=== PATIENT | female | born 1940 | race African-American/Black ===

== ENCOUNTER 2017-10-31 10:50 | Inpatient (IN) | payer MEDICAID ==
[~2017-10-31] VITALS: Ht 162.6 cm; Wt 99.8 kg
[~2017-10-31 10:50] MED LIST: CARVEDILOL25 MG ORAL; COUMADIN6 MG ORAL; DIOVAN HCT 3201 EAC1 ORAL; FUROSEMIDE20 M1 ORAL; LATANOPROST2.5 ML BOTH EYES; METFORMIN HCL1000 M1 ORAL; PROAIR HFA8.5 GM INH; SIMVASTATIN40 MG ORAL
[2017-10-31] MEDS ORDERED: SIMVASTATIN40 MG ORAL (11:02)
[2017-10-31] MEDS ORDERED: LOSARTAN POTASS50 MG ORAL (11:02)
[2017-10-31] MEDS ORDERED: SPIRONOLACTONE1 EACH ORAL (11:03)
--- NOTE | 2017-10-31 11:37 | Emergency Room Report ---
History of Present Illness General Chief Complaint: Upper Respiratory Illness Source: Patient, Family Member Present Illness HPI 76-year-old female with history of asthma, CHF, and known atrial fib presents with one month of intermittent shortness of breath. Went to PMD earlier in the month, was given an albuterol inhaler nebulizer machine for home. She endorses progressive shortness of breath especially when ambulating. Denies cough, fever chills or chest pain. Patient on anticoagulation and carbetalol for rate control Allergies: Coded Allergies: No Known Allergies (Unverified , 05/24/12) Patient History Past Medical History: other - see HPI Past Surgical History: none Pertinent Family History: none Social History: Denies: smoking, alcohol use, drug use Now: No Immunizations: UTD Reviewed Nursing Documentation: PMH: Agreed, PSxH: Agreed Nursing Documentation-PMH Hx Cardiac Problems: Yes - CHF Hx Hypertension: Yes Hx Asthma: Yes Hx Diabetes: Yes Hx Cancer: No Hx Gastrointestinal Problems: No Hx Neurological Problems: No Review of Systems All Other Systems: negative except mentioned in HPI Physical Exam Vital Signs Date Time Temp Pulse Resp B/P (MAP) Pulse Ox O2 Delivery O2 Flow Rate FiO2 10/31/17 10:58 97.7 126 20 93/58 100 Room Air Sp02 EP Interpretation: reviewed, normal General Appearance: normal inspection, well appearing, no apparent distress, alert, GCS 15, non-toxic, obese Head: normocephalic, atraumatic Eyes: bilateral eye PERRL, bilateral eye EOMI ENT: normal ENT inspection, hearing grossly normal, normal pharynx, no angioedema, normal voice, TMs + canals normal, uvula midline, moist mucus membranes Neck: normal inspection, full range of motion, supple, thyroid normal, no meningismus, no bony tend Respiratory: normal inspection, lungs clear, normal breath sounds, no rhonchi, no respiratory distress, no retraction, no accessory muscle use, speaking full sentences, wheezing Cardiovascular #1: regular rate, rhythm, no edema, no JVD, normal capillary refill Gastrointestinal: normal inspection, normal bowel sounds, non tender, soft, no mass, no peritonitis, non-distended, no guarding, no hernia, no pulsatile mass Genitourinary: no CVA tenderness Musculoskeletal: normal inspection, back normal, normal range of motion, no calf tenderness, pelvis stable, Iram's Sign negative Neurologic: normal inspection, alert, oriented x3, responsive, job developer for deaf adults III-XII nml as tested, motor strength/tone normal, cerebellar normal, normal gait, speech normal Psychiatric: normal inspection, judgement/insight normal, mood/affect normal, no suicidal/homicidal ideation, no delusions Skin: normal inspection, normal color, no rash Lymphatic: normal inspection, no adenopathy Medical Decision Making Diagnostic Impression: Primary Impression: Dyspnea Qualified Codes: R06.00 - Dyspnea, unspecified Additional Impressions: Asthma exacerbation Qualified Codes: J45.21 - Mild intermittent asthma with (acute) exacerbation Atrial fibrillation with controlled ventricular rate Hyperkalemia TIFFANIE (acute kidney injury) CKD (chronic kidney disease) Qualified Codes: N18.9 - Chronic kidney disease, unspecified ER Course 68-year-old female with multiple comorbidities presents with one month of shortness of breath. Found to be in acute asthma exacerbation. Was treated with levalbuterol as HR already elevated d/t poorly controlled atrial fib Patient borderline hypotensive, cannot be given her dose of carvedilol Chest x-ray does not show pneumonia or other acute pathology. Patient was treated also with mag and steroids Labs significant for hyperkalemia 5.5, however she also has elevated creatinine , TIFFANIE, on CKD Hyperkalemia was treated with let albuterol, and IV fluid, and Kayexalate She was not given insulin and glucose d/t low glucose level Endorse to Dr. Stewart as unassigned patient/panel admit Tele bed 1230pm EKG Diagnostic Results Rate: tachycardiac Rhythm: other - Atrial fib ST Segments: no acute changes ASA given to the pt in ED: No Rhythm Strip Diag. Results EP Interpretation: yes Rate: 110 Rhythm: no PVC's, no ectopy Chest X-Ray Diagnostic Results Chest X-Ray Diagnostic Results : Chest X-Ray Ordered: Yes # of Views/Limited/Complete: 1 View Indication: Shortness of Breath EP Interpretation: Yes PA Xray: Interpretation reviewed Interpretation: no consolidation, no effusion, no pneumothorax, no acute cardiopulmonary disease Impression: No acute disease Electronically Signed by: Dr Stephy Carlos MD Last Vital Signs Date Time Temp Pulse Resp B/P (MAP) Pulse Ox O2 Delivery O2 Flow Rate FiO2 10/31/17 11:20 22 10/31/17 10:58 97.7 126 93/58 100 Room Air Status: improved Disposition: ADMITTED INPATIENT Condition: Serious Referrals: NON PHYSICIAN (PCP) STEPHY CARLOS M.D. Oct 31, 2017 11:37
[2017-10-31] MEDS ORDERED: Levalbuterol Inh UD 1.25mg/0.5ml HHN ONE ×2 (11:45→15:30)
--- NOTE | 2017-10-31 12:12 | Diagnostic Imaging Report ---
Indication: Reason For Exam: SOB Technique: One view of the chest Comparison: 02/16/2014 Findings: On the lateral spaces are clear. The heart is enlarged. No significant change Impression: No acute process
[2017-10-31 12:13] LABS: BASOPHILS % (AUTO) 0.6 % (0.0-2.0); EOSINOPHILS % (AUTO) 2.1 % (0.0-3.0); HEMATOCRIT 33.9 % (37.0-47.0); HEMOGLOBIN 10.9 G/DL (12.0-16.0); LYMPHOCYTES % (AUTO) 17.3 % (20.0-45.0); MEAN CORPUSCULAR VOLUME 90 FL (80-99); MONOCYTES % (AUTO) 9.5 % (1.0-10.0); NEUTROPHILS % (AUTO) 70.6 % (45.0-75.0); PLATELET COUNT 108 K/UL (150-450); RED BLOOD COUNT 3.75 M/UL (4.20-5.40); WHITE BLOOD COUNT 6.1 K/UL (4.8-10.8)
[2017-10-31 12:30] VITALS: BP 104/74
[2017-10-31 12:30] LABS: ANION GAP 11 mmol/L (5-15); BLOOD UREA NITROGEN 53 mg/dL (7-18); CALCIUM 8.1 MG/DL (8.5-10.1); CARBON DIOXIDE 20 MMOL/L (21-32); CHLORIDE 112 MMOL/L (98-107); CREATININE 2.5 MG/DL (0.55-1.30); POTASSIUM 5.5 MMOL/L (3.5-5.1); SODIUM 143 MMOL/L (136-145)
[2017-10-31] MEDS ORDERED: Sodium Polystyrene Sulfonate 15gm Powder ORAL ONE (12:45)
[2017-10-31] MEDS ORDERED: Calcium Gluconate 1gm/10ml vial IVP ONE (12:45)
[2017-10-31 12:58] LABS: ALANINE AMINOTRANSFERASE 17 U/L (12-78); ALBUMIN 3.5 G/DL (3.4-5.0); ALKALINE PHOSPHATASE 73 U/L (46-116); ASPARTATE AMINO TRANSFERASE 18 U/L (15-37); BILIRUBIN,TOTAL 1.1 MG/DL (0.2-1.0); CKMB 1.1 NG/ML (0.0-3.6); CREATINE KINASE 64 U/L (26-308)
[2017-10-31 13:52] LABS: BILIRUBIN,DIRECT 0.4 MG/DL (0.0-0.3)
[2017-10-31 14:46] VITALS: BP 107/77
[2017-10-31] MEDS ORDERED: Nitroglycerin Subl 0.4mg tab SL PRN (16:30)
[2017-10-31] MEDS ORDERED: Warfarin Sodium 3mg ORAL SCH (17:00)
[2017-10-31] MEDS ORDERED: Albuterol/Ipratropium 3ml neb HHN PRN (17:00)
[2017-10-31] MEDS: NovoLOG Insulin Flexpen SUBQ SCH ×2 (17:00→21:00)
--- NOTE | 2017-10-31 17:03 | Nephrology Progress Note ---
Assessment/Plan Problem List: (1) Diabetes (2) HLD (hyperlipidemia) (3) Atrial fibrillation with RVR (4) CHF exacerbation (5) Hyperkalemia (6) CKD (chronic kidney disease) (7) Dyspnea (8) Asthma exacerbation Plan H&P dictated # [id number] Subjective Constitutional: Denies: no symptoms, chills, diaphoresis, fever, malaise, weakness, other HEENT: Denies: no symptoms, eye pain, blurred vision, tearing, double vision, ear pain, ear discharge, nose pain, nose congestion, throat pain, throat swelling, mouth pain, mouth swelling, other Genitourinary: Denies: no symptoms, burning, discharge, frequency, flank pain, hematuria, incontinence, pain, urgency, other Neurologic/Psychiatric: Denies: no symptoms, anxiety, depressed, emotional problems, headache, numbness, paresthesia, pre-existing deficit, seizure, tingling, tremors, weakness, other Subjective In bed, in no distress Objective Objective Last 24 Hour Vital Signs Date Time Temp Pulse Resp B/P (MAP) Pulse Ox O2 Delivery O2 Flow Rate FiO2 10/31/17 16:09 139 22 98 Room Air 10/31/17 15:46 130 21 119/103 100 Room Air 10/31/17 14:46 97.7 117 20 107/77 99 Room Air 10/31/17 13:09 131 15 100 Room Air 10/31/17 13:06 130 16 96 Room Air 10/31/17 13:05 127 14 Room Air 10/31/17 12:30 97.6 110 16 104/74 99 Room Air 10/31/17 11:45 133 105/74 10/31/17 11:20 22 10/31/17 10:58 97.7 126 20 93/58 100 Room Air Laboratory Tests 10/31/17 12:00: White Blood Count 6.1, Red Blood Count 3.75L, Hemoglobin 10.9L, Hematocrit 33.9L , Mean Corpuscular Volume 90, Mean Corpuscular Hemoglobin 29.1, Mean Corpuscular Hemoglobin Concent 32.3, Red Cell Distribution Width 15.0H, Platelet Count 108L, Mean Platelet Volume 10.3H, Neutrophils (%) (Auto) 70.6, Lymphocytes (%) (Auto) 17.3L, Monocytes (%) (Auto) 9.5, Eosinophils (%) (Auto) 2.1, Basophils (%) (Auto) 0.6, Sodium Level 143, Potassium Level 5.5H, Chloride Level 112H, Carbon Dioxide Level 20L, Anion Gap 11, Blood Urea Nitrogen 53H, Creatinine 2.5H, Estimat Glomerular Filtration Rate , Glucose Level 106, Calcium Level 8.1L, Total Bilirubin 1.1H, Direct Bilirubin 0.4H, Aspartate Amino Transf (AST/SGOT) 18, Alanine Aminotransferase (ALT/SGPT) 17, Alkaline Phosphatase 73, Total Creatine Kinase 64, Creatine Kinase MB 1.1, Creatine Kinase MB Relative Index 1.7, Troponin I 0.097H, Pro-B-Type Natriuretic Peptide 7126H, Total Protein 7.0, Albumin 3.5, Globulin 3.5, Albumin/Globulin Ratio 1.0 Height (Feet): 5 Height (Inches): 4.00 Weight (Pounds): 240 General Appearance: no apparent distress, alert EENT: normal ENT inspection Neck: normal alignment, supple Cardiovascular: other - AFIB Respiratory/Chest: decreased breath sounds Abdomen: non tender, soft Extremities: non-tender, moderate edema Neurologic: alert, oriented x 3, responsive, normal mood/affect Merline Thornton N.P. Oct 31, 2017 17:03
[2017-10-31] MEDS ORDERED: Enoxaparin 40mg Inj SUBQ SCH (17:30)
[2017-10-31] MEDS ORDERED: Furosemide 40mg tab ORAL ONE (18:00)
--- NOTE | 2017-10-31 18:15 | HX and Phyl Repo 2 Sig ---
DATE OF ADMISSION: 10/31/2017 INTERNAL MEDICINE HISTORY AND PHYSICAL HISTORY OF PRESENT ILLNESS: The patient is a 76-year-old female with a past medical history significant for asthma, hypertension, chronic atrial fibrillation, chronic kidney disease, congestive heart failure, diabetes, hyperlipidemia, and anemia, who presented to the emergency room with worsening shortness of breath. According to the patient, she has been getting short of breath for a while now about three months and recently it has worsened, which prompted her visit to the emergency room. She says that she gets really short of breath when she tries to climb the stairs to her bedroom and also sleeps with about four pillows. She denies chest pain. No nausea. No vomiting. No abdominal pain. Denies any headache or lightheadedness. She has been on the bed at this time in no apparent distress. She stated that she was wheezing earlier, but that she feels better at this time. Denies fever or chills. Also in the ED, the patient was noted to have elevated troponin, hyperkalemia, as well as elevated BUN and creatinine. PAST MEDICAL HISTORY: Significant for congestive heart failure, asthma, atrial fibrillation, chronic kidney disease, diabetes, hyperlipidemia, and anemia. MEDICATIONS: Home medications include albuterol inhaler 2 puffs q.6 hours p.r.n., carvedilol 25 mg p.o. b.i.d., furosemide 80 mg p.o. daily, Xalatan eyedrops nightly, losartan 100 mg p.o. daily, metformin 1000 mg p.o. daily, simvastatin 40 mg p.o. nightly, Diovan 320/25 mg daily, spironolactone 25 mg p.o. daily, and Coumadin 4 mg p.o. daily. ALLERGIES: She has no known allergies. SOCIAL HISTORY: She lives at home with her daughter. Denies any alcohol use. No smoking and no use of illicit drugs. FAMILY HISTORY: Noncontributory. REVIEW OF SYSTEMS: A full 12-point review of system was reviewed with the patient and positives as mentioned in the history of present illness. PHYSICAL EXAMINATION: GENERAL: This is a 76-year-old female, lying in bed, in no apparent distress. VITAL SIGNS: Blood pressure 119/103, heart rate is 130, respiratory rate is 21, temperature is 97.7, and O2 saturation is 98% on room air. HEENT: Head is normocephalic and atraumatic. Pupils are equal, round, and reactive to light and accommodation. NECK: Supple. No JVD noted. LUNGS: Diminished bilaterally. CARDIOVASCULAR: Irregular. The patient is in atrial fibrillation. ABDOMEN: Soft. Mildly distended. Nontender. Positive bowel sounds in all four quadrants. EXTREMITIES: Bilateral lower extremity edema, 1+ noted. Also some discoloration noted on bilateral lower feet. NEUROLOGIC: The patient is awake, alert, and oriented x3 with no focal deficits. LABORATORY DATA: CBC, white count is 6.1, hemoglobin 10.9, hematocrit 33.9, and a platelet count of 108,000. BMP, sodium is 143, potassium 5.5, chloride 112, bicarb 20, BUN 53, creatinine 2.5, and blood glucose 106. Calcium is 8.1. Total bilirubin 1.1 and direct bilirubin 0.4. Troponin 0.097. ProBNP 7126. RADIOLOGIC FINDINGS: Chest x-ray findings, the lateral are clear. The heart size is enlarged. No significant change. Impression, no acute process. ASSESSMENT: 1. Asthma exacerbation. 2. Congestive heart failure. 3. Atrial fibrillation. 4. Hyperkalemia. 5. Acute renal failure on chronic kidney disease. 6. Elevated troponin. 7. Diabetes. 8. Hyperlipidemia. PLAN: Cardiology and Pulmonology consults have been requested. We will obtain a renal ultrasound. We will monitor electrolytes and correct as needed. We will continue home medications except metformin. We will monitor renal functions. We will continue warfarin as well. We will continue DuoNeb q.4 hours scheduled and q.2 hours p.r.n. shortness of breath. Renally dose medications and avoid nephrotoxins. We will monitor vitals. Strict intake and output. Pain management as needed. We will monitor the patient's overall response to treatment. Juan Donohue M.D. Merline Egwu DR: DAGMAR JOB#: [id number] CC: DARIUS
[2017-10-31] MEDS: Albuterol/Ipratropium 3ml neb HHN SCH ×2 (19:00→23:00)
[2017-10-31 19:07] LABS: INR 5.2 (0.9-1.1)
--- NOTE | 2017-10-31 19:12 | Cardiac Electrophysiology PN ---
Subjective Subjective [id number]. Fib rate 130s Objective Last 24 Hour Vital Signs Date Time Temp Pulse Resp B/P (MAP) Pulse Ox O2 Delivery O2 Flow Rate FiO2 10/31/17 16:09 139 22 98 Room Air 10/31/17 16:00 108 10/31/17 15:46 130 21 119/103 100 Room Air 10/31/17 14:46 97.7 117 20 107/77 99 Room Air 10/31/17 13:09 131 15 100 Room Air 10/31/17 13:06 130 16 96 Room Air 10/31/17 13:05 127 14 Room Air 10/31/17 12:30 97.6 110 16 104/74 99 Room Air 10/31/17 11:45 133 105/74 10/31/17 11:20 22 10/31/17 10:58 97.7 126 20 93/58 100 Room Air Laboratory Tests Test 10/31/17 12:00 10/31/17 18:05 White Blood Count 6.1 K/UL (4.8-10.8) Red Blood Count 3.75 M/UL (4.20-5.40) L Hemoglobin 10.9 G/DL (12.0-16.0) L Hematocrit 33.9 % (37.0-47.0) L Mean Corpuscular Volume 90 FL (80-99) Mean Corpuscular Hemoglobin 29.1 PG (27.0-31.0) Mean Corpuscular Hemoglobin Concent 32.3 G/DL (32.0-36.0) Red Cell Distribution Width 15.0 % (11.6-14.8) H Platelet Count 108 K/UL (150-450) L Mean Platelet Volume 10.3 FL (6.5-10.1) H Neutrophils (%) (Auto) 70.6 % (45.0-75.0) Lymphocytes (%) (Auto) 17.3 % (20.0-45.0) L Monocytes (%) (Auto) 9.5 % (1.0-10.0) Eosinophils (%) (Auto) 2.1 % (0.0-3.0) Basophils (%) (Auto) 0.6 % (0.0-2.0) Sodium Level 143 MMOL/L (136-145) Potassium Level 5.5 MMOL/L (3.5-5.1) H Chloride Level 112 MMOL/L (98-107) H Carbon Dioxide Level 20 MMOL/L (21-32) L Anion Gap 11 mmol/L (5-15) Blood Urea Nitrogen 53 mg/dL (7-18) H Creatinine 2.5 MG/DL (0.55-1.30) H Estimat Glomerular Filtration Rate mL/min (>60) Glucose Level 106 MG/DL (74-106) Calcium Level 8.1 MG/DL (8.5-10.1) L Total Bilirubin 1.1 MG/DL (0.2-1.0) H Direct Bilirubin 0.4 MG/DL (0.0-0.3) H Aspartate Amino Transf (AST/SGOT) 18 U/L (15-37) Alanine Aminotransferase (ALT/SGPT) 17 U/L (12-78) Alkaline Phosphatase 73 U/L (46-116) Total Creatine Kinase 64 U/L (26-308) Creatine Kinase MB 1.1 NG/ML (0.0-3.6) Creatine Kinase MB Relative Index 1.7 Troponin I 0.097 ng/mL (0.000-0.056) Pro-B-Type Natriuretic Peptide 7126 pg/mL (0-125) H Total Protein 7.0 G/DL (6.4-8.2) Albumin 3.5 G/DL (3.4-5.0) Globulin 3.5 g/dL Albumin/Globulin Ratio 1.0 (1.0-2.7) Prothrombin Time 55.8 SEC (9.30-11.50) H Prothromb Time International Ratio 5.2 (0.9-1.1) *ASH KRAUSE Oct 31, 2017 19:12
[2017-10-31] MEDS ORDERED: Digoxin 0.5mg/2ml Inj IVP ONE ×2 (19:35→20:00)
[2017-10-31 20:00] VITALS: BP 120/90
[2017-10-31] MEDS: Latanoprost 0.005% Opth 2.5ml Soln BOTH EYES SCH (20:52)
[2017-10-31] MEDS: Atorvastatin 20mg tab ORAL SCH (20:54)
[2017-10-31] MEDS: Carvedilol 25mg Tab ORAL SCH (20:54)
--- NOTE | 2017-10-31 23:45 | Consultation ---
DATE OF CONSULTATION: 10/31/2017 CARDIAC ELECTROPHYSIOLOGY CONSULTATION CONSULTING PHYSICIAN: Biju Rhoades M.D. REFERRING PHYSICIAN: Juan Donohue M.D. REASON FOR CONSULTATION: Hypertension and atrial fibrillation. HISTORY OF PRESENT ILLNESS: The patient is a 76-year-old lady with a history of hypertension, chronic atrial fibrillation, asthma, chronic kidney disease, congestive heart failure, hyperlipidemia, and anemia, presented to the emergency room complaining of increasing shortness of breath that has been going on for last three months. The patient came to the emergency room, was admitted, and a Cardiology consultation was obtained for further evaluation. The patient was also noted to have elevated troponin as well as BUN and creatinine. PAST MEDICAL HISTORY: As mentioned above. MEDICATIONS: Per reconciliation including Coreg 25 mg b.i.d., Lasix, losartan, metformin, Zocor, Diovan, Aldactone, and Coumadin. ALLERGIES: The patient has no known drug allergies. SOCIAL HISTORY: Lives with her daughter at home. Does not smoke or drink alcohol. FAMILY HISTORY: Noncontributory. REVIEW OF SYSTEMS: Review of systems was negative other than what was mentioned in the history of present illness. PHYSICAL EXAMINATION: VITAL SIGNS: Blood pressure is 119/103, pulse is 139, respirations 18, and she is afebrile. HEAD AND NECK: No JVD. LUNGS: Decreased breath sounds. CARDIOVASCULAR: Irregularly irregular, tachycardic, S1 and S2 with no gallop or murmur. ABDOMEN: Soft and nontender. EXTREMITIES: A 1+ pitting edema. LABORATORY AND DIAGNOSTIC DATA: Her labs show white count of 6.1, hemoglobin of 10.9, hematocrit of 34, and platelet count of 108. Sodium 142, potassium 5.5, BUN of 53, creatinine 2.5, and glucose of 106. Troponin is 0.97. BNP is 7126. ASSESSMENT AND PLAN: 1. Troponin leak, likely due to the patient's renal failure. The creatinine is 2.5. The patient does not have any chest pain, however, has clinical congestive heart failure. We will get an echocardiogram for further evaluation. In the meantime, continue the patient on Coreg and Lipitor and aspirin. 2. Atrial fibrillation with rapid ventricular response. The patient will be on Coreg 25 mg b.i.d. and may need additional dose of digoxin. The patient is also on Coumadin per pharmacy. Her INR is pending. 3. Congestive heart failure with elevated BNP. A 2D echocardiogram is pending. volume overload. 4. Asthma exacerbation. 5. Acute on chronic renal failure. 6. Diabetes. 7. Hyperlipidemia. Thank you very much, Dr. Donohue, for allowing me to participate in the care of this patient. Please do not hesitate to contact me for any questions regarding my evaluation. Biju Rhoades M.D. DR: TIERNEY JOB#: [id number] CC:
[2017-11-01] MEDS: Albuterol/Ipratropium 3ml neb HHN SCH ×5 (03:00→19:25)
[2017-11-01 04:00] VITALS: BP 109/59
[2017-11-01] MEDS: NovoLOG Insulin Flexpen SUBQ SCH ×4 (06:30→21:00)
[2017-11-01 08:07] LABS: ANION GAP 11 mmol/L (5-15); BLOOD UREA NITROGEN 50 mg/dL (7-18); CALCIUM 8.4 MG/DL (8.5-10.1); CARBON DIOXIDE 21 MMOL/L (21-32); CHLORIDE 111 MMOL/L (98-107); CHOLESTEROL 81 MG/DL (< 200); CREATININE 2.1 MG/DL (0.55-1.30); HDL CHOLESTEROL 39 MG/DL (40-60); POTASSIUM 5.2 MMOL/L (3.5-5.1); SODIUM 142 MMOL/L (136-145); TRIGLYCERIDES 38 MG/DL (30-150)
[2017-11-01] MEDS: Carvedilol 25mg Tab ORAL SCH ×2 (08:43→21:15)
[2017-11-01 08:44] LABS: INR 5.1 (0.9-1.1)
[2017-11-01 08:45] VITALS: BP 114/50
--- NOTE | 2017-11-01 11:04 | Infectious Diseases Prog Note ---
Assessment/Plan Problems: (1) Asthma exacerbation Assessment & Plan: will start ceftriaxon and screen for influenza , continue inhalers (2) Acute bronchitis Assessment & Plan: will send sputum culture and screen for influenza (3) Dyspnea Assessment & Plan: due to the above , continue nebulizers and oxygen, repeat CXR to rule out new infiltrates (4) Atrial fibrillation with controlled ventricular rate Assessment & Plan: continue cardiac meds , consult cardiology Subjective Allergies: Coded Allergies: No Known Allergies (Unverified , 05/24/12) Objective Vital Signs Last 24 Hour Vital Signs Date Time Temp Pulse Resp B/P (MAP) Pulse Ox O2 Delivery O2 Flow Rate FiO2 11/01/17 08:45 97.2 115 20 114/50 98 Room Air 11/01/17 08:43 115 114/50 11/01/17 07:34 Nasal Cannula 2.0 28 11/01/17 07:34 Nasal Cannula 2.0 11/01/17 04:00 121 11/01/17 04:00 97.0 60 18 109/59 100 11/01/17 03:47 Room Air 11/01/17 03:47 Room Air 11/01/17 00:00 130 10/31/17 23:37 Room Air 10/31/17 23:37 Room Air 10/31/17 20:54 113 120/90 10/31/17 20:33 Room Air 10/31/17 20:31 Room Air 10/31/17 20:03 147 10/31/17 20:00 97.0 113 20 120/90 99 10/31/17 16:09 139 22 98 Room Air 10/31/17 16:00 108 10/31/17 15:46 130 21 119/103 100 Room Air 10/31/17 14:46 97.7 117 20 107/77 99 Room Air 10/31/17 13:09 131 15 100 Room Air 10/31/17 13:06 130 16 96 Room Air 10/31/17 13:05 127 14 Room Air 10/31/17 12:30 97.6 110 16 104/74 99 Room Air 10/31/17 11:45 133 105/74 10/31/17 11:20 22 Height (Feet): 5 Height (Inches): 4.00 Weight (Pounds): 245 Laboratory Tests Test 10/31/17 12:00 10/31/17 18:05 11/01/17 06:10 White Blood Count 6.1 K/UL (4.8-10.8) Red Blood Count 3.75 M/UL (4.20-5.40) L Hemoglobin 10.9 G/DL (12.0-16.0) L Hematocrit 33.9 % (37.0-47.0) L Mean Corpuscular Volume 90 FL (80-99) Mean Corpuscular Hemoglobin 29.1 PG (27.0-31.0) Mean Corpuscular Hemoglobin Concent 32.3 G/DL (32.0-36.0) Red Cell Distribution Width 15.0 % (11.6-14.8) H Platelet Count 108 K/UL (150-450) L Mean Platelet Volume 10.3 FL (6.5-10.1) H Neutrophils (%) (Auto) 70.6 % (45.0-75.0) Lymphocytes (%) (Auto) 17.3 % (20.0-45.0) L Monocytes (%) (Auto) 9.5 % (1.0-10.0) Eosinophils (%) (Auto) 2.1 % (0.0-3.0) Basophils (%) (Auto) 0.6 % (0.0-2.0) Sodium Level 143 MMOL/L (136-145) 142 MMOL/L (136-145) Potassium Level 5.5 MMOL/L (3.5-5.1) H 5.2 MMOL/L (3.5-5.1) H Chloride Level 112 MMOL/L (98-107) H 111 MMOL/L (98-107) H Carbon Dioxide Level 20 MMOL/L (21-32) L 21 MMOL/L (21-32) Anion Gap 11 mmol/L (5-15) 11 mmol/L (5-15) Blood Urea Nitrogen 53 mg/dL (7-18) H 50 mg/dL (7-18) H Creatinine 2.5 MG/DL (0.55-1.30) H 2.1 MG/DL (0.55-1.30) H Estimat Glomerular Filtration Rate mL/min (>60) mL/min (>60) Glucose Level 106 MG/DL (74-106) 139 MG/DL (74-106) H Calcium Level 8.1 MG/DL (8.5-10.1) L 8.4 MG/DL (8.5-10.1) L Total Bilirubin 1.1 MG/DL (0.2-1.0) H Direct Bilirubin 0.4 MG/DL (0.0-0.3) H Aspartate Amino Transf (AST/SGOT) 18 U/L (15-37) Alanine Aminotransferase (ALT/SGPT) 17 U/L (12-78) Alkaline Phosphatase 73 U/L (46-116) Total Creatine Kinase 64 U/L (26-308) Creatine Kinase MB 1.1 NG/ML (0.0-3.6) Creatine Kinase MB Relative Index 1.7 Troponin I 0.097 ng/mL (0.000-0.056) 0.101 ng/mL (0.000-0.056) Pro-B-Type Natriuretic Peptide 7126 pg/mL (0-125) H 50183 pg/mL (0-125) H Total Protein 7.0 G/DL (6.4-8.2) Albumin 3.5 G/DL (3.4-5.0) Globulin 3.5 g/dL Albumin/Globulin Ratio 1.0 (1.0-2.7) Prothrombin Time 55.8 SEC (9.30-11.50) H 54.9 SEC (9.30-11.50) H Prothromb Time International Ratio 5.2 (0.9-1.1) *H 5.1 (0.9-1.1) *H Hemoglobin A1c 6.4 % (4.3-6.0) H Triglycerides Level 38 MG/DL (30-150) Cholesterol Level 81 MG/DL (< 200) LDL Cholesterol 41 mg/dL (<100) HDL Cholesterol 39 MG/DL (40-60) L Cholesterol/HDL Ratio 2.1 (3.3-4.4) L Thyroid Stimulating Hormone (TSH) 0.753 uiU/mL (0.358-3.740) Free Thyroxine 1.33 NG/DL (0.76-1.46) Digoxin Level 0.5 NG/ML (0.9-2.0) L Current Medications Medications (Trade) Dose Ordered Sig/Ernesto Route PRN Reason Start Time Stop Time Status Last Admin Dose Admin Acetaminophen (Tylenol) 650 mg Q4H PRN ORAL Mild Pain (Pain Scale 1-3) 10/31/17 16:30 11/30/17 16:29 Albuterol/ Ipratropium (Albuterol/ Ipratropium) 3 ml Q2H PRN HHN Shortness of Breath 10/31/17 17:00 11/05/17 16:59 Albuterol/ Ipratropium (Albuterol/ Ipratropium) 3 ml Q4HRT HHN 10/31/17 19:00 11/05/17 18:59 Atorvastatin Calcium (Lipitor) 40 mg BEDTIME ORAL 10/31/17 21:00 11/30/17 20:59 10/31/17 20:54 Carvedilol (Coreg) 25 mg EVERY 12 HOURS ORAL 10/31/17 21:00 11/30/17 20:59 11/01/17 08:43 Ceftriaxone Sodium 2 gm/ Dextrose 55 ml @ 110 mls/hr Q24H IVPB 11/01/17 11:15 11/08/17 11:14 UNV Dextrose (Dextrose 50%) STAT PRN IV Hypoglycemia 10/31/17 16:30 11/30/17 16:29 Insulin Aspart (NovoLOG) BEFORE MEALS AND HS SUBQ 10/31/17 17:00 11/30/17 16:59 Latanoprost (Xalatan) 1 drop BEDTIME BOTH EYES 10/31/17 21:00 11/30/17 20:59 10/31/17 20:52 Nitroglycerin (Ntg) 0.4 mg Q5MIN X 3 DOSES PRN SL Prn Chest Pain 10/31/17 16:30 11/30/17 16:29 Ondansetron HCl (Zofran) 4 mg Q6H PRN IVP Nausea & Vomiting 10/31/17 16:30 11/30/17 16:29 Pantoprazole (Protonix) 40 mg DAILY ORAL 11/01/17 09:00 12/01/17 08:59 11/01/17 08:43 Warfarin Sodium (Coumadin per pharmacy) 1 ea DAILYPRN PRN MISC RX TO DOSE WARFARIN PER PROTOC 10/31/17 18:00 11/30/17 17:59 Erika Huang M.D. Nov 01, 2017 11:04
--- NOTE | 2017-11-01 11:04 | Nephrology Progress Note ---
Assessment/Plan Problem List: (1) Asthma exacerbation (2) Diabetes (3) HLD (hyperlipidemia) (4) Dyspnea (5) Hyperkalemia (6) CKD (chronic kidney disease) (7) TIFFANIE (acute kidney injury) (8) CHF exacerbation (9) Atrial fibrillation with RVR Plan Cardio following. ID consulted. Repeat CXR. NEB breathing tx. Subjective Subjective has productive cough with clear sputum. Objective Objective Last 24 Hour Vital Signs Date Time Temp Pulse Resp B/P (MAP) Pulse Ox O2 Delivery O2 Flow Rate FiO2 11/01/17 08:45 97.2 115 20 114/50 98 Room Air 11/01/17 08:43 115 114/50 11/01/17 07:34 Nasal Cannula 2.0 28 11/01/17 07:34 Nasal Cannula 2.0 11/01/17 04:00 121 11/01/17 04:00 97.0 60 18 109/59 100 11/01/17 03:47 Room Air 11/01/17 03:47 Room Air 11/01/17 00:00 130 10/31/17 23:37 Room Air 10/31/17 23:37 Room Air 10/31/17 20:54 113 120/90 10/31/17 20:33 Room Air 10/31/17 20:31 Room Air 10/31/17 20:03 147 10/31/17 20:00 97.0 113 20 120/90 99 10/31/17 16:09 139 22 98 Room Air 10/31/17 16:00 108 10/31/17 15:46 130 21 119/103 100 Room Air 10/31/17 14:46 97.7 117 20 107/77 99 Room Air 10/31/17 13:09 131 15 100 Room Air 10/31/17 13:06 130 16 96 Room Air 10/31/17 13:05 127 14 Room Air 10/31/17 12:30 97.6 110 16 104/74 99 Room Air 10/31/17 11:45 133 105/74 10/31/17 11:20 22 Intake and Output 10/31/17 11/01/17 19:00 07:00 Intake Total 1350 ml Balance 1350 ml Intake Oral 250 ml IV Total 1100 ml # Bowel Movements 2 1 Laboratory Tests 10/31/17 12:00: White Blood Count 6.1, Red Blood Count 3.75L, Hemoglobin 10.9L, Hematocrit 33.9L , Mean Corpuscular Volume 90, Mean Corpuscular Hemoglobin 29.1, Mean Corpuscular Hemoglobin Concent 32.3, Red Cell Distribution Width 15.0H, Platelet Count 108L, Mean Platelet Volume 10.3H, Neutrophils (%) (Auto) 70.6, Lymphocytes (%) (Auto) 17.3L, Monocytes (%) (Auto) 9.5, Eosinophils (%) (Auto) 2.1, Basophils (%) (Auto) 0.6, Sodium Level 143, Potassium Level 5.5H, Chloride Level 112H, Carbon Dioxide Level 20L, Anion Gap 11, Blood Urea Nitrogen 53H, Creatinine 2.5H, Estimat Glomerular Filtration Rate , Glucose Level 106, Calcium Level 8.1L, Total Bilirubin 1.1H, Direct Bilirubin 0.4H, Aspartate Amino Transf (AST/SGOT) 18, Alanine Aminotransferase (ALT/SGPT) 17, Alkaline Phosphatase 73, Total Creatine Kinase 64, Creatine Kinase MB 1.1, Creatine Kinase MB Relative Index 1.7, Troponin I 0.097H, Pro-B-Type Natriuretic Peptide 7126H, Total Protein 7.0, Albumin 3.5, Globulin 3.5, Albumin/Globulin Ratio 1.0 10/31/17 18:05: Prothrombin Time 55.8H, Prothromb Time International Ratio 5.2*H 11/01/17 06:10: Sodium Level 142, Potassium Level 5.2H, Chloride Level 111H, Carbon Dioxide Level 21, Anion Gap 11, Blood Urea Nitrogen 50H, Creatinine 2.1H, Estimat Glomerular Filtration Rate , Glucose Level 139H, Calcium Level 8.4L, Troponin I 0.101H, Pro-B-Type Natriuretic Peptide 32253D, Prothrombin Time 54.9H, Prothromb Time International Ratio 5.1*H, Hemoglobin A1c 6.4H, Triglycerides Level 38, Cholesterol Level 81, LDL Cholesterol 41, HDL Cholesterol 39L, Cholesterol/HDL Ratio 2.1L, Thyroid Stimulating Hormone (TSH) 0.753, Free Thyroxine 1.33, Digoxin Level 0.5L Height (Feet): 5 Height (Inches): 4.00 Weight (Pounds): 245 General Appearance: no apparent distress Cardiovascular: normal rate, regular rhythm Respiratory/Chest: rhonchi - bilaterally, expiratory wheezing Abdomen: non tender, soft Extremities: trace edema Neurologic: alert, oriented x 3 RANDY VILLARREAL Nov 01, 2017 11:04
--- NOTE | 2017-11-01 11:07 | Consultation ---
Consult Note Consult Note PULMONARY CONSULTATION HISTORY OF PRESENT ILLNESS: The patient is a 76-year-old female with a past medical history significant for asthma, hypertension, chronic atrial fibrillation, chronic kidney disease, congestive heart failure, diabetes, hyperlipidemia, and anemia, who presented to the emergency room with worsening shortness of breath. According to the patient, she has been getting short of breath for a while now about three months and recently it has worsened, which prompted her visit to the emergency room. She says that she gets really short of breath when she tries to climb the stairs to her bedroom and also sleeps with about four pillows. She denies chest pain. No nausea. No vomiting. No abdominal pain. Denies any headache or lightheadedness. She has been on the bed at this time in no apparent distress. She stated that she was wheezing earlier, but that she feels better at this time. Denies fever or chills. Also in the ED, the patient was noted to have elevated troponin, hyperkalemia, as well as elevated BUN and creatinine. PAST MEDICAL HISTORY: Significant for congestive heart failure, asthma, atrial fibrillation, chronic kidney disease, diabetes, hyperlipidemia, and anemia. MEDICATIONS: Home medications include albuterol inhaler 2 puffs q.6 hours p.r.n., carvedilol 25 mg p.o. b.i.d., furosemide 80 mg p.o. daily, Xalatan eyedrops nightly, losartan 100 mg p.o. daily, metformin 1000 mg p.o. daily, simvastatin 40 mg p.o. nightly, Diovan 320/25 mg daily, spironolactone 25 mg p.o. daily, and Coumadin 4 mg p.o. daily. ALLERGIES: She has no known allergies. SOCIAL HISTORY: She lives at home with her daughter. Denies any alcohol use. No smoking and no use of illicit drugs. FAMILY HISTORY: Noncontributory. REVIEW OF SYSTEMS: A full 12-point review of system was reviewed with the patient and positives as mentioned in the history of present illness. PHYSICAL EXAMINATION: GENERAL: This is a 76-year-old female, lying in bed, in no apparent distress. VITAL SIGNS: Blood pressure 119/103, heart rate is 130, respiratory rate is 21, temperature is 97.7, and O2 saturation is 98% on room air. HEENT: Head is normocephalic and atraumatic. Pupils are equal, round, and reactive to light and accommodation. NECK: Supple. No JVD noted. LUNGS: Diminished bilaterally. CARDIOVASCULAR: Irregular. The patient is in atrial fibrillation. ABDOMEN: Soft. Mildly distended. Nontender. Positive bowel sounds in all four quadrants. EXTREMITIES: Bilateral lower extremity edema, 1+ noted. Also some discoloration noted on bilateral lower feet. NEUROLOGIC: The patient is awake, alert, and oriented x3 with no focal deficits. LABORATORY DATA: CBC, white count is 6.1, hemoglobin 10.9, hematocrit 33.9, and a platelet count of 108,000. BMP, sodium is 143, potassium 5.5, chloride 112, bicarb 20, BUN 53, creatinine 2.5, and blood glucose 106. Calcium is 8.1. Total bilirubin 1.1 and direct bilirubin 0.4. Troponin 0.097. ProBNP 7126. RADIOLOGIC FINDINGS: Chest x-ray findings, the lateral margins are clear. The heart size is enlarged. No significant change. Impression, no acute process. ASSESSMENT: 1. Asthma exacerbation. 2. Congestive heart failure. Chronic 3. Atrial fibrillation. 4. Hyperkalemia. 5. Acute renal failure on chronic kidney disease. 6. Elevated troponin. 7. Diabetes. 8. Hyperlipidemia. 9. Coagulopathy. PLAN: Continue home medications except metformin and coumadin. Continue DuoNeb q.4 hours scheduled and q.2 hours p.r.n. shortness of breath. Renally dose medications and avoid nephrotoxins. MD Meghan Almagure Omar Syed MD Nov 01, 2017 11:07
[2017-11-01 12:00] VITALS: BP 107/63
[2017-11-01] MEDS: cefTRIAXone 2 GM in D5W 55 ML IVPB SCH (12:47)
--- NOTE | 2017-11-01 15:03 | Cardiac Electrophysiology PN ---
Assessment/Plan Assessment/Plan 1. Troponin leak, likely due to renal failure. The creatinine is 2.5. The patient does not have any chest pain, however, has clinical congestive heart failure. Echo EF 55%. Continue Coreg and Lipitor and aspirin. 2. Atrial fibrillation with rapid ventricular response. The patient will be on Coreg 25 mg b.i.d. Add digoxin 0.125 mg po daily The patient is also on Coumadin per pharmacy. Her INR is pending. 3. Congestive heart failure with elevated BNP. A 2D echocardiogram EF 55% 4. Asthma exacerbation. 5. Acute on chronic renal failure. 6. Diabetes. 7. Hyperlipidemia. Subjective Subjective Comfortable in fib in 110. No chest pain or SOB. Objective Last 24 Hour Vital Signs Date Time Temp Pulse Resp B/P (MAP) Pulse Ox O2 Delivery O2 Flow Rate FiO2 11/01/17 12:00 97.5 90 20 107/63 100 Nasal Cannula 11/01/17 11:33 Nasal Cannula 2.0 11/01/17 11:33 Nasal Cannula 2.0 28 11/01/17 08:45 97.2 115 20 114/50 98 Room Air 11/01/17 08:43 115 114/50 11/01/17 07:34 Nasal Cannula 2.0 28 11/01/17 07:34 Nasal Cannula 2.0 11/01/17 04:00 121 11/01/17 04:00 97.0 60 18 109/59 100 11/01/17 03:47 Room Air 11/01/17 03:47 Room Air 11/01/17 00:00 130 10/31/17 23:37 Room Air 10/31/17 23:37 Room Air 10/31/17 20:54 113 120/90 10/31/17 20:33 Room Air 10/31/17 20:31 Room Air 10/31/17 20:03 147 10/31/17 20:00 97.0 113 20 120/90 99 10/31/17 16:09 139 22 98 Room Air 10/31/17 16:00 108 10/31/17 15:46 130 21 119/103 100 Room Air Intake and Output 10/31/17 11/01/17 19:00 07:00 Intake Total 1350 ml Balance 1350 ml Intake Oral 250 ml IV Total 1100 ml # Bowel Movements 2 1 Laboratory Tests Test 1/5/18 18:05 11/01/17 06:10 Prothrombin Time 55.8 SEC (9.30-11.50) H 54.9 SEC (9.30-11.50) H Prothromb Time International Ratio 5.2 (0.9-1.1) *H 5.1 (0.9-1.1) *H Sodium Level 142 MMOL/L (136-145) Potassium Level 5.2 MMOL/L (3.5-5.1) H Chloride Level 111 MMOL/L (98-107) H Carbon Dioxide Level 21 MMOL/L (21-32) Anion Gap 11 mmol/L (5-15) Blood Urea Nitrogen 50 mg/dL (7-18) H Creatinine 2.1 MG/DL (0.55-1.30) H Estimat Glomerular Filtration Rate mL/min (>60) Glucose Level 139 MG/DL (74-106) H Hemoglobin A1c 6.4 % (4.3-6.0) H Calcium Level 8.4 MG/DL (8.5-10.1) L Troponin I 0.101 ng/mL (0.000-0.056) Pro-B-Type Natriuretic Peptide 50034 pg/mL (0-125) H Triglycerides Level 38 MG/DL (30-150) Cholesterol Level 81 MG/DL (< 200) LDL Cholesterol 41 mg/dL (<100) HDL Cholesterol 39 MG/DL (40-60) L Cholesterol/HDL Ratio 2.1 (3.3-4.4) L Thyroid Stimulating Hormone (TSH) 0.753 uiU/mL (0.358-3.740) Free Thyroxine 1.33 NG/DL (0.76-1.46) Digoxin Level 0.5 NG/ML (0.9-2.0) L Microbiology Date/Time Source Procedure Growth Status 11/01/17 11:20 Nasopharynx Influenza Types A,B Antigen (ADARSH) - Final Complete Objective HEAD AND NECK: No JVD. LUNGS: Decreased breath sounds. CARDIOVASCULAR: Irregularly irregular, tachycardic, S1 and S2 with no gallop or murmur. ABDOMEN: Soft and nontender. EXTREMITIES: A 1+ pitting edema. ASH WILLIAM Nov 01, 2017 15:03
[2017-11-01 16:50] VITALS: BP 106/66
[2017-11-01 20:09] VITALS: BP 103/64
--- NOTE | 2017-11-01 20:30 | Consultation ---
DATE OF CONSULTATION: 11/01/2016 INFECTIOUS DISEASE CONSULTATION CONSULTING PHYSICIAN: Erika Huang M.D. REQUESTING PHYSICIAN: Juan Donohue M.D. REASON FOR CONSULTATION: Acute bronchitis, possible influenza infection, recommendation for antibiotics treatment. HISTORY OF PRESENT ILLNESS: The patient is a 76-year-old female with past medical history of asthma, CHF, and atrial fibrillation, presented to the emergency room at [facility] for intermittent shortness of breath. The patient's symptom has been there for four weeks. She was seen by her primary care physician and she was given albuterol inhaler with nebulizer machine at home, which helped a little, but not much. The patient had her son-in-law sick recently with flu-like symptoms, unclear if she developed symptoms similar to his. So, she decided to come into the emergency room for further evaluation and management. The patient was found to have significant wheezing. She was hypotensive in the emergency room. Chest x-ray did not show any acute infiltration or consolidation. The patient was admitted to the hospital and I was consulted by the primary provider team for antibiotics treatment and further management. PAST MEDICAL HISTORY: Significant for CHF, hypertension, asthma, diabetes, and atrial fibrillation. PAST SURGICAL HISTORY: Negative not on record. MEDICATIONS: The patient received prednisone and nebulizer treatment in the emergency room. For the rest of her medications, please refer to MAR. ALLERGIES: She has no known drug allergy. SOCIAL HISTORY: The patient lives at home with family. Denies using any drugs, tobacco, or alcohol. FAMILY HISTORY: Not contributory. REVIEW OF SYSTEMS: A 14-point of system reviewed were all negative apart from the one I mentioned above in my History and Physical. PHYSICAL EXAMINATION: GENERAL: An elderly female, obese, up in bed, awake, alert, coughing. VITAL SIGNS: Temperature 97.2, pulse 115, respiratory rate 20, blood pressure 114/50, saturation 98% on room air. HEENT: Normocephalic and atraumatic. Pupils reactive to light. Moist oral mucosa. No exudate or thrush. NECK: Supple. No lymphadenopathy. CARDIOVASCULAR: Regular rate and rhythm. No murmur, rub or gallop. LUNGS: She had diffuse wheezing, expiratory in nature with diminished breathing sounds at the bases. Normal breathing effort. ABDOMEN: Soft, nontender, nondistended. Positive bowel sounds. No hepatosplenomegaly. EXTREMITIES: No edema or cyanosis. LABORATORY AND DIAGNOSTIC DATA: Labs showed white count of 6.1, hemoglobin of 10.9, platelet count of 108. BUN of 50, creatinine of 2.1. Troponin 0.101. Imaging, chest x-ray showed no acute process. ASSESSMENT AND RECOMMENDATION: 1. Asthma exacerbation. The patient will be started on ceftriaxone. We will screen her for influenza. Continue inhalers. May need steroid for symptom control. Pulmonary is following. 2. Acute bronchitis. We will send sputum culture and screen for influenza. The patient will be already on IV ceftriaxone coverage. 3. Dyspnea, suspect due to the above. May need steroid continue nebulizer and oxygen. We will repeat chest x-ray to rule out any new infiltration. 4. Atrial fibrillation with controlled ventricular rate. Continue cardiac medications. Cardiology team is consulted. Thank you for the consult. ID will continue to follow. Erika Huang M.D. DR: Trisha JOB#: [id number] CC:
[2017-11-01] MEDS: Latanoprost 0.005% Opth 2.5ml Soln BOTH EYES SCH (21:13)
[2017-11-01] MEDS: Atorvastatin 20mg tab ORAL SCH (21:13)
[2017-11-01] MEDS: Levalbuterol Inh UD 1.25mg/0.5ml HHN SCH (23:11)
[2017-11-02] VITALS (14 sets, daily range): BP systolic 112–151; BP diastolic 65–90
[2017-11-02] MEDS: Levalbuterol Inh UD 1.25mg/0.5ml HHN SCH ×6 (02:40→23:23)
[2017-11-02] MEDS ORDERED: dilTIAZem HCl 25mg/5ml Inj IVP ONE (05:30)
[2017-11-02] MEDS: NovoLOG Insulin Flexpen SUBQ SCH ×4 (06:30→21:19)
[2017-11-02] MEDS: Carvedilol 25mg Tab ORAL SCH ×2 (08:03→21:26)
--- NOTE | 2017-11-02 08:58 | Nephrology Progress Note ---
Assessment/Plan Problem List: (1) Asthma exacerbation (2) Diabetes (3) HLD (hyperlipidemia) (4) Dyspnea (5) Hyperkalemia (6) CKD (chronic kidney disease) (7) TIFFANIE (acute kidney injury) (8) CHF exacerbation (9) Atrial fibrillation with RVR Plan Cardio following. BiPAP prn. FOllow up ABG. Abx per ID. Follow up CXR. D/w Dr. Christian. Subjective Subjective transferred to ICU for afib with rvr. also SOB and now on BiPAP. Objective Objective Last 24 Hour Vital Signs Date Time Temp Pulse Resp B/P (MAP) Pulse Ox O2 Delivery O2 Flow Rate FiO2 11/02/17 08:03 137 121/90 11/02/17 08:02 137 11/02/17 08:00 151 11/02/17 08:00 99.0 137 30 121/90 100 Nasal Cannula 2.0 11/02/17 07:45 116 24 99 Nasal Cannula 2.0 28 11/02/17 07:37 153 28 99 Nasal Cannula 2.0 28 11/02/17 05:38 140 130/85 11/02/17 03:44 155 11/02/17 03:34 98.0 140 18 124/74 100 Nasal Cannula 2.0 11/02/17 02:44 129 21 100 Nasal Cannula 2.0 28 11/02/17 02:40 28 11/02/17 02:38 129 18 100 Nasal Cannula 2.0 28 11/02/17 00:29 97.9 94 18 115/87 100 Nasal Cannula 2.0 11/02/17 00:29 97.9 94 18 115/87 100 Nasal Cannula 11/01/17 23:50 116 11/01/17 23:21 110 18 99 Nasal Cannula 2.0 28 11/01/17 23:10 110 18 99 Nasal Cannula 2.0 28 11/01/17 23:10 28 11/01/17 21:15 110 103/64 11/01/17 20:09 97.9 101 18 103/64 99 Nasal Cannula 11/01/17 20:00 95 Nasal Cannula 2.0 11/01/17 19:45 114 11/01/17 19:41 100 20 100 Room Air 2.0 28 11/01/17 19:25 28 11/01/17 19:24 78 20 99 Room Air 2.0 28 11/01/17 16:50 97.9 116 20 106/66 94 Room Air 11/01/17 16:20 Nasal Cannula 2.0 28 11/01/17 16:20 Nasal Cannula 2.0 11/01/17 16:00 121 11/01/17 12:00 92 11/01/17 12:00 97.5 90 20 107/63 100 Nasal Cannula 11/01/17 11:33 Nasal Cannula 2.0 11/01/17 11:33 Nasal Cannula 2.0 28 Intake and Output 11/01/17 11/02/17 19:00 07:00 Intake Total 950 ml Balance 950 ml Intake Oral 840 ml IV Total 110 ml # Voids 4 # Bowel Movements 2 1 Laboratory Tests 11/02/17 07:59: Arterial Blood pH 7.230*L, Arterial Blood Partial Pressure CO2 48.1H, Arterial Blood Partial Pressure O2 114.2H, Arterial Blood HCO3 19.9L, Arterial Blood Oxygen Saturation 97.0, Arterial Blood Base Excess -7.4, Siva Test Positive Height (Feet): 5 Height (Inches): 4.00 Weight (Pounds): 246 General Appearance: moderate distress Cardiovascular: regularly irregular, tachycardia Respiratory/Chest: expiratory wheezing Abdomen: non tender, soft Extremities: trace edema Neurologic: alert RANDY VILLARREAL Nov 02, 2017 08:58
[2017-11-02] MEDS ORDERED: Digoxin 0.125mg tab ORAL SCH (09:00)
--- NOTE | 2017-11-02 09:32 | Pulmonology Progress Note ---
Assessment/Plan Assessment/Plan 1. Asthma exacerbation. 2. Congestive heart failure. Chronic 3. Atrial fibrillation. 4. Hyperkalemia. 5. Acute renal failure on chronic kidney disease. 6. Elevated troponin. 7. Diabetes. 8. Hyperlipidemia. 9. Coagulopathy. PLAN: Change to IV steroids. Start BiPAP. Continue DuoNeb q.4 hours scheduled and q.2 hours p.r.n. shortness of breath. Renally dose medications and avoid nephrotoxins. Subjective Interval Events: Transferred to ICU for respiratory distress; ABG shows resp acidosis Constitutional: Reports: no symptoms HEENT: Repors: no symptoms Respiratory: Reports: shortness of breath Cardiovascular: Reports: no symptoms Gastrointestinal/Abdominal: Reports: no symptoms Genitourinary: Reports: no symptoms Allergies: Coded Allergies: No Known Allergies (Unverified , 05/24/12) Objective Last 24 Hour Vital Signs Date Time Temp Pulse Resp B/P (MAP) Pulse Ox O2 Delivery O2 Flow Rate FiO2 11/02/17 09:04 130 23 99 Facial 40 11/02/17 08:03 137 121/90 11/02/17 08:02 137 11/02/17 08:00 151 11/02/17 08:00 99.0 137 30 121/90 100 Nasal Cannula 2.0 11/02/17 07:45 116 24 99 Nasal Cannula 2.0 28 11/02/17 07:37 153 28 99 Nasal Cannula 2.0 28 11/02/17 05:38 140 130/85 11/02/17 03:44 155 11/02/17 03:34 98.0 140 18 124/74 100 Nasal Cannula 2.0 11/02/17 02:44 129 21 100 Nasal Cannula 2.0 28 11/02/17 02:40 28 11/02/17 02:38 129 18 100 Nasal Cannula 2.0 28 11/02/17 00:29 97.9 94 18 115/87 100 Nasal Cannula 2.0 11/02/17 00:29 97.9 94 18 115/87 100 Nasal Cannula 11/01/17 23:50 116 11/01/17 23:21 110 18 99 Nasal Cannula 2.0 28 11/01/17 23:10 110 18 99 Nasal Cannula 2.0 28 11/01/17 23:10 28 11/01/17 21:15 110 103/64 11/01/17 20:09 97.9 101 18 103/64 99 Nasal Cannula 11/01/17 20:00 95 Nasal Cannula 2.0 11/01/17 19:45 114 11/01/17 19:41 100 20 100 Room Air 2.0 28 11/01/17 19:25 28 11/01/17 19:24 78 20 99 Room Air 2.0 28 11/01/17 16:50 97.9 116 20 106/66 94 Room Air 11/01/17 16:20 Nasal Cannula 2.0 28 11/01/17 16:20 Nasal Cannula 2.0 11/01/17 16:00 121 11/01/17 12:00 92 11/01/17 12:00 97.5 90 20 107/63 100 Nasal Cannula 11/01/17 11:33 Nasal Cannula 2.0 11/01/17 11:33 Nasal Cannula 2.0 28 Intake and Output 11/01/17 11/02/17 19:00 07:00 Intake Total 950 ml Balance 950 ml Intake Oral 840 ml IV Total 110 ml # Voids 4 # Bowel Movements 2 1 General Appearance: WD/WN HEENT: normocephalic Respiratory/Chest: accessory muscle use, expiratory wheezing Cardiovascular: normal peripheral pulses, tachycardia Abdomen: normal bowel sounds Microbiology Date/Time Source Procedure Growth Status 11/01/17 11:20 Nasopharynx Influenza Types A,B Antigen (ADARSH) - Final Complete Laboratory Tests 11/02/17 07:59: Arterial Blood pH 7.230*L, Arterial Blood Partial Pressure CO2 48.1H, Arterial Blood Partial Pressure O2 114.2H, Arterial Blood HCO3 19.9L, Arterial Blood Oxygen Saturation 97.0, Arterial Blood Base Excess -7.4, Siva Test Positive Current Medications Medications (Trade) Dose Ordered Sig/Ernesto Route PRN Reason Start Time Stop Time Status Last Admin Dose Admin Acetaminophen (Tylenol) 650 mg Q4H PRN ORAL Mild Pain (Pain Scale 1-3) 10/31/17 16:30 11/30/17 16:29 11/01/17 16:46 Albuterol/ Ipratropium (Albuterol/ Ipratropium) 3 ml Q2H PRN HHN Shortness of Breath 10/31/17 17:00 11/05/17 16:59 Atorvastatin Calcium (Lipitor) 40 mg BEDTIME ORAL 10/31/17 21:00 11/30/17 20:59 11/01/17 21:13 Carvedilol (Coreg) 25 mg EVERY 12 HOURS ORAL 10/31/17 21:00 11/30/17 20:59 11/02/17 08:03 Ceftriaxone Sodium 2 gm/ Dextrose 55 ml @ 110 mls/hr Q24H IVPB 11/01/17 12:00 11/08/17 11:59 11/01/17 12:47 Dextrose (Dextrose 50%) STAT PRN IV Hypoglycemia 10/31/17 16:30 11/30/17 16:29 Digoxin (Lanoxin) 0.125 mg DAILY ORAL 11/02/17 09:00 12/02/17 08:59 11/02/17 08:02 Insulin Aspart (NovoLOG) BEFORE MEALS AND HS SUBQ 10/31/17 17:00 11/30/17 16:59 Latanoprost (Xalatan) 1 drop BEDTIME BOTH EYES 10/31/17 21:00 11/30/17 20:59 11/01/17 21:13 Levalbuterol HCl (Xopenex) 0.63 mg Q4HRT HHN 11/01/17 23:00 11/06/17 22:59 11/02/17 07:37 Methylprednisolone Sodium Succinate (Solu-MEDROL) 40 mg EVERY 8 HOURS IVP 11/02/17 09:15 12/02/17 09:14 Nitroglycerin (Ntg) 0.4 mg Q5MIN X 3 DOSES PRN SL Prn Chest Pain 10/31/17 16:30 11/30/17 16:29 Ondansetron HCl (Zofran) 4 mg Q6H PRN IVP Nausea & Vomiting 10/31/17 16:30 11/30/17 16:29 Pantoprazole (Protonix) 40 mg DAILY ORAL 11/01/17 09:00 12/01/17 08:59 11/01/17 08:43 Warfarin Sodium (Coumadin per pharmacy) 1 ea DAILYPRN PRN MISC RX TO DOSE WARFARIN PER PROTOC 10/31/17 18:00 11/30/17 17:59 Deni Christianson MD Nov 02, 2017 09:32
[2017-11-02 09:59] LABS: EOSINOPHILS % (AUTO) 0.5 % (0.0-3.0); HEMOGLOBIN 10.5 G/DL (12.0-16.0); LYMPHOCYTES % (AUTO) 8.7 % (20.0-45.0); MEAN CORPUSCULAR VOLUME 91 FL (80-99); MONOCYTES % (AUTO) 16.3 % (1.0-10.0); NEUTROPHILS % (AUTO) 73.6 % (45.0-75.0); PLATELET COUNT 106 K/UL (150-450); RED BLOOD COUNT 3.64 M/UL (4.20-5.40); RED CELL DISTRIBUTION WIDTH 14.6 % (11.6-14.8); WHITE BLOOD COUNT 7.9 K/UL (4.8-10.8)
[2017-11-02] MEDS: Solu-MEDROL 40mg Inj IVP SCH ×3 (10:01→21:15)
[2017-11-02 10:08] LABS: INR 4.3 (0.9-1.1)
[2017-11-02 10:17] LABS: ANION GAP 11 mmol/L (5-15); BLOOD UREA NITROGEN 48 mg/dL (7-18); CALCIUM 8.2 MG/DL (8.5-10.1); CARBON DIOXIDE 20 MMOL/L (21-32); CHLORIDE 110 MMOL/L (98-107); SODIUM 141 MMOL/L (136-145)
[2017-11-02 10:23] LABS: ALANINE AMINOTRANSFERASE 13 U/L (12-78); ALBUMIN 3.4 G/DL (3.4-5.0); ALKALINE PHOSPHATASE 69 U/L (46-116); ASPARTATE AMINO TRANSFERASE 23 U/L (15-37); BILIRUBIN,TOTAL 1.3 MG/DL (0.2-1.0); PHOSPHORUS 4.1 MG/DL (2.5-4.9)
[2017-11-02 10:34] LABS: BILIRUBIN,DIRECT 0.5 MG/DL (0.0-0.3)
--- NOTE | 2017-11-02 12:10 | Cardiac Electrophysiology PN ---
Assessment/Plan Assessment/Plan 1. Troponin leak, likely due to renal failure and creatinine is 2.5. The patient does not have any chest pain, however, has clinical congestive heart failure. Echo EF 55%. Continue Coreg and Lipitor and aspirin. 2. Atrial fibrillation with rapid ventricular response. Despite Coreg 25 mg b.i.d. and digoxin 0.125 mg po daily. Give 0.25 iv digoxin and start Cardizem 30 tid po. Dig Level in am. The patient is also on Coumadin per pharmacy. 3. Congestive heart failure with elevated BNP. A 2D echocardiogram EF 55% 4. Asthma exacerbation and severe pulmonary HTN 5. Acute on chronic renal failure. 6. Diabetes. 7. Hyperlipidemia. SAL RN Subjective Subjective Transferred to ICU for fib in 170s in respiratory distress. On BIPAP. ECG at 4.20 am fib 160. TTE EF 55% and severe Pulmonary HTN. Got 10 mg iv Cardizem. Objective Last 24 Hour Vital Signs Date Time Temp Pulse Resp B/P (MAP) Pulse Ox O2 Delivery O2 Flow Rate FiO2 11/02/17 11:33 119 16 99 Bi-pap 40 11/02/17 11:13 105 20 99 Bi-pap 40 11/02/17 11:00 131 24 113/71 100 Nasal Cannula 2.0 11/02/17 10:36 130 19 99 Facial 40 11/02/17 10:00 98.9 145 30 128/66 100 Bi-pap 40 11/02/17 09:30 40 11/02/17 09:04 130 23 99 Facial 40 11/02/17 09:00 109 30 121/90 100 Nasal Cannula 2.0 11/02/17 08:03 137 121/90 11/02/17 08:02 137 11/02/17 08:00 151 11/02/17 08:00 99.0 137 30 121/90 100 Nasal Cannula 2.0 11/02/17 07:45 116 24 99 Nasal Cannula 2.0 28 11/02/17 07:37 153 28 99 Nasal Cannula 2.0 28 11/02/17 05:38 140 130/85 11/02/17 03:44 155 11/02/17 03:34 98.0 140 18 124/74 100 Nasal Cannula 2.0 11/02/17 02:44 129 21 100 Nasal Cannula 2.0 28 11/02/17 02:40 28 11/02/17 02:38 129 18 100 Nasal Cannula 2.0 28 11/02/17 00:29 97.9 94 18 115/87 100 Nasal Cannula 2.0 11/02/17 00:29 97.9 94 18 115/87 100 Nasal Cannula 11/01/17 23:50 116 11/01/17 23:21 110 18 99 Nasal Cannula 2.0 28 11/01/17 23:10 110 18 99 Nasal Cannula 2.0 28 11/01/17 23:10 28 11/01/17 21:15 110 103/64 11/01/17 20:09 97.9 101 18 103/64 99 Nasal Cannula 11/01/17 20:00 95 Nasal Cannula 2.0 11/01/17 19:45 114 11/01/17 19:41 100 20 100 Room Air 2.0 28 11/01/17 19:25 28 11/01/17 19:24 78 20 99 Room Air 2.0 28 11/01/17 16:50 97.9 116 20 106/66 94 Room Air 11/01/17 16:20 Nasal Cannula 2.0 28 11/01/17 16:20 Nasal Cannula 2.0 11/01/17 16:00 121 Intake and Output 11/01/17 11/02/17 19:00 07:00 Intake Total 950 ml Balance 950 ml Intake Oral 840 ml IV Total 110 ml # Voids 4 # Bowel Movements 2 1 Laboratory Tests Test 11/02/17 07:59 11/02/17 08:45 11/02/17 09:00 Arterial Blood pH 7.230 (7.350-7.450) 7.256 (7.350-7.450) Arterial Blood Partial Pressure CO2 48.1 mmHg (35.0-45.0) H 50.1 mmHg (35.0-45.0) H Arterial Blood Partial Pressure O2 114.2 mmHg (75.0-100.0) H 172.2 mmHg (75.0-100.0) H Arterial Blood HCO3 19.9 mmol/L (22.0-26.0) L 21.8 mmol/L (22.0-26.0) L Arterial Blood Oxygen Saturation 97.0 % (92.0-98.0) 98.4 % (92.0-98.0) H Arterial Blood Base Excess -7.4 -5.4 Siva Test Positive Positive White Blood Count 7.9 K/UL (4.8-10.8) Red Blood Count 3.64 M/UL (4.20-5.40) L Hemoglobin 10.5 G/DL (12.0-16.0) L Hematocrit 33.0 % (37.0-47.0) L Mean Corpuscular Volume 91 FL (80-99) Mean Corpuscular Hemoglobin 28.8 PG (27.0-31.0) Mean Corpuscular Hemoglobin Concent 31.8 G/DL (32.0-36.0) L Red Cell Distribution Width 14.6 % (11.6-14.8) Platelet Count 106 K/UL (150-450) L Mean Platelet Volume 10.8 FL (6.5-10.1) H Neutrophils (%) (Auto) 73.6 % (45.0-75.0) Lymphocytes (%) (Auto) 8.7 % (20.0-45.0) L Monocytes (%) (Auto) 16.3 % (1.0-10.0) H Eosinophils (%) (Auto) 0.5 % (0.0-3.0) Basophils (%) (Auto) 1.0 % (0.0-2.0) Prothrombin Time 46.2 SEC (9.30-11.50) H Prothromb Time International Ratio 4.3 (0.9-1.1) H Sodium Level 141 MMOL/L (136-145) Potassium Level 5.0 MMOL/L (3.5-5.1) Chloride Level 110 MMOL/L (98-107) H Carbon Dioxide Level 20 MMOL/L (21-32) L Anion Gap 11 mmol/L (5-15) Blood Urea Nitrogen 48 mg/dL (7-18) H Creatinine 2.0 MG/DL (0.55-1.30) H Estimat Glomerular Filtration Rate mL/min (>60) Glucose Level 113 MG/DL (74-106) H Calcium Level 8.2 MG/DL (8.5-10.1) L Phosphorus Level 4.1 MG/DL (2.5-4.9) Magnesium Level 1.3 MG/DL (1.8-2.4) L Total Bilirubin 1.3 MG/DL (0.2-1.0) H Direct Bilirubin 0.5 MG/DL (0.0-0.3) H Aspartate Amino Transf (AST/SGOT) 23 U/L (15-37) Alanine Aminotransferase (ALT/SGPT) 13 U/L (12-78) Alkaline Phosphatase 69 U/L (46-116) Troponin I 0.105 ng/mL (0.000-0.056) Total Protein 6.8 G/DL (6.4-8.2) Albumin 3.4 G/DL (3.4-5.0) Globulin 3.4 g/dL Albumin/Globulin Ratio 1.0 (1.0-2.7) Microbiology Date/Time Source Procedure Growth Status 11/01/17 11:20 Nasopharynx Influenza Types A,B Antigen (ADARSH) - Final Complete Objective HEAD AND NECK: No JVD. LUNGS: Decreased breath sounds. CARDIOVASCULAR: Irregularly irregular tachycardic, S1 and S2 with no gallop or murmur. ABDOMEN: Soft and nontender. EXTREMITIES: A 1+ pitting edema. ASH WILLIAM Nov 02, 2017 12:10
[2017-11-02] MEDS ORDERED: Digoxin 0.5mg/2ml Inj IVP ONE (12:15)
[2017-11-02] MEDS: cefTRIAXone 2 GM in D5W 55 ML IVPB SCH (12:33)
--- NOTE | 2017-11-02 13:47 | Infectious Diseases Prog Note ---
Assessment/Plan Problems: (1) Asthma exacerbation Assessment & Plan: continue ceftriaxon , empirically , screening for influenza , continue inhalers (2) Acute bronchitis Assessment & Plan: will send sputum culture and screen for influenza (3) Dyspnea Assessment & Plan: due to the above , continue nebulizers and oxygen, repeat CXR to rule out new infiltrates (4) Atrial fibrillation with controlled ventricular rate Assessment & Plan: continue cardiac meds , consult cardiology Subjective ROS Limited/Unobtainable: Yes Allergies: Coded Allergies: No Known Allergies (Unverified , 05/24/12) Subjective she was on BIPAP in ICU, unresponsive, wheezing, afebrile, not in distress Objective Vital Signs Last 24 Hour Vital Signs Date Time Temp Pulse Resp B/P (MAP) Pulse Ox O2 Delivery O2 Flow Rate FiO2 11/02/17 13:00 131 24 112/68 100 Bi-pap 40 11/02/17 12:54 125 17 99 Facial 40 11/02/17 12:15 132 11/02/17 12:00 121 11/02/17 12:00 98.3 124 22 126/89 100 Bi-pap 40 11/02/17 11:33 119 16 99 Bi-pap 40 11/02/17 11:13 105 20 99 Bi-pap 40 11/02/17 11:00 131 24 113/71 100 Bi-pap 40 11/02/17 10:36 130 19 99 Facial 40 11/02/17 10:00 98.9 145 30 128/66 100 Bi-pap 40 11/02/17 09:30 40 11/02/17 09:04 130 23 99 Facial 40 11/02/17 09:00 109 30 121/90 100 Nasal Cannula 2.0 11/02/17 08:03 137 121/90 11/02/17 08:02 137 11/02/17 08:00 151 11/02/17 08:00 99.0 137 30 121/90 100 Nasal Cannula 2.0 11/02/17 07:45 116 24 99 Nasal Cannula 2.0 28 11/02/17 07:37 153 28 99 Nasal Cannula 2.0 28 11/02/17 05:38 140 130/85 11/02/17 03:44 155 11/02/17 03:34 98.0 140 18 124/74 100 Nasal Cannula 2.0 11/02/17 02:44 129 21 100 Nasal Cannula 2.0 28 11/02/17 02:40 28 11/02/17 02:38 129 18 100 Nasal Cannula 2.0 28 11/02/17 00:29 97.9 94 18 115/87 100 Nasal Cannula 2.0 11/02/17 00:29 97.9 94 18 115/87 100 Nasal Cannula 11/01/17 23:50 116 11/01/17 23:21 110 18 99 Nasal Cannula 2.0 28 11/01/17 23:10 110 18 99 Nasal Cannula 2.0 28 11/01/17 23:10 28 11/01/17 21:15 110 103/64 11/01/17 20:09 97.9 101 18 103/64 99 Nasal Cannula 11/01/17 20:00 95 Nasal Cannula 2.0 11/01/17 19:45 114 11/01/17 19:41 100 20 100 Room Air 2.0 28 11/01/17 19:25 28 11/01/17 19:24 78 20 99 Room Air 2.0 28 11/01/17 16:50 97.9 116 20 106/66 94 Room Air 11/01/17 16:20 Nasal Cannula 2.0 28 11/01/17 16:20 Nasal Cannula 2.0 11/01/17 16:00 121 Height (Feet): 5 Height (Inches): 4.00 Weight (Pounds): 246 General Appearance: WD/WN, no acute distress HEENT: normocephalic, atraumatic, anicteric, mucous membranes moist, PERRL Respiratory/Chest: chest wall non-tender, lungs clear, normal breath sounds, no respiratory distress, no accessory muscle use Cardiovascular: normal peripheral pulses, normal rate, regular rhythm, no gallop/murmur, no JVD Abdomen: normal bowel sounds, soft, non tender, no organomegaly, non distended , no mass, no scars Extremities: no cyanosis, no clubbing Skin: no rash, no lesions, no ulcers Neurologic/Psychiatric: alert, oriented x 3, responsive Lymphatic: no neck adenopathy, no groin adenopathy Musculoskeletal: normal muscle bulk, no effusion Microbiology Date/Time Source Procedure Growth Status 11/01/17 11:20 Nasopharynx Influenza Types A,B Antigen (ADARSH) - Final Complete Laboratory Tests Test 11/02/17 07:59 11/02/17 08:45 11/02/17 09:00 Arterial Blood pH 7.230 (7.350-7.450) 7.256 (7.350-7.450) Arterial Blood Partial Pressure CO2 48.1 mmHg (35.0-45.0) H 50.1 mmHg (35.0-45.0) H Arterial Blood Partial Pressure O2 114.2 mmHg (75.0-100.0) H 172.2 mmHg (75.0-100.0) H Arterial Blood HCO3 19.9 mmol/L (22.0-26.0) L 21.8 mmol/L (22.0-26.0) L Arterial Blood Oxygen Saturation 97.0 % (92.0-98.0) 98.4 % (92.0-98.0) H Arterial Blood Base Excess -7.4 -5.4 Siva Test Positive Positive White Blood Count 7.9 K/UL (4.8-10.8) Red Blood Count 3.64 M/UL (4.20-5.40) L Hemoglobin 10.5 G/DL (12.0-16.0) L Hematocrit 33.0 % (37.0-47.0) L Mean Corpuscular Volume 91 FL (80-99) Mean Corpuscular Hemoglobin 28.8 PG (27.0-31.0) Mean Corpuscular Hemoglobin Concent 31.8 G/DL (32.0-36.0) L Red Cell Distribution Width 14.6 % (11.6-14.8) Platelet Count 106 K/UL (150-450) L Mean Platelet Volume 10.8 FL (6.5-10.1) H Neutrophils (%) (Auto) 73.6 % (45.0-75.0) Lymphocytes (%) (Auto) 8.7 % (20.0-45.0) L Monocytes (%) (Auto) 16.3 % (1.0-10.0) H Eosinophils (%) (Auto) 0.5 % (0.0-3.0) Basophils (%) (Auto) 1.0 % (0.0-2.0) Prothrombin Time 46.2 SEC (9.30-11.50) H Prothromb Time International Ratio 4.3 (0.9-1.1) H Sodium Level 141 MMOL/L (136-145) Potassium Level 5.0 MMOL/L (3.5-5.1) Chloride Level 110 MMOL/L (98-107) H Carbon Dioxide Level 20 MMOL/L (21-32) L Anion Gap 11 mmol/L (5-15) Blood Urea Nitrogen 48 mg/dL (7-18) H Creatinine 2.0 MG/DL (0.55-1.30) H Estimat Glomerular Filtration Rate mL/min (>60) Glucose Level 113 MG/DL (74-106) H Calcium Level 8.2 MG/DL (8.5-10.1) L Phosphorus Level 4.1 MG/DL (2.5-4.9) Magnesium Level 1.3 MG/DL (1.8-2.4) L Total Bilirubin 1.3 MG/DL (0.2-1.0) H Direct Bilirubin 0.5 MG/DL (0.0-0.3) H Aspartate Amino Transf (AST/SGOT) 23 U/L (15-37) Alanine Aminotransferase (ALT/SGPT) 13 U/L (12-78) Alkaline Phosphatase 69 U/L (46-116) Troponin I 0.105 ng/mL (0.000-0.056) Total Protein 6.8 G/DL (6.4-8.2) Albumin 3.4 G/DL (3.4-5.0) Globulin 3.4 g/dL Albumin/Globulin Ratio 1.0 (1.0-2.7) Current Medications Medications (Trade) Dose Ordered Sig/Ernesto Route PRN Reason Start Time Stop Time Status Last Admin Dose Admin Acetaminophen (Tylenol) 650 mg Q4H PRN ORAL Mild Pain (Pain Scale 1-3) 10/31/17 16:30 11/30/17 16:29 11/01/17 16:46 Albuterol/ Ipratropium (Albuterol/ Ipratropium) 3 ml Q2H PRN HHN Shortness of Breath 10/31/17 17:00 11/05/17 16:59 Atorvastatin Calcium (Lipitor) 40 mg BEDTIME ORAL 10/31/17 21:00 11/30/17 20:59 11/01/17 21:13 Carvedilol (Coreg) 25 mg EVERY 12 HOURS ORAL 10/31/17 21:00 11/30/17 20:59 11/02/17 08:03 Ceftriaxone Sodium 2 gm/ Dextrose 55 ml @ 110 mls/hr Q24H IVPB 11/01/17 12:00 11/08/17 11:59 11/02/17 12:33 Dextrose (Dextrose 50%) STAT PRN IV Hypoglycemia 10/31/17 16:30 11/30/17 16:29 Digoxin (Lanoxin) 0.125 mg DAILY ORAL 11/02/17 09:00 12/02/17 08:59 11/02/17 08:02 Diltiazem HCl (Cardizem) 30 mg EVERY 8 HOURS ORAL 11/02/17 14:00 12/02/17 13:59 Insulin Aspart (NovoLOG) BEFORE MEALS AND HS SUBQ 10/31/17 17:00 11/30/17 16:59 11/02/17 11:54 Latanoprost (Xalatan) 1 drop BEDTIME BOTH EYES 10/31/17 21:00 11/30/17 20:59 11/01/17 21:13 Levalbuterol HCl (Xopenex) 0.63 mg Q4HRT HHN 11/01/17 23:00 11/06/17 22:59 11/02/17 11:13 Methylprednisolone Sodium Succinate (Solu-MEDROL) 40 mg EVERY 8 HOURS IVP 11/02/17 09:15 12/02/17 09:14 11/02/17 10:01 Nitroglycerin (Ntg) 0.4 mg Q5MIN X 3 DOSES PRN SL Prn Chest Pain 10/31/17 16:30 11/30/17 16:29 Ondansetron HCl (Zofran) 4 mg Q6H PRN IVP Nausea & Vomiting 10/31/17 16:30 11/30/17 16:29 Pantoprazole (Protonix) 40 mg DAILY ORAL 11/01/17 09:00 12/01/17 08:59 11/02/17 10:01 Warfarin Sodium (Coumadin per pharmacy) 1 ea DAILYPRN PRN MISC RX TO DOSE WARFARIN PER PROTOC 10/31/17 18:00 11/30/17 17:59 Erika Huang M.D. Nov 02, 2017 13:47
[2017-11-02] MEDS: dilTIAZem HCl 30mg tab ORAL SCH ×2 (14:47→21:19)
[2017-11-02] MEDS: Latanoprost 0.005% Opth 2.5ml Soln BOTH EYES SCH (21:15)
[2017-11-02] MEDS: Atorvastatin 20mg tab ORAL SCH (21:16)
[2017-11-03] VITALS: BP 134/71
[2017-11-03] MEDS: Levalbuterol Inh UD 1.25mg/0.5ml HHN SCH ×5 (03:47→19:00)
[2017-11-03 04:00] VITALS: BP 113/66
[2017-11-03] MEDS: dilTIAZem HCl 30mg tab ORAL SCH ×3 (05:18→20:37)
[2017-11-03] MEDS: Solu-MEDROL 40mg Inj IVP SCH ×3 (05:18→20:38)
[2017-11-03] MEDS: NovoLOG Insulin Flexpen SUBQ SCH ×4 (05:21→20:39)
[2017-11-03 06:47] LABS: INR 3.8 (0.9-1.1)
[2017-11-03 08:00] VITALS: BP 117/70
[2017-11-03] MEDS ORDERED: Nitroglycerin Subl 0.4mg tab SL PRN (08:15)
[2017-11-03] MEDS: Carvedilol 25mg Tab ORAL SCH ×2 (08:55→20:37)
[2017-11-03] MEDS: Digoxin 0.125mg tab ORAL SCH (08:55)
[2017-11-03] MEDS ORDERED: Albuterol/Ipratropium 3ml neb HHN PRN (09:00)
--- NOTE | 2017-11-03 09:53 | Pulmonology Progress Note ---
Assessment/Plan Assessment/Plan 1. Asthma exacerbation. 2. Congestive heart failure. Chronic 3. Atrial fibrillation. 4. Hyperkalemia. 5. Acute renal failure on chronic kidney disease. 6. Elevated troponin. 7. Diabetes. 8. Hyperlipidemia. 9. Coagulopathy. PLAN: Changed to IV steroids. Continue BiPAP. Continue DuoNeb q.4 hours scheduled and q.2 hours p.r.n. shortness of breath. Renally dose medications and avoid nephrotoxins. Subjective Interval Events: Off BiPAP this AM Constitutional: Reports: no symptoms HEENT: Repors: no symptoms Respiratory: Reports: shortness of breath Cardiovascular: Reports: no symptoms Gastrointestinal/Abdominal: Reports: no symptoms Allergies: Coded Allergies: No Known Allergies (Unverified , 05/24/12) Objective Last 24 Hour Vital Signs Date Time Temp Pulse Resp B/P (MAP) Pulse Ox O2 Delivery O2 Flow Rate FiO2 11/03/17 09:30 72 19 99 Facial 40 11/03/17 08:55 111 11/03/17 08:55 111 117/70 11/03/17 08:40 88 20 99 11/03/17 08:00 86 11/03/17 08:00 40 11/03/17 08:00 98.1 62 19 117/70 100 Bi-pap 40 11/03/17 07:45 72 20 99 Bi-pap 40 11/03/17 07:45 71 20 98 Bi-pap 40 11/03/17 07:45 68 20 99 Facial 40 11/03/17 05:18 67 134/71 11/03/17 05:12 67 20 98 Facial 40 11/03/17 04:00 97.5 88 22 113/66 100 Bi-pap 40 11/03/17 04:00 40 11/03/17 04:00 97 11/03/17 03:21 87 16 99 Facial 40 11/03/17 03:10 83 20 99 Bi-pap 40 11/03/17 03:00 81 18 98 Bi-pap 40 11/03/17 01:05 76 15 98 Facial 40 11/03/17 00:00 94 11/03/17 00:00 40 11/03/17 00:00 97.3 119 22 134/71 100 Bi-pap 40 11/02/17 23:08 74 20 99 Bi-pap 40 11/02/17 23:01 87 24 99 Bi-pap 40 11/02/17 23:00 87 24 99 Facial 40 11/02/17 22:10 95 11/02/17 21:26 83 114/65 11/02/17 21:21 83 22 99 Facial 40 11/02/17 21:19 95 114/65 11/02/17 20:00 97.3 95 22 114/65 100 Bi-pap 40 11/02/17 20:00 40 11/02/17 19:28 83 20 99 Bi-pap 40 11/02/17 19:20 62 22 99 Bi-pap 40 11/02/17 19:00 65 20 98 Facial 40 11/02/17 18:00 110 20 124/74 100 Bi-pap 40 11/02/17 17:03 92 22 99 Facial 40 11/02/17 17:00 105 20 118/73 100 Bi-pap 40 11/02/17 16:00 98.3 103 22 123/65 100 Bi-pap 40 11/02/17 16:00 118 11/02/17 15:03 106 21 99 Bi-pap 40 11/02/17 15:00 109 20 131/71 100 Bi-pap 40 11/02/17 14:53 117 20 99 Bi-pap 40 11/02/17 14:52 101 25 99 Facial 40 11/02/17 14:47 118 118/84 11/02/17 14:00 111 20 118/84 100 Bi-pap 40 11/02/17 13:00 131 24 112/68 100 Bi-pap 40 11/02/17 12:54 125 17 99 Facial 40 11/02/17 12:15 132 11/02/17 12:00 121 11/02/17 12:00 98.3 124 22 126/89 100 Bi-pap 40 11/02/17 11:33 119 16 99 Bi-pap 40 11/02/17 11:13 105 20 99 Bi-pap 40 11/02/17 11:00 131 24 113/71 100 Bi-pap 40 11/02/17 10:36 130 19 99 Facial 40 11/02/17 10:00 98.9 145 30 128/66 100 Bi-pap 40 Intake and Output 11/02/17 11/03/17 19:00 07:00 Intake Total 460 ml 100 ml Output Total 700 ml Balance 460 ml -600 ml Intake Oral 350 ml 100 ml IV Total 110 ml Output Urine Total 700 ml # Voids 950 General Appearance: no acute distress HEENT: normocephalic Respiratory/Chest: chest wall non-tender, decreased breath sounds, accessory muscle use, crackles/rales Cardiovascular: normal peripheral pulses, normal rate Microbiology Date/Time Source Procedure Growth Status 11/01/17 11:20 Nasopharynx Influenza Types A,B Antigen (ADARSH) - Final Complete Laboratory Tests 11/03/17 04:40: Prothrombin Time 40.4H, Prothromb Time International Ratio 3.8H, Digoxin Level 0.9 Current Medications Medications (Trade) Dose Ordered Sig/Ernesto Route PRN Reason Start Time Stop Time Status Last Admin Dose Admin Acetaminophen (Tylenol) 650 mg Q4H PRN ORAL Mild Pain (Pain Scale 1-3) 11/03/17 08:30 11/30/17 16:29 Albuterol/ Ipratropium (Albuterol/ Ipratropium) 3 ml Q2H PRN HHN Shortness of Breath 11/03/17 09:00 11/05/17 16:59 Atorvastatin Calcium (Lipitor) 40 mg BEDTIME ORAL 11/03/17 21:00 11/30/17 20:59 Carvedilol (Coreg) 25 mg EVERY 12 HOURS ORAL 11/03/17 09:00 11/30/17 20:59 11/03/17 08:55 Ceftriaxone Sodium 2 gm/ Dextrose 55 ml @ 110 mls/hr Q24H IVPB 11/03/17 12:00 11/08/17 11:59 Dextrose (Dextrose 50%) STAT PRN IV Hypoglycemia 11/03/17 08:30 11/30/17 08:29 Digoxin (Lanoxin) 0.125 mg DAILY ORAL 11/03/17 09:00 12/02/17 08:59 11/03/17 08:55 Diltiazem HCl (Cardizem) 30 mg EVERY 8 HOURS ORAL 11/03/17 14:00 12/02/17 13:59 Insulin Aspart (NovoLOG) BEFORE MEALS AND HS SUBQ 11/03/17 11:30 11/30/17 16:59 Latanoprost (Xalatan) 1 drop BEDTIME BOTH EYES 11/03/17 21:00 11/30/17 20:59 Levalbuterol HCl (Xopenex) 0.63 mg Q4HRT HHN 11/03/17 11:00 11/06/17 22:59 Methylprednisolone Sodium Succinate (Solu-MEDROL) 40 mg EVERY 8 HOURS IVP 11/03/17 14:00 12/02/17 09:14 Nitroglycerin (Ntg) 0.4 mg Q5MIN X 3 DOSES PRN SL Prn Chest Pain 11/03/17 08:15 11/30/17 16:29 Ondansetron HCl (Zofran) 4 mg Q6H PRN IVP Nausea & Vomiting 11/03/17 08:30 11/30/17 08:29 Pantoprazole (Protonix) 40 mg ACBREAKFAST ORAL 11/03/17 09:00 12/03/17 08:59 11/03/17 08:56 Warfarin Sodium (Coumadin per pharmacy) 1 ea DAILYPRN PRN MISC RX TO DOSE WARFARIN PER PROTOC 11/03/17 09:00 11/30/17 08:59 Deni Christianson MD Nov 03, 2017 09:53
[2017-11-03 12:00] VITALS: BP 112/60
[2017-11-03] MEDS: cefTRIAXone 2 GM in D5W 55 ML IVPB SCH (12:03)
--- NOTE | 2017-11-03 12:45 | Cardiac Electrophysiology PN ---
Assessment/Plan Assessment/Plan 1. Troponin leak, likely due to renal failure and creatinine is 2.5. The patient does not have any chest pain, however, has clinical congestive heart failure. Echo EF 55%. Continue Coreg and Lipitor and aspirin. 2. Atrial fibrillation with rapid ventricular response. Better on Coreg 25 mg b.i.d., digoxin 0.125 mg po daily and Cardizem 30 tid po. Dig Level 0.9. On Coumadin per pharmacy. 3. Congestive heart failure with elevated BNP. A 2D echocardiogram EF 55% 4. Asthma exacerbation and severe pulmonary HTN 5. Acute on chronic renal failure. 6. Diabetes. 7. Hyperlipidemia. SAL RN Subjective Subjective In ALFONSO in fib in 70s in respiratory distress on BIPAP. TTE EF 55% and severe Pulmonary HTN. Objective Last 24 Hour Vital Signs Date Time Temp Pulse Resp B/P (MAP) Pulse Ox O2 Delivery O2 Flow Rate FiO2 11/03/17 12:00 40 11/03/17 12:00 96.9 82 19 112/60 100 Bi-pap 40 11/03/17 10:46 65 20 99 Bi-pap 40 11/03/17 10:40 58 20 99 Bi-pap 40 11/03/17 10:40 58 20 99 Facial 40 11/03/17 09:30 72 19 99 Facial 40 11/03/17 08:55 111 11/03/17 08:55 111 117/70 11/03/17 08:40 88 20 99 11/03/17 08:00 86 11/03/17 08:00 40 11/03/17 08:00 98.1 62 19 117/70 100 Bi-pap 40 11/03/17 07:45 72 20 99 Bi-pap 40 11/03/17 07:45 71 20 98 Bi-pap 40 11/03/17 07:45 68 20 99 Facial 40 11/03/17 05:18 67 134/71 11/03/17 05:12 67 20 98 Facial 40 11/03/17 04:00 97.5 88 22 113/66 100 Bi-pap 40 11/03/17 04:00 40 11/03/17 04:00 97 11/03/17 03:21 87 16 99 Facial 40 11/03/17 03:10 83 20 99 Bi-pap 40 11/03/17 03:00 81 18 98 Bi-pap 40 11/03/17 01:05 76 15 98 Facial 40 11/03/17 00:00 94 11/03/17 00:00 40 11/03/17 00:00 97.3 119 22 134/71 100 Bi-pap 40 11/02/17 23:08 74 20 99 Bi-pap 40 11/02/17 23:01 87 24 99 Bi-pap 40 11/02/17 23:00 87 24 99 Facial 40 11/02/17 22:10 95 11/02/17 21:26 83 114/65 11/02/17 21:21 83 22 99 Facial 40 11/02/17 21:19 95 114/65 11/02/17 20:00 97.3 95 22 114/65 100 Bi-pap 40 11/02/17 20:00 40 11/02/17 19:28 83 20 99 Bi-pap 40 11/02/17 19:20 62 22 99 Bi-pap 40 11/02/17 19:00 65 20 98 Facial 40 11/02/17 18:00 110 20 124/74 100 Bi-pap 40 11/02/17 17:03 92 22 99 Facial 40 11/02/17 17:00 105 20 118/73 100 Bi-pap 40 11/02/17 16:00 98.3 103 22 123/65 100 Bi-pap 40 11/02/17 16:00 118 11/02/17 15:03 106 21 99 Bi-pap 40 11/02/17 15:00 109 20 131/71 100 Bi-pap 40 11/02/17 14:53 117 20 99 Bi-pap 40 11/02/17 14:52 101 25 99 Facial 40 11/02/17 14:47 118 118/84 11/02/17 14:00 111 20 118/84 100 Bi-pap 40 11/02/17 13:00 131 24 112/68 100 Bi-pap 40 11/02/17 12:54 125 17 99 Facial 40 Intake and Output 11/02/17 11/03/17 19:00 07:00 Intake Total 460 ml 100 ml Output Total 700 ml Balance 460 ml -600 ml Intake Oral 350 ml 100 ml IV Total 110 ml Output Urine Total 700 ml # Voids 950 Laboratory Tests Test 11/03/17 04:40 Prothrombin Time 40.4 SEC (9.30-11.50) H Prothromb Time International Ratio 3.8 (0.9-1.1) H Digoxin Level 0.9 NG/ML (0.9-2.0) Microbiology Date/Time Source Procedure Growth Status 11/01/17 11:20 Nasopharynx Influenza Types A,B Antigen (ADARSH) - Final Complete Objective HEAD AND NECK: No JVD. LUNGS: Decreased breath sounds. CARDIOVASCULAR: Irregularly irregular tachycardic, S1 and S2 with no gallop or murmur. ABDOMEN: Soft and nontender. EXTREMITIES: A 1+ pitting edema. ASH WILLIAM Nov 03, 2017 12:45
--- NOTE | 2017-11-03 14:09 | Infectious Diseases Prog Note ---
Assessment/Plan Problems: (1) Asthma exacerbation Assessment & Plan: continue ceftriaxon , empirically , screening for influenza is negative , continue inhalers (2) Acute bronchitis Assessment & Plan: await sputum culture , screening for influenza is negative (3) Dyspnea Assessment & Plan: due to the above , continue nebulizers and oxygen, repeat CXR to rule out new infiltrates (4) Atrial fibrillation with controlled ventricular rate Assessment & Plan: continue cardiac meds , cardiology is following Subjective Constitutional: Reports: fatigue HEENT: Reports: congestion Respiratory: Reports: shortness of breath, productive cough Breasts: Reports: no symptoms Cardiovascular: Reports: no symptoms Gastrointestinal/Abdominal: Reports: no symptoms Genitourinary: Reports: no symptoms Neurologic: Reports: no symptoms Psychiatric: Reports: no symptoms Skin: Reports: no symptoms Endocrine: Reports: no symptoms Hematologic: Reports: no symptoms Allergies: Coded Allergies: No Known Allergies (Unverified , 05/24/12) Subjective she was on BIPAP in ICU, unresponsive, wheezing, afebrile, not in distress Objective Vital Signs Last 24 Hour Vital Signs Date Time Temp Pulse Resp B/P (MAP) Pulse Ox O2 Delivery O2 Flow Rate FiO2 11/03/17 13:25 56 20 98 Facial 40 11/03/17 12:00 40 11/03/17 12:00 95 11/03/17 12:00 96.9 82 19 112/60 100 Bi-pap 40 11/03/17 10:46 65 20 99 Bi-pap 40 11/03/17 10:40 58 20 99 Bi-pap 40 11/03/17 10:40 58 20 99 Facial 40 11/03/17 09:30 72 19 99 Facial 40 11/03/17 08:55 111 11/03/17 08:55 111 117/70 11/03/17 08:40 88 20 99 11/03/17 08:00 86 11/03/17 08:00 40 11/03/17 08:00 98.1 62 19 117/70 100 Bi-pap 40 11/03/17 07:45 72 20 99 Bi-pap 40 11/03/17 07:45 71 20 98 Bi-pap 40 11/03/17 07:45 68 20 99 Facial 40 11/03/17 05:18 67 134/71 11/03/17 05:12 67 20 98 Facial 40 11/03/17 04:00 97.5 88 22 113/66 100 Bi-pap 40 11/03/17 04:00 40 11/03/17 04:00 97 11/03/17 03:21 87 16 99 Facial 40 11/03/17 03:10 83 20 99 Bi-pap 40 11/03/17 03:00 81 18 98 Bi-pap 40 11/03/17 01:05 76 15 98 Facial 40 11/03/17 00:00 94 11/03/17 00:00 40 11/03/17 00:00 97.3 119 22 134/71 100 Bi-pap 40 11/02/17 23:08 74 20 99 Bi-pap 40 11/02/17 23:01 87 24 99 Bi-pap 40 11/02/17 23:00 87 24 99 Facial 40 11/02/17 22:10 95 11/02/17 21:26 83 114/65 11/02/17 21:21 83 22 99 Facial 40 11/02/17 21:19 95 114/65 11/02/17 20:00 97.3 95 22 114/65 100 Bi-pap 40 11/02/17 20:00 40 11/02/17 19:28 83 20 99 Bi-pap 40 11/02/17 19:20 62 22 99 Bi-pap 40 11/02/17 19:00 65 20 98 Facial 40 11/02/17 18:00 110 20 124/74 100 Bi-pap 40 11/02/17 17:03 92 22 99 Facial 40 11/02/17 17:00 105 20 118/73 100 Bi-pap 40 11/02/17 16:00 98.3 103 22 123/65 100 Bi-pap 40 11/02/17 16:00 118 11/02/17 15:03 106 21 99 Bi-pap 40 11/02/17 15:00 109 20 131/71 100 Bi-pap 40 11/02/17 14:53 117 20 99 Bi-pap 40 11/02/17 14:52 101 25 99 Facial 40 11/02/17 14:47 118 118/84 Height (Feet): 5 Height (Inches): 4.00 Weight (Pounds): 243 General Appearance: WD/WN, no acute distress HEENT: normocephalic, atraumatic, anicteric, mucous membranes moist, PERRL Respiratory/Chest: chest wall non-tender, no respiratory distress, no accessory muscle use, decreased breath sounds, crackles/rales, expiratory wheezing Cardiovascular: normal peripheral pulses, normal rate, regular rhythm, no gallop/murmur, no JVD Abdomen: normal bowel sounds, soft, non tender, no organomegaly, non distended , no mass, no scars Extremities: no cyanosis, no clubbing Skin: no rash, no lesions, no ulcers Neurologic/Psychiatric: alert, oriented x 3, responsive Microbiology Date/Time Source Procedure Growth Status 11/01/17 11:20 Nasopharynx Influenza Types A,B Antigen (ADARSH) - Final Complete Laboratory Tests Test 11/03/17 04:40 Prothrombin Time 40.4 SEC (9.30-11.50) H Prothromb Time International Ratio 3.8 (0.9-1.1) H Digoxin Level 0.9 NG/ML (0.9-2.0) Current Medications Medications (Trade) Dose Ordered Sig/Ernesto Route PRN Reason Start Time Stop Time Status Last Admin Dose Admin Acetaminophen (Tylenol) 650 mg Q4H PRN ORAL Mild Pain (Pain Scale 1-3) 11/03/17 08:30 11/30/17 16:29 Albuterol/ Ipratropium (Albuterol/ Ipratropium) 3 ml Q2H PRN HHN Shortness of Breath 11/03/17 09:00 11/05/17 16:59 Atorvastatin Calcium (Lipitor) 40 mg BEDTIME ORAL 11/03/17 21:00 11/30/17 20:59 Carvedilol (Coreg) 25 mg EVERY 12 HOURS ORAL 11/03/17 09:00 11/30/17 20:59 11/03/17 08:55 Ceftriaxone Sodium 2 gm/ Dextrose 55 ml @ 110 mls/hr Q24H IVPB 11/03/17 12:00 11/08/17 11:59 11/03/17 12:03 Dextrose (Dextrose 50%) STAT PRN IV Hypoglycemia 11/03/17 08:30 11/30/17 08:29 Digoxin (Lanoxin) 0.125 mg DAILY ORAL 11/03/17 09:00 12/02/17 08:59 11/03/17 08:55 Diltiazem HCl (Cardizem) 30 mg EVERY 8 HOURS ORAL 11/03/17 14:00 12/02/17 13:59 Insulin Aspart (NovoLOG) BEFORE MEALS AND HS SUBQ 11/03/17 11:30 11/30/17 16:59 11/03/17 12:01 Latanoprost (Xalatan) 1 drop BEDTIME BOTH EYES 11/03/17 21:00 11/30/17 20:59 Levalbuterol HCl (Xopenex) 0.63 mg Q4HRT HHN 11/03/17 11:00 11/06/17 22:59 11/03/17 10:44 Methylprednisolone Sodium Succinate (Solu-MEDROL) 40 mg EVERY 8 HOURS IVP 11/03/17 14:00 12/02/17 09:14 Nitroglycerin (Ntg) 0.4 mg Q5MIN X 3 DOSES PRN SL Prn Chest Pain 11/03/17 08:15 11/30/17 16:29 Ondansetron HCl (Zofran) 4 mg Q6H PRN IVP Nausea & Vomiting 11/03/17 08:30 11/30/17 08:29 Pantoprazole (Protonix) 40 mg ACBREAKFAST ORAL 11/03/17 09:00 12/03/17 08:59 11/03/17 08:56 Warfarin Sodium (Coumadin per pharmacy) 1 ea DAILYPRN PRN MISC RX TO DOSE WARFARIN PER PROTOC 11/03/17 09:00 11/30/17 08:59 Erika Huang M.D. Nov 03, 2017 14:09
[2017-11-03 16:00] VITALS: BP 119/66
--- NOTE | 2017-11-03 18:02 | Nephrology Progress Note ---
Assessment/Plan Problem List: (1) Diabetes (2) HLD (hyperlipidemia) (3) Atrial fibrillation with RVR (4) CHF exacerbation (5) Hyperkalemia (6) CKD (chronic kidney disease) (7) Dyspnea (8) Asthma exacerbation Plan Continue current treatment plan Continue BIPAP Monitor lytes, correct prn F/U with cardio and pulmo recs Renally dose meds, avoid nephrotoxins Glycemic control Subjective Constitutional: Denies: no symptoms, chills, diaphoresis, fever, malaise, weakness, other HEENT: Denies: no symptoms, eye pain, blurred vision, tearing, double vision, ear pain, ear discharge, nose pain, nose congestion, throat pain, throat swelling, mouth pain, mouth swelling, other Genitourinary: Denies: no symptoms, burning, discharge, frequency, flank pain, hematuria, incontinence, pain, urgency, other Neurologic/Psychiatric: Denies: no symptoms, anxiety, depressed, emotional problems, headache, numbness, paresthesia, pre-existing deficit, seizure, tingling, tremors, weakness, other Subjective In bed, on BIPAP, in no distress Objective Objective Last 24 Hour Vital Signs Date Time Temp Pulse Resp B/P (MAP) Pulse Ox O2 Delivery O2 Flow Rate FiO2 11/03/17 17:28 89 20 99 Facial 40 11/03/17 16:00 112 11/03/17 16:00 40 11/03/17 16:00 97.5 80 19 119/66 100 Bi-pap 40 11/03/17 14:45 59 20 99 Bi-pap 40 11/03/17 14:40 57 20 99 Facial 40 11/03/17 14:40 57 20 99 Bi-pap 40 11/03/17 14:00 112 100/61 11/03/17 13:25 56 20 98 Facial 40 11/03/17 12:00 40 11/03/17 12:00 95 11/03/17 12:00 96.9 82 19 112/60 100 Bi-pap 40 11/03/17 10:46 65 20 99 Bi-pap 40 11/03/17 10:40 58 20 99 Bi-pap 40 11/03/17 10:40 58 20 99 Facial 40 11/03/17 09:30 72 19 99 Facial 40 11/03/17 08:55 111 11/03/17 08:55 111 117/70 11/03/17 08:40 88 20 99 11/03/17 08:00 86 11/03/17 08:00 40 11/03/17 08:00 98.1 62 19 117/70 100 Bi-pap 40 11/03/17 07:45 72 20 99 Bi-pap 40 11/03/17 07:45 71 20 98 Bi-pap 40 11/03/17 07:45 68 20 99 Facial 40 11/03/17 05:18 67 134/71 11/03/17 05:12 67 20 98 Facial 40 11/03/17 04:00 97.5 88 22 113/66 100 Bi-pap 40 11/03/17 04:00 40 11/03/17 04:00 97 11/03/17 03:21 87 16 99 Facial 40 11/03/17 03:10 83 20 99 Bi-pap 40 11/03/17 03:00 81 18 98 Bi-pap 40 11/03/17 01:05 76 15 98 Facial 40 11/03/17 00:00 94 11/03/17 00:00 40 11/03/17 00:00 97.3 119 22 134/71 100 Bi-pap 40 11/02/17 23:08 74 20 99 Bi-pap 40 11/02/17 23:01 87 24 99 Bi-pap 40 11/02/17 23:00 87 24 99 Facial 40 11/02/17 22:10 95 11/02/17 21:26 83 114/65 11/02/17 21:21 83 22 99 Facial 40 11/02/17 21:19 95 114/65 11/02/17 20:00 97.3 95 22 114/65 100 Bi-pap 40 11/02/17 20:00 40 11/02/17 19:28 83 20 99 Bi-pap 40 11/02/17 19:20 62 22 99 Bi-pap 40 11/02/17 19:00 65 20 98 Facial 40 11/02/17 18:00 110 20 124/74 100 Bi-pap 40 Intake and Output 11/02/17 11/03/17 19:00 07:00 Intake Total 460 ml 100 ml Output Total 700 ml Balance 460 ml -600 ml Intake Oral 350 ml 100 ml IV Total 110 ml Output Urine Total 700 ml # Voids 950 Laboratory Tests 11/03/17 04:40: Prothrombin Time 40.4H, Prothromb Time International Ratio 3.8H, Digoxin Level 0.9 Height (Feet): 5 Height (Inches): 4.00 Weight (Pounds): 243 General Appearance: no apparent distress, alert EENT: normal ENT inspection Neck: non-tender, normal alignment Cardiovascular: normal rate, regularly irregular, no JVD, other - AFIB Respiratory/Chest: decreased breath sounds Abdomen: normal bowel sounds, soft Extremities: non-tender Neurologic: alert, oriented x 3, responsive, normal mood/affect Merline Thornton N.P. Nov 03, 2017 18:02
[2017-11-03 20:00] VITALS: BP 109/67
[2017-11-03] MEDS: Atorvastatin 20mg tab ORAL SCH (20:37)
[2017-11-03] MEDS: Latanoprost 0.005% Opth 2.5ml Soln BOTH EYES SCH (20:40)
[2017-11-04] VITALS: BP 114/70
[2017-11-04] MEDS: Levalbuterol Inh UD 1.25mg/0.5ml HHN SCH ×7 (00:01→22:42)
[2017-11-04 04:00] VITALS: BP 127/77
[2017-11-04] MEDS: dilTIAZem HCl 30mg tab ORAL SCH ×3 (05:19→21:06)
[2017-11-04] MEDS: Solu-MEDROL 40mg Inj IVP SCH ×3 (05:20→21:06)
[2017-11-04] MEDS: NovoLOG Insulin Flexpen SUBQ SCH ×4 (05:22→20:46)
[2017-11-04 06:32] LABS: INR 3.4 (0.9-1.1)
[2017-11-04 08:00] VITALS: BP 126/72
[2017-11-04] MEDS: Digoxin 0.125mg tab ORAL SCH (08:51)
[2017-11-04] MEDS: Carvedilol 25mg Tab ORAL SCH ×2 (08:52→20:44)
--- NOTE | 2017-11-04 09:49 | Pulmonology Progress Note ---
Assessment/Plan Assessment/Plan 1. Asthma exacerbation. 2. Congestive heart failure. Chronic 3. Atrial fibrillation. 4. Hyperkalemia. 5. Acute renal failure on chronic kidney disease. 6. Elevated troponin. 7. Diabetes. 8. Hyperlipidemia. 9. Coagulopathy. PLAN: Continue to IV steroids. Continue BiPAP. Continue DuoNeb q.4 hours scheduled and q.2 hours p.r.n. shortness of breath. Renally dose medications and avoid nephrotoxins. Will add Lasix Check ECHO Subjective Interval Events: Off BiPAP again this AM but on it most of the day and night Constitutional: Reports: no symptoms HEENT: Repors: no symptoms Respiratory: Reports: shortness of breath Cardiovascular: Reports: no symptoms Gastrointestinal/Abdominal: Reports: no symptoms Allergies: Coded Allergies: No Known Allergies (Unverified , 05/24/12) Objective Last 24 Hour Vital Signs Date Time Temp Pulse Resp B/P (MAP) Pulse Ox O2 Delivery O2 Flow Rate FiO2 11/04/17 08:52 85 126/72 11/04/17 08:51 85 11/04/17 08:00 112 11/04/17 08:00 97.9 85 27 126/72 100 Bi-pap 40 11/04/17 07:52 67 20 100 Nasal Cannula 3.0 32 11/04/17 07:42 65 20 100 Nasal Cannula 5.0 11/04/17 05:31 71 20 100 Facial 40 11/04/17 05:19 103 114/70 11/04/17 04:00 97.5 74 27 127/77 100 Bi-pap 40 11/04/17 04:00 40 11/04/17 04:00 103 11/04/17 03:55 75 19 99 Bi-pap 40 11/04/17 03:45 101 19 100 Bi-pap 40 11/04/17 03:45 101 17 100 Facial 40 11/04/17 02:06 74 18 100 Facial 40 11/04/17 00:12 70 21 99 Bi-pap 40 11/04/17 00:03 69 20 99 Bi-pap 40 11/04/17 00:00 98.7 89 19 114/70 100 Bi-pap 40 11/04/17 00:00 96 11/03/17 22:35 75 26 100 Facial 40 11/03/17 21:41 71 19 100 Facial 40 11/03/17 20:37 64 119/66 11/03/17 20:37 64 119/66 11/03/17 20:23 Bi-pap 11/03/17 20:23 Bi-pap 11/03/17 20:22 64 20 100 Facial 40 11/03/17 20:00 40 11/03/17 20:00 98.7 95 24 109/67 100 Bi-pap 40 11/03/17 20:00 111 11/03/17 17:28 89 20 99 Facial 40 11/03/17 16:00 112 11/03/17 16:00 40 11/03/17 16:00 97.5 80 19 119/66 100 Bi-pap 40 11/03/17 14:45 59 20 99 Bi-pap 40 11/03/17 14:40 57 20 99 Facial 40 11/03/17 14:40 57 20 99 Bi-pap 40 11/03/17 14:00 112 100/61 11/03/17 13:25 56 20 98 Facial 40 11/03/17 12:00 40 11/03/17 12:00 95 11/03/17 12:00 96.9 82 19 112/60 100 Bi-pap 40 11/03/17 10:46 65 20 99 Bi-pap 40 11/03/17 10:40 58 20 99 Bi-pap 40 11/03/17 10:40 58 20 99 Facial 40 Intake and Output 11/03/17 11/04/17 19:00 07:00 Intake Total 775 ml Output Total 300 ml 400 ml Balance 475 ml -400 ml Intake Oral 720 ml IV Total 55 ml Output Urine Total 300 ml 400 ml # Voids 1 # Bowel Movements 2 1 General Appearance: no acute distress HEENT: normocephalic Respiratory/Chest: chest wall non-tender, decreased breath sounds Cardiovascular: normal peripheral pulses, normal rate Microbiology Date/Time Source Procedure Growth Status 11/01/17 11:20 Nasopharynx Influenza Types A,B Antigen (ADARSH) - Final Complete Laboratory Tests 11/04/17 04:00: Prothrombin Time 36.5H, Prothromb Time International Ratio 3.4H Current Medications Medications (Trade) Dose Ordered Sig/Ernesto Route PRN Reason Start Time Stop Time Status Last Admin Dose Admin Acetaminophen (Tylenol) 650 mg Q4H PRN ORAL Mild Pain (Pain Scale 1-3) 11/03/17 08:30 11/30/17 16:29 Albuterol/ Ipratropium (Albuterol/ Ipratropium) 3 ml Q2H PRN HHN Shortness of Breath 11/03/17 09:00 11/05/17 16:59 Atorvastatin Calcium (Lipitor) 40 mg BEDTIME ORAL 11/03/17 21:00 11/30/17 20:59 11/03/17 20:37 Carvedilol (Coreg) 25 mg EVERY 12 HOURS ORAL 11/03/17 09:00 11/30/17 20:59 11/04/17 08:52 Ceftriaxone Sodium 2 gm/ Dextrose 55 ml @ 110 mls/hr Q24H IVPB 11/03/17 12:00 11/08/17 11:59 11/03/17 12:03 Dextrose (Dextrose 50%) STAT PRN IV Hypoglycemia 11/03/17 08:30 11/30/17 08:29 Digoxin (Lanoxin) 0.125 mg DAILY ORAL 11/03/17 09:00 12/02/17 08:59 11/04/17 08:51 Diltiazem HCl (Cardizem) 30 mg EVERY 8 HOURS ORAL 11/03/17 14:00 12/02/17 13:59 11/04/17 05:19 Insulin Aspart (NovoLOG) BEFORE MEALS AND HS SUBQ 11/03/17 11:30 11/30/17 16:59 11/04/17 05:22 Latanoprost (Xalatan) 1 drop BEDTIME BOTH EYES 11/03/17 21:00 11/30/17 20:59 11/03/17 20:40 Levalbuterol HCl (Xopenex) 0.63 mg Q4HRT HHN 11/03/17 11:00 11/06/17 22:59 11/04/17 07:30 Methylprednisolone Sodium Succinate (Solu-MEDROL) 40 mg EVERY 8 HOURS IVP 11/03/17 14:00 12/02/17 09:14 11/04/17 05:20 Nitroglycerin (Ntg) 0.4 mg Q5MIN X 3 DOSES PRN SL Prn Chest Pain 11/03/17 08:15 11/30/17 16:29 Ondansetron HCl (Zofran) 4 mg Q6H PRN IVP Nausea & Vomiting 11/03/17 08:30 11/30/17 08:29 Pantoprazole (Protonix) 40 mg ACBREAKFAST ORAL 11/03/17 09:00 12/03/17 08:59 11/04/17 05:19 Warfarin Sodium (Coumadin per pharmacy) 1 ea DAILYPRN PRN MISC RX TO DOSE WARFARIN PER PROTOC 11/03/17 09:00 11/30/17 08:59 Deni Christianson MD Nov 04, 2017 09:49
[2017-11-04 12:00] VITALS: BP 124/76
--- NOTE | 2017-11-04 12:34 | Nephrology Progress Note ---
Assessment/Plan Problem List: (1) Asthma exacerbation (2) Diabetes (3) HLD (hyperlipidemia) (4) Dyspnea (5) Hyperkalemia (6) CKD (chronic kidney disease) (7) TIFFANIE (acute kidney injury) (8) CHF exacerbation (9) Atrial fibrillation with RVR Plan Cardio following. BiPAP prn. FOllow up ABG. Abx per ID. cont iv steroids. taper soon. pulm following. Follow up CXR. D/w Dr. Christian. Subjective Subjective off bipap. still wheezing but SOB better. Objective Objective Last 24 Hour Vital Signs Date Time Temp Pulse Resp B/P (MAP) Pulse Ox O2 Delivery O2 Flow Rate FiO2 11/04/17 11:04 82 20 98 Nasal Cannula 3.0 32 11/04/17 10:50 79 20 98 Nasal Cannula 3.0 32 11/04/17 08:52 85 126/72 11/04/17 08:51 85 11/04/17 08:00 112 11/04/17 08:00 97.9 85 27 126/72 100 Bi-pap 40 11/04/17 07:52 67 20 100 Nasal Cannula 3.0 32 11/04/17 07:42 65 20 100 Nasal Cannula 5.0 11/04/17 05:31 71 20 100 Facial 40 11/04/17 05:19 103 114/70 11/04/17 04:00 97.5 74 27 127/77 100 Bi-pap 40 11/04/17 04:00 40 11/04/17 04:00 103 11/04/17 03:55 75 19 99 Bi-pap 40 11/04/17 03:45 101 19 100 Bi-pap 40 11/04/17 03:45 101 17 100 Facial 40 11/04/17 02:06 74 18 100 Facial 40 11/04/17 00:12 70 21 99 Bi-pap 40 11/04/17 00:03 69 20 99 Bi-pap 40 11/04/17 00:00 98.7 89 19 114/70 100 Bi-pap 40 11/04/17 00:00 96 11/03/17 22:35 75 26 100 Facial 40 11/03/17 21:41 71 19 100 Facial 40 11/03/17 20:37 64 119/66 11/03/17 20:37 64 119/66 11/03/17 20:23 Bi-pap 11/03/17 20:23 Bi-pap 11/03/17 20:22 64 20 100 Facial 40 11/03/17 20:00 40 11/03/17 20:00 98.7 95 24 109/67 100 Bi-pap 40 11/03/17 20:00 111 11/03/17 17:28 89 20 99 Facial 40 11/03/17 16:00 112 11/03/17 16:00 40 11/03/17 16:00 97.5 80 19 119/66 100 Bi-pap 40 11/03/17 14:45 59 20 99 Bi-pap 40 11/03/17 14:40 57 20 99 Facial 40 11/03/17 14:40 57 20 99 Bi-pap 40 11/03/17 14:00 112 100/61 11/03/17 13:25 56 20 98 Facial 40 Intake and Output 11/03/17 11/04/17 19:00 07:00 Intake Total 775 ml Output Total 300 ml 400 ml Balance 475 ml -400 ml Intake Oral 720 ml IV Total 55 ml Output Urine Total 300 ml 400 ml # Voids 1 # Bowel Movements 2 1 Laboratory Tests 11/04/17 04:00: Prothrombin Time 36.5H, Prothromb Time International Ratio 3.4H Height (Feet): 5 Height (Inches): 4.00 Weight (Pounds): 244 General Appearance: no apparent distress Cardiovascular: normal rate, regular rhythm Respiratory/Chest: expiratory wheezing, inspiratory wheezing Abdomen: non tender, soft Extremities: trace edema Neurologic: alert, oriented x 3 RANDY VILLARREAL Nov 04, 2017 12:34
[2017-11-04] MEDS: cefTRIAXone 2 GM in D5W 55 ML IVPB SCH (13:14)
--- NOTE | 2017-11-04 14:55 | Infectious Diseases Prog Note ---
Assessment/Plan Problems: (1) Asthma exacerbation Assessment & Plan: continue ceftriaxon empirically , may switch to oral once ready to be discharged . screening for influenza is negative , continue inhalers (2) Acute bronchitis Assessment & Plan: await sputum culture , screening for influenza is negative (3) Dyspnea Assessment & Plan: due to the above , continue nebulizers and oxygen, repeat CXR to rule out new infiltrates (4) Atrial fibrillation with controlled ventricular rate Assessment & Plan: continue cardiac meds , cardiology is following Subjective Constitutional: Reports: no symptoms HEENT: Reports: no symptoms Respiratory: Reports: dry cough, other - wheezing Breasts: Reports: no symptoms Cardiovascular: Reports: no symptoms Gastrointestinal/Abdominal: Reports: no symptoms Genitourinary: Reports: no symptoms Neurologic: Reports: no symptoms Psychiatric: Reports: no symptoms Skin: Reports: no symptoms Endocrine: Reports: no symptoms Hematologic: Reports: no symptoms Musculoskeletal: Reports: no symptoms Allergies: Coded Allergies: No Known Allergies (Unverified , 05/24/12) Subjective she was on BIPAP in ICU, unresponsive, wheezing, afebrile, not in distress Objective Vital Signs Last 24 Hour Vital Signs Date Time Temp Pulse Resp B/P (MAP) Pulse Ox O2 Delivery O2 Flow Rate FiO2 11/04/17 12:00 97.7 100 21 124/76 99 Nasal Cannula 3.0 11/04/17 11:42 101 11/04/17 11:04 82 20 98 Nasal Cannula 3.0 32 11/04/17 10:50 79 20 98 Nasal Cannula 3.0 32 11/04/17 08:52 85 126/72 11/04/17 08:51 85 11/04/17 08:00 112 11/04/17 08:00 97.9 85 27 126/72 100 Bi-pap 40 11/04/17 07:52 67 20 100 Nasal Cannula 3.0 32 11/04/17 07:42 65 20 100 Nasal Cannula 5.0 11/04/17 05:31 71 20 100 Facial 40 11/04/17 05:19 103 114/70 11/04/17 04:00 97.5 74 27 127/77 100 Bi-pap 40 11/04/17 04:00 40 11/04/17 04:00 103 11/04/17 03:55 75 19 99 Bi-pap 40 11/04/17 03:45 101 19 100 Bi-pap 40 11/04/17 03:45 101 17 100 Facial 40 11/04/17 02:06 74 18 100 Facial 40 11/04/17 00:12 70 21 99 Bi-pap 40 11/04/17 00:03 69 20 99 Bi-pap 40 11/04/17 00:00 98.7 89 19 114/70 100 Bi-pap 40 11/04/17 00:00 96 11/03/17 22:35 75 26 100 Facial 40 11/03/17 21:41 71 19 100 Facial 40 11/03/17 20:37 64 119/66 11/03/17 20:37 64 119/66 11/03/17 20:23 Bi-pap 11/03/17 20:23 Bi-pap 11/03/17 20:22 64 20 100 Facial 40 11/03/17 20:00 40 11/03/17 20:00 98.7 95 24 109/67 100 Bi-pap 40 11/03/17 20:00 111 11/03/17 17:28 89 20 99 Facial 40 11/03/17 16:00 112 11/03/17 16:00 40 11/03/17 16:00 97.5 80 19 119/66 100 Bi-pap 40 Height (Feet): 5 Height (Inches): 4.00 Weight (Pounds): 244 General Appearance: WD/WN, no acute distress HEENT: normocephalic, atraumatic, anicteric, mucous membranes moist, PERRL Respiratory/Chest: chest wall non-tender, no respiratory distress, no accessory muscle use, decreased breath sounds, expiratory wheezing Cardiovascular: normal peripheral pulses, normal rate, regular rhythm, no gallop/murmur, no JVD Abdomen: normal bowel sounds, soft, non tender, no organomegaly, non distended , no mass, no scars Extremities: no cyanosis, no clubbing Skin: no rash, no lesions, no ulcers Neurologic/Psychiatric: alert, oriented x 3, responsive Laboratory Tests Test 11/04/17 04:00 Prothrombin Time 36.5 SEC (9.30-11.50) H Prothromb Time International Ratio 3.4 (0.9-1.1) H Current Medications Medications (Trade) Dose Ordered Sig/Ernesto Route PRN Reason Start Time Stop Time Status Last Admin Dose Admin Acetaminophen (Tylenol) 650 mg Q4H PRN ORAL Mild Pain (Pain Scale 1-3) 11/03/17 08:30 11/30/17 16:29 Albuterol/ Ipratropium (Albuterol/ Ipratropium) 3 ml Q2H PRN HHN Shortness of Breath 11/03/17 09:00 11/05/17 16:59 Atorvastatin Calcium (Lipitor) 40 mg BEDTIME ORAL 11/03/17 21:00 11/30/17 20:59 11/03/17 20:37 Carvedilol (Coreg) 25 mg EVERY 12 HOURS ORAL 11/03/17 09:00 11/30/17 20:59 11/04/17 08:52 Ceftriaxone Sodium 2 gm/ Dextrose 55 ml @ 110 mls/hr Q24H IVPB 11/03/17 12:00 11/08/17 11:59 11/04/17 13:14 Dextrose (Dextrose 50%) STAT PRN IV Hypoglycemia 11/03/17 08:30 11/30/17 08:29 Digoxin (Lanoxin) 0.125 mg DAILY ORAL 11/03/17 09:00 12/02/17 08:59 11/04/17 08:51 Diltiazem HCl (Cardizem) 30 mg EVERY 8 HOURS ORAL 11/03/17 14:00 12/02/17 13:59 11/04/17 05:19 Furosemide (Lasix) 40 mg DAILY IV 11/04/17 10:00 12/04/17 09:59 11/04/17 12:10 Insulin Aspart (NovoLOG) BEFORE MEALS AND HS SUBQ 11/03/17 11:30 11/30/17 16:59 11/04/17 12:09 Latanoprost (Xalatan) 1 drop BEDTIME BOTH EYES 11/03/17 21:00 11/30/17 20:59 11/03/17 20:40 Levalbuterol HCl (Xopenex) 0.63 mg Q4HRT HHN 11/03/17 11:00 11/06/17 22:59 11/04/17 10:50 Methylprednisolone Sodium Succinate (Solu-MEDROL) 40 mg EVERY 8 HOURS IVP 11/03/17 14:00 12/02/17 09:14 11/04/17 05:20 Nitroglycerin (Ntg) 0.4 mg Q5MIN X 3 DOSES PRN SL Prn Chest Pain 11/03/17 08:15 11/30/17 16:29 Ondansetron HCl (Zofran) 4 mg Q6H PRN IVP Nausea & Vomiting 11/03/17 08:30 11/30/17 08:29 Pantoprazole (Protonix) 40 mg ACBREAKFAST ORAL 11/03/17 09:00 12/03/17 08:59 11/04/17 05:19 Warfarin Sodium (Coumadin per pharmacy) 1 ea DAILYPRN PRN MISC RX TO DOSE WARFARIN PER PROTOC 11/03/17 09:00 11/30/17 08:59 Erika Huang M.D. Nov 04, 2017 14:55
[2017-11-04 16:00] VITALS: BP 130/63
--- NOTE | 2017-11-04 16:32 | Cardiac Electrophysiology PN ---
Assessment/Plan Assessment/Plan 1. Troponin leak, likely due to renal failure and creatinine is 2.5. The patient does not have any chest pain, however, has clinical congestive heart failure. Echo EF 55%. Continue Coreg and Lipitor and aspirin. 2. Atrial fibrillation with rapid ventricular response. Continue Coreg 25 mg b.i.d., digoxin 0.125 mg po daily and Cardizem 30 tid po. Dig Level 0.9. On Coumadin per pharmacy.INR 3.4 3. Congestive heart failure with elevated BNP. A 2D echocardiogram EF 55% 4. Asthma exacerbation and severe pulmonary HTN 5. Acute on chronic renal failure. 6. Diabetes. 7. Hyperlipidemia. SAL RN Subjective Subjective In ALFONSO in fib in 70s-80s on O2. TTE EF 55% and severe Pulmonary HTN. Objective Last 24 Hour Vital Signs Date Time Temp Pulse Resp B/P (MAP) Pulse Ox O2 Delivery O2 Flow Rate FiO2 11/04/17 15:28 99 20 100 Nasal Cannula 3.0 32 11/04/17 15:19 98 20 100 Nasal Cannula 3.0 32 11/04/17 15:11 96 121/74 11/04/17 12:00 97.7 100 21 124/76 99 Nasal Cannula 3.0 11/04/17 11:42 101 11/04/17 11:04 82 20 98 Nasal Cannula 3.0 32 11/04/17 10:50 79 20 98 Nasal Cannula 3.0 32 11/04/17 08:52 85 126/72 11/04/17 08:51 85 11/04/17 08:00 112 11/04/17 08:00 97.9 85 27 126/72 100 Bi-pap 40 11/04/17 07:52 67 20 100 Nasal Cannula 3.0 32 11/04/17 07:42 65 20 100 Nasal Cannula 5.0 11/04/17 05:31 71 20 100 Facial 40 11/04/17 05:19 103 114/70 11/04/17 04:00 97.5 74 27 127/77 100 Bi-pap 40 11/04/17 04:00 40 11/04/17 04:00 103 11/04/17 03:55 75 19 99 Bi-pap 40 11/04/17 03:45 101 19 100 Bi-pap 40 11/04/17 03:45 101 17 100 Facial 40 11/04/17 02:06 74 18 100 Facial 40 11/04/17 00:12 70 21 99 Bi-pap 40 11/04/17 00:03 69 20 99 Bi-pap 40 11/04/17 00:00 98.7 89 19 114/70 100 Bi-pap 40 11/04/17 00:00 96 11/03/17 22:35 75 26 100 Facial 40 11/03/17 21:41 71 19 100 Facial 40 11/03/17 20:37 64 119/66 11/03/17 20:37 64 119/66 11/03/17 20:23 Bi-pap 11/03/17 20:23 Bi-pap 11/03/17 20:22 64 20 100 Facial 40 11/03/17 20:00 40 11/03/17 20:00 98.7 95 24 109/67 100 Bi-pap 40 11/03/17 20:00 111 11/03/17 17:28 89 20 99 Facial 40 Intake and Output 11/03/17 11/04/17 19:00 07:00 Intake Total 775 ml Output Total 300 ml 400 ml Balance 475 ml -400 ml Intake Oral 720 ml IV Total 55 ml Output Urine Total 300 ml 400 ml # Voids 1 # Bowel Movements 2 1 Laboratory Tests Test 11/04/17 04:00 Prothrombin Time 36.5 SEC (9.30-11.50) H Prothromb Time International Ratio 3.4 (0.9-1.1) H Objective HEAD AND NECK: No JVD. LUNGS: Coarse rhonchi CARDIOVASCULAR: Irregularly irregular tachycardic, S1 and S2 with no gallop or murmur. ABDOMEN: Soft and nontender. EXTREMITIES: A 1+ pitting edema. ASH WILLIAM Nov 04, 2017 16:32
[2017-11-04 20:00] VITALS: BP 135/77
[2017-11-04] MEDS: Atorvastatin 20mg tab ORAL SCH (20:44)
[2017-11-04] MEDS: Latanoprost 0.005% Opth 2.5ml Soln BOTH EYES SCH (20:56)
[2017-11-05] VITALS: BP 130/82
[2017-11-05] MEDS: Levalbuterol Inh UD 1.25mg/0.5ml HHN SCH ×6 (03:01→22:58)
[2017-11-05 04:00] VITALS: BP 139/80
[2017-11-05] MEDS: dilTIAZem HCl 30mg tab ORAL SCH ×3 (05:13→21:59)
[2017-11-05] MEDS: Solu-MEDROL 40mg Inj IVP SCH ×3 (05:14→21:59)
[2017-11-05] MEDS: NovoLOG Insulin Flexpen SUBQ SCH ×3 (05:32→22:01)
[2017-11-05 06:25] LABS: HEMATOCRIT 33.3 % (37.0-47.0); HEMOGLOBIN 10.9 G/DL (12.0-16.0); MEAN CORPUSCULAR VOLUME 91 FL (80-99); PLATELET COUNT 95 K/UL (150-450); RED BLOOD COUNT 3.67 M/UL (4.20-5.40); RED CELL DISTRIBUTION WIDTH 15.1 % (11.6-14.8); WHITE BLOOD COUNT 10.8 K/UL (4.8-10.8)
[2017-11-05 06:36] LABS: INR 2.4 (0.9-1.1)
[2017-11-05 06:49] LABS: ANION GAP 10 mmol/L (5-15); CARBON DIOXIDE 24 MMOL/L (21-32); CHLORIDE 111 MMOL/L (98-107); CREATININE 2.1 MG/DL (0.55-1.30); POTASSIUM 4.8 MMOL/L (3.5-5.1); SODIUM 145 MMOL/L (136-145)
[2017-11-05 07:29] LABS: BLOOD UREA NITROGEN 50 mg/dL (7-18)
[2017-11-05 08:00] VITALS: BP 121/73
--- NOTE | 2017-11-05 08:24 | Pulmonology Progress Note ---
Assessment/Plan Assessment/Plan 1. Asthma exacerbation. 2. Congestive heart failure. Chronic 3. Atrial fibrillation. 4. Hyperkalemia. 5. Acute renal failure on chronic kidney disease. 6. Elevated troponin. 7. Diabetes. 8. Hyperlipidemia. 9. Coagulopathy. PLAN: Continue IV steroids. Continue BiPAP. Continue DuoNeb q.4 hours scheduled and q.2 hours p.r.n. shortness of breath. Renally dose medications and avoid nephrotoxins. Continue Lasix 40 mg IV daily; has diuresed; is net -1500 ml yesterday Check ECHO Subjective Interval Events: On BiPAP; feeling better Constitutional: Reports: no symptoms HEENT: Repors: no symptoms Respiratory: Reports: shortness of breath Cardiovascular: Reports: no symptoms Gastrointestinal/Abdominal: Reports: no symptoms Allergies: Coded Allergies: No Known Allergies (Unverified , 05/24/12) Objective Last 24 Hour Vital Signs Date Time Temp Pulse Resp B/P (MAP) Pulse Ox O2 Delivery O2 Flow Rate FiO2 11/05/17 07:57 80 13 100 Bi-pap 40 11/05/17 07:46 81 13 100 Bi-pap 40 11/05/17 07:46 40 11/05/17 07:45 81 13 100 Facial 40 11/05/17 05:37 81 22 100 Facial 40 11/05/17 05:13 81 130/82 11/05/17 04:00 105 11/05/17 04:00 97.6 70 20 139/80 100 Nasal Cannula 2.0 11/05/17 03:17 81 22 100 Nasal Cannula 3.0 32 11/05/17 03:00 32 11/05/17 02:59 74 22 100 Nasal Cannula 3.0 32 11/05/17 00:00 98.4 78 22 130/82 100 Nasal Cannula 2.0 11/05/17 00:00 99 11/04/17 22:45 93 22 100 Nasal Cannula 3.0 32 11/04/17 22:44 32 11/04/17 22:39 93 22 100 Nasal Cannula 3.0 32 11/04/17 21:06 81 130/63 11/04/17 20:44 81 130/63 11/04/17 20:00 96.3 78 22 135/77 100 Nasal Cannula 2.0 11/04/17 20:00 101 11/04/17 19:05 81 20 99 Nasal Cannula 3.0 32 11/04/17 18:53 32 11/04/17 18:49 81 20 99 Nasal Cannula 3.0 32 11/04/17 16:00 96 11/04/17 16:00 97.7 95 20 130/63 100 Nasal Cannula 2.0 11/04/17 15:28 99 20 100 Nasal Cannula 3.0 32 11/04/17 15:19 98 20 100 Nasal Cannula 3.0 32 11/04/17 15:11 96 121/74 11/04/17 12:00 97.7 100 21 124/76 99 Nasal Cannula 3.0 11/04/17 11:42 101 11/04/17 11:04 82 20 98 Nasal Cannula 3.0 32 11/04/17 10:50 79 20 98 Nasal Cannula 3.0 32 11/04/17 08:52 85 126/72 11/04/17 08:51 85 Intake and Output 11/04/17 11/05/17 19:00 07:00 Intake Total 110 ml 300 ml Output Total 1600 ml 400 ml Balance -1490 ml -100 ml IV Total 110 ml Other 300 ml Output Urine Total 1600 ml 400 ml # Bowel Movements 2 1 General Appearance: no acute distress HEENT: normocephalic Respiratory/Chest: chest wall non-tender, decreased breath sounds Cardiovascular: normal peripheral pulses, normal rate Abdomen: normal bowel sounds Laboratory Tests 11/05/17 04:50: White Blood Count 10.8, Red Blood Count 3.67L, Hemoglobin 10.9L, Hematocrit 33.3L, Mean Corpuscular Volume 91, Mean Corpuscular Hemoglobin 29.5, Mean Corpuscular Hemoglobin Concent 32.6, Red Cell Distribution Width 15.1H, Platelet Count 95L, Mean Platelet Volume 9.3, Neutrophils (%) (Auto) , Lymphocytes (%) (Auto) , Monocytes (%) (Auto) , Eosinophils (%) (Auto) , Basophils (%) (Auto) , Neutrophils % (Manual) [Pending], Lymphocytes % (Manual) [Pending], Platelet Estimate [Pending], Platelet Morphology [Pending], Prothrombin Time 25.0H, Prothromb Time International Ratio 2.4H, Sodium Level 145, Potassium Level 4.8, Chloride Level 111H, Carbon Dioxide Level 24, Anion Gap 10, Blood Urea Nitrogen 50H, Creatinine 2.1H, Estimat Glomerular Filtration Rate , Glucose Level 251H, Calcium Level 9.0 Current Medications Medications (Trade) Dose Ordered Sig/Ernesto Route PRN Reason Start Time Stop Time Status Last Admin Dose Admin Acetaminophen (Tylenol) 650 mg Q4H PRN ORAL Mild Pain (Pain Scale 1-3) 11/03/17 08:30 11/30/17 16:29 Albuterol/ Ipratropium (Albuterol/ Ipratropium) 3 ml Q2H PRN HHN Shortness of Breath 11/03/17 09:00 11/05/17 16:59 Atorvastatin Calcium (Lipitor) 40 mg BEDTIME ORAL 11/03/17 21:00 11/30/17 20:59 11/04/17 20:44 Carvedilol (Coreg) 25 mg EVERY 12 HOURS ORAL 11/03/17 09:00 11/30/17 20:59 11/04/17 20:44 Ceftriaxone Sodium 2 gm/ Dextrose 55 ml @ 110 mls/hr Q24H IVPB 11/03/17 12:00 11/08/17 11:59 11/04/17 13:14 Dextrose (Dextrose 50%) STAT PRN IV Hypoglycemia 11/03/17 08:30 11/30/17 08:29 Digoxin (Lanoxin) 0.125 mg DAILY ORAL 11/03/17 09:00 12/02/17 08:59 11/04/17 08:51 Diltiazem HCl (Cardizem) 30 mg EVERY 8 HOURS ORAL 11/03/17 14:00 12/02/17 13:59 11/05/17 05:13 Furosemide (Lasix) 40 mg DAILY IV 11/04/17 10:00 12/04/17 09:59 11/04/17 12:10 Insulin Aspart (NovoLOG) BEFORE MEALS AND HS SUBQ 11/03/17 11:30 11/30/17 16:59 11/05/17 05:32 Latanoprost (Xalatan) 1 drop BEDTIME BOTH EYES 11/03/17 21:00 11/30/17 20:59 11/04/17 20:56 Levalbuterol HCl (Xopenex) 0.63 mg Q4HRT HHN 11/03/17 11:00 11/06/17 22:59 11/05/17 07:46 Methylprednisolone Sodium Succinate (Solu-MEDROL) 40 mg EVERY 8 HOURS IVP 11/03/17 14:00 12/02/17 09:14 11/05/17 05:14 Nitroglycerin (Ntg) 0.4 mg Q5MIN X 3 DOSES PRN SL Prn Chest Pain 11/03/17 08:15 11/30/17 16:29 Ondansetron HCl (Zofran) 4 mg Q6H PRN IVP Nausea & Vomiting 11/03/17 08:30 11/30/17 08:29 Pantoprazole (Protonix) 40 mg ACBREAKFAST ORAL 11/03/17 09:00 12/03/17 08:59 11/05/17 05:15 Warfarin Sodium (Coumadin per pharmacy) 1 ea DAILYPRN PRN MISC RX TO DOSE WARFARIN PER PROTOC 11/03/17 09:00 11/30/17 08:59 Deni Christianson MD Nov 05, 2017 08:23
[2017-11-05] MEDS: Digoxin 0.125mg tab ORAL SCH (10:10)
[2017-11-05] MEDS: Carvedilol 25mg Tab ORAL SCH ×2 (10:11→20:57)
--- NOTE | 2017-11-05 10:23 | Diagnostic Imaging Report ---
Indication: Elevated renal function tests Technique: Renal ultrasound Findings: The right kidney measures 9.9 cm in length. The left kidney measures 9.7 cm in length. There is no obvious hydronephrosis. Bilateral renal cysts are seen measuring up to 1.9 cm and the left kidney and 1.6 cm and the right kidney. The visualized portions of the inferior vena cava are unremarkable. The bladder is partially distended and grossly unremarkable. Impression: Technically limited examination. No obvious hydronephrosis. Bilateral renal cysts.
--- NOTE | 2017-11-05 10:23 | Diagnostic Imaging Report ---
Indication: Cough Technique: XRAY Chest 1v Comparison: 10/31/2017 Findings: Cardiac silhouette is prominent. There is pulmonary vascular congestion. There is no consolidation or pleural effusion. Degenerative changes of the spine are noted. Impression: Cardiomegaly with pulmonary vascular congestion.
[2017-11-05 12:00] VITALS: BP 138/73
[2017-11-05] MEDS: cefTRIAXone 2 GM in D5W 55 ML IVPB SCH (13:04)
--- NOTE | 2017-11-05 13:48 | Infectious Diseases Prog Note ---
Assessment/Plan Problems: (1) Asthma exacerbation Assessment & Plan: continue ceftriaxon empirically , may switch to oral once ready to be discharged . screening for influenza is negative , continue inhalers (2) Acute bronchitis Assessment & Plan: await sputum culture , screening for influenza is negative (3) Dyspnea Assessment & Plan: due to the above , continue nebulizers and oxygen, repeat CXR to rule out new infiltrates (4) Atrial fibrillation with controlled ventricular rate Assessment & Plan: continue cardiac meds , cardiology is following Subjective Constitutional: Reports: fatigue HEENT: Reports: no symptoms Respiratory: Reports: dry cough, other - wheezing Breasts: Reports: no symptoms Cardiovascular: Reports: no symptoms Gastrointestinal/Abdominal: Reports: no symptoms Genitourinary: Reports: no symptoms Neurologic: Reports: no symptoms Psychiatric: Reports: no symptoms Skin: Reports: no symptoms Endocrine: Reports: no symptoms Hematologic: Reports: no symptoms Musculoskeletal: Reports: no symptoms Allergies: Coded Allergies: No Known Allergies (Unverified , 05/24/12) Subjective she was on BIPAP in ICU, unresponsive, wheezing, afebrile, not in distress Objective Vital Signs Last 24 Hour Vital Signs Date Time Temp Pulse Resp B/P (MAP) Pulse Ox O2 Delivery O2 Flow Rate FiO2 11/05/17 11:55 75 13 100 Nasal Cannula 4.0 36 11/05/17 11:43 36 11/05/17 11:43 81 13 100 Nasal Cannula 4.0 36 11/05/17 10:11 79 121/73 11/05/17 10:10 79 11/05/17 09:05 79 15 100 Facial 40 11/05/17 08:32 97 11/05/17 08:00 96.9 62 20 121/73 100 Bi-pap 40 11/05/17 07:57 80 13 100 Bi-pap 40 11/05/17 07:46 81 13 100 Bi-pap 40 11/05/17 07:46 40 11/05/17 07:45 81 13 100 Facial 40 11/05/17 05:37 81 22 100 Facial 40 11/05/17 05:13 81 130/82 11/05/17 04:00 105 11/05/17 04:00 97.6 70 20 139/80 100 Nasal Cannula 2.0 11/05/17 03:17 81 22 100 Nasal Cannula 3.0 32 11/05/17 03:00 32 11/05/17 02:59 74 22 100 Nasal Cannula 3.0 32 11/05/17 00:00 98.4 78 22 130/82 100 Nasal Cannula 2.0 11/05/17 00:00 99 11/04/17 22:45 93 22 100 Nasal Cannula 3.0 32 11/04/17 22:44 32 11/04/17 22:39 93 22 100 Nasal Cannula 3.0 32 11/04/17 21:06 81 130/63 11/04/17 20:44 81 130/63 11/04/17 20:00 96.3 78 22 135/77 100 Nasal Cannula 2.0 11/04/17 20:00 101 11/04/17 19:05 81 20 99 Nasal Cannula 3.0 32 11/04/17 18:53 32 11/04/17 18:49 81 20 99 Nasal Cannula 3.0 32 11/04/17 16:00 96 11/04/17 16:00 97.7 95 20 130/63 100 Nasal Cannula 2.0 11/04/17 15:28 99 20 100 Nasal Cannula 3.0 32 11/04/17 15:19 98 20 100 Nasal Cannula 3.0 32 11/04/17 15:11 96 121/74 Height (Feet): 5 Height (Inches): 4.00 Weight (Pounds): 240 General Appearance: WD/WN, no acute distress HEENT: normocephalic, atraumatic, anicteric, mucous membranes moist, PERRL Respiratory/Chest: chest wall non-tender, no respiratory distress, no accessory muscle use, decreased breath sounds, expiratory wheezing Cardiovascular: normal peripheral pulses, normal rate, regular rhythm, no gallop/murmur, no JVD Abdomen: normal bowel sounds, soft, non tender, no organomegaly, non distended , no mass, no scars Extremities: no cyanosis, no clubbing Skin: no rash, no lesions, no ulcers Neurologic/Psychiatric: alert, oriented x 3, responsive Laboratory Tests Test 11/05/17 04:50 White Blood Count 10.8 K/UL (4.8-10.8) Red Blood Count 3.67 M/UL (4.20-5.40) L Hemoglobin 10.9 G/DL (12.0-16.0) L Hematocrit 33.3 % (37.0-47.0) L Mean Corpuscular Volume 91 FL (80-99) Mean Corpuscular Hemoglobin 29.5 PG (27.0-31.0) Mean Corpuscular Hemoglobin Concent 32.6 G/DL (32.0-36.0) Red Cell Distribution Width 15.1 % (11.6-14.8) H Platelet Count 95 K/UL (150-450) L Mean Platelet Volume 9.3 FL (6.5-10.1) Neutrophils (%) (Auto) % (45.0-75.0) Lymphocytes (%) (Auto) % (20.0-45.0) Monocytes (%) (Auto) % (1.0-10.0) Eosinophils (%) (Auto) % (0.0-3.0) Basophils (%) (Auto) % (0.0-2.0) Differential Total Cells Counted 100 Neutrophils % (Manual) 92 % (45-75) H Lymphocytes % (Manual) 4 % (20-45) L Monocytes % (Manual) 2 % (1-10) Eosinophils % (Manual) 0 % (0-3) Basophils % (Manual) 0 % (0-2) Band Neutrophils 2 % (0-8) Platelet Estimate Decreased L Platelet Morphology Normal Prothrombin Time 25.0 SEC (9.30-11.50) H Prothromb Time International Ratio 2.4 (0.9-1.1) H Sodium Level 145 MMOL/L (136-145) Potassium Level 4.8 MMOL/L (3.5-5.1) Chloride Level 111 MMOL/L (98-107) H Carbon Dioxide Level 24 MMOL/L (21-32) Anion Gap 10 mmol/L (5-15) Blood Urea Nitrogen 50 mg/dL (7-18) H Creatinine 2.1 MG/DL (0.55-1.30) H Estimat Glomerular Filtration Rate mL/min (>60) Glucose Level 251 MG/DL (74-106) H Calcium Level 9.0 MG/DL (8.5-10.1) Current Medications Medications (Trade) Dose Ordered Sig/Ernesto Route PRN Reason Start Time Stop Time Status Last Admin Dose Admin Acetaminophen (Tylenol) 650 mg Q4H PRN ORAL Mild Pain (Pain Scale 1-3) 11/03/17 08:30 11/30/17 16:29 Albuterol/ Ipratropium (Albuterol/ Ipratropium) 3 ml Q2H PRN HHN Shortness of Breath 11/03/17 09:00 11/05/17 16:59 Atorvastatin Calcium (Lipitor) 40 mg BEDTIME ORAL 11/03/17 21:00 11/30/17 20:59 11/04/17 20:44 Carvedilol (Coreg) 25 mg EVERY 12 HOURS ORAL 11/03/17 09:00 11/30/17 20:59 11/05/17 10:11 Ceftriaxone Sodium 2 gm/ Dextrose 55 ml @ 110 mls/hr Q24H IVPB 11/03/17 12:00 11/08/17 11:59 11/05/17 13:04 Dextrose (Dextrose 50%) STAT PRN IV Hypoglycemia 11/03/17 08:30 11/30/17 08:29 Digoxin (Lanoxin) 0.125 mg DAILY ORAL 11/03/17 09:00 12/02/17 08:59 11/05/17 10:10 Diltiazem HCl (Cardizem) 30 mg EVERY 8 HOURS ORAL 11/03/17 14:00 12/02/17 13:59 11/05/17 05:13 Furosemide (Lasix) 40 mg DAILY IV 11/04/17 10:00 12/04/17 09:59 11/05/17 10:10 Insulin Aspart (NovoLOG) BEFORE MEALS AND HS SUBQ 11/03/17 11:30 11/30/17 16:59 11/05/17 12:52 Latanoprost (Xalatan) 1 drop BEDTIME BOTH EYES 11/03/17 21:00 11/30/17 20:59 11/04/17 20:56 Levalbuterol HCl (Xopenex) 0.63 mg Q4HRT HHN 11/03/17 11:00 11/06/17 22:59 11/05/17 11:43 Methylprednisolone Sodium Succinate (Solu-MEDROL) 40 mg EVERY 8 HOURS IVP 11/03/17 14:00 12/02/17 09:14 11/05/17 13:09 Nitroglycerin (Ntg) 0.4 mg Q5MIN X 3 DOSES PRN SL Prn Chest Pain 11/03/17 08:15 11/30/17 16:29 Ondansetron HCl (Zofran) 4 mg Q6H PRN IVP Nausea & Vomiting 11/03/17 08:30 11/30/17 08:29 Pantoprazole (Protonix) 40 mg ACBREAKFAST ORAL 11/03/17 09:00 12/03/17 08:59 11/05/17 05:15 Warfarin Sodium (Coumadin per pharmacy) 1 ea DAILYPRN PRN MISC RX TO DOSE WARFARIN PER PROTOC 11/03/17 09:00 11/30/17 08:59 Warfarin Sodium (Coumadin) 2.5 mg COUMADIN ONCE ORAL 11/05/17 17:00 11/05/17 17:01 Erika Huang M.D. Nov 05, 2017 13:48
--- NOTE | 2017-11-05 15:58 | Cardiac Electrophysiology PN ---
Assessment/Plan Assessment/Plan 1. Troponin leak, due to renal failure and creatinine is 2.5. The patient does not have any chest pain, however, has clinical congestive heart failure. Echo EF 55%. Continue Coreg and Lipitor and aspirin. 2. Atrial fibrillation with rapid ventricular response. Continue Coreg 25 mg b.i.d., digoxin 0.125 mg po daily and Cardizem 30 tid po. Dig Level 0.9. On Coumadin per pharmacy. INR 2.4 3. Congestive heart failure with elevated BNP. 2D echocardiogram EF 55% 4. Asthma exacerbation and severe pulmonary HTN. On BIPAP 5. Acute on chronic renal failure. 6. Diabetes. 7. Hyperlipidemia. SAL RN Subjective Subjective In ALFONSO in fib with rate controlled. On BIPAP now. Objective Last 24 Hour Vital Signs Date Time Temp Pulse Resp B/P (MAP) Pulse Ox O2 Delivery O2 Flow Rate FiO2 11/05/17 15:16 71 19 100 Nasal Cannula 4.0 11/05/17 15:03 82 126/76 11/05/17 12:00 97.5 89 17 138/73 100 Bi-pap 40 11/05/17 11:56 106 11/05/17 11:55 75 13 100 Nasal Cannula 4.0 36 11/05/17 11:43 36 11/05/17 11:43 81 13 100 Nasal Cannula 4.0 36 11/05/17 10:11 79 121/73 11/05/17 10:10 79 11/05/17 09:05 79 15 100 Facial 40 11/05/17 08:32 97 11/05/17 08:00 96.9 62 20 121/73 100 Bi-pap 40 11/05/17 07:57 80 13 100 Bi-pap 40 11/05/17 07:46 81 13 100 Bi-pap 40 11/05/17 07:46 40 11/05/17 07:45 81 13 100 Facial 40 11/05/17 05:37 81 22 100 Facial 40 11/05/17 05:13 81 130/82 11/05/17 04:00 105 11/05/17 04:00 97.6 70 20 139/80 100 Nasal Cannula 2.0 11/05/17 03:17 81 22 100 Nasal Cannula 3.0 32 11/05/17 03:00 32 11/05/17 02:59 74 22 100 Nasal Cannula 3.0 32 11/05/17 00:00 98.4 78 22 130/82 100 Nasal Cannula 2.0 11/05/17 00:00 99 11/04/17 22:45 93 22 100 Nasal Cannula 3.0 32 11/04/17 22:44 32 11/04/17 22:39 93 22 100 Nasal Cannula 3.0 32 11/04/17 21:06 81 130/63 11/04/17 20:44 81 130/63 11/04/17 20:00 96.3 78 22 135/77 100 Nasal Cannula 2.0 11/04/17 20:00 101 11/04/17 19:05 81 20 99 Nasal Cannula 3.0 32 11/04/17 18:53 32 11/04/17 18:49 81 20 99 Nasal Cannula 3.0 32 11/04/17 16:00 96 11/04/17 16:00 97.7 95 20 130/63 100 Nasal Cannula 2.0 Intake and Output 11/04/17 11/05/17 19:00 07:00 Intake Total 110 ml 300 ml Output Total 1600 ml 400 ml Balance -1490 ml -100 ml IV Total 110 ml Other 300 ml Output Urine Total 1600 ml 400 ml # Bowel Movements 2 1 Laboratory Tests Test 11/05/17 04:50 White Blood Count 10.8 K/UL (4.8-10.8) Red Blood Count 3.67 M/UL (4.20-5.40) L Hemoglobin 10.9 G/DL (12.0-16.0) L Hematocrit 33.3 % (37.0-47.0) L Mean Corpuscular Volume 91 FL (80-99) Mean Corpuscular Hemoglobin 29.5 PG (27.0-31.0) Mean Corpuscular Hemoglobin Concent 32.6 G/DL (32.0-36.0) Red Cell Distribution Width 15.1 % (11.6-14.8) H Platelet Count 95 K/UL (150-450) L Mean Platelet Volume 9.3 FL (6.5-10.1) Neutrophils (%) (Auto) % (45.0-75.0) Lymphocytes (%) (Auto) % (20.0-45.0) Monocytes (%) (Auto) % (1.0-10.0) Eosinophils (%) (Auto) % (0.0-3.0) Basophils (%) (Auto) % (0.0-2.0) Differential Total Cells Counted 100 Neutrophils % (Manual) 92 % (45-75) H Lymphocytes % (Manual) 4 % (20-45) L Monocytes % (Manual) 2 % (1-10) Eosinophils % (Manual) 0 % (0-3) Basophils % (Manual) 0 % (0-2) Band Neutrophils 2 % (0-8) Platelet Estimate Decreased L Platelet Morphology Normal Prothrombin Time 25.0 SEC (9.30-11.50) H Prothromb Time International Ratio 2.4 (0.9-1.1) H Sodium Level 145 MMOL/L (136-145) Potassium Level 4.8 MMOL/L (3.5-5.1) Chloride Level 111 MMOL/L (98-107) H Carbon Dioxide Level 24 MMOL/L (21-32) Anion Gap 10 mmol/L (5-15) Blood Urea Nitrogen 50 mg/dL (7-18) H Creatinine 2.1 MG/DL (0.55-1.30) H Estimat Glomerular Filtration Rate mL/min (>60) Glucose Level 251 MG/DL (74-106) H Calcium Level 9.0 MG/DL (8.5-10.1) Objective HEAD AND NECK: No JVD.On BIPAP LUNGS: Coarse rhonchi CARDIOVASCULAR: Irregularly irregular tachycardic, S1 and S2 with no gallop or murmur. ABDOMEN: Soft and nontender. EXTREMITIES: 1+ pitting edema. ASH WILLIAM Nov 05, 2017 15:58
[2017-11-05 16:00] VITALS: BP 135/80
--- NOTE | 2017-11-05 16:10 | Nephrology Progress Note ---
Assessment/Plan Problem List: (1) Diabetes (2) HLD (hyperlipidemia) (3) Atrial fibrillation with RVR (4) CHF exacerbation (5) Hyperkalemia (6) CKD (chronic kidney disease) (7) Dyspnea (8) Asthma exacerbation Plan Continue current treatment plan Continue BIPAP Monitor lytes, correct prn Continue steroids F/U with cardio and pulmo recs Renally dose meds, avoid nephrotoxins Glycemic control AM labs Subjective Constitutional: Denies: no symptoms, chills, diaphoresis, fever, malaise, weakness, other HEENT: Denies: no symptoms, eye pain, blurred vision, tearing, double vision, ear pain, ear discharge, nose pain, nose congestion, throat pain, throat swelling, mouth pain, mouth swelling, other Genitourinary: Denies: no symptoms, burning, discharge, frequency, flank pain, hematuria, incontinence, pain, urgency, other Neurologic/Psychiatric: Denies: no symptoms, anxiety, depressed, emotional problems, headache, numbness, paresthesia, pre-existing deficit, seizure, tingling, tremors, weakness, other Subjective In bed, on BIPAP, states that she gets SOB when she takes off the BIPAP to eat. Objective Objective Last 24 Hour Vital Signs Date Time Temp Pulse Resp B/P (MAP) Pulse Ox O2 Delivery O2 Flow Rate FiO2 11/05/17 15:16 71 19 100 Nasal Cannula 4.0 11/05/17 15:03 82 126/76 11/05/17 12:00 97.5 89 17 138/73 100 Bi-pap 40 11/05/17 11:56 106 11/05/17 11:55 75 13 100 Nasal Cannula 4.0 36 11/05/17 11:43 36 11/05/17 11:43 81 13 100 Nasal Cannula 4.0 36 11/05/17 10:11 79 121/73 11/05/17 10:10 79 11/05/17 09:05 79 15 100 Facial 40 11/05/17 08:32 97 11/05/17 08:00 96.9 62 20 121/73 100 Bi-pap 40 11/05/17 07:57 80 13 100 Bi-pap 40 11/05/17 07:46 81 13 100 Bi-pap 40 11/05/17 07:46 40 11/05/17 07:45 81 13 100 Facial 40 11/05/17 05:37 81 22 100 Facial 40 11/05/17 05:13 81 130/82 11/05/17 04:00 105 11/05/17 04:00 97.6 70 20 139/80 100 Nasal Cannula 2.0 11/05/17 03:17 81 22 100 Nasal Cannula 3.0 32 11/05/17 03:00 32 11/05/17 02:59 74 22 100 Nasal Cannula 3.0 32 11/05/17 00:00 98.4 78 22 130/82 100 Nasal Cannula 2.0 11/05/17 00:00 99 11/04/17 22:45 93 22 100 Nasal Cannula 3.0 32 11/04/17 22:44 32 11/04/17 22:39 93 22 100 Nasal Cannula 3.0 32 11/04/17 21:06 81 130/63 11/04/17 20:44 81 130/63 11/04/17 20:00 96.3 78 22 135/77 100 Nasal Cannula 2.0 11/04/17 20:00 101 11/04/17 19:05 81 20 99 Nasal Cannula 3.0 32 11/04/17 18:53 32 11/04/17 18:49 81 20 99 Nasal Cannula 3.0 32 Intake and Output 11/04/17 11/05/17 19:00 07:00 Intake Total 110 ml 300 ml Output Total 1600 ml 400 ml Balance -1490 ml -100 ml IV Total 110 ml Other 300 ml Output Urine Total 1600 ml 400 ml # Bowel Movements 2 1 Laboratory Tests 11/05/17 04:50: White Blood Count 10.8, Red Blood Count 3.67L, Hemoglobin 10.9L, Hematocrit 33.3L, Mean Corpuscular Volume 91, Mean Corpuscular Hemoglobin 29.5, Mean Corpuscular Hemoglobin Concent 32.6, Red Cell Distribution Width 15.1H, Platelet Count 95L, Mean Platelet Volume 9.3, Neutrophils (%) (Auto) , Lymphocytes (%) (Auto) , Monocytes (%) (Auto) , Eosinophils (%) (Auto) , Basophils (%) (Auto) , Differential Total Cells Counted 100, Neutrophils % ( Manual) 92H, Lymphocytes % (Manual) 4L, Monocytes % (Manual) 2, Eosinophils % ( Manual) 0, Basophils % (Manual) 0, Band Neutrophils 2, Platelet Estimate DecreasedL, Platelet Morphology Normal, Prothrombin Time 25.0H, Prothromb Time International Ratio 2.4H, Sodium Level 145, Potassium Level 4.8, Chloride Level 111H, Carbon Dioxide Level 24, Anion Gap 10, Blood Urea Nitrogen 50H, Creatinine 2.1H, Estimat Glomerular Filtration Rate , Glucose Level 251H, Calcium Level 9.0 Height (Feet): 5 Height (Inches): 4.00 Weight (Pounds): 240 General Appearance: no apparent distress, alert EENT: normal ENT inspection Neck: normal alignment Cardiovascular: normal rate Respiratory/Chest: decreased breath sounds, other - on BIPAP Abdomen: soft, no organomegaly Extremities: non-tender, normal inspection Neurologic: alert, oriented x 3, responsive, normal mood/affect Merline Thornton N.P. Nov 05, 2017 16:10
[2017-11-05] MEDS ORDERED: Albuterol/Ipratropium 3ml neb HHN PRN (17:00)
[2017-11-05] MEDS ORDERED: Nitroglycerin Subl 0.4mg tab SL PRN (17:00)
[2017-11-05] MEDS ORDERED: Warfarin Sodium 2.5mg ORAL ONE ×2 (17:00)
[2017-11-05] MEDS ORDERED: Tubing IV Secondary IV ONE (17:09)
[2017-11-05 20:00] VITALS: BP 148/81
[2017-11-05] MEDS: Atorvastatin 20mg tab ORAL SCH (20:56)
[2017-11-05] MEDS: Latanoprost 0.005% Opth 2.5ml Soln BOTH EYES SCH (20:58)
[2017-11-06] VITALS: BP 137/77
[2017-11-06] MEDS: Levalbuterol Inh UD 1.25mg/0.5ml HHN SCH ×6 (02:05→23:41)
[2017-11-06 04:00] VITALS: BP 129/74
[2017-11-06] MEDS: dilTIAZem HCl 30mg tab ORAL SCH ×3 (05:59→22:25)
[2017-11-06] MEDS: Solu-MEDROL 40mg Inj IVP SCH ×3 (06:00→22:25)
[2017-11-06] MEDS: NovoLOG Insulin Flexpen SUBQ SCH ×4 (06:01→21:17)
[2017-11-06 08:00] VITALS: BP 133/89
[2017-11-06] MEDS: Carvedilol 25mg Tab ORAL SCH ×2 (08:39→21:16)
[2017-11-06] MEDS: Digoxin 0.125mg tab ORAL SCH (08:39)
[2017-11-06 10:24] LABS: INR 1.9 (0.9-1.1)
[2017-11-06] MEDS: cefTRIAXone 2 GM in D5W 55 ML IVPB SCH (11:59)
[2017-11-06 12:00] VITALS: BP 131/91
--- NOTE | 2017-11-06 13:55 | Pulmonology Progress Note ---
Assessment/Plan Assessment/Plan 1. Asthma exacerbation. 2. Congestive heart failure. Chronic 3. Atrial fibrillation. 4. Hyperkalemia. 5. Acute renal failure on chronic kidney disease. 6. Elevated troponin. 7. Diabetes. 8. Hyperlipidemia. 9. Coagulopathy. PLAN: Continue IV steroids. Continue BiPAP. Continue DuoNeb q.4 hours scheduled and q.2 hours p.r.n. shortness of breath. Renally dose medications and avoid nephrotoxins. Continue Lasix 40 mg IV daily; has diuresed; is net -850 ml yesterday Check ECHO Subjective Interval Events: diuresing well. She is 800 ML negative last 24 hours Constitutional: Reports: no symptoms HEENT: Repors: no symptoms Respiratory: Reports: no symptoms Cardiovascular: Reports: no symptoms Gastrointestinal/Abdominal: Reports: no symptoms Allergies: Coded Allergies: No Known Allergies (Unverified , 05/24/12) Objective Last 24 Hour Vital Signs Date Time Temp Pulse Resp B/P (MAP) Pulse Ox O2 Delivery O2 Flow Rate FiO2 11/06/17 12:21 70 18 100 Nasal Cannula 2.0 28 11/06/17 12:19 70 22 100 Nasal Cannula 2.0 28 11/06/17 12:08 65 22 100 Nasal Cannula 3.0 32 11/06/17 12:00 96.7 71 18 131/91 100 11/06/17 08:39 70 11/06/17 08:39 70 133/89 11/06/17 08:02 61 20 100 Nasal Cannula 3.0 11/06/17 08:00 78 11/06/17 08:00 97.7 70 18 133/89 100 11/06/17 07:52 69 18 100 Nasal Cannula 3.0 32 11/06/17 05:59 86 140/86 11/06/17 04:00 97.0 90 20 129/74 100 11/06/17 04:00 101 11/06/17 02:20 70 18 99 Nasal Cannula 3.0 32 11/06/17 02:03 32 11/06/17 02:02 68 18 98 Nasal Cannula 3.0 32 11/06/17 01:53 72 18 99 Facial 40 11/06/17 00:13 79 11/06/17 00:00 97.0 63 20 137/77 100 11/05/17 23:10 73 16 100 Bi-pap 40 11/05/17 22:58 40 11/05/17 22:57 74 15 100 Facial 40 11/05/17 22:57 75 15 100 Bi-pap 40 11/05/17 21:59 85 148/81 11/05/17 21:29 78 25 100 Facial 40 11/05/17 20:57 87 148/81 11/05/17 20:00 97.0 85 20 148/81 100 11/05/17 19:14 71 11/05/17 19:10 76 18 100 Bi-pap 40 11/05/17 19:00 74 18 100 Bi-pap 40 11/05/17 19:00 40 11/05/17 18:59 74 18 100 Facial 40 11/05/17 16:41 80 20 100 Facial 40 11/05/17 16:00 96.4 90 17 135/80 100 Bi-pap 40 11/05/17 15:26 40 11/05/17 15:26 89 11/05/17 15:26 81 22 100 Bi-pap 15.0 40 11/05/17 15:18 75 18 100 Facial 40 11/05/17 15:16 71 19 100 Nasal Cannula 4.0 11/05/17 15:03 82 126/76 Intake and Output 11/05/17 11/06/17 19:00 07:00 Intake Total 965 ml Output Total 1800 ml Balance -835 ml Intake Oral 910 ml IV Total 55 ml Output Urine Total 1800 ml # Voids 2 # Bowel Movements 2 General Appearance: no acute distress HEENT: normocephalic Respiratory/Chest: chest wall non-tender, lungs clear Cardiovascular: normal peripheral pulses, normal rate Abdomen: normal bowel sounds Laboratory Tests 11/06/17 08:35: Prothrombin Time 20.5H, Prothromb Time International Ratio 1.9H Current Medications Medications (Trade) Dose Ordered Sig/Ernesto Route PRN Reason Start Time Stop Time Status Last Admin Dose Admin Acetaminophen (Tylenol) 650 mg Q4H PRN ORAL Mild Pain (Pain Scale 1-3) 11/05/17 17:00 11/30/17 16:59 Albuterol/ Ipratropium (Albuterol/ Ipratropium) 3 ml Q2H PRN HHN Shortness of Breath 11/05/17 17:00 11/08/17 16:59 Atorvastatin Calcium (Lipitor) 40 mg BEDTIME ORAL 11/05/17 21:00 11/30/17 20:59 11/05/17 20:56 Carvedilol (Coreg) 25 mg EVERY 12 HOURS ORAL 11/05/17 21:00 11/30/17 20:59 11/06/17 08:39 Ceftriaxone Sodium 2 gm/ Dextrose 55 ml @ 110 mls/hr Q24H IVPB 11/06/17 12:00 11/08/17 11:59 11/06/17 11:59 Dextrose (Dextrose 50%) STAT PRN IV Hypoglycemia 11/05/17 17:00 12/05/17 16:59 Digoxin (Lanoxin) 0.125 mg DAILY ORAL 11/06/17 09:00 12/02/17 08:59 11/06/17 08:39 Diltiazem HCl (Cardizem) 30 mg EVERY 8 HOURS ORAL 11/05/17 22:00 12/02/17 13:59 11/06/17 05:59 Furosemide (Lasix) 40 mg DAILY IV 11/06/17 09:00 12/04/17 09:59 11/06/17 08:46 Insulin Aspart (NovoLOG) BEFORE MEALS AND HS SUBQ 11/05/17 21:00 11/30/17 16:59 11/06/17 11:51 Latanoprost (Xalatan) 1 drop BEDTIME BOTH EYES 11/05/17 21:00 11/30/17 20:59 11/05/17 20:58 Levalbuterol HCl (Xopenex) 0.625 mg Q4HRT HHN 11/05/17 19:00 11/06/17 22:59 11/06/17 12:08 Methylprednisolone Sodium Succinate (Solu-MEDROL) 40 mg EVERY 8 HOURS IVP 11/05/17 22:00 12/02/17 09:14 11/06/17 06:00 Nitroglycerin (Ntg) 0.4 mg Q5MIN X 3 DOSES PRN SL Prn Chest Pain 11/05/17 17:00 11/30/17 16:29 Ondansetron HCl (Zofran) 4 mg Q6H PRN IVP Nausea & Vomiting 11/05/17 17:00 11/30/17 16:59 Pantoprazole (Protonix) 40 mg ACBREAKFAST ORAL 11/06/17 06:30 12/03/17 08:59 11/06/17 05:59 Warfarin Sodium (Coumadin per pharmacy) 1 ea DAILYPRN PRN MISC RX TO DOSE WARFARIN PER PROTOC 11/05/17 17:00 12/05/17 16:59 Warfarin Sodium (Coumadin) 4 mg COUMADIN ONCE PO 11/06/17 17:00 11/06/17 17:01 Deni Christianson MD Nov 06, 2017 13:55
--- NOTE | 2017-11-06 15:18 | Infectious Diseases Prog Note ---
Assessment/Plan Problems: (1) Asthma exacerbation Assessment & Plan: on ceftriaxon empirically , may switch to oral cefdinir once ready to be discharged . screening for influenza is negative , continue inhalers (2) Acute bronchitis Assessment & Plan: await sputum culture , screening for influenza is negative (3) Dyspnea Assessment & Plan: due to the above , continue nebulizers and oxygen, repeat CXR to rule out new infiltrates (4) Atrial fibrillation with controlled ventricular rate Assessment & Plan: continue cardiac meds , cardiology is following Subjective Constitutional: Reports: no symptoms HEENT: Reports: no symptoms Respiratory: Reports: dry cough Breasts: Reports: no symptoms Cardiovascular: Reports: no symptoms Gastrointestinal/Abdominal: Reports: no symptoms Genitourinary: Reports: no symptoms Neurologic: Reports: no symptoms Psychiatric: Reports: no symptoms Skin: Reports: no symptoms Endocrine: Reports: no symptoms Allergies: Coded Allergies: No Known Allergies (Unverified , 05/24/12) Subjective she was on BIPAP in ICU, unresponsive, wheezing, afebrile, not in distress Objective Vital Signs Last 24 Hour Vital Signs Date Time Temp Pulse Resp B/P (MAP) Pulse Ox O2 Delivery O2 Flow Rate FiO2 11/06/17 14:34 70 131/91 11/06/17 12:21 70 18 100 Nasal Cannula 2.0 28 11/06/17 12:19 70 22 100 Nasal Cannula 2.0 28 11/06/17 12:08 65 22 100 Nasal Cannula 3.0 32 11/06/17 12:00 96.7 71 18 131/91 100 11/06/17 12:00 94 11/06/17 08:39 70 11/06/17 08:39 70 133/89 11/06/17 08:02 61 20 100 Nasal Cannula 3.0 11/06/17 08:00 78 11/06/17 08:00 97.7 70 18 133/89 100 11/06/17 07:52 69 18 100 Nasal Cannula 3.0 32 11/06/17 05:59 86 140/86 11/06/17 04:00 97.0 90 20 129/74 100 11/06/17 04:00 101 11/06/17 02:20 70 18 99 Nasal Cannula 3.0 32 11/06/17 02:03 32 11/06/17 02:02 68 18 98 Nasal Cannula 3.0 32 11/06/17 01:53 72 18 99 Facial 40 11/06/17 00:13 79 11/06/17 00:00 97.0 63 20 137/77 100 11/05/17 23:10 73 16 100 Bi-pap 40 11/05/17 22:58 40 11/05/17 22:57 74 15 100 Facial 40 11/05/17 22:57 75 15 100 Bi-pap 40 11/05/17 21:59 85 148/81 11/05/17 21:29 78 25 100 Facial 40 11/05/17 20:57 87 148/81 11/05/17 20:00 97.0 85 20 148/81 100 11/05/17 19:14 71 11/05/17 19:10 76 18 100 Bi-pap 40 11/05/17 19:00 74 18 100 Bi-pap 40 11/05/17 19:00 40 11/05/17 18:59 74 18 100 Facial 40 11/05/17 16:41 80 20 100 Facial 40 11/05/17 16:00 96.4 90 17 135/80 100 Bi-pap 40 11/05/17 15:26 40 11/05/17 15:26 89 11/05/17 15:26 81 22 100 Bi-pap 15.0 40 11/05/17 15:18 75 18 100 Facial 40 Height (Feet): 5 Height (Inches): 4.00 Weight (Pounds): 241 General Appearance: WD/WN, no acute distress HEENT: normocephalic, atraumatic, anicteric, mucous membranes moist, PERRL Respiratory/Chest: chest wall non-tender, no respiratory distress, no accessory muscle use, decreased breath sounds, expiratory wheezing Cardiovascular: normal peripheral pulses, normal rate, regular rhythm, no gallop/murmur, no JVD Abdomen: normal bowel sounds, soft, non tender, no organomegaly, non distended , no mass, no scars Extremities: no cyanosis, no clubbing Skin: no rash, no lesions, no ulcers Neurologic/Psychiatric: alert, oriented x 3 Laboratory Tests Test 11/06/17 08:35 Prothrombin Time 20.5 SEC (9.30-11.50) H Prothromb Time International Ratio 1.9 (0.9-1.1) H Current Medications Medications (Trade) Dose Ordered Sig/Ernesto Route PRN Reason Start Time Stop Time Status Last Admin Dose Admin Acetaminophen (Tylenol) 650 mg Q4H PRN ORAL Mild Pain (Pain Scale 1-3) 11/05/17 17:00 11/30/17 16:59 Albuterol/ Ipratropium (Albuterol/ Ipratropium) 3 ml Q2H PRN HHN Shortness of Breath 11/05/17 17:00 11/08/17 16:59 Atorvastatin Calcium (Lipitor) 40 mg BEDTIME ORAL 11/05/17 21:00 11/30/17 20:59 11/05/17 20:56 Carvedilol (Coreg) 25 mg EVERY 12 HOURS ORAL 11/05/17 21:00 11/30/17 20:59 11/06/17 08:39 Ceftriaxone Sodium 2 gm/ Dextrose 55 ml @ 110 mls/hr Q24H IVPB 11/06/17 12:00 11/08/17 11:59 11/06/17 11:59 Dextrose (Dextrose 50%) STAT PRN IV Hypoglycemia 11/05/17 17:00 12/05/17 16:59 Digoxin (Lanoxin) 0.125 mg DAILY ORAL 11/06/17 09:00 12/02/17 08:59 11/06/17 08:39 Diltiazem HCl (Cardizem) 30 mg EVERY 8 HOURS ORAL 11/05/17 22:00 12/02/17 13:59 11/06/17 14:34 Furosemide (Lasix) 40 mg DAILY IV 11/06/17 09:00 12/04/17 09:59 11/06/17 08:46 Insulin Aspart (NovoLOG) BEFORE MEALS AND HS SUBQ 11/05/17 21:00 11/30/17 16:59 11/06/17 11:51 Latanoprost (Xalatan) 1 drop BEDTIME BOTH EYES 11/05/17 21:00 11/30/17 20:59 11/05/17 20:58 Levalbuterol HCl (Xopenex) 0.625 mg Q4HRT HHN 11/05/17 19:00 11/06/17 22:59 11/06/17 12:08 Methylprednisolone Sodium Succinate (Solu-MEDROL) 40 mg EVERY 8 HOURS IVP 11/05/17 22:00 2/6/18 09:14 11/06/17 14:35 Nitroglycerin (Ntg) 0.4 mg Q5MIN X 3 DOSES PRN SL Prn Chest Pain 11/05/17 17:00 11/30/17 16:29 Ondansetron HCl (Zofran) 4 mg Q6H PRN IVP Nausea & Vomiting 11/05/17 17:00 11/30/17 16:59 Pantoprazole (Protonix) 40 mg ACBREAKFAST ORAL 11/06/17 06:30 12/03/17 08:59 11/06/17 05:59 Warfarin Sodium (Coumadin per pharmacy) 1 ea DAILYPRN PRN MISC RX TO DOSE WARFARIN PER PROTOC 11/05/17 17:00 12/05/17 16:59 Warfarin Sodium (Coumadin) 4 mg COUMADIN ONCE PO 11/06/17 17:00 11/06/17 17:01 Erika Huang M.D. Nov 06, 2017 15:18
--- NOTE | 2017-11-06 15:54 | Cardiac Electrophysiology PN ---
Assessment/Plan Assessment/Plan 1. Troponin leak, due to renal failure and creatinine is 2.5. No chest pain, Echo EF 55%. Continue Coreg and Lipitor and aspirin. 2. Atrial fibrillation with rapid ventricular response. Continue Coreg 25 mg b.i.d., digoxin 0.125 mg po daily and Cardizem 30 tid po. Dig Level 0.9. On Coumadin 4 mg daily. INR 1.9 3. Congestive heart failure with elevated BNP. 2D echocardiogram EF 55% 4. Asthma exacerbation and severe pulmonary HTN. On BIPAP 5. Acute on chronic renal failure. 6. Diabetes. 7. Hyperlipidemia. 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 Off BIPAP now. Had BIPAP at night Objective Last 24 Hour Vital Signs Date Time Temp Pulse Resp B/P (MAP) Pulse Ox O2 Delivery O2 Flow Rate FiO2 11/06/17 14:34 70 131/91 11/06/17 12:21 70 18 100 Nasal Cannula 2.0 28 11/06/17 12:19 70 22 100 Nasal Cannula 2.0 28 11/06/17 12:08 65 22 100 Nasal Cannula 3.0 32 11/06/17 12:00 96.7 71 18 131/91 100 11/06/17 12:00 94 11/06/17 08:39 70 11/06/17 08:39 70 133/89 11/06/17 08:02 61 20 100 Nasal Cannula 3.0 11/06/17 08:00 78 11/06/17 08:00 97.7 70 18 133/89 100 11/06/17 07:52 69 18 100 Nasal Cannula 3.0 32 11/06/17 05:59 86 140/86 11/06/17 04:00 97.0 90 20 129/74 100 11/06/17 04:00 101 11/06/17 02:20 70 18 99 Nasal Cannula 3.0 32 11/06/17 02:03 32 11/06/17 02:02 68 18 98 Nasal Cannula 3.0 32 11/06/17 01:53 72 18 99 Facial 40 11/06/17 00:13 79 11/06/17 00:00 97.0 63 20 137/77 100 11/05/17 23:10 73 16 100 Bi-pap 40 11/05/17 22:58 40 11/05/17 22:57 74 15 100 Facial 40 11/05/17 22:57 75 15 100 Bi-pap 40 11/05/17 21:59 85 148/81 11/05/17 21:29 78 25 100 Facial 40 11/05/17 20:57 87 148/81 11/05/17 20:00 97.0 85 20 148/81 100 11/05/17 19:14 71 11/05/17 19:10 76 18 100 Bi-pap 40 11/05/17 19:00 74 18 100 Bi-pap 40 11/05/17 19:00 40 11/05/17 18:59 74 18 100 Facial 40 11/05/17 16:41 80 20 100 Facial 40 11/05/17 16:00 96.4 90 17 135/80 100 Bi-pap 40 Intake and Output 11/05/17 11/06/17 19:00 07:00 Intake Total 965 ml Output Total 1800 ml Balance -835 ml Intake Oral 910 ml IV Total 55 ml Output Urine Total 1800 ml # Voids 2 # Bowel Movements 2 Laboratory Tests Test 11/06/17 08:35 Prothrombin Time 20.5 SEC (9.30-11.50) H Prothromb Time International Ratio 1.9 (0.9-1.1) H Objective HEAD AND NECK: No JVD.On BIPAP LUNGS: Coarse rhonchi CARDIOVASCULAR: Irregularly irregular tachycardic, S1 and S2 with no gallop or murmur. ABDOMEN: Soft and nontender. EXTREMITIES: 1+ pitting edema. ASH WILLIAM Nov 06, 2017 15:54
[2017-11-06 16:00] VITALS: BP 121/66
[2017-11-06] MEDS ORDERED: Warfarin Sodium 4mg PO ONE (17:00)
[2017-11-06 20:58] VITALS: BP 129/50
[2017-11-06] MEDS: Atorvastatin 20mg tab ORAL SCH (21:16)
[2017-11-06] MEDS: Latanoprost 0.005% Opth 2.5ml Soln BOTH EYES SCH (21:16)
--- NOTE | 2017-11-06 22:06 | Nephrology Progress Note ---
Assessment/Plan Problem List: (1) SOB (shortness of breath) (2) Asthma exacerbation (3) Diabetes (4) HLD (hyperlipidemia) (5) CHF exacerbation (6) Atrial fibrillation with RVR (7) Acute bronchitis (8) TIFFANIE (acute kidney injury) (9) Dyspnea (10) CKD (chronic kidney disease) Plan taper steroids. cont neb tx prn. monitor labs. cardio and pulm following. empiric abx per ID. Subjective Subjective off bipap. Objective Objective Last 24 Hour Vital Signs Date Time Temp Pulse Resp B/P (MAP) Pulse Ox O2 Delivery O2 Flow Rate FiO2 11/06/17 21:16 70 134/73 11/06/17 20:58 96.4 61 18 129/50 97 Nasal Cannula 11/06/17 20:23 78 22 100 Facial 40 11/06/17 20:22 78 22 100 Bi-pap 40 11/06/17 20:09 66 22 99 Nasal Cannula 2.0 28 11/06/17 16:27 105 22 100 Nasal Cannula 2.0 28 11/06/17 16:17 99 22 100 Nasal Cannula 2.0 28 11/06/17 16:00 107 11/06/17 16:00 96.7 89 19 121/66 100 11/06/17 14:34 70 131/91 11/06/17 12:21 70 18 100 Nasal Cannula 2.0 28 11/06/17 12:19 70 22 100 Nasal Cannula 2.0 28 11/06/17 12:08 65 22 100 Nasal Cannula 3.0 32 11/06/17 12:00 96.7 71 18 131/91 100 11/06/17 12:00 94 11/06/17 08:39 70 11/06/17 08:39 70 133/89 11/06/17 08:02 61 20 100 Nasal Cannula 3.0 11/06/17 08:00 78 11/06/17 08:00 97.7 70 18 133/89 100 11/06/17 07:52 69 18 100 Nasal Cannula 3.0 32 11/06/17 05:59 86 140/86 11/06/17 04:00 97.0 90 20 129/74 100 11/06/17 04:00 101 11/06/17 02:20 70 18 99 Nasal Cannula 3.0 32 11/06/17 02:03 32 11/06/17 02:02 68 18 98 Nasal Cannula 3.0 32 11/06/17 01:53 72 18 99 Facial 40 11/06/17 00:13 79 11/06/17 00:00 97.0 63 20 137/77 100 11/05/17 23:10 73 16 100 Bi-pap 40 11/05/17 22:58 40 11/05/17 22:57 74 15 100 Facial 40 11/05/17 22:57 75 15 100 Bi-pap 40 Intake and Output 11/05/17 11/06/17 19:00 07:00 Intake Total 965 ml Output Total 1800 ml Balance -835 ml Intake Oral 910 ml IV Total 55 ml Output Urine Total 1800 ml # Voids 2 # Bowel Movements 2 Laboratory Tests 11/06/17 08:35: Prothrombin Time 20.5H, Prothromb Time International Ratio 1.9H Height (Feet): 5 Height (Inches): 4.00 Weight (Pounds): 241 General Appearance: no apparent distress Cardiovascular: normal rate, regular rhythm Respiratory/Chest: decreased breath sounds, expiratory wheezing Abdomen: non tender, soft Extremities: trace edema Neurologic: alert CARMEN ESPINOZA Nov 06, 2017 22:06
[2017-11-06] MEDS ORDERED: Levalbuterol Inh UD 1.25mg/0.5ml HHN ONE (23:30)
[2017-11-07 00:40] VITALS: BP 136/59
[2017-11-07] MEDS: Levalbuterol Inh UD 1.25mg/0.5ml HHN SCH ×6 (03:21→23:05)
[2017-11-07 04:26] VITALS: BP 131/60
[2017-11-07] MEDS: dilTIAZem HCl 30mg tab ORAL SCH ×3 (06:02→21:40)
[2017-11-07] MEDS: NovoLOG Insulin Flexpen SUBQ SCH ×4 (06:03→21:46)
[2017-11-07 08:00] VITALS: BP 127/75
[2017-11-07] MEDS ORDERED: Solu-MEDROL 40mg Inj IVP SCH (09:00)
[2017-11-07] MEDS: Digoxin 0.125mg tab ORAL SCH (09:03)
[2017-11-07] MEDS: Carvedilol 25mg Tab ORAL SCH ×2 (09:08→21:36)
[2017-11-07] MEDS: cefTRIAXone 2 GM in D5W 55 ML IVPB SCH (11:33)
--- NOTE | 2017-11-07 11:51 | Pulmonology Progress Note ---
Assessment/Plan Assessment/Plan 1. Asthma exacerbation. 2. Congestive heart failure. Chronic 3. Atrial fibrillation. 4. Hyperkalemia. 5. Acute renal failure on chronic kidney disease. 6. Elevated troponin. 7. Diabetes. 8. Hyperlipidemia. 9. Coagulopathy. PLAN: Continue steroids. I will switch them to PO> Continue BiPAP. Continue DuoNeb q.4 hours scheduled and q.2 hours p.r.n. shortness of breath. Renally dose medications and avoid nephrotoxins. Continue Lasix 40 mg; Will change to by mouth ?? ECHO Subjective Interval Events: states she is feeling better.On BiPAP Constitutional: Reports: no symptoms HEENT: Repors: no symptoms Respiratory: Reports: shortness of breath Cardiovascular: Reports: no symptoms Gastrointestinal/Abdominal: Reports: no symptoms Allergies: Coded Allergies: No Known Allergies (Unverified , 05/24/12) Objective Last 24 Hour Vital Signs Date Time Temp Pulse Resp B/P (MAP) Pulse Ox O2 Delivery O2 Flow Rate FiO2 11/07/17 11:18 83 18 98 Nasal Cannula 2.0 28 11/07/17 11:09 88 18 97 Nasal Cannula 28 11/07/17 09:08 89 127/75 11/07/17 09:03 89 11/07/17 08:10 75 15 98 Nasal Cannula 2.0 28 11/07/17 08:04 62 18 97 Nasal Cannula 28 11/07/17 08:00 92 11/07/17 08:00 97.9 89 20 127/75 96 Nasal Cannula 3.0 11/07/17 06:02 79 131/60 11/07/17 05:30 63 16 98 Facial 40 11/07/17 04:26 96.9 59 19 131/60 95 Bi-pap 11/07/17 03:44 66 11/07/17 03:30 65 15 98 Bi-pap 40 11/07/17 03:21 60 15 97 Facial 40 11/07/17 03:21 60 15 97 Bi-pap 40 11/07/17 00:40 96.8 64 19 136/59 96 Bi-pap 11/07/17 00:00 98 Bi-pap 40 11/06/17 23:50 106 16 99 Bi-pap 40 11/06/17 23:41 104 15 99 Bi-pap 40 11/06/17 23:29 68 11/06/17 23:22 Bi-pap 40 11/06/17 23:22 Bi-pap 40 11/06/17 23:21 102 16 99 Facial 40 11/06/17 22:25 84 137/84 11/06/17 21:16 70 134/73 11/06/17 20:58 96.4 61 18 129/50 97 Nasal Cannula 11/06/17 20:23 78 22 100 Facial 40 11/06/17 20:22 78 22 100 Bi-pap 40 11/06/17 20:09 66 22 99 Nasal Cannula 2.0 28 11/06/17 20:00 98 Nasal Cannula 11/06/17 19:04 105 11/06/17 16:27 105 22 100 Nasal Cannula 2.0 28 11/06/17 16:17 99 22 100 Nasal Cannula 2.0 28 11/06/17 16:00 107 11/06/17 16:00 96.7 89 19 121/66 100 11/06/17 14:34 70 131/91 11/06/17 12:21 70 18 100 Nasal Cannula 2.0 28 11/06/17 12:19 70 22 100 Nasal Cannula 2.0 28 11/06/17 12:08 65 22 100 Nasal Cannula 3.0 32 11/06/17 12:00 96.7 71 18 131/91 100 11/06/17 12:00 94 Intake and Output 11/06/17 11/07/17 19:00 07:00 Intake Total 818 ml Output Total 400 ml Balance 818 ml -400 ml Intake Oral 708 ml IV Total 110 ml Output Urine Total 400 ml # Voids 4 # Bowel Movements 1 General Appearance: no acute distress HEENT: normocephalic Respiratory/Chest: chest wall non-tender, decreased breath sounds Cardiovascular: normal peripheral pulses, normal rate Abdomen: normal bowel sounds Laboratory Tests 11/07/17 04:30: Prothrombin Time 20.6H, Prothromb Time International Ratio 2.0H Current Medications Medications (Trade) Dose Ordered Sig/Ernesto Route PRN Reason Start Time Stop Time Status Last Admin Dose Admin Acetaminophen (Tylenol) 650 mg Q4H PRN ORAL Mild Pain (Pain Scale 1-3) 11/05/17 17:00 11/30/17 16:59 Albuterol/ Ipratropium (Albuterol/ Ipratropium) 3 ml Q2H PRN HHN Shortness of Breath 11/05/17 17:00 11/08/17 16:59 Atorvastatin Calcium (Lipitor) 40 mg BEDTIME ORAL 11/05/17 21:00 11/30/17 20:59 11/06/17 21:16 Carvedilol (Coreg) 25 mg EVERY 12 HOURS ORAL 11/05/17 21:00 11/30/17 20:59 11/07/17 09:08 Ceftriaxone Sodium 2 gm/ Dextrose 55 ml @ 110 mls/hr Q24H IVPB 11/06/17 12:00 11/08/17 11:59 11/07/17 11:33 Dextrose (Dextrose 50%) STAT PRN IV Hypoglycemia 11/05/17 17:00 12/05/17 16:59 Digoxin (Lanoxin) 0.125 mg DAILY ORAL 11/06/17 09:00 12/02/17 08:59 11/07/17 09:03 Diltiazem HCl (Cardizem) 30 mg EVERY 8 HOURS ORAL 11/05/17 22:00 12/02/17 13:59 11/07/17 06:02 Furosemide (Lasix) 40 mg DAILY IV 11/06/17 09:00 12/04/17 09:59 11/07/17 09:09 Insulin Aspart (NovoLOG) BEFORE MEALS AND HS SUBQ 11/05/17 21:00 11/30/17 16:59 11/07/17 11:32 Latanoprost (Xalatan) 1 drop BEDTIME BOTH EYES 11/05/17 21:00 11/30/17 20:59 11/06/17 21:16 Levalbuterol HCl (Xopenex) 0.625 mg Q4HRT HHN 11/06/17 23:45 11/11/17 23:44 11/07/17 11:08 Methylprednisolone Sodium Succinate (Solu-MEDROL) 40 mg Q12HR IVP 11/07/17 09:00 12/02/17 09:14 11/07/17 09:08 Nitroglycerin (Ntg) 0.4 mg Q5MIN X 3 DOSES PRN SL Prn Chest Pain 11/05/17 17:00 11/30/17 16:29 Ondansetron HCl (Zofran) 4 mg Q6H PRN IVP Nausea & Vomiting 11/05/17 17:00 11/30/17 16:59 Pantoprazole (Protonix) 40 mg ACBREAKFAST ORAL 11/06/17 06:30 12/03/17 08:59 11/07/17 06:00 Warfarin Sodium (Coumadin per pharmacy) 1 ea DAILYPRN PRN MISC RX TO DOSE WARFARIN PER PROTOC 11/05/17 17:00 12/05/17 16:59 Warfarin Sodium (Coumadin) 4 mg COUMADIN ONCE PO 11/07/17 17:00 11/07/17 17:01 Deni Christianson MD Nov 07, 2017 11:51
[2017-11-07 12:00] VITALS: BP 140/93
[2017-11-07] MEDS: Furosemide 40mg tab ORAL SCH (12:41)
--- NOTE | 2017-11-07 13:25 | Cardiac Electrophysiology PN ---
Assessment/Plan Assessment/Plan 1. Troponin leak, Levels flat, due to renal failure and creatinine is 2.5. No chest pain, Echo EF 55%. Continue Coreg and Lipitor and aspirin. 2. Atrial fibrillation with rapid ventricular response. Continue Coreg 25 mg b.i.d., digoxin 0.125 mg po daily and Cardizem 30 tid po. Dig Level 0.9. On Coumadin 4 mg daily. INR 1.9 3. Congestive heart failure with elevated BNP due to diastolic dysfunction. 2D echocardiogram EF 55% 4. Asthma exacerbation and severe pulmonary HTN. On BIPAP. Being tapered off Steroid. 5. Acute on chronic renal failure. 6. Diabetes. 7. Hyperlipidemia. 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 Being tapered off steroids. Objective Last 24 Hour Vital Signs Date Time Temp Pulse Resp B/P (MAP) Pulse Ox O2 Delivery O2 Flow Rate FiO2 11/07/17 12:00 97.0 82 22 140/93 100 Nasal Cannula 3.0 11/07/17 11:18 83 18 98 Nasal Cannula 2.0 28 11/07/17 11:09 88 18 97 Nasal Cannula 28 11/07/17 09:08 89 127/75 11/07/17 09:03 89 11/07/17 08:10 75 15 98 Nasal Cannula 2.0 28 11/07/17 08:04 62 18 97 Nasal Cannula 28 11/07/17 08:00 92 11/07/17 08:00 97.9 89 20 127/75 96 Nasal Cannula 3.0 11/07/17 06:02 79 131/60 11/07/17 05:30 63 16 98 Facial 40 11/07/17 04:26 96.9 59 19 131/60 95 Bi-pap 11/07/17 03:44 66 11/07/17 03:30 65 15 98 Bi-pap 40 11/07/17 03:21 60 15 97 Facial 40 11/07/17 03:21 60 15 97 Bi-pap 40 11/07/17 00:40 96.8 64 19 136/59 96 Bi-pap 11/07/17 00:00 98 Bi-pap 40 11/06/17 23:50 106 16 99 Bi-pap 40 11/06/17 23:41 104 15 99 Bi-pap 40 1/11/18 23:29 68 11/06/17 23:22 Bi-pap 40 11/06/17 23:22 Bi-pap 40 11/06/17 23:21 102 16 99 Facial 40 11/06/17 22:25 84 137/84 11/06/17 21:16 70 134/73 11/06/17 20:58 96.4 61 18 129/50 97 Nasal Cannula 11/06/17 20:23 78 22 100 Facial 40 11/06/17 20:22 78 22 100 Bi-pap 40 11/06/17 20:09 66 22 99 Nasal Cannula 2.0 28 11/06/17 20:00 98 Nasal Cannula 11/06/17 19:04 105 11/06/17 16:27 105 22 100 Nasal Cannula 2.0 28 11/06/17 16:17 99 22 100 Nasal Cannula 2.0 28 11/06/17 16:00 107 11/06/17 16:00 96.7 89 19 121/66 100 11/06/17 14:34 70 131/91 Intake and Output 11/06/17 11/07/17 19:00 07:00 Intake Total 818 ml Output Total 400 ml Balance 818 ml -400 ml Intake Oral 708 ml IV Total 110 ml Output Urine Total 400 ml # Voids 4 # Bowel Movements 1 Laboratory Tests Test 11/07/17 04:30 Prothrombin Time 20.6 SEC (9.30-11.50) H Prothromb Time International Ratio 2.0 (0.9-1.1) H Objective HEAD AND NECK: No JVD. LUNGS: Coarse rhonchi CARDIOVASCULAR: Irregularly irregular tachycardic, S1 and S2 with no gallop or murmur. ABDOMEN: Soft and nontender. EXTREMITIES: 1+ pitting edema. SAH WILLIAM Nov 07, 2017 13:25
--- NOTE | 2017-11-07 15:41 | Infectious Diseases Prog Note ---
Assessment/Plan Problems: (1) Asthma exacerbation Assessment & Plan: improved on ceftriaxon empirically , screening for influenza is negative , continue inhalers , stop antibiotics (2) Acute bronchitis Assessment & Plan: await sputum culture , screening for influenza is negative (3) Dyspnea Assessment & Plan: due to the above , continue nebulizers and oxygen, repeat CXR to rule out new infiltrates (4) Atrial fibrillation with controlled ventricular rate Assessment & Plan: continue cardiac meds , cardiology is following Subjective Constitutional: Reports: no symptoms HEENT: Reports: no symptoms Respiratory: Reports: no symptoms Breasts: Reports: no symptoms Cardiovascular: Reports: no symptoms Gastrointestinal/Abdominal: Reports: no symptoms Genitourinary: Reports: no symptoms Neurologic: Reports: no symptoms Psychiatric: Reports: no symptoms Skin: Reports: no symptoms Endocrine: Reports: no symptoms Hematologic: Reports: no symptoms Allergies: Coded Allergies: No Known Allergies (Unverified , 05/24/12) Subjective she was on BIPAP in ICU, unresponsive, wheezing, afebrile, not in distress Objective Vital Signs Last 24 Hour Vital Signs Date Time Temp Pulse Resp B/P (MAP) Pulse Ox O2 Delivery O2 Flow Rate FiO2 11/07/17 13:40 82 140/93 11/07/17 12:00 112 11/07/17 12:00 97.0 82 22 140/93 100 Nasal Cannula 3.0 11/07/17 11:18 83 18 98 Nasal Cannula 2.0 28 11/07/17 11:09 88 18 97 Nasal Cannula 28 11/07/17 09:08 89 127/75 11/07/17 09:03 89 11/07/17 08:10 75 15 98 Nasal Cannula 2.0 28 11/07/17 08:04 62 18 97 Nasal Cannula 28 11/07/17 08:00 92 11/07/17 08:00 97.9 89 20 127/75 96 Nasal Cannula 3.0 11/07/17 06:02 79 131/60 11/07/17 05:30 63 16 98 Facial 40 11/07/17 04:26 96.9 59 19 131/60 95 Bi-pap 11/07/17 03:44 66 11/07/17 03:30 65 15 98 Bi-pap 40 11/07/17 03:21 60 15 97 Facial 40 11/07/17 03:21 60 15 97 Bi-pap 40 11/07/17 00:40 96.8 64 19 136/59 96 Bi-pap 11/07/17 00:00 98 Bi-pap 40 11/06/17 23:50 106 16 99 Bi-pap 40 11/06/17 23:41 104 15 99 Bi-pap 40 11/06/17 23:29 68 11/06/17 23:22 Bi-pap 40 11/06/17 23:22 Bi-pap 40 11/06/17 23:21 102 16 99 Facial 40 11/06/17 22:25 84 137/84 11/06/17 21:16 70 134/73 11/06/17 20:58 96.4 61 18 129/50 97 Nasal Cannula 11/06/17 20:23 78 22 100 Facial 40 11/06/17 20:22 78 22 100 Bi-pap 40 11/06/17 20:09 66 22 99 Nasal Cannula 2.0 28 11/06/17 20:00 98 Nasal Cannula 11/06/17 19:04 105 11/06/17 16:27 105 22 100 Nasal Cannula 2.0 28 11/06/17 16:17 99 22 100 Nasal Cannula 2.0 28 11/06/17 16:00 107 11/06/17 16:00 96.7 89 19 121/66 100 Height (Feet): 5 Height (Inches): 4.00 Weight (Pounds): 241 General Appearance: WD/WN, no acute distress HEENT: normocephalic, atraumatic, anicteric, mucous membranes moist, PERRL Respiratory/Chest: chest wall non-tender, lungs clear, normal breath sounds, no respiratory distress, no accessory muscle use, decreased breath sounds, crackles/rales Cardiovascular: normal peripheral pulses, normal rate, regular rhythm, no gallop/murmur, no JVD Abdomen: normal bowel sounds, soft, non tender, no organomegaly, non distended , no mass, no scars Extremities: no cyanosis, no clubbing Skin: no rash, no lesions, no ulcers Neurologic/Psychiatric: alert, oriented x 3 Laboratory Tests Test 11/07/17 04:30 Prothrombin Time 20.6 SEC (9.30-11.50) H Prothromb Time International Ratio 2.0 (0.9-1.1) H Current Medications Medications (Trade) Dose Ordered Sig/Ernesto Route PRN Reason Start Time Stop Time Status Last Admin Dose Admin Acetaminophen (Tylenol) 650 mg Q4H PRN ORAL Mild Pain (Pain Scale 1-3) 11/05/17 17:00 11/30/17 16:59 Albuterol/ Ipratropium (Albuterol/ Ipratropium) 3 ml Q2H PRN HHN Shortness of Breath 11/05/17 17:00 11/08/17 16:59 Atorvastatin Calcium (Lipitor) 40 mg BEDTIME ORAL 11/05/17 21:00 11/30/17 20:59 11/06/17 21:16 Carvedilol (Coreg) 25 mg EVERY 12 HOURS ORAL 11/05/17 21:00 11/30/17 20:59 11/07/17 09:08 Ceftriaxone Sodium 2 gm/ Dextrose 55 ml @ 110 mls/hr Q24H IVPB 11/06/17 12:00 11/08/17 11:59 11/07/17 11:33 Dextrose (Dextrose 50%) STAT PRN IV Hypoglycemia 11/05/17 17:00 12/05/17 16:59 Digoxin (Lanoxin) 0.125 mg DAILY ORAL 11/06/17 09:00 12/02/17 08:59 11/07/17 09:03 Diltiazem HCl (Cardizem) 30 mg EVERY 8 HOURS ORAL 11/05/17 22:00 12/02/17 13:59 11/07/17 13:40 Furosemide (Lasix) 40 mg DAILY ORAL 11/07/17 13:00 12/07/17 12:59 11/07/17 12:41 Insulin Aspart (NovoLOG) BEFORE MEALS AND HS SUBQ 11/05/17 21:00 11/30/17 16:59 11/07/17 11:32 Latanoprost (Xalatan) 1 drop BEDTIME BOTH EYES 11/05/17 21:00 11/30/17 20:59 11/06/17 21:16 Levalbuterol HCl (Xopenex) 0.625 mg Q4HRT HHN 11/06/17 23:45 11/11/17 23:44 11/07/17 11:08 Nitroglycerin (Ntg) 0.4 mg Q5MIN X 3 DOSES PRN SL Prn Chest Pain 11/05/17 17:00 11/30/17 16:29 Ondansetron HCl (Zofran) 4 mg Q6H PRN IVP Nausea & Vomiting 11/05/17 17:00 11/30/17 16:59 Pantoprazole (Protonix) 40 mg ACBREAKFAST ORAL 11/06/17 06:30 12/03/17 08:59 11/07/17 06:00 Prednisone (predniSONE) 20 mg DAILY ORAL 11/07/17 13:00 12/07/17 12:59 11/07/17 12:43 Warfarin Sodium (Coumadin per pharmacy) 1 ea DAILYPRN PRN MISC RX TO DOSE WARFARIN PER PROTOC 11/05/17 17:00 12/05/17 16:59 Warfarin Sodium (Coumadin) 4 mg COUMADIN ONCE PO 11/07/17 17:00 11/07/17 17:01 Erika Huang M.D. Nov 07, 2017 15:41
[2017-11-07 16:00] VITALS: BP 137/77
--- NOTE | 2017-11-07 16:10 | Nephrology Progress Note ---
Assessment/Plan Problem List: (1) Diabetes (2) HLD (hyperlipidemia) (3) Atrial fibrillation with RVR (4) CHF exacerbation (5) Hyperkalemia (6) CKD (chronic kidney disease) (7) Dyspnea (8) Asthma exacerbation Plan Continue current treatment plan Continue 02 therapy, BIPAP prn Taper off steroid Monitor lytes, correct prn Continue neb treatment F/U with cardio and pulmo recs Renally dose meds, avoid nephrotoxins Glycemic control AM labs Subjective Constitutional: Denies: no symptoms, chills, diaphoresis, fever, malaise, weakness, other HEENT: Denies: no symptoms, eye pain, blurred vision, tearing, double vision, ear pain, ear discharge, nose pain, nose congestion, throat pain, throat swelling, mouth pain, mouth swelling, other Genitourinary: Denies: no symptoms, burning, discharge, frequency, flank pain, hematuria, incontinence, pain, urgency, other Neurologic/Psychiatric: Denies: no symptoms, anxiety, depressed, emotional problems, headache, numbness, paresthesia, pre-existing deficit, seizure, tingling, tremors, weakness, other Subjective Seen in telemetry unit, off BIPAP, SOB noted on exertion, pt denies discomfort at this time Objective Objective Last 24 Hour Vital Signs Date Time Temp Pulse Resp B/P (MAP) Pulse Ox O2 Delivery O2 Flow Rate FiO2 11/07/17 15:49 78 18 100 Nasal Cannula 2.0 28 11/07/17 15:42 68 18 97 Nasal Cannula 28 11/07/17 13:40 82 140/93 11/07/17 12:00 112 11/07/17 12:00 97.0 82 22 140/93 100 Nasal Cannula 3.0 11/07/17 11:18 83 18 98 Nasal Cannula 2.0 28 11/07/17 11:09 88 18 97 Nasal Cannula 28 11/07/17 09:08 89 127/75 11/07/17 09:03 89 11/07/17 08:10 75 15 98 Nasal Cannula 2.0 28 11/07/17 08:04 62 18 97 Nasal Cannula 28 11/07/17 08:00 92 11/07/17 08:00 97.9 89 20 127/75 96 Nasal Cannula 3.0 11/07/17 06:02 79 131/60 11/07/17 05:30 63 16 98 Facial 40 11/07/17 04:26 96.9 59 19 131/60 95 Bi-pap 11/07/17 03:44 66 11/07/17 03:30 65 15 98 Bi-pap 40 11/07/17 03:21 60 15 97 Facial 40 11/07/17 03:21 60 15 97 Bi-pap 40 11/07/17 00:40 96.8 64 19 136/59 96 Bi-pap 11/07/17 00:00 98 Bi-pap 40 11/06/17 23:50 106 16 99 Bi-pap 40 11/06/17 23:41 104 15 99 Bi-pap 40 11/06/17 23:29 68 11/06/17 23:22 Bi-pap 40 11/06/17 23:22 Bi-pap 40 11/06/17 23:21 102 16 99 Facial 40 11/06/17 22:25 84 137/84 11/06/17 21:16 70 134/73 11/06/17 20:58 96.4 61 18 129/50 97 Nasal Cannula 11/06/17 20:23 78 22 100 Facial 40 11/06/17 20:22 78 22 100 Bi-pap 40 11/06/17 20:09 66 22 99 Nasal Cannula 2.0 28 11/06/17 20:00 98 Nasal Cannula 11/06/17 19:04 105 11/06/17 16:27 105 22 100 Nasal Cannula 2.0 28 11/06/17 16:17 99 22 100 Nasal Cannula 2.0 28 Intake and Output 11/06/17 11/07/17 19:00 07:00 Intake Total 818 ml Output Total 400 ml Balance 818 ml -400 ml Intake Oral 708 ml IV Total 110 ml Output Urine Total 400 ml # Voids 4 # Bowel Movements 1 Laboratory Tests 11/07/17 04:30: Prothrombin Time 20.6H, Prothromb Time International Ratio 2.0H Height (Feet): 5 Height (Inches): 4.00 Weight (Pounds): 241 General Appearance: no apparent distress, alert EENT: normal ENT inspection Neck: normal alignment Cardiovascular: regular rhythm Respiratory/Chest: decreased breath sounds Extremities: non-tender, normal inspection Neurologic: alert, oriented x 3, responsive, normal mood/affect Merline Thornton N.P. Nov 07, 2017 16:10
[2017-11-07] MEDS ORDERED: Warfarin Sodium 4mg PO ONE (17:00)
[2017-11-07 20:00] VITALS: BP 165/75
[2017-11-07] MEDS: Latanoprost 0.005% Opth 2.5ml Soln BOTH EYES SCH (21:00)
[2017-11-07] MEDS: Atorvastatin 20mg tab ORAL SCH (21:37)
[2017-11-08] VITALS: BP 165/75
[2017-11-08] MEDS: Levalbuterol Inh UD 1.25mg/0.5ml HHN SCH ×6 (03:20→23:01)
[2017-11-08 04:00] VITALS: BP 144/71
[2017-11-08] MEDS: dilTIAZem HCl 30mg tab ORAL SCH ×3 (06:05→22:27)
[2017-11-08] MEDS: NovoLOG Insulin Flexpen SUBQ SCH ×4 (06:09→21:19)
[2017-11-08 08:00] VITALS: BP 144/93
[2017-11-08 08:03] LABS: HEMATOCRIT 34.6 % (37.0-47.0); HEMOGLOBIN 11.4 G/DL (12.0-16.0); MEAN CORPUSCULAR VOLUME 89 FL (80-99); PLATELET COUNT 106 K/UL (150-450); RED BLOOD COUNT 3.89 M/UL (4.20-5.40); RED CELL DISTRIBUTION WIDTH 14.8 % (11.6-14.8); WHITE BLOOD COUNT 8.6 K/UL (4.8-10.8)
[2017-11-08 08:12] LABS: INR 2.2 (0.9-1.1)
[2017-11-08 08:14] LABS: ANION GAP 5 mmol/L (5-15); BLOOD UREA NITROGEN 49 mg/dL (7-18); CARBON DIOXIDE 35 MMOL/L (21-32); CHLORIDE 107 MMOL/L (98-107); CREATININE 1.6 MG/DL (0.55-1.30); POTASSIUM 3.6 MMOL/L (3.5-5.1); SODIUM 147 MMOL/L (136-145)
[2017-11-08] MEDS: Carvedilol 25mg Tab ORAL SCH ×2 (09:21→21:17)
[2017-11-08] MEDS: Digoxin 0.125mg tab ORAL SCH (09:21)
[2017-11-08] MEDS: Furosemide 40mg tab ORAL SCH (09:21)
[2017-11-08 12:00] VITALS: BP 132/89
--- NOTE | 2017-11-08 14:41 | Infectious Diseases Prog Note ---
Assessment/Plan Problems: (1) Asthma exacerbation Assessment & Plan: improved on ceftriaxon empirically , screening for influenza is negative , continue inhalers , monitor off antibiotics (2) Acute bronchitis Assessment & Plan: improved with ceftriaxon . screening for influenza is negative (3) Dyspnea Assessment & Plan: due to the above , continue nebulizers and oxygen, repeat CXR to rule out new infiltrates (4) Atrial fibrillation with controlled ventricular rate Assessment & Plan: continue cardiac meds , cardiology is following Subjective Constitutional: Reports: no symptoms HEENT: Reports: no symptoms Respiratory: Reports: no symptoms Breasts: Reports: no symptoms Cardiovascular: Reports: no symptoms Gastrointestinal/Abdominal: Reports: no symptoms Genitourinary: Reports: no symptoms Neurologic: Reports: no symptoms Psychiatric: Reports: no symptoms Skin: Reports: no symptoms Endocrine: Reports: no symptoms Hematologic: Reports: no symptoms Allergies: Coded Allergies: No Known Allergies (Unverified , 05/24/12) Subjective she was on BIPAP in ICU, unresponsive, wheezing, afebrile, not in distress Objective Vital Signs Last 24 Hour Vital Signs Date Time Temp Pulse Resp B/P (MAP) Pulse Ox O2 Delivery O2 Flow Rate FiO2 11/08/17 12:41 74 16 99 Facial 40 11/08/17 12:00 97.5 81 20 132/89 99 Nasal Cannula 3.0 11/08/17 11:54 78 16 99 Facial 40 11/08/17 11:27 80 18 99 Nasal Cannula 3.0 32 11/08/17 11:18 99 11/08/17 11:17 76 20 99 Nasal Cannula 3.0 32 11/08/17 09:21 83 11/08/17 09:21 83 144/93 11/08/17 08:00 91 11/08/17 08:00 97.7 83 20 144/93 99 Nasal Cannula 3.0 11/08/17 07:03 82 20 99 Nasal Cannula 3.0 32 11/08/17 06:55 79 20 99 11/08/17 06:53 79 20 99 Nasal Cannula 3.0 32 11/08/17 06:05 68 144/71 11/08/17 04:00 90 11/08/17 04:00 97.7 68 20 144/71 99 Room Air 11/08/17 03:33 84 21 97 Nasal Cannula 3.0 32 11/08/17 03:19 32 11/08/17 03:18 84 21 97 Nasal Cannula 3.0 32 11/08/17 00:00 98.1 84 21 165/75 100 Nasal Cannula 11/08/17 00:00 72 11/07/17 23:10 73 21 99 Nasal Cannula 3.0 32 11/07/17 23:02 32 11/07/17 23:01 73 21 99 Nasal Cannula 3.0 32 11/07/17 21:40 84 165/75 11/07/17 21:36 84 165/75 11/07/17 20:00 98.1 84 21 165/75 100 Nasal Cannula 11/07/17 20:00 98 11/07/17 19:40 71 21 100 Nasal Cannula 3.0 32 11/07/17 19:26 32 11/07/17 19:25 67 21 100 Nasal Cannula 3.0 32 11/07/17 16:00 97.3 87 21 137/77 100 Nasal Cannula 3.0 11/07/17 16:00 73 11/07/17 15:49 78 18 100 Nasal Cannula 2.0 28 11/07/17 15:42 68 18 97 Nasal Cannula 28 Height (Feet): 5 Height (Inches): 4.00 Weight (Pounds): 233 General Appearance: WD/WN, no acute distress HEENT: normocephalic, atraumatic, anicteric, mucous membranes moist Respiratory/Chest: chest wall non-tender, no respiratory distress, no accessory muscle use, decreased breath sounds, expiratory wheezing Cardiovascular: normal peripheral pulses, normal rate, regular rhythm, no gallop/murmur, no JVD Abdomen: normal bowel sounds, soft, non tender, no organomegaly, non distended , no mass Extremities: no cyanosis, no clubbing Skin: no rash, no lesions, no ulcers Laboratory Tests Test 11/08/17 07:20 White Blood Count 8.6 K/UL (4.8-10.8) Red Blood Count 3.89 M/UL (4.20-5.40) L Hemoglobin 11.4 G/DL (12.0-16.0) L Hematocrit 34.6 % (37.0-47.0) L Mean Corpuscular Volume 89 FL (80-99) Mean Corpuscular Hemoglobin 29.2 PG (27.0-31.0) Mean Corpuscular Hemoglobin Concent 32.9 G/DL (32.0-36.0) Red Cell Distribution Width 14.8 % (11.6-14.8) Platelet Count 106 K/UL (150-450) L Mean Platelet Volume 8.6 FL (6.5-10.1) Neutrophils (%) (Auto) % (45.0-75.0) Lymphocytes (%) (Auto) % (20.0-45.0) Monocytes (%) (Auto) % (1.0-10.0) Eosinophils (%) (Auto) % (0.0-3.0) Basophils (%) (Auto) % (0.0-2.0) Differential Total Cells Counted 100 Neutrophils % (Manual) 81 % (45-75) H Lymphocytes % (Manual) 12 % (20-45) L Monocytes % (Manual) 7 % (1-10) Eosinophils % (Manual) 0 % (0-3) Basophils % (Manual) 0 % (0-2) Band Neutrophils 0 % (0-8) Platelet Estimate Decreased L Platelet Morphology Normal Hypochromasia 1+ Anisocytosis 1+ Prothrombin Time 23.1 SEC (9.30-11.50) H Prothromb Time International Ratio 2.2 (0.9-1.1) H Sodium Level 147 MMOL/L (136-145) H Potassium Level 3.6 MMOL/L (3.5-5.1) Chloride Level 107 MMOL/L (98-107) Carbon Dioxide Level 35 MMOL/L (21-32) H Anion Gap 5 mmol/L (5-15) Blood Urea Nitrogen 49 mg/dL (7-18) H Creatinine 1.6 MG/DL (0.55-1.30) H Estimat Glomerular Filtration Rate mL/min (>60) Glucose Level 151 MG/DL (74-106) H Calcium Level 9.0 MG/DL (8.5-10.1) Current Medications Medications (Trade) Dose Ordered Sig/Ernesto Route PRN Reason Start Time Stop Time Status Last Admin Dose Admin Acetaminophen (Tylenol) 650 mg Q4H PRN ORAL Mild Pain (Pain Scale 1-3) 11/05/17 17:00 11/30/17 16:59 Albuterol/ Ipratropium (Albuterol/ Ipratropium) 3 ml Q2H PRN HHN Shortness of Breath 1/10/18 17:00 11/08/17 16:59 11/07/17 23:04 Atorvastatin Calcium (Lipitor) 40 mg BEDTIME ORAL 11/05/17 21:00 11/30/17 20:59 11/07/17 21:37 Carvedilol (Coreg) 25 mg EVERY 12 HOURS ORAL 11/05/17 21:00 11/30/17 20:59 11/08/17 09:21 Dextrose (Dextrose 50%) STAT PRN IV Hypoglycemia 11/05/17 17:00 12/05/17 16:59 Digoxin (Lanoxin) 0.125 mg DAILY ORAL 11/06/17 09:00 12/02/17 08:59 11/08/17 09:21 Diltiazem HCl (Cardizem) 30 mg EVERY 8 HOURS ORAL 11/05/17 22:00 12/02/17 13:59 11/08/17 06:05 Furosemide (Lasix) 40 mg DAILY ORAL 11/07/17 13:00 12/07/17 12:59 11/08/17 09:21 Insulin Aspart (NovoLOG) BEFORE MEALS AND HS SUBQ 11/05/17 21:00 11/30/17 16:59 11/08/17 12:55 Latanoprost (Xalatan) 1 drop BEDTIME BOTH EYES 11/05/17 21:00 11/30/17 20:59 11/07/17 21:00 Levalbuterol HCl (Xopenex) 0.625 mg Q4HRT HHN 11/06/17 23:45 11/11/17 23:44 11/08/17 14:38 Nitroglycerin (Ntg) 0.4 mg Q5MIN X 3 DOSES PRN SL Prn Chest Pain 11/05/17 17:00 11/30/17 16:29 Ondansetron HCl (Zofran) 4 mg Q6H PRN IVP Nausea & Vomiting 11/05/17 17:00 11/30/17 16:59 Pantoprazole (Protonix) 40 mg ACBREAKFAST ORAL 11/06/17 06:30 12/03/17 08:59 11/08/17 06:05 Prednisone (predniSONE) 20 mg DAILY ORAL 11/07/17 13:00 12/07/17 12:59 11/08/17 09:21 Warfarin Sodium (Coumadin per pharmacy) 1 ea DAILYPRN PRN MISC RX TO DOSE WARFARIN PER PROTOC 11/05/17 17:00 12/05/17 16:59 Warfarin Sodium (Coumadin) 4 mg COUMADIN PO 11/08/17 17:00 11/08/17 17:01 Erika Huang M.D. Nov 08, 2017 14:41
[2017-11-08] MEDS ORDERED: Tubing IV Secondary IV ONE (15:21)
[2017-11-08] MEDS ORDERED: NS 275ml ONE (15:21)
[2017-11-08] MEDS ORDERED: NS 500ML ONE ×2 (15:21→16:44)
[2017-11-08 16:00] VITALS: BP 144/93
--- NOTE | 2017-11-08 16:30 | Cardiac Electrophysiology PN ---
Assessment/Plan Assessment/Plan 1. Troponin leak, Levels flat, due to renal failure and creatinine is 2.5. No chest pain, Echo EF 55%. Continue Coreg and Lipitor and aspirin. 2. Atrial fibrillation with rapid ventricular response . Now having pauses. Continue Coreg 25 mg b.i.d. and Cardizem 30 tid po. DC digoxin On Coumadin 4 mg daily. 3. Congestive heart failure with elevated BNP due to diastolic dysfunction. 2D echocardiogram EF 55% 4. Asthma exacerbation and severe pulmonary HTN. On BIPAP. Being tapered off Steroid. 5. Acute on chronic renal failure. 6. Diabetes. 7. Hyperlipidemia. 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 On N/C 3 liters. Being tapered off steroids. HR went as low as 36 at noon today with 2.6 second pause Objective Last 24 Hour Vital Signs Date Time Temp Pulse Resp B/P (MAP) Pulse Ox O2 Delivery O2 Flow Rate FiO2 11/08/17 16:00 97.2 83 20 144/93 99 Nasal Cannula 3.0 11/08/17 15:06 90 132/89 11/08/17 14:48 90 18 99 Nasal Cannula 3.0 32 11/08/17 14:39 89 16 99 Nasal Cannula 3.0 32 11/08/17 12:41 74 16 99 Facial 40 11/08/17 12:00 97.5 81 20 132/89 99 Nasal Cannula 3.0 11/08/17 12:00 97 11/08/17 11:54 78 16 99 Facial 40 11/08/17 11:27 80 18 99 Nasal Cannula 3.0 32 11/08/17 11:18 99 11/08/17 11:17 76 20 99 Nasal Cannula 3.0 32 11/08/17 09:21 83 11/08/17 09:21 83 144/93 11/08/17 08:00 91 11/08/17 08:00 97.7 83 20 144/93 99 Nasal Cannula 3.0 11/08/17 07:03 82 20 99 Nasal Cannula 3.0 32 11/08/17 06:55 79 20 99 11/08/17 06:53 79 20 99 Nasal Cannula 3.0 32 11/08/17 06:05 68 144/71 11/08/17 04:00 90 11/08/17 04:00 97.7 68 20 144/71 99 Room Air 11/08/17 03:33 84 21 97 Nasal Cannula 3.0 32 11/08/17 03:19 32 11/08/17 03:18 84 21 97 Nasal Cannula 3.0 32 11/08/17 00:00 98.1 84 21 165/75 100 Nasal Cannula 11/08/17 00:00 72 11/07/17 23:10 73 21 99 Nasal Cannula 3.0 32 11/07/17 23:02 32 11/07/17 23:01 73 21 99 Nasal Cannula 3.0 32 11/07/17 21:40 84 165/75 11/07/17 21:36 84 165/75 11/07/17 20:00 98.1 84 21 165/75 100 Nasal Cannula 11/07/17 20:00 98 11/07/17 19:40 71 21 100 Nasal Cannula 3.0 32 11/07/17 19:26 32 11/07/17 19:25 67 21 100 Nasal Cannula 3.0 32 Intake and Output 11/07/17 11/08/17 19:00 07:00 Intake Total 800 ml Balance 800 ml Intake Oral 800 ml # Voids 5 # Bowel Movements 2 Laboratory Tests Test 11/08/17 07:20 White Blood Count 8.6 K/UL (4.8-10.8) Red Blood Count 3.89 M/UL (4.20-5.40) L Hemoglobin 11.4 G/DL (12.0-16.0) L Hematocrit 34.6 % (37.0-47.0) L Mean Corpuscular Volume 89 FL (80-99) Mean Corpuscular Hemoglobin 29.2 PG (27.0-31.0) Mean Corpuscular Hemoglobin Concent 32.9 G/DL (32.0-36.0) Red Cell Distribution Width 14.8 % (11.6-14.8) Platelet Count 106 K/UL (150-450) L Mean Platelet Volume 8.6 FL (6.5-10.1) Neutrophils (%) (Auto) % (45.0-75.0) Lymphocytes (%) (Auto) % (20.0-45.0) Monocytes (%) (Auto) % (1.0-10.0) Eosinophils (%) (Auto) % (0.0-3.0) Basophils (%) (Auto) % (0.0-2.0) Differential Total Cells Counted 100 Neutrophils % (Manual) 81 % (45-75) H Lymphocytes % (Manual) 12 % (20-45) L Monocytes % (Manual) 7 % (1-10) Eosinophils % (Manual) 0 % (0-3) Basophils % (Manual) 0 % (0-2) Band Neutrophils 0 % (0-8) Platelet Estimate Decreased L Platelet Morphology Normal Hypochromasia 1+ Anisocytosis 1+ Prothrombin Time 23.1 SEC (9.30-11.50) H Prothromb Time International Ratio 2.2 (0.9-1.1) H Sodium Level 147 MMOL/L (136-145) H Potassium Level 3.6 MMOL/L (3.5-5.1) Chloride Level 107 MMOL/L (98-107) Carbon Dioxide Level 35 MMOL/L (21-32) H Anion Gap 5 mmol/L (5-15) Blood Urea Nitrogen 49 mg/dL (7-18) H Creatinine 1.6 MG/DL (0.55-1.30) H Estimat Glomerular Filtration Rate mL/min (>60) Glucose Level 151 MG/DL (74-106) H Calcium Level 9.0 MG/DL (8.5-10.1) Objective HEAD AND NECK: No JVD. LUNGS: Coarse rhonchi CARDIOVASCULAR: Irregularly irregular S1 and S2 with no gallop or murmur. ABDOMEN: Soft and nontender. EXTREMITIES: 1+ pitting edema. ASH WILLIAM Nov 08, 2017 16:30
[2017-11-08] MEDS ORDERED: Warfarin Sodium 4mg PO SCH (17:00)
--- NOTE | 2017-11-08 17:27 | Pulmonology Progress Note ---
Assessment/Plan Assessment/Plan 1. Asthma exacerbation. 2. Congestive heart failure. Chronic 3. Atrial fibrillation. 4. Hyperkalemia. 5. Acute renal failure on chronic kidney disease. 6. Elevated troponin. 7. Diabetes. 8. Hyperlipidemia. 9. Coagulopathy. PLAN: Continue steroids. Continue BiPAP. Continue DuoNeb q.4 hours scheduled and q.2 hours p.r.n. shortness of breath. Renally dose medications and avoid nephrotoxins. Continue Lasix 40 mg; now PO ?? ECHO Subjective Interval Events: Improving slowly Constitutional: Reports: no symptoms HEENT: Repors: no symptoms Respiratory: Reports: no symptoms Cardiovascular: Reports: no symptoms Gastrointestinal/Abdominal: Reports: no symptoms Genitourinary: Reports: no symptoms Allergies: Coded Allergies: No Known Allergies (Unverified , 05/24/12) Objective Last 24 Hour Vital Signs Date Time Temp Pulse Resp B/P (MAP) Pulse Ox O2 Delivery O2 Flow Rate FiO2 11/08/17 16:00 97.2 83 20 144/93 99 Nasal Cannula 3.0 11/08/17 15:06 90 132/89 11/08/17 14:48 90 18 99 Nasal Cannula 3.0 32 11/08/17 14:39 89 16 99 Nasal Cannula 3.0 32 11/08/17 12:41 74 16 99 Facial 40 11/08/17 12:00 97.5 81 20 132/89 99 Nasal Cannula 3.0 11/08/17 12:00 97 11/08/17 11:54 78 16 99 Facial 40 11/08/17 11:27 80 18 99 Nasal Cannula 3.0 32 11/08/17 11:18 99 11/08/17 11:17 76 20 99 Nasal Cannula 3.0 32 11/08/17 09:21 83 11/08/17 09:21 83 144/93 11/08/17 08:00 91 11/08/17 08:00 97.7 83 20 144/93 99 Nasal Cannula 3.0 11/08/17 07:03 82 20 99 Nasal Cannula 3.0 32 11/08/17 06:55 79 20 99 11/08/17 06:53 79 20 99 Nasal Cannula 3.0 32 11/08/17 06:05 68 144/71 11/08/17 04:00 90 11/08/17 04:00 97.7 68 20 144/71 99 Room Air 11/08/17 03:33 84 21 97 Nasal Cannula 3.0 32 11/08/17 03:19 32 11/08/17 03:18 84 21 97 Nasal Cannula 3.0 32 11/08/17 00:00 98.1 84 21 165/75 100 Nasal Cannula 11/08/17 00:00 72 11/07/17 23:10 73 21 99 Nasal Cannula 3.0 32 11/07/17 23:02 32 11/07/17 23:01 73 21 99 Nasal Cannula 3.0 32 11/07/17 21:40 84 165/75 11/07/17 21:36 84 165/75 11/07/17 20:00 98.1 84 21 165/75 100 Nasal Cannula 11/07/17 20:00 98 11/07/17 19:40 71 21 100 Nasal Cannula 3.0 32 11/07/17 19:26 32 11/07/17 19:25 67 21 100 Nasal Cannula 3.0 32 Intake and Output 11/07/17 11/08/17 19:00 07:00 Intake Total 800 ml Balance 800 ml Intake Oral 800 ml # Voids 5 # Bowel Movements 2 General Appearance: no acute distress HEENT: normocephalic Respiratory/Chest: chest wall non-tender, lungs clear Cardiovascular: normal peripheral pulses, normal rate Abdomen: normal bowel sounds, soft, non tender Laboratory Tests 11/08/17 07:20: White Blood Count 8.6, Red Blood Count 3.89L, Hemoglobin 11.4L, Hematocrit 34.6L , Mean Corpuscular Volume 89, Mean Corpuscular Hemoglobin 29.2, Mean Corpuscular Hemoglobin Concent 32.9, Red Cell Distribution Width 14.8, Platelet Count 106L, Mean Platelet Volume 8.6, Neutrophils (%) (Auto) , Lymphocytes (%) ( Auto) , Monocytes (%) (Auto) , Eosinophils (%) (Auto) , Basophils (%) (Auto) , Differential Total Cells Counted 100, Neutrophils % (Manual) 81H, Lymphocytes % (Manual) 12L, Monocytes % (Manual) 7, Eosinophils % (Manual) 0, Basophils % ( Manual) 0, Band Neutrophils 0, Platelet Estimate DecreasedL, Platelet Morphology Normal, Hypochromasia 1+, Anisocytosis 1+, Prothrombin Time 23.1H, Prothromb Time International Ratio 2.2H, Sodium Level 147H, Potassium Level 3.6 , Chloride Level 107, Carbon Dioxide Level 35H, Anion Gap 5, Blood Urea Nitrogen 49H, Creatinine 1.6H, Estimat Glomerular Filtration Rate , Glucose Level 151H, Calcium Level 9.0 Current Medications Medications (Trade) Dose Ordered Sig/Ernesto Route PRN Reason Start Time Stop Time Status Last Admin Dose Admin Acetaminophen (Tylenol) 650 mg Q4H PRN ORAL Mild Pain (Pain Scale 1-3) 11/05/17 17:00 11/30/17 16:59 Atorvastatin Calcium (Lipitor) 40 mg BEDTIME ORAL 11/05/17 21:00 11/30/17 20:59 11/07/17 21:37 Carvedilol (Coreg) 25 mg EVERY 12 HOURS ORAL 11/05/17 21:00 11/30/17 20:59 11/08/17 09:21 Dextrose (Dextrose 50%) STAT PRN IV Hypoglycemia 11/05/17 17:00 12/05/17 16:59 Diltiazem HCl (Cardizem) 30 mg EVERY 8 HOURS ORAL 11/05/17 22:00 12/02/17 13:59 11/08/17 15:06 Furosemide (Lasix) 40 mg DAILY ORAL 11/07/17 13:00 12/07/17 12:59 11/08/17 09:21 Insulin Aspart (NovoLOG) BEFORE MEALS AND HS SUBQ 11/05/17 21:00 11/30/17 16:59 11/08/17 17:08 Latanoprost (Xalatan) 1 drop BEDTIME BOTH EYES 11/05/17 21:00 11/30/17 20:59 11/07/17 21:00 Levalbuterol HCl (Xopenex) 0.625 mg Q4HRT HHN 11/06/17 23:45 11/11/17 23:44 11/08/17 14:38 Nitroglycerin (Ntg) 0.4 mg Q5MIN X 3 DOSES PRN SL Prn Chest Pain 11/05/17 17:00 11/30/17 16:29 Ondansetron HCl (Zofran) 4 mg Q6H PRN IVP Nausea & Vomiting 11/05/17 17:00 11/30/17 16:59 Pantoprazole (Protonix) 40 mg ACBREAKFAST ORAL 11/06/17 06:30 12/03/17 08:59 11/08/17 06:05 Prednisone (predniSONE) 20 mg DAILY ORAL 11/07/17 13:00 12/07/17 12:59 11/08/17 09:21 Warfarin Sodium (Coumadin per pharmacy) 1 ea DAILYPRN PRN MISC RX TO DOSE WARFARIN PER PROTOC 11/05/17 17:00 12/05/17 16:59 Deni Christianson MD Nov 08, 2017 17:26
--- NOTE | 2017-11-08 18:56 | Nephrology Progress Note ---
Assessment/Plan Problem List: (1) Diabetes (2) HLD (hyperlipidemia) (3) Atrial fibrillation with RVR (4) CHF exacerbation (5) Hyperkalemia (6) CKD (chronic kidney disease) (7) Dyspnea (8) Asthma exacerbation Plan Continue current treatment plan Continue 02 therapy, BIPAP prn Monitor lytes, correct prn Continue neb treatment F/U with cardio and pulmo recs Renally dose meds, avoid nephrotoxins Glycemic control AM labs Subjective Constitutional: Denies: no symptoms, chills, diaphoresis, fever, malaise, weakness, other HEENT: Denies: no symptoms, eye pain, blurred vision, tearing, double vision, ear pain, ear discharge, nose pain, nose congestion, throat pain, throat swelling, mouth pain, mouth swelling, other Genitourinary: Denies: no symptoms, burning, discharge, frequency, flank pain, hematuria, incontinence, pain, urgency, other Neurologic/Psychiatric: Denies: no symptoms, anxiety, depressed, emotional problems, headache, numbness, paresthesia, pre-existing deficit, seizure, tingling, tremors, weakness, other Subjective Seen in telemetry unit, in no apparent distress, pt denies discomfort at this time Objective Objective Last 24 Hour Vital Signs Date Time Temp Pulse Resp B/P (MAP) Pulse Ox O2 Delivery O2 Flow Rate FiO2 11/08/17 16:00 97.2 83 20 144/93 99 Nasal Cannula 3.0 11/08/17 15:06 90 132/89 11/08/17 14:48 90 18 99 Nasal Cannula 3.0 32 11/08/17 14:39 89 16 99 Nasal Cannula 3.0 32 11/08/17 12:41 74 16 99 Facial 40 11/08/17 12:00 97.5 81 20 132/89 99 Nasal Cannula 3.0 11/08/17 12:00 97 11/08/17 11:54 78 16 99 Facial 40 11/08/17 11:27 80 18 99 Nasal Cannula 3.0 32 11/08/17 11:18 99 11/08/17 11:17 76 20 99 Nasal Cannula 3.0 32 11/08/17 09:21 83 11/08/17 09:21 83 144/93 11/08/17 08:00 91 11/08/17 08:00 97.7 83 20 144/93 99 Nasal Cannula 3.0 11/08/17 07:03 82 20 99 Nasal Cannula 3.0 32 11/08/17 06:55 79 20 99 11/08/17 06:53 79 20 99 Nasal Cannula 3.0 32 11/08/17 06:05 68 144/71 11/08/17 04:00 90 11/08/17 04:00 97.7 68 20 144/71 99 Room Air 11/08/17 03:33 84 21 97 Nasal Cannula 3.0 32 11/08/17 03:19 32 11/08/17 03:18 84 21 97 Nasal Cannula 3.0 32 11/08/17 00:00 98.1 84 21 165/75 100 Nasal Cannula 11/08/17 00:00 72 11/07/17 23:10 73 21 99 Nasal Cannula 3.0 32 11/07/17 23:02 32 11/07/17 23:01 73 21 99 Nasal Cannula 3.0 32 11/07/17 21:40 84 165/75 11/07/17 21:36 84 165/75 11/07/17 20:00 98.1 84 21 165/75 100 Nasal Cannula 11/07/17 20:00 98 11/07/17 19:40 71 21 100 Nasal Cannula 3.0 32 11/07/17 19:26 32 11/07/17 19:25 67 21 100 Nasal Cannula 3.0 32 Intake and Output 11/07/17 11/08/17 19:00 07:00 Intake Total 800 ml Balance 800 ml Intake Oral 800 ml # Voids 5 # Bowel Movements 2 Laboratory Tests 11/08/17 07:20: White Blood Count 8.6, Red Blood Count 3.89L, Hemoglobin 11.4L, Hematocrit 34.6L , Mean Corpuscular Volume 89, Mean Corpuscular Hemoglobin 29.2, Mean Corpuscular Hemoglobin Concent 32.9, Red Cell Distribution Width 14.8, Platelet Count 106L, Mean Platelet Volume 8.6, Neutrophils (%) (Auto) , Lymphocytes (%) ( Auto) , Monocytes (%) (Auto) , Eosinophils (%) (Auto) , Basophils (%) (Auto) , Differential Total Cells Counted 100, Neutrophils % (Manual) 81H, Lymphocytes % (Manual) 12L, Monocytes % (Manual) 7, Eosinophils % (Manual) 0, Basophils % ( Manual) 0, Band Neutrophils 0, Platelet Estimate DecreasedL, Platelet Morphology Normal, Hypochromasia 1+, Anisocytosis 1+, Prothrombin Time 23.1H, Prothromb Time International Ratio 2.2H, Sodium Level 147H, Potassium Level 3.6 , Chloride Level 107, Carbon Dioxide Level 35H, Anion Gap 5, Blood Urea Nitrogen 49H, Creatinine 1.6H, Estimat Glomerular Filtration Rate , Glucose Level 151H, Calcium Level 9.0 Height (Feet): 5 Height (Inches): 4.00 Weight (Pounds): 233 General Appearance: no apparent distress, alert EENT: normal ENT inspection Neck: normal alignment, normal inspection Cardiovascular: regular rhythm Respiratory/Chest: no respiratory distress, decreased breath sounds Abdomen: non tender, soft Extremities: non-tender, normal inspection Neurologic: alert, oriented x 3, responsive, normal mood/affect Merline Thornton N.P. Nov 08, 2017 18:56
[2017-11-08 20:00] VITALS: BP 147/99
[2017-11-08] MEDS: Atorvastatin 20mg tab ORAL SCH (21:17)
[2017-11-08] MEDS: Latanoprost 0.005% Opth 2.5ml Soln BOTH EYES SCH (21:18)
[2017-11-09] VITALS (9 sets, daily range): BP systolic 101–139; BP diastolic 48–87
[2017-11-09] MEDS: Levalbuterol Inh UD 1.25mg/0.5ml HHN SCH ×6 (03:06→23:40)
[2017-11-09] MEDS: dilTIAZem HCl 30mg tab ORAL SCH ×3 (06:04→22:01)
[2017-11-09] MEDS: NovoLOG Insulin Flexpen SUBQ SCH ×4 (06:05→21:13)
[2017-11-09 07:33] LABS: EOSINOPHILS % (AUTO) 0.3 % (0.0-3.0); HEMATOCRIT 34.8 % (37.0-47.0); HEMOGLOBIN 11.6 G/DL (12.0-16.0); LYMPHOCYTES % (AUTO) 11.1 % (20.0-45.0); MEAN CORPUSCULAR VOLUME 88 FL (80-99); MONOCYTES % (AUTO) 10.7 % (1.0-10.0); NEUTROPHILS % (AUTO) 76.9 % (45.0-75.0); PLATELET COUNT 106 K/UL (150-450); RED BLOOD COUNT 3.93 M/UL (4.20-5.40); RED CELL DISTRIBUTION WIDTH 14.8 % (11.6-14.8); WHITE BLOOD COUNT 8.1 K/UL (4.8-10.8)
[2017-11-09 07:38] LABS: INR 2.3 (0.9-1.1)
[2017-11-09 07:48] LABS: ANION GAP 1 mmol/L (5-15); BLOOD UREA NITROGEN 41 mg/dL (7-18); CALCIUM 8.9 MG/DL (8.5-10.1); CARBON DIOXIDE 39 MMOL/L (21-32); CHLORIDE 107 MMOL/L (98-107); CREATININE 1.4 MG/DL (0.55-1.30); POTASSIUM 3.5 MMOL/L (3.5-5.1); SODIUM 147 MMOL/L (136-145)
--- NOTE | 2017-11-09 10:04 | Pulmonology Progress Note ---
Assessment/Plan Assessment/Plan 1. Asthma exacerbation. 2. Congestive heart failure. Chronic 3. Atrial fibrillation. 4. Hyperkalemia. Corrected 5. Acute renal failure on chronic kidney disease. 6. Elevated troponin. 7. Diabetes. 8. Hyperlipidemia. 9. Coagulopathy. PLAN: Continue steroids. Now on PO's Continue BiPAP q pm only while in hospital Continue DuoNeb q.4 hours scheduled and q.2 hours p.r.n. shortness of breath. Renally dose medications and avoid nephrotoxins. Continue Lasix 40 mg; now PO ECHO results noted OK to dc home Subjective Interval Events: Much better Constitutional: Reports: no symptoms HEENT: Repors: no symptoms Respiratory: Reports: no symptoms Cardiovascular: Reports: no symptoms Gastrointestinal/Abdominal: Reports: no symptoms Genitourinary: Reports: no symptoms Allergies: Coded Allergies: No Known Allergies (Unverified , 05/24/12) Objective Last 24 Hour Vital Signs Date Time Temp Pulse Resp B/P (MAP) Pulse Ox O2 Delivery O2 Flow Rate FiO2 11/09/17 06:04 80 130/74 11/09/17 04:00 97.7 63 16 117/53 95 11/09/17 04:00 100 Bi-pap 40 11/09/17 03:21 90 11/09/17 03:21 77 20 100 Bi-pap 40 11/09/17 03:05 40 11/09/17 03:04 77 20 100 Bi-pap 40 11/09/17 03:03 77 20 100 Facial 40 11/09/17 01:03 74 20 100 Facial 40 11/09/17 00:00 100 Bi-pap 40 11/09/17 00:00 97.2 74 20 139/69 100 11/08/17 23:53 60 11/08/17 23:10 81 20 100 40 11/08/17 23:00 40 11/08/17 22:59 81 20 100 40 11/08/17 22:27 90 143/82 11/08/17 22:18 73 20 100 Facial 32 11/08/17 21:17 73 147/99 11/08/17 20:40 87 11/08/17 20:00 98.1 73 20 147/99 100 11/08/17 20:00 100 Nasal Cannula 2.0 11/08/17 19:26 74 20 99 Nasal Cannula 3.0 32 11/08/17 19:12 32 11/08/17 19:11 74 20 99 Nasal Cannula 3.0 32 11/08/17 16:00 82 11/08/17 16:00 97.2 83 20 144/93 99 Nasal Cannula 3.0 11/08/17 15:06 90 132/89 11/08/17 14:48 90 18 99 Nasal Cannula 3.0 32 11/08/17 14:39 89 16 99 Nasal Cannula 3.0 32 11/08/17 12:41 74 16 99 Facial 40 11/08/17 12:00 97.5 81 20 132/89 99 Nasal Cannula 3.0 11/08/17 12:00 97 11/08/17 11:54 78 16 99 Facial 40 11/08/17 11:27 80 18 99 Nasal Cannula 3.0 32 11/08/17 11:18 99 11/08/17 11:17 76 20 99 Nasal Cannula 3.0 32 Intake and Output 11/08/17 11/09/17 19:00 07:00 Intake Total 360 ml Output Total 450 ml 600 ml Balance -90 ml -600 ml Intake Oral 360 ml Output Urine Total 450 ml 600 ml # Bowel Movements 1 General Appearance: no acute distress HEENT: normocephalic Respiratory/Chest: chest wall non-tender, lungs clear Cardiovascular: normal peripheral pulses, normal rate Abdomen: normal bowel sounds, soft, non tender Laboratory Tests 11/09/17 06:35: White Blood Count 8.1, Red Blood Count 3.93L, Hemoglobin 11.6L, Hematocrit 34.8L , Mean Corpuscular Volume 88, Mean Corpuscular Hemoglobin 29.5, Mean Corpuscular Hemoglobin Concent 33.3, Red Cell Distribution Width 14.8, Platelet Count 106L, Mean Platelet Volume 9.6, Neutrophils (%) (Auto) 76.9H, Lymphocytes (%) (Auto) 11.1L, Monocytes (%) (Auto) 10.7H, Eosinophils (%) (Auto) 0.3, Basophils (%) (Auto) 1.0, Prothrombin Time 24.5H, Prothromb Time International Ratio 2.3H, Sodium Level 147H, Potassium Level 3.5, Chloride Level 107, Carbon Dioxide Level 39H, Anion Gap 1L, Blood Urea Nitrogen 41H, Creatinine 1.4H, Estimat Glomerular Filtration Rate , Glucose Level 110H, Calcium Level 8.9 Current Medications Medications (Trade) Dose Ordered Sig/Ernesto Route PRN Reason Start Time Stop Time Status Last Admin Dose Admin Acetaminophen (Tylenol) 650 mg Q4H PRN ORAL Mild Pain (Pain Scale 1-3) 11/05/17 17:00 11/30/17 16:59 Atorvastatin Calcium (Lipitor) 40 mg BEDTIME ORAL 11/05/17 21:00 11/30/17 20:59 11/08/17 21:17 Carvedilol (Coreg) 25 mg EVERY 12 HOURS ORAL 11/05/17 21:00 11/30/17 20:59 11/08/17 21:17 Dextrose (Dextrose 50%) STAT PRN IV Hypoglycemia 11/05/17 17:00 12/05/17 16:59 Diltiazem HCl (Cardizem) 30 mg EVERY 8 HOURS ORAL 11/05/17 22:00 12/02/17 13:59 11/09/17 06:04 Furosemide (Lasix) 40 mg DAILY ORAL 11/07/17 13:00 12/07/17 12:59 11/08/17 09:21 Insulin Aspart (NovoLOG) BEFORE MEALS AND HS SUBQ 11/05/17 21:00 11/30/17 16:59 11/08/17 21:19 Latanoprost (Xalatan) 1 drop BEDTIME BOTH EYES 11/05/17 21:00 11/30/17 20:59 11/08/17 21:18 Levalbuterol HCl (Xopenex) 0.625 mg Q4HRT HHN 11/06/17 23:45 11/11/17 23:44 11/09/17 08:06 Nitroglycerin (Ntg) 0.4 mg Q5MIN X 3 DOSES PRN SL Prn Chest Pain 11/05/17 17:00 11/30/17 16:29 Ondansetron HCl (Zofran) 4 mg Q6H PRN IVP Nausea & Vomiting 11/05/17 17:00 11/30/17 16:59 Pantoprazole (Protonix) 40 mg ACBREAKFAST ORAL 11/06/17 06:30 12/03/17 08:59 11/09/17 06:10 Prednisone (predniSONE) 20 mg DAILY ORAL 11/07/17 13:00 12/07/17 12:59 11/08/17 09:21 Warfarin Sodium (Coumadin per pharmacy) 1 ea DAILYPRN PRN MISC RX TO DOSE WARFARIN PER PROTOC 11/05/17 17:00 12/05/17 16:59 Warfarin Sodium (Coumadin) 4 mg COUMADIN PO 11/09/17 17:00 11/14/17 16:59 Deni Christianson MD Nov 09, 2017 10:04
[2017-11-09] MEDS: Furosemide 40mg tab ORAL SCH (10:37)
[2017-11-09] MEDS: Carvedilol 25mg Tab ORAL SCH ×2 (10:37→21:08)
[2017-11-09] MEDS ORDERED: NS 500ML ONE (14:48)
[2017-11-09] MEDS ORDERED: NS 275ml ONE (14:48)
[2017-11-09] MEDS ORDERED: Tubing Blood Filter IV ONE (14:48)
[2017-11-09] MEDS ORDERED: Tubing IV Secondary IV ONE (14:48)
[2017-11-09] MEDS: Azithromycin 250mg tab ORAL SCH (15:11)
--- NOTE | 2017-11-09 17:26 | Nephrology Progress Note ---
Assessment/Plan Problem List: (1) Diabetes (2) HLD (hyperlipidemia) (3) Atrial fibrillation with RVR (4) CHF exacerbation (5) Hyperkalemia (6) CKD (chronic kidney disease) (7) Dyspnea (8) Asthma exacerbation Plan Continue current treatment plan Continue 02 therapy BIPAP at night On po steroids Monitor lytes, correct prn Continue neb treatment F/U with cardio and pulmo recs Renally dose meds, avoid nephrotoxins Glycemic control AM labs DC plan - home with HH Subjective Constitutional: Denies: no symptoms, chills, diaphoresis, fever, malaise, weakness, other HEENT: Denies: no symptoms, eye pain, blurred vision, tearing, double vision, ear pain, ear discharge, nose pain, nose congestion, throat pain, throat swelling, mouth pain, mouth swelling, other Genitourinary: Denies: no symptoms, burning, discharge, frequency, flank pain, hematuria, incontinence, pain, urgency, other Neurologic/Psychiatric: Denies: no symptoms, anxiety, depressed, emotional problems, headache, numbness, paresthesia, pre-existing deficit, seizure, tingling, tremors, weakness, other Subjective Seen in telemetry unit, in no apparent distress, pt denies discomfort at this time Objective Objective Last 24 Hour Vital Signs Date Time Temp Pulse Resp B/P (MAP) Pulse Ox O2 Delivery O2 Flow Rate FiO2 11/09/17 14:55 78 20 119/57 99 Nasal Cannula 2.0 11/09/17 14:41 76 20 100 Nasal Cannula 1.0 11/09/17 14:31 63 20 99 Nasal Cannula 2.0 11/09/17 13:43 98 101/48 11/09/17 13:30 97.2 98 20 101/48 99 Nasal Cannula 2.0 11/09/17 12:00 117 11/09/17 12:00 97.3 92 20 123/62 95 Nasal Cannula 2.0 11/09/17 11:10 89 20 100 Nasal Cannula 2.0 11/09/17 11:00 64 22 100 Nasal Cannula 2.0 11/09/17 10:37 100 126/55 11/09/17 10:30 100 20 126/55 98 Nasal Cannula 2.0 11/09/17 08:16 101 22 100 Nasal Cannula 3.0 11/09/17 08:06 94 20 100 Nasal Cannula 2.0 11/09/17 08:00 90 11/09/17 08:00 97.3 91 20 111/57 98 Nasal Cannula 2.0 11/09/17 07:07 Nasal Cannula 2.0 11/09/17 07:06 99 Nasal Cannula 2.0 11/09/17 06:04 80 130/74 11/09/17 04:00 97.7 63 16 117/53 95 11/09/17 04:00 100 Bi-pap 40 11/09/17 03:21 90 11/09/17 03:21 77 20 100 Bi-pap 40 11/09/17 03:05 40 11/09/17 03:04 77 20 100 Bi-pap 40 11/09/17 03:03 77 20 100 Facial 40 11/09/17 01:03 74 20 100 Facial 40 11/09/17 00:00 100 Bi-pap 40 11/09/17 00:00 97.2 74 20 139/69 100 11/08/17 23:53 60 11/08/17 23:10 81 20 100 40 11/08/17 23:00 40 11/08/17 22:59 81 20 100 40 11/08/17 22:27 90 143/82 11/08/17 22:18 73 20 100 Facial 32 11/08/17 21:17 73 147/99 11/08/17 20:40 87 11/08/17 20:00 98.1 73 20 147/99 100 11/08/17 20:00 100 Nasal Cannula 2.0 11/08/17 19:26 74 20 99 Nasal Cannula 3.0 32 11/08/17 19:12 32 11/08/17 19:11 74 20 99 Nasal Cannula 3.0 32 Intake and Output 11/08/17 11/09/17 19:00 07:00 Intake Total 360 ml Output Total 450 ml 600 ml Balance -90 ml -600 ml Intake Oral 360 ml Output Urine Total 450 ml 600 ml # Bowel Movements 1 Laboratory Tests 11/09/17 06:35: White Blood Count 8.1, Red Blood Count 3.93L, Hemoglobin 11.6L, Hematocrit 34.8L , Mean Corpuscular Volume 88, Mean Corpuscular Hemoglobin 29.5, Mean Corpuscular Hemoglobin Concent 33.3, Red Cell Distribution Width 14.8, Platelet Count 106L, Mean Platelet Volume 9.6, Neutrophils (%) (Auto) 76.9H, Lymphocytes (%) (Auto) 11.1L, Monocytes (%) (Auto) 10.7H, Eosinophils (%) (Auto) 0.3, Basophils (%) (Auto) 1.0, Prothrombin Time 24.5H, Prothromb Time International Ratio 2.3H, Sodium Level 147H, Potassium Level 3.5, Chloride Level 107, Carbon Dioxide Level 39H, Anion Gap 1L, Blood Urea Nitrogen 41H, Creatinine 1.4H, Estimat Glomerular Filtration Rate , Glucose Level 110H, Calcium Level 8.9 Height (Feet): 5 Height (Inches): 4.00 Weight (Pounds): 233 General Appearance: no apparent distress, alert EENT: normal ENT inspection Neck: normal alignment, supple Cardiovascular: normal rate, regular rhythm Respiratory/Chest: decreased breath sounds Abdomen: soft, no organomegaly Extremities: non-tender, normal inspection, no calf tenderness, normal capillary refill Neurologic: alert, oriented x 3, responsive, normal mood/affect Merline Thornton N.P. Nov 09, 2017 17:26
[2017-11-09] MEDS: Warfarin Sodium 4mg PO SCH (18:07)
[2017-11-09] MEDS: guaiFENesin DM 100mg/5ml ORAL SCH ×2 (18:07→21:08)
[2017-11-09] MEDS: Atorvastatin 20mg tab ORAL SCH (21:08)
[2017-11-09] MEDS: Latanoprost 0.005% Opth 2.5ml Soln BOTH EYES SCH (22:01)
[2017-11-10] VITALS: BP 127/68
[2017-11-10 04:00] VITALS: BP 133/72
[2017-11-10] MEDS: Levalbuterol Inh UD 1.25mg/0.5ml HHN SCH ×4 (05:44→15:04)
[2017-11-10] MEDS: dilTIAZem HCl 30mg tab ORAL SCH ×2 (06:20→14:00)
[2017-11-10] MEDS: NovoLOG Insulin Flexpen SUBQ SCH ×3 (06:23→17:19)
[2017-11-10 08:00] VITALS: BP 113/60
[2017-11-10] MEDS: guaiFENesin DM 100mg/5ml ORAL SCH ×3 (08:58→17:19)
[2017-11-10] MEDS: Carvedilol 25mg Tab ORAL SCH ×2 (08:58→09:00)
[2017-11-10] MEDS: Furosemide 40mg tab ORAL SCH (08:58)
[2017-11-10] MEDS: Azithromycin 250mg tab ORAL SCH (08:59)
[2017-11-10 09:05] VITALS: BP 103/56
--- NOTE | 2017-11-10 10:14 | Cardiac Electrophysiology PN ---
Assessment/Plan Assessment/Plan 1. Troponin leak, Levels flat, due to renal failure and creatinine is 2.5. No chest pain, Echo EF 55%. Continue Coreg and Lipitor and aspirin. 2. Atrial fibrillation with rapid ventricular response .No further pauses off Digoxin. Continue Coreg 25 mg b.i.d. and Cardizem 30 tid po. On Coumadin 4 mg daily. 3. Congestive heart failure with elevated BNP due to diastolic dysfunction. 2D echocardiogram EF 55%. Now off oxygen 4. Asthma exacerbation and severe pulmonary HTN. Being tapered off Steroid. 5. Acute on chronic renal failure. 6. Diabetes. 7. Hyperlipidemia. 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 Off oxygen. Being tapered off steroids.No further pauses. Objective Last 24 Hour Vital Signs Date Time Temp Pulse Resp B/P (MAP) Pulse Ox O2 Delivery O2 Flow Rate FiO2 11/10/17 09:05 67 103/56 11/10/17 07:23 65 18 96 Room Air 21 11/10/17 07:11 Room Air 21 11/10/17 07:11 63 20 93 Room Air 21 11/10/17 07:11 93 Room Air 21 11/10/17 06:20 88 133/72 11/10/17 05:48 88 16 98 Facial 40 11/10/17 04:00 97.3 85 16 133/72 Room Air 11/10/17 04:00 93 11/10/17 03:33 78 22 98 Bi-pap 40 11/10/17 03:25 40 11/10/17 03:24 78 22 98 Bi-pap 40 11/10/17 03:23 78 22 98 Facial 2.0 40 11/10/17 01:50 89 15 100 Facial 40 11/10/17 00:00 96.1 76 15 127/68 100 Bi-pap 11/10/17 00:00 89 11/09/17 23:43 78 20 97 Nasal Cannula 2.0 28 11/09/17 23:39 28 11/09/17 23:39 78 20 97 Nasal Cannula 2.0 28 11/09/17 22:01 78 125/87 11/09/17 21:08 78 125/87 11/09/17 20:00 100 11/09/17 20:00 98.1 68 20 125/74 100 Nasal Cannula 11/09/17 19:35 78 20 99 Nasal Cannula 2.0 28 11/09/17 19:24 28 11/09/17 19:24 78 20 99 Nasal Cannula 2.0 28 11/09/17 19:23 Nasal Cannula 2.0 28 11/09/17 19:21 99 Nasal Cannula 2.0 28 11/09/17 16:00 98.2 103 20 125/87 97 Nasal Cannula 1.0 11/09/17 16:00 98 11/09/17 14:55 78 20 119/57 99 Nasal Cannula 2.0 11/09/17 14:41 76 20 100 Nasal Cannula 1.0 11/09/17 14:31 63 20 99 Nasal Cannula 2.0 11/09/17 13:43 98 101/48 11/09/17 13:30 97.2 98 20 101/48 99 Nasal Cannula 2.0 11/09/17 12:00 117 11/09/17 12:00 97.3 92 20 123/62 95 Nasal Cannula 2.0 11/09/17 11:10 89 20 100 Nasal Cannula 2.0 11/09/17 11:00 64 22 100 Nasal Cannula 2.0 11/09/17 10:37 100 126/55 11/09/17 10:30 100 20 126/55 98 Nasal Cannula 2.0 Intake and Output 11/09/17 11/10/17 19:00 07:00 Intake Total 360 ml 240 ml Output Total 500 ml Balance -140 ml 240 ml Intake Oral 360 ml 240 ml Output Urine Total 500 ml # Bowel Movements 1 1 Laboratory Tests Test 11/10/17 09:55 Prothrombin Time Pending Prothromb Time International Ratio Pending Objective HEAD AND NECK: No JVD. LUNGS: Coarse rhonchi CARDIOVASCULAR: Irregularly irregular S1 and S2 with no gallop or murmur. ABDOMEN: Soft and nontender. EXTREMITIES: 1+ pitting edema. ASH WILLIAM Nov 10, 2017 10:14
[2017-11-10 10:19] LABS: INR 2.2 (0.9-1.1)
--- NOTE | 2017-11-10 11:10 | Cardiology Report ---
APPROVED REPORT EXAM: Two-dimensional and M-mode echocardiogram with Doppler and color Doppler. INDICATION Congestive Heart Failure M-Mode DIMENSIONS IVSd1.1 (0.7-1.1cm)Left Atrium (MM)4.3 (1.6-4.0cm) LVDd4.7 (3.5-5.6cm)Aortic Root3.2 (2.0-3.7cm) PWd1.1 (0.7-1.1cm)Aortic Cusp Exc.1.9 (1.5-2.0cm) LVDs3.5 (2.5-4.0cm) PWs1.4 cm Normal left ventricular chamber size, systolic function and wall motion. Left ventricular ejection fraction estimated to be 55 %. Borderline left ventricular hypertrophy. Anterior Echo-free space, may be due to pericardial fat or effusion. Mild bi-atrial enlargement. Right ventricular chamber sizes is within normal limits. Focal aortic valve sclerosis with adequate cusp excursion. Thickened mitral valve leaflets with normal excursion. Mild mitral annulus and aortic root calcification. Pulmonic valve not well visualized. Normal tricuspid valve structure. IVC dilated at 2.9 cm and non-collapsible with respiration, estimated RAP is 15 mmHg. A color flow and spectral Doppler study was performed and revealed: Mild aortic regurgitation. Mild mitral regurgitation. Left ventricular diastolic function could not be determined due to A-Fib. Moderate tricuspid regurgitation. Tricuspid systolic velocities suggests peak right ventricular systolic pressure of 60 mmHg, consistent with severe pulmonary hypertension. Moderate pulmonic regurgitation present.
[2017-11-10 12:00] VITALS: BP 117/74
--- NOTE | 2017-11-10 12:20 | Pulmonology Progress Note ---
Assessment/Plan Assessment/Plan 1. Asthma exacerbation. 2. Congestive heart failure. Chronic 3. Atrial fibrillation. 4. Hyperkalemia. Corrected 5. Acute renal failure on chronic kidney disease. 6. Elevated troponin. 7. Diabetes. 8. Hyperlipidemia. 9. Coagulopathy. PLAN: Continue steroids. Now on PO's Continue BiPAP q pm only while in hospital Continue DuoNeb q.4 hours scheduled and q.2 hours p.r.n. shortness of breath. Renally dose medications and avoid nephrotoxins. Continue Lasix 40 mg; now PO ECHO results noted OK to dc home Subjective Interval Events: doing much better. Constitutional: Reports: no symptoms HEENT: Repors: no symptoms Respiratory: Reports: no symptoms Cardiovascular: Reports: no symptoms Gastrointestinal/Abdominal: Reports: no symptoms Allergies: Coded Allergies: No Known Allergies (Unverified , 05/24/12) Objective Last 24 Hour Vital Signs Date Time Temp Pulse Resp B/P (MAP) Pulse Ox O2 Delivery O2 Flow Rate FiO2 11/10/17 11:06 84 20 98 Room Air 21 11/10/17 10:57 89 22 95 Room Air 21 11/10/17 09:05 67 103/56 11/10/17 09:00 67 101/56 11/10/17 08:00 98.2 95 18 113/60 96 Room Air 11/10/17 07:23 65 18 96 Room Air 21 11/10/17 07:11 Room Air 21 11/10/17 07:11 63 20 93 Room Air 21 11/10/17 07:11 93 Room Air 21 11/10/17 06:20 88 133/72 11/10/17 05:48 88 16 98 Facial 40 11/10/17 04:00 97.3 85 16 133/72 Room Air 11/10/17 04:00 93 11/10/17 03:33 78 22 98 Bi-pap 40 11/10/17 03:25 40 11/10/17 03:24 78 22 98 Bi-pap 40 11/10/17 03:23 78 22 98 Facial 2.0 40 11/10/17 01:50 89 15 100 Facial 40 11/10/17 00:00 96.1 76 15 127/68 100 Bi-pap 11/10/17 00:00 89 11/09/17 23:43 78 20 97 Nasal Cannula 2.0 28 11/09/17 23:39 28 11/09/17 23:39 78 20 97 Nasal Cannula 2.0 28 11/09/17 22:01 78 125/87 11/09/17 21:08 78 125/87 11/09/17 20:00 100 11/09/17 20:00 98.1 68 20 125/74 100 Nasal Cannula 11/09/17 19:35 78 20 99 Nasal Cannula 2.0 28 11/09/17 19:24 28 11/09/17 19:24 78 20 99 Nasal Cannula 2.0 28 11/09/17 19:23 Nasal Cannula 2.0 28 11/09/17 19:21 99 Nasal Cannula 2.0 28 11/09/17 16:00 98.2 103 20 125/87 97 Nasal Cannula 1.0 11/09/17 16:00 98 11/09/17 14:55 78 20 119/57 99 Nasal Cannula 2.0 11/09/17 14:41 76 20 100 Nasal Cannula 1.0 11/09/17 14:31 63 20 99 Nasal Cannula 2.0 11/09/17 13:43 98 101/48 11/09/17 13:30 97.2 98 20 101/48 99 Nasal Cannula 2.0 Intake and Output 11/09/17 11/10/17 19:00 07:00 Intake Total 360 ml 240 ml Output Total 500 ml Balance -140 ml 240 ml Intake Oral 360 ml 240 ml Output Urine Total 500 ml # Bowel Movements 1 1 General Appearance: no acute distress HEENT: normocephalic Respiratory/Chest: chest wall non-tender, lungs clear Cardiovascular: normal peripheral pulses, normal rate Abdomen: normal bowel sounds Laboratory Tests 11/10/17 09:55: Prothrombin Time 23.1H, Prothromb Time International Ratio 2.2H Current Medications Medications (Trade) Dose Ordered Sig/Ernesto Route PRN Reason Start Time Stop Time Status Last Admin Dose Admin Acetaminophen (Tylenol) 650 mg Q4H PRN ORAL Mild Pain (Pain Scale 1-3) 11/05/17 17:00 11/30/17 16:59 Atorvastatin Calcium (Lipitor) 40 mg BEDTIME ORAL 11/05/17 21:00 11/30/17 20:59 11/09/17 21:08 Azithromycin (Zithromax) 250 mg DAILY ORAL 11/09/17 15:00 11/14/17 09:01 1/15/18 08:59 Carvedilol (Coreg) 25 mg EVERY 12 HOURS ORAL 11/05/17 21:00 11/30/17 20:59 11/09/17 21:08 Dextrose (Dextrose 50%) STAT PRN IV Hypoglycemia 11/05/17 17:00 12/05/17 16:59 Diltiazem HCl (Cardizem) 30 mg EVERY 8 HOURS ORAL 11/05/17 22:00 12/02/17 13:59 11/10/17 06:20 Furosemide (Lasix) 40 mg DAILY ORAL 11/07/17 13:00 12/07/17 12:59 11/10/17 08:58 Guaifenesin/ Dextromethorphan (Robitussin DM) 10 ml QID ORAL 11/09/17 18:00 12/09/17 17:59 11/10/17 08:58 Insulin Aspart (NovoLOG) BEFORE MEALS AND HS SUBQ 11/05/17 21:00 11/30/17 16:59 11/10/17 12:03 Latanoprost (Xalatan) 1 drop BEDTIME BOTH EYES 11/05/17 21:00 11/30/17 20:59 11/09/17 22:01 Levalbuterol HCl (Xopenex) 0.625 mg Q4HRT HHN 11/06/17 23:45 11/11/17 23:44 11/10/17 10:57 Nitroglycerin (Ntg) 0.4 mg Q5MIN X 3 DOSES PRN SL Prn Chest Pain 11/05/17 17:00 11/30/17 16:29 Ondansetron HCl (Zofran) 4 mg Q6H PRN IVP Nausea & Vomiting 11/05/17 17:00 11/30/17 16:59 Pantoprazole (Protonix) 40 mg ACBREAKFAST ORAL 11/06/17 06:30 12/03/17 08:59 11/10/17 06:20 Prednisone (predniSONE) 20 mg DAILY ORAL 11/07/17 13:00 12/07/17 12:59 11/10/17 08:59 Warfarin Sodium (Coumadin per pharmacy) 1 ea DAILYPRN PRN MISC RX TO DOSE WARFARIN PER PROTOC 11/05/17 17:00 2/9/18 16:59 Warfarin Sodium (Coumadin) 4 mg COUMADIN PO 11/09/17 17:00 11/14/17 16:59 11/09/17 18:07 Deni Christianson MD Nov 10, 2017 12:20
--- NOTE | 2017-11-10 15:02 | Infectious Diseases Prog Note ---
Assessment/Plan Problems: (1) Asthma exacerbation Assessment & Plan: improved on ceftriaxon empirically , screening for influenza is negative , continue inhalers , monitor off antibiotics (2) Acute bronchitis Assessment & Plan: improved with ceftriaxon . screening for influenza is negative (3) Dyspnea Assessment & Plan: due to the above , continue nebulizers and oxygen, repeat CXR to rule out new infiltrates (4) Atrial fibrillation with controlled ventricular rate Assessment & Plan: continue cardiac meds , cardiology is following Subjective Constitutional: Reports: no symptoms HEENT: Reports: no symptoms Respiratory: Reports: no symptoms Breasts: Reports: no symptoms Cardiovascular: Reports: no symptoms Gastrointestinal/Abdominal: Reports: no symptoms Genitourinary: Reports: no symptoms Neurologic: Reports: no symptoms Psychiatric: Reports: no symptoms Skin: Reports: no symptoms Endocrine: Reports: no symptoms Hematologic: Reports: no symptoms Musculoskeletal: Reports: no symptoms Allergies: Coded Allergies: No Known Allergies (Unverified , 05/24/12) Subjective she was on BIPAP in ICU, unresponsive, wheezing, afebrile, not in distress Objective Vital Signs Last 24 Hour Vital Signs Date Time Temp Pulse Resp B/P (MAP) Pulse Ox O2 Delivery O2 Flow Rate FiO2 11/10/17 14:00 69 117/74 11/10/17 11:06 84 20 98 Room Air 21 11/10/17 10:57 89 22 95 Room Air 21 11/10/17 09:05 67 103/56 11/10/17 09:00 67 101/56 11/10/17 08:00 98.2 95 18 113/60 96 Room Air 11/10/17 07:23 65 18 96 Room Air 21 11/10/17 07:11 Room Air 21 11/10/17 07:11 63 20 93 Room Air 21 11/10/17 07:11 93 Room Air 21 11/10/17 06:20 88 133/72 11/10/17 05:48 88 16 98 Facial 40 11/10/17 04:00 97.3 85 16 133/72 Room Air 11/10/17 04:00 93 11/10/17 03:33 78 22 98 Bi-pap 40 11/10/17 03:25 40 11/10/17 03:24 78 22 98 Bi-pap 40 11/10/17 03:23 78 22 98 Facial 2.0 40 11/10/17 01:50 89 15 100 Facial 40 1/15/18 00:00 96.1 76 15 127/68 100 Bi-pap 11/10/17 00:00 89 11/09/17 23:43 78 20 97 Nasal Cannula 2.0 28 11/09/17 23:39 28 11/09/17 23:39 78 20 97 Nasal Cannula 2.0 28 11/09/17 22:01 78 125/87 11/09/17 21:08 78 125/87 11/09/17 20:00 100 11/09/17 20:00 98.1 68 20 125/74 100 Nasal Cannula 11/09/17 19:35 78 20 99 Nasal Cannula 2.0 28 11/09/17 19:24 28 11/09/17 19:24 78 20 99 Nasal Cannula 2.0 28 11/09/17 19:23 Nasal Cannula 2.0 28 11/09/17 19:21 99 Nasal Cannula 2.0 28 11/09/17 16:00 98.2 103 20 125/87 97 Nasal Cannula 1.0 11/09/17 16:00 98 Height (Feet): 5 Height (Inches): 4.00 Weight (Pounds): 220 General Appearance: WD/WN, no acute distress HEENT: normocephalic, atraumatic, anicteric, mucous membranes moist, PERRL Respiratory/Chest: chest wall non-tender, lungs clear, normal breath sounds, no respiratory distress, no accessory muscle use Cardiovascular: normal peripheral pulses, normal rate, regular rhythm, no gallop/murmur, no JVD Abdomen: normal bowel sounds, soft, non tender, no organomegaly, non distended , no mass, no scars Extremities: no cyanosis, no clubbing Skin: no rash, no lesions, no ulcers Neurologic/Psychiatric: alert, oriented x 3, responsive Laboratory Tests Test 11/10/17 09:55 Prothrombin Time 23.1 SEC (9.30-11.50) H Prothromb Time International Ratio 2.2 (0.9-1.1) H Current Medications Medications (Trade) Dose Ordered Sig/Ernesto Route PRN Reason Start Time Stop Time Status Last Admin Dose Admin Acetaminophen (Tylenol) 650 mg Q4H PRN ORAL Mild Pain (Pain Scale 1-3) 11/05/17 17:00 11/30/17 16:59 Atorvastatin Calcium (Lipitor) 40 mg BEDTIME ORAL 11/05/17 21:00 11/30/17 20:59 11/09/17 21:08 Azithromycin (Zithromax) 250 mg DAILY ORAL 11/09/17 15:00 11/14/17 09:01 11/10/17 08:59 Carvedilol (Coreg) 25 mg EVERY 12 HOURS ORAL 11/05/17 21:00 11/30/17 20:59 11/09/17 21:08 Dextrose (Dextrose 50%) STAT PRN IV Hypoglycemia 11/05/17 17:00 12/05/17 16:59 Diltiazem HCl (Cardizem) 30 mg EVERY 8 HOURS ORAL 11/05/17 22:00 12/02/17 13:59 11/10/17 06:20 Furosemide (Lasix) 40 mg DAILY ORAL 11/07/17 13:00 12/07/17 12:59 11/10/17 08:58 Guaifenesin/ Dextromethorphan (Robitussin DM) 10 ml QID ORAL 11/09/17 18:00 12/09/17 17:59 11/10/17 14:14 Insulin Aspart (NovoLOG) BEFORE MEALS AND HS SUBQ 11/05/17 21:00 11/30/17 16:59 11/10/17 12:03 Latanoprost (Xalatan) 1 drop BEDTIME BOTH EYES 11/05/17 21:00 11/30/17 20:59 11/09/17 22:01 Levalbuterol HCl (Xopenex) 0.625 mg Q4HRT HHN 11/06/17 23:45 11/11/17 23:44 11/10/17 10:57 Nitroglycerin (Ntg) 0.4 mg Q5MIN X 3 DOSES PRN SL Prn Chest Pain 11/05/17 17:00 11/30/17 16:29 Ondansetron HCl (Zofran) 4 mg Q6H PRN IVP Nausea & Vomiting 11/05/17 17:00 11/30/17 16:59 Pantoprazole (Protonix) 40 mg ACBREAKFAST ORAL 11/06/17 06:30 12/03/17 08:59 11/10/17 06:20 Prednisone (predniSONE) 20 mg DAILY ORAL 11/07/17 13:00 12/07/17 12:59 11/10/17 08:59 Warfarin Sodium (Coumadin per pharmacy) 1 ea DAILYPRN PRN MISC RX TO DOSE WARFARIN PER PROTOC 11/05/17 17:00 12/05/17 16:59 Warfarin Sodium (Coumadin) 4 mg COUMADIN PO 11/09/17 17:00 11/14/17 16:59 11/09/17 18:07 Erika Huang M.D. Nov 10, 2017 15:02
[2017-11-10 16:00] VITALS: BP 122/70
[2017-11-10] MEDS: Warfarin Sodium 4mg PO SCH (17:17)
--- NOTE | 2017-11-10 17:45 | Nephrology Progress Note ---
Assessment/Plan Problem List: (1) Diabetes (2) HLD (hyperlipidemia) (3) Atrial fibrillation with RVR (4) CHF exacerbation (5) Hyperkalemia (6) CKD (chronic kidney disease) (7) Dyspnea (8) Asthma exacerbation Plan Continue current treatment plan Continue 02 therapy BIPAP at night On po steroids Monitor lytes, correct prn Continue neb treatment F/U with cardio and pulmo recs Renally dose meds, avoid nephrotoxins Glycemic control AM labs DC plan - home with HH Subjective Constitutional: Denies: no symptoms, chills, diaphoresis, fever, malaise, weakness, other HEENT: Denies: no symptoms, eye pain, blurred vision, tearing, double vision, ear pain, ear discharge, nose pain, nose congestion, throat pain, throat swelling, mouth pain, mouth swelling, other Neurologic/Psychiatric: Denies: no symptoms, anxiety, depressed, emotional problems, headache, numbness, paresthesia, pre-existing deficit, seizure, tingling, tremors, weakness, other Subjective Seen in telemetry unit, in no apparent distress, pt denies discomfort at this time Objective Objective Last 24 Hour Vital Signs Date Time Temp Pulse Resp B/P (MAP) Pulse Ox O2 Delivery O2 Flow Rate FiO2 11/10/17 15:16 74 18 98 Room Air 21 11/10/17 15:04 72 20 94 Room Air 21 11/10/17 14:00 69 117/74 11/10/17 12:00 98.3 69 20 117/74 96 Room Air 11/10/17 11:06 84 20 98 Room Air 21 11/10/17 10:57 89 22 95 Room Air 21 11/10/17 09:05 67 103/56 11/10/17 09:00 67 101/56 11/10/17 08:00 98.2 95 18 113/60 96 Room Air 11/10/17 07:23 65 18 96 Room Air 21 11/10/17 07:11 Room Air 21 11/10/17 07:11 63 20 93 Room Air 21 11/10/17 07:11 93 Room Air 21 11/10/17 06:20 88 133/72 11/10/17 05:48 88 16 98 Facial 40 11/10/17 04:00 97.3 85 16 133/72 Room Air 11/10/17 04:00 93 11/10/17 03:33 78 22 98 Bi-pap 40 11/10/17 03:25 40 11/10/17 03:24 78 22 98 Bi-pap 40 11/10/17 03:23 78 22 98 Facial 2.0 40 11/10/17 01:50 89 15 100 Facial 40 11/10/17 00:00 96.1 76 15 127/68 100 Bi-pap 11/10/17 00:00 89 11/09/17 23:43 78 20 97 Nasal Cannula 2.0 28 11/09/17 23:39 28 11/09/17 23:39 78 20 97 Nasal Cannula 2.0 28 11/09/17 22:01 78 125/87 11/09/17 21:08 78 125/87 11/09/17 20:00 100 11/09/17 20:00 98.1 68 20 125/74 100 Nasal Cannula 11/09/17 19:35 78 20 99 Nasal Cannula 2.0 28 11/09/17 19:24 28 11/09/17 19:24 78 20 99 Nasal Cannula 2.0 28 11/09/17 19:23 Nasal Cannula 2.0 28 11/09/17 19:21 99 Nasal Cannula 2.0 28 Intake and Output 11/09/17 11/10/17 19:00 07:00 Intake Total 360 ml 240 ml Output Total 500 ml Balance -140 ml 240 ml Intake Oral 360 ml 240 ml Output Urine Total 500 ml # Bowel Movements 1 1 Laboratory Tests 11/10/17 09:55: Prothrombin Time 23.1H, Prothromb Time International Ratio 2.2H Height (Feet): 5 Height (Inches): 4.00 Weight (Pounds): 220 General Appearance: no apparent distress, alert Neck: non-tender, normal alignment Cardiovascular: normal rate, regular rhythm Respiratory/Chest: decreased breath sounds Abdomen: soft, no organomegaly Extremities: normal range of motion, non-tender Neurologic: alert, oriented x 3, responsive, normal mood/affect Merline Thornton N.P. Nov 10, 2017 17:45
--- NOTE | 2017-11-12 12:10 | Discharge Summary ---
Discharge Summary Hospital Course Date of Admission Oct 31, 2017 at 11:43 Date of Discharge Nov 10, 2017 at 18:11 Admitting Diagnosis SOB/ASMTHA HPI Jasmin Kilgore is a 76 year old female who was admitted on Oct 31, 2017 at 11:43 for Shortness Of Breath Asthma Hospital Course dc summary #[id number] Discharge Medications Continued Medications: Albuterol Sulfate* (Proair Hfa*) 8.5 Gm Hfa.aer.ad 2 PUFFS INH Q6H, #8.5 GM 0 Refills Carvedilol* (Carvedilol*) 25 Mg Tablet 25 MG ORAL EVERY 12 HOURS, TAB Carvedilol* (Carvedilol*) 25 Mg Tablet 25 MG ORAL EVERY 12 HOURS, TAB Furosemide* (Lasix*) 20 Mg Tablet 80 MG ORAL DAILY, TAB Latanoprost* (Xalatan*) 2.5 Ml Drops 1 DROP BOTH EYES BEDTIME, ML 0 Refills Losartan Potassium* (Losartan Potassium*) 50 Mg Tablet 100 MG ORAL DAILY, TAB Metformin Hcl* (Metformin Hcl*) 1,000 Mg Tablet 1000 MG ORAL DAILY, #30 TAB 0 Refills Simvastatin (Zocor) 40 Mg Tablet 40 MG ORAL BEDTIME, TAB Simvastatin (Zocor) 40 Mg Tablet 40 MG ORAL BEDTIME, TAB Spironolact/Hydrochlorothiazid (Spironolactone-Hctz 25-25 Tab) 1 Each Tablet Unknown Dose ORAL DAILY, TAB Valsartan/Hydrochlorothiazide 320-25MG (Diovan Hct 320-25 Mg Tablet) 1 Each Tablet 1 TAB ORAL DAILY, TAB Warfarin Sod* (Coumadin*) 6 Mg Tablet 4 MG ORAL DAILY, TAB Discharge Condition Upon Discharge: stable Discharge Disposition Patient was discharged to Home () Discharge Diagnoses: Discharge Instructions Discharge Instructions Special Instructions I have been assigned to complete a D/C Summary on this account. I was not involved in the patient management Leslee Miller NP (Vanchtein) Nov 12, 2017 12:10
--- NOTE | 2017-11-13 00:32 | Discharge Summary 2 SIG ---
DATE OF ADMISSION: 10/31/2017 DATE OF DISCHARGE: 11/10/2017 REASON FOR ADMISSION: 76-year-old female with past medical history significant for CHF, hypertension, hypercholesterolemia, asthma, atrial fibrillation, cardioversion in 2009, diabetes mellitus, presented to emergency department with one month of intermittent shortness of breath. She went to primary medical doctor earlier that month, was given albuterol and nebulizing machine for home use. However, the patient endorsed progressive shortness of breath, especially with ambulation. She denied cough, fever, chills, or chest pain. The patient with history of atrial fibrillation and was on anticoagulation with Coumadin. Workup in the emergency room revealed tachycardia - 126, borderline blood pressure- 93/58, pulse oximetry initially was stable on room air. EKG revealed atrial fibrillation with rapid ventricular response. Laboratory workup revealed potassium -5.5, BUN- 53, creatinine -2.5. Troponin-0.097. Pro BNP -7126. No leukocytosis. Hemoglobin -10.9, hematocrit- 33.9, platelets -108,000. The patient with multiple comorbidities, found to be in acute asthma exacerbation. In the emergency department, she was treated with levalbuterol since heart rate was already elevated. Chest x-ray did not reveal any evidence of pneumonia or other acute cardiopulmonary pathology. The patient was treated for hyperkalemia and was started on the steroids. The patient was admitted for further management with diagnoses of asthma exacerbation, dyspnea, atrial fibrillation with rapid ventricular response, hyperkalemia, acute kidney injury on chronic kidney disease, and elevated troponin. HOSPITAL COURSE: The patient was admitted to monitored floor. Pulmonology, cardiology, ID consults were requested. Per java technical manager, the patient started on supplemental oxygen, titrated to keep pulse oximetry above 92%. The patient was started on the pulmonary toilet [id number] and as needed. The patient was started on the IV steroids, which were gradually tapered and changed to oral. Home medications were resumed. The patient was started on empiric antibiotics. Sputum culture was ordered. All medications were renally dosed. ABG done on oxygen via nasal cannula revealed acidosis and hypercapnia. The patient was started on BiPAP. Drywall Hanger closely followed. Echocardiogram revealed preserved ejection fraction of 55% to 60% and evidence of severe pulmonary hypertension, moderate tricuspid regurgitation, moderate pulmonary regurgitation. The patient had evidence of congestive heart failure with elevated pro BNP due to the diastolic dysfunction. The patient was treated with diuretic. Cardiorenal parameters and volumes were closely monitored. Demand Generator Manager closely followed. The patient was started for rate control on beta-seng, Cardizem and digoxin, and Coumadin for anticoagulation was continued. Per weld technician, serial troponin were done. According to weld technician, elevated troponin was likely troponin leak secondary to renal failure. Levels were flat and not indicative for cardiac injury. The patient had no complaints of chest pain. The patient was noted to have pauses on the telemetry. Subsequently, digoxin was stopped and rate was controlled with beta-seng and Cardizem. Coumadin was continued to keep INR in therapeutic range . Lipid panel was within normal limits. Statin was continued. TSH was within normal limits. Followup chest x-ray revealed some vascular congestion with cardiomegaly. Venous duplex of bilateral lower extremities was negative. Influenza screen test was negative. Electrolytes and renal parameters were closely monitored, and nephrotoxics were avoided. IV steroids were changed to oral. Lasix was changed to oral route. Renal parameters trending down prior to discharge. Upon admission, BUN- 53, creatinine -2.5 and prior to discharge, BUN down to 41, creatinine down to 1.4. Renal ultrasound revealed no hydronephrosis. Blood sugar was managed with sliding scale of insulin. Hemoglobin A1c- 6.4, at goal. Hyperkalemia resolved. Pulse oximetry 95% on roon air prior to discharge. The patient was stable to be discharged home on regimen of beta-seng, statin, aspirin. FINAL DIAGNOSIS Asthma exacerbation Atrial fibrillation with rapid ventricular response Hyperkalemia Acute kidney injury on chronic kidney disease Troponin leak due to acute renal failure Dyspnea (due to asthma exacerbation and CHF exacerbation ) CHF exacerbation with elevated pro BNP due to diastolic dysfunction Severe pulmonary HTN Hyperlipidemia HTN DISCHARGE MEDICATIONS: See medication reconciliation list. DISCHARGE INSTRUCTIONS: The patient was discharged home. Follow up with the primary medical doctor next week. Juan Donohue M.D. I have been assigned to dictate discharge summary on this account and I was not involved in the patient's management. Leslee Miller N.P. (Vanchtein) DR: Fabi JOB#: [id number] CC: DARIUS
--- NOTE | 2017-11-21 11:41 | Diagnostic Imaging Report ---
APPROVED REPORT CPT Code: 36475 Present Symptoms Shortness of breath BILATERAL LOWER EXTREMITY VENOUS DUPLEX: Imaging reveals a patent deep venous system bilaterally. There is no evidence of thrombus within the femoral, popliteal or tibial segments. The greater saphenous veins are also within normal limits. Doppler indicates normal spontaneous flow within these segments. The left peroneal veins were not visualized.
== END 2017-11-10 18:11 | disposition home or self-care (01) | DRG 202 ==
LOC: EMR 11:10 → 2E 11:43 → EDBEDREQ 15:11 → 2E 15:55 → ICU 11-02 07:30 → 2W 11-02 18:23 → 2E 11-05 17:28
DX: J45.901 Unspecified asthma with (acute) exacerbation (principal); N17.9 Acute kidney failure, unspecified; D68.9 Coagulation defect, unspecified; I13.0 Hypertensive heart and chronic kidney disease with heart failure and stage 1 through stage 4 chronic kidney disease, or unspecified chronic kidney disease; E11.22 Type 2 diabetes mellitus with diabetic chronic kidney disease; I50.32 Chronic diastolic (congestive) heart failure; I27.20 Pulmonary hypertension, unspecified; J20.9 Acute bronchitis, unspecified; I48.2 Chronic atrial fibrillation; Z79.01 Long term (current) use of anticoagulants; E87.5 Hyperkalemia; N18.9 Chronic kidney disease, unspecified; E78.5 Hyperlipidemia, unspecified; D64.9 Anemia, unspecified
CPT/HCPCS: 36415; 36600; 71045; 76775; 80048; 80053; 80061; 80162; 82248; 82550; 82553; 82803; 82962; 83036; 83735; 83880; 84100; 84439; 84443; 84484; 85007; 85025; 85610; 86710; 93005; 93306; 93970; 94640; 94660; 94664; 94760; 99285; J1815; J7620

== ENCOUNTER 2018-11-01 09:08 | Inpatient (IN) | payer MEDICAID ==
[~2018-11-01] VITALS: Ht 167.6 cm; Wt 95.8 kg
[~2018-11-01 09:08] MED LIST changes: +LOSARTAN POTASS50 MG ORAL; +SPIRONOLACTONE1 EACH ORAL
--- NOTE | 2018-11-01 09:14 | NUR ---
ED Nurse Note: Pt walked in to ED with daughter due to SOB for last 3 days with coughing. pt able walk with walker and maintained >94% sat on RA. Pt has hx of asthma. Aox4, VSS. No complaint of pain chau. Will cont to monitor.
--- NOTE | 2018-11-01 09:22 | NUR ---
ED Nurse Note: Blood drawn and sent to lab.
[2018-11-01] MEDS ORDERED: Albuterol/Ipratropium 3ml neb HHN ONE ×2 (09:30→13:15)
[2018-11-01] MEDS ORDERED: Solu-MEDROL 125mg Inj IVP ONE (09:30)
--- NOTE | 2018-11-01 09:43 | Emergency Room Report ---
History of Present Illness General Chief Complaint: Dyspnea/Respdistress Source: Patient, Medical Record Present Illness HPI Patient is a 77-year-old female who presented after increased difficulty breathing. Patient a prior history of asthma. Patient had prior history of similar type symptoms in the past. She reports having onset of symptoms presently 2 days prior to arrival. Patient normally takes multiple inhalers and has prior history of chronic atrial fibrillation. She denies any increased leg pain or swelling. Patient reports having nonproductive cough. She denies any recent fever Allergies: Coded Allergies: No Known Allergies (Unverified , 05/24/12) Patient History Past Medical History: see triage record Reviewed Nursing Documentation: PMH: Agreed; PSxH: Agreed Nursing Documentation-PMH Past Medical History: No History, Except For Hx Cardiac Problems: Yes - CHF Hx Hypertension: Yes Hx Asthma: Yes Hx Diabetes: Yes Hx Cancer: No Hx Gastrointestinal Problems: No Hx Neurological Problems: No Review of Systems All Other Systems: negative except mentioned in HPI Physical Exam Vital Signs Date Time Temp Pulse Resp B/P (MAP) Pulse Ox O2 Delivery O2 Flow Rate FiO2 11/01/18 09:10 97.5 88 23 119/88 97 Room Air Sp02 EP Interpretation: reviewed, normal General Appearance: normal inspection, alert, GCS 15, mild distress, Chronically Ill Head: atraumatic ENT: normal ENT inspection, hearing grossly normal, normal voice Neck: normal inspection, full range of motion, supple, no bony tend Respiratory: normal inspection, no respiratory distress, no retraction, wheezing Cardiovascular #1: regular rate, rhythm, edema Gastrointestinal: normal inspection, normal bowel sounds, non tender, soft, no guarding, no hernia Genitourinary: no CVA tenderness Musculoskeletal: normal inspection, back normal, normal range of motion Neurologic: normal inspection, alert, oriented x3, responsive, dressage instructor III-XII nml as tested, speech normal Psychiatric: normal inspection, judgement/insight normal, mood/affect normal Skin: normal inspection, normal color, no rash Medical Decision Making Diagnostic Impression: Primary Impression: Asthma exacerbation Additional Impression: Atrial fibrillation ER Course Presented for shortness of breath. Differential diagnosis include was not limited to asthma exacerbation, CHF, pneumonia, influenza among others. Because of complexity of patient's case laboratory testing and imaging studies were ordered.Patient was noted to have prior history of atrial fibrillation. EKG interpreted by me showed atrial fibrillation with a rate of [address] or T wave changes. Patient was given breathing treatment as well as IV steroids. Patient was noted to have some slight elevation of her troponin. EKG did not show any definite ischemia however patient will be admitted for further evaluate treatment and treatment of respiratory difficulty. Labs Test 11/01/18 09:25 White Blood Count 7.2 K/UL (4.8-10.8) Red Blood Count 3.96 M/UL (4.20-5.40) Hemoglobin 11.2 G/DL (12.0-16.0) Hematocrit 33.6 % (37.0-47.0) Mean Corpuscular Volume 85 FL (80-99) Mean Corpuscular Hemoglobin 28.3 PG (27.0-31.0) Mean Corpuscular Hemoglobin Concent 33.4 G/DL (32.0-36.0) Red Cell Distribution Width 16.3 % (11.6-14.8) Platelet Count 130 K/UL (150-450) Mean Platelet Volume 8.3 FL (6.5-10.1) Neutrophils (%) (Auto) 65.0 % (45.0-75.0) Lymphocytes (%) (Auto) 13.8 % (20.0-45.0) Monocytes (%) (Auto) 16.8 % (1.0-10.0) Eosinophils (%) (Auto) 3.7 % (0.0-3.0) Basophils (%) (Auto) 0.7 % (0.0-2.0) Prothrombin Time 20.7 SEC (9.30-11.50) Prothromb Time International Ratio 2.0 (0.9-1.1) Activated Partial Thromboplast Time 31 SEC (23-33) Sodium Level 138 MMOL/L (136-145) Potassium Level 4.8 MMOL/L (3.5-5.1) Chloride Level 102 MMOL/L (98-107) Carbon Dioxide Level 29 MMOL/L (21-32) Anion Gap 8 mmol/L (5-15) Blood Urea Nitrogen 38 mg/dL (7-18) Creatinine 2.0 MG/DL (0.55-1.30) Estimat Glomerular Filtration Rate mL/min (>60) Glucose Level 114 MG/DL (74-106) Calcium Level 9.3 MG/DL (8.5-10.1) Total Bilirubin 1.5 MG/DL (0.2-1.0) Direct Bilirubin 0.5 MG/DL (0.0-0.3) Aspartate Amino Transf (AST/SGOT) 20 U/L (15-37) Alanine Aminotransferase (ALT/SGPT) 15 U/L (12-78) Alkaline Phosphatase 115 U/L (46-116) Troponin I 0.134 ng/mL (0.000-0.056) Total Protein 7.3 G/DL (6.4-8.2) Albumin 3.3 G/DL (3.4-5.0) Globulin 4.0 g/dL Albumin/Globulin Ratio 0.8 (1.0-2.7) Thyroid Stimulating Hormone (TSH) 2.025 uiU/mL (0.358-3.740) Last Vital Signs Date Time Temp Pulse Resp B/P (MAP) Pulse Ox O2 Delivery O2 Flow Rate FiO2 11/01/18 09:10 97.5 88 23 119/88 97 Room Air Status: improved Disposition: ADMITTED INPATIENT Condition: Serious Referrals: NON PHYSICIAN (PCP) Derrell Garcia MD Nov 01, 2018 09:42
[2018-11-01 09:52] VITALS: BP 121/68
[2018-11-01 10:00] LABS: BASOPHILS % (AUTO) 0.7 % (0.0-2.0); EOSINOPHILS % (AUTO) 3.7 % (0.0-3.0); HEMATOCRIT 33.6 % (37.0-47.0); HEMOGLOBIN 11.2 G/DL (12.0-16.0); LYMPHOCYTES % (AUTO) 13.8 % (20.0-45.0); MEAN CORPUSCULAR VOLUME 85 FL (80-99); MONOCYTES % (AUTO) 16.8 % (1.0-10.0); PLATELET COUNT 130 K/UL (150-450); RED BLOOD COUNT 3.96 M/UL (4.20-5.40); RED CELL DISTRIBUTION WIDTH 16.3 % (11.6-14.8); WHITE BLOOD COUNT 7.2 K/UL (4.8-10.8)
[2018-11-01 10:09] LABS: ANION GAP 8 mmol/L (5-15); CALCIUM 9.3 MG/DL (8.5-10.1); CARBON DIOXIDE 29 MMOL/L (21-32); CHLORIDE 102 MMOL/L (98-107); POTASSIUM 4.8 MMOL/L (3.5-5.1); SODIUM 138 MMOL/L (136-145)
[2018-11-01 10:21] LABS: ALANINE AMINOTRANSFERASE 15 U/L (12-78); ALBUMIN 3.3 G/DL (3.4-5.0); ALBUMIN/GLOBULIN RATIO 0.8 (1.0-2.7); ALKALINE PHOSPHATASE 115 U/L (46-116); ASPARTATE AMINO TRANSFERASE 20 U/L (15-37); BILIRUBIN,TOTAL 1.5 MG/DL (0.2-1.0)
[2018-11-01 11:00] VITALS: BP 115/90
[2018-11-01] MEDS ORDERED: Aspirin Baby 81mg ORAL ONE (11:00)
[2018-11-01] MEDS ORDERED: dilTIAZem HCl 25mg/5ml Inj IVP ONE (11:00)
[2018-11-01 11:09] LABS: BLOOD UREA NITROGEN 38 mg/dL (7-18)
[2018-11-01 11:20] LABS: BILIRUBIN,DIRECT 0.5 MG/DL (0.0-0.3)
[2018-11-01] MEDS ORDERED: HYDRALAZINE HCL10 MG ORAL (11:31)
[2018-11-01] MEDS ORDERED: METOPROLOL TAR100 M1 ORAL (11:31)
[2018-11-01] MEDS ORDERED: ATROVENT HFA12.9 GM IH (11:31)
[2018-11-01] MEDS ORDERED: DILTIAZEM 24HR180 M3 ORAL (11:31)
[2018-11-01] MEDS ORDERED: ATORVASTATIN CA40 MG ORAL (11:31)
[2018-11-01] MEDS ORDERED: FLOVENT2 PUFF1 INH (11:31)
[2018-11-01] MEDS ORDERED: BUMETANIDE1 MG ORAL (11:31)
[2018-11-01] MEDS ORDERED: WARFARIN SODIUM4 MG ORAL (11:31)
[2018-11-01] MEDS ORDERED: MAGNESIUM OXID400 M1 ORAL (11:31)
[2018-11-01] MEDS ORDERED: ISOSORBIDE MONO10 MG PO (11:31)
[2018-11-01] MEDS ORDERED: ASPIR 8181 MG ORAL (11:31)
[2018-11-01] MEDS ORDERED: CARDIZEM CD120 MG ORAL (11:31)
[2018-11-01] MEDS ORDERED: Nitroglycerin Subl 0.4mg tab SL PRN (11:45)
[2018-11-01] MEDS ORDERED: LORazepam Inj 2mg/ml 1ml IV PRN (11:45)
[2018-11-01] MEDS ORDERED: Albuterol/Ipratropium 3ml neb HHN PRN (11:45)
[2018-11-01 12:10] VITALS: BP 114/69
--- NOTE | 2018-11-01 12:22 | NUR ---
ED Nurse Note: Zhou Gomez [phone]
--- NOTE | 2018-11-01 12:26 | NUR ---
ED Nurse Note: Report given to Kayode RN at ext [phone].
[2018-11-01] MEDS: Solu-MEDROL 125mg Inj IV SCH ×2 (14:06→18:13)
--- NOTE | 2018-11-01 14:14 | Cardiology Progress Note ---
Assessment/Plan Assessment/Plan The patient is seen and examined, full consult note will be dictated soon. Objective Last 24 Hour Vital Signs Date Time Temp Pulse Resp B/P (MAP) Pulse Ox O2 Delivery O2 Flow Rate FiO2 11/01/18 13:27 98 18 100 Room Air 21 11/01/18 13:25 21 11/01/18 13:17 105 18 95 Room Air 21 11/01/18 12:26 97.5 75 20 114/69 99 Room Air 21 11/01/18 12:10 97.5 75 20 114/69 99 Room Air 21 11/01/18 11:00 97.5 73 20 115/90 98 Room Air 21 11/01/18 10:49 104 115/70 11/01/18 09:52 97.5 96 18 121/68 99 Room Air 21 11/01/18 09:45 89 18 98 Room Air 21 11/01/18 09:32 88 18 Room Air 98 11/01/18 09:32 21 11/01/18 09:32 89 18 98 Room Air 21 11/01/18 09:15 88 23 Room Air 11/01/18 09:10 97.5 88 23 119/88 97 Room Air Laboratory Tests Test 11/01/18 09:25 White Blood Count 7.2 K/UL (4.8-10.8) Red Blood Count 3.96 M/UL (4.20-5.40) L Hemoglobin 11.2 G/DL (12.0-16.0) L Hematocrit 33.6 % (37.0-47.0) L Mean Corpuscular Volume 85 FL (80-99) Mean Corpuscular Hemoglobin 28.3 PG (27.0-31.0) Mean Corpuscular Hemoglobin Concent 33.4 G/DL (32.0-36.0) Red Cell Distribution Width 16.3 % (11.6-14.8) H Platelet Count 130 K/UL (150-450) L Mean Platelet Volume 8.3 FL (6.5-10.1) Neutrophils (%) (Auto) 65.0 % (45.0-75.0) Lymphocytes (%) (Auto) 13.8 % (20.0-45.0) L Monocytes (%) (Auto) 16.8 % (1.0-10.0) H Eosinophils (%) (Auto) 3.7 % (0.0-3.0) H Basophils (%) (Auto) 0.7 % (0.0-2.0) Prothrombin Time 20.7 SEC (9.30-11.50) H Prothromb Time International Ratio 2.0 (0.9-1.1) H Activated Partial Thromboplast Time 31 SEC (23-33) Sodium Level 138 MMOL/L (136-145) Potassium Level 4.8 MMOL/L (3.5-5.1) Chloride Level 102 MMOL/L (98-107) Carbon Dioxide Level 29 MMOL/L (21-32) Anion Gap 8 mmol/L (5-15) Blood Urea Nitrogen 38 mg/dL (7-18) H Creatinine 2.0 MG/DL (0.55-1.30) H Estimat Glomerular Filtration Rate mL/min (>60) Glucose Level 114 MG/DL (74-106) H Calcium Level 9.3 MG/DL (8.5-10.1) Total Bilirubin 1.5 MG/DL (0.2-1.0) H Direct Bilirubin 0.5 MG/DL (0.0-0.3) H Aspartate Amino Transf (AST/SGOT) 20 U/L (15-37) Alanine Aminotransferase (ALT/SGPT) 15 U/L (12-78) Alkaline Phosphatase 115 U/L (46-116) Troponin I 0.134 ng/mL (0.000-0.056) Total Protein 7.3 G/DL (6.4-8.2) Albumin 3.3 G/DL (3.4-5.0) L Globulin 4.0 g/dL Albumin/Globulin Ratio 0.8 (1.0-2.7) L Thyroid Stimulating Hormone (TSH) 2.025 uiU/mL (0.358-3.740) Biju Mercado MD Nov 01, 2018 14:14
--- NOTE | 2018-11-01 15:26 | Consultation ---
History of Present Illness General Date patient seen: Nov 01, 2018 Chief Complaint: Dyspnea/Respdistress Present Illness Allergies: Coded Allergies: No Known Allergies (Unverified , 05/24/12) Medication History Scheduled Albuterol Sulfate* (Proair Hfa*), 2 PUFFS INH Q6H, (Reported) Aspirin* (Aspir 81*), 81 MG ORAL DAILY, (Reported) Atorvastatin Calcium* (Atorvastatin Calcium*), 40 MG ORAL BEDTIME, (Reported) Bumetanide* (Bumetanide*), 1 MG ORAL BID, (Reported) Carvedilol* (Carvedilol*), 25 MG ORAL EVERY 12 HOURS, (Reported) Carvedilol* (Carvedilol*), 25 MG ORAL EVERY 12 HOURS, (Reported) Diltiazem HCl (Diltiazem 24HR Cd), 180 MG ORAL DAILY, (Reported) Diltiazem Hcl* (Cardizem Cd*), 120 MG ORAL DAILY, (Reported) Fluticasone Propionate (Flovent Hfa), 2 PUFFS INH BID, (Reported) Furosemide* (Lasix*), 80 MG ORAL DAILY, (Reported) Hydralazine Hcl* (Hydralazine Hcl*), 10 MG ORAL EVERY 8 HOURS, (Reported) Isosorbide Mononitrate (Isosorbide Mononitrate), 30 MG PO DAILY, (Reported) Latanoprost* (Xalatan*), 1 DROP BOTH EYES BEDTIME, (Reported) Losartan Potassium* (Losartan Potassium*), 100 MG ORAL DAILY, (Reported) Magnesium Oxide (Magnesium Oxide), 400 MG ORAL BID, (Reported) Metformin Hcl* (Metformin Hcl*), 1,000 MG ORAL DAILY, (Reported) Metoprolol Tartrate* (Metoprolol Tartrate*), 100 MG ORAL EVERY 12 HOURS, ( Reported) Simvastatin (Zocor), 40 MG ORAL BEDTIME, (Reported) Simvastatin (Zocor), 40 MG ORAL BEDTIME, (Reported) Spironolact/Hydrochlorothiazid (Spironolactone-Hctz 25-25 Tab), 50 MG ORAL DAILY , (Reported) Valsartan/Hydrochlorothiazide 320-25MG (Diovan Hct 320-25 Mg Tablet), 1 TAB ORAL DAILY, (Reported) Warfarin Sod* (Coumadin*), 4 MG ORAL DAILY, (Reported) Warfarin Sod* (Warfarin Sod*), 4 MG ORAL DAILY, (Reported) Miscellaneous Medications Ipratropium [place] (Atrovent Hfa), 12.9 GM IH, (Reported) Patient History Healthcare decision maker Resuscitation status Full Code Advanced Directive on File Physical Exam Last 24 Hour Vital Signs Date Time Temp Pulse Resp B/P (MAP) Pulse Ox O2 Delivery O2 Flow Rate FiO2 11/01/18 14:56 Room Air 11/01/18 13:27 98 18 100 Room Air 21 11/01/18 13:25 21 11/01/18 13:17 105 18 95 Room Air 21 11/01/18 12:26 97.5 75 20 114/69 99 Room Air 21 11/01/18 12:10 97.5 75 20 114/69 99 Room Air 21 11/01/18 11:00 97.5 73 20 115/90 98 Room Air 21 11/01/18 10:49 104 115/70 11/01/18 09:52 97.5 96 18 121/68 99 Room Air 21 11/01/18 09:45 89 18 98 Room Air 21 11/01/18 09:32 88 18 Room Air 98 11/01/18 09:32 21 11/01/18 09:32 89 18 98 Room Air 21 11/01/18 09:15 88 23 Room Air 11/01/18 09:10 97.5 88 23 119/88 97 Room Air Laboratory Tests Test 11/01/18 09:25 White Blood Count 7.2 K/UL (4.8-10.8) Red Blood Count 3.96 M/UL (4.20-5.40) L Hemoglobin 11.2 G/DL (12.0-16.0) L Hematocrit 33.6 % (37.0-47.0) L Mean Corpuscular Volume 85 FL (80-99) Mean Corpuscular Hemoglobin 28.3 PG (27.0-31.0) Mean Corpuscular Hemoglobin Concent 33.4 G/DL (32.0-36.0) Red Cell Distribution Width 16.3 % (11.6-14.8) H Platelet Count 130 K/UL (150-450) L Mean Platelet Volume 8.3 FL (6.5-10.1) Neutrophils (%) (Auto) 65.0 % (45.0-75.0) Lymphocytes (%) (Auto) 13.8 % (20.0-45.0) L Monocytes (%) (Auto) 16.8 % (1.0-10.0) H Eosinophils (%) (Auto) 3.7 % (0.0-3.0) H Basophils (%) (Auto) 0.7 % (0.0-2.0) Prothrombin Time 20.7 SEC (9.30-11.50) H Prothromb Time International Ratio 2.0 (0.9-1.1) H Activated Partial Thromboplast Time 31 SEC (23-33) Sodium Level 138 MMOL/L (136-145) Potassium Level 4.8 MMOL/L (3.5-5.1) Chloride Level 102 MMOL/L (98-107) Carbon Dioxide Level 29 MMOL/L (21-32) Anion Gap 8 mmol/L (5-15) Blood Urea Nitrogen 38 mg/dL (7-18) H Creatinine 2.0 MG/DL (0.55-1.30) H Estimat Glomerular Filtration Rate mL/min (>60) Glucose Level 114 MG/DL (74-106) H Calcium Level 9.3 MG/DL (8.5-10.1) Total Bilirubin 1.5 MG/DL (0.2-1.0) H Direct Bilirubin 0.5 MG/DL (0.0-0.3) H Aspartate Amino Transf (AST/SGOT) 20 U/L (15-37) Alanine Aminotransferase (ALT/SGPT) 15 U/L (12-78) Alkaline Phosphatase 115 U/L (46-116) Troponin I 0.134 ng/mL (0.000-0.056) Total Protein 7.3 G/DL (6.4-8.2) Albumin 3.3 G/DL (3.4-5.0) L Globulin 4.0 g/dL Albumin/Globulin Ratio 0.8 (1.0-2.7) L Thyroid Stimulating Hormone (TSH) 2.025 uiU/mL (0.358-3.740) Height (Feet): 5 Height (Inches): 6.00 Weight (Pounds): 202 Medications Current Medications Medications (Trade) Dose Ordered Sig/Ernesto Route PRN Reason Start Time Stop Time Status Last Admin Dose Admin Albuterol/ Ipratropium (Albuterol/ Ipratropium) 3 ml Q4H PRN HHN dyspnea 11/01/18 11:45 11/06/18 11:44 Dextrose (Dextrose 50%) 25 ml Q30M PRN IV Hypoglycemia 11/01/18 11:45 12/01/18 11:44 Dextrose (Dextrose 50%) 50 ml Q30M PRN IV Hypoglycemia 11/01/18 11:45 12/01/18 11:44 Heparin Sodium (Porcine) (Heparin 5000 units/ml) 5,000 units EVERY 12 HOURS SUBQ 11/01/18 21:00 12/01/18 20:59 Lorazepam (Ativan 2mg/ml 1ml) 0.5 mg Q4H PRN IV For Anxiety 11/01/18 11:45 11/08/18 11:44 Methylprednisolone Sodium Succinate (Solu-MEDROL) 60 mg Q6H IV 11/01/18 13:00 12/01/18 12:59 11/01/18 14:06 Nitroglycerin (Ntg) 0.4 mg Q5M X 3 DOSES PRN SL Prn Chest Pain 11/01/18 11:45 12/01/18 11:44 Ondansetron HCl (Zofran) 4 mg Q6H PRN IVP Nausea & Vomiting 11/01/18 11:45 12/01/18 11:44 Promethazine HCl/ Codeine (Phenergan with Codeine) 5 ml Q6H PRN ORAL cough 11/01/18 11:45 12/01/18 11:44 Theophylline (Francois-Dur) 100 mg EVERY 12 HOURS ORAL 11/01/18 21:00 12/01/18 20:59 Assessment/Plan Status Narrative Hematology Consultation DOS: 11/01/18 REQ MD: Guanako Nettles [facility]: Anemia and coagulopathy HPI Patient is a 77-year-old female who presented after increased difficulty breathing. Patient a prior history of asthma. Patient had prior history of similar type symptoms in the past. She reports having onset of symptoms presently 2 days prior to arrival. Patient normally takes multiple inhalers and has prior history of chronic atrial fibrillation. She denies any increased leg pain or swelling. Patient reports having nonproductive cough. She denies any recent fever. CXR was reviewed int he er, cardiomegaly and pulm vasc congestion noted. Coded Allergies: No Known Allergies (Unverified , 05/24/12) Past Medical History: see triage record Reviewed Nursing Documentation: PMH: Agreed; PSxH: Agreed Past Medical History: No History, Except For Hx Cardiac Problems: Yes - CHF Hx Hypertension: Yes Hx Asthma: Yes Hx Diabetes: Yes Hx Cancer: No Hx Gastrointestinal Problems: No Hx Neurological Problems: No Review of Systems All Other Systems: negative except mentioned in HPI Physical Exam Vital Signs Date Time Temp Pulse Resp B/P (MAP) Pulse Ox O2 Delivery O2 Flow Rate FiO2 11/01/18 09:10 97.5 88 23 119/88 97 Room Air Sp02 EP Interpretation: reviewed, normal General Appearance: normal inspection, alert, GCS 15, Chronically Ill Head: atraumatic ENT: normal ENT inspection, hearing grossly normal Neck: normal inspection, full range of motion, supple, no bony tend Respiratory: normal inspection, no respiratory distress, no retraction, wheezing Cardiovascular #1: rrr, edema Gastrointestinal: normal inspection, normal bowel sounds, non tender, soft Genitourinary: no CVA tenderness Musculoskeletal: normal inspection, back normal, normal range of motion Neurologic: normal inspection, alert, oriented x3, responsive, quality control coordinator III-XII nml as tested Psychiatric: normal inspection, judgement/insight normal, mood/affect normal Skin: normal inspection, normal color, no rash Labs; reviewed # Anemia of chronic disease -- hgb currently 11, could be due to hemodilution --> anemia panel has been ordered --> no evidence of hemolysis --> trend hgb 11 # Thrombocytopenia currently plt 130k, cause unknown, imaging of the abd has been reviewed --> hepatitis and hiv has been ordered --> consider us of the abdomen --> peripheral smear ordered # Coagulopathy - inr approx 2, could be due to meds --> mixing study has been ordered # Asthma exacerbation --> steriods as per pulm prn # Atrial fibrillation --> cards zain, on hep at this time Evens Ocampo MD Nov 01, 2018 15:26
[2018-11-01 16:00] VITALS: BP 117/67
[2018-11-01 16:20] LABS: % IRON SATURATION 11 % (15-50); IRON 43 ug/dL (50-175); TOTAL IRON BINDING CAPACITY 408 ug/dL (250-450)
[2018-11-01 16:33] LABS: FERRITIN 62 NG/ML (8-388); LACTATE DEHYDROGENASE 260 U/L (81-234)
--- NOTE | 2018-11-01 19:15 | NUR ---
HAND-OFF: Report given to LORI Young.
--- NOTE | 2018-11-01 19:24 | NUR ---
NURSE NOTES: Received report from LORI Almanza. Patient is awake lying semi-goldberg's; resting comfortably. No signs of acute distress noted; denies pain at this time. Family members at bedside. AOx4; able to make needs known. Checked IV site; patent and flushed. No erythema, bleeding, or infiltration noted. Bed at lowest position, brakes on, siderails up x3. Call light within reach. Will continue to monitor.
--- NOTE | 2018-11-01 19:45 | Consultation ---
DATE OF CONSULTATION: 11/01/2018 CARDIOLOGY CONSULTATION REFERRING PHYSICIAN: Guanako Nettles D.O. REASON FOR CONSULTATION: Management of atrial fibrillation. HISTORY OF PRESENT ILLNESS: The patient is a very pleasant 77-year-old female who presents to the hospital after experiencing progressive worsening of shortness of breath. The patient started with cold symptoms about two weeks prior to this admission. She had productive cough with brown sputum and fever and chills according to her. Apparently, her asthma got worsened, not responding to her usual inhaler. The patient also has history of permanent atrial fibrillation, on warfarin therapy. At the time of arrival to the hospital, her INR was 2.0 within the therapeutic level. The patient currently denies any chest pain. PAST MEDICAL HISTORY: Hypertension, asthma, diabetes mellitus, history of congestive heart failure. PAST SURGICAL HISTORY: She claims that she had some heart procedure. She thinks that she had transesophageal echocardiography and cardioversion in the past. MEDICATIONS: List of medications in the outpatient setting including aspirin 81 mg daily, ProAir two puffs inhaler q.6 h. p.r.n. shortness of breath, atorvastatin 40 mg p.o. nightly, bumetanide 1 mg p.o. twice daily, carvedilol 25 mg twice daily, diltiazem 180 mg p.o. daily, Flovent HFA two puffs inhaler twice daily, Lasix 80 mg p.o. daily, hydralazine 10 mg q.8 h., Atrovent HFA 12.9 g inhaler, isosorbide mononitrate 30 mg p.o. daily, Xalatan eye drops nightly, losartan 100 mg p.o. daily, magnesium 400 mg twice daily, metformin 1000 mg twice daily, metoprolol 100 mg p.o. twice daily, Zocor 40 mg nightly, spironolactone and hydrochlorothiazide 25/25 mg one tablet daily, valsartan and hydrochlorothiazide 320/25 mg one tablet daily, warfarin 4 mg p.o. daily. ALLERGIES: No known drug allergies. SOCIAL HISTORY: Denies any tobacco, alcohol, or illicit drug use. REVIEW OF SYSTEMS: A 12-system review done essentially negative except what mentioned in history of present illness. PHYSICAL EXAMINATION: VITAL SIGNS: Blood pressure was 119/88, pulse of 88, respirations 22, O2 saturation 97% on room air, temperature 97.5 degrees Fahrenheit. GENERAL: The patient is a very unfortunate 77-year-old female, in no apparent respiratory distress. Alert and oriented x4. HEENT: Atraumatic and normocephalic. Anicteric. Pupils are equal, round, and reactive to light and accommodation. Extraocular muscles intact. NECK: JVP less than 5 cm. No carotid bruit. Carotid upstroke is 2+ bilaterally. CARDIOVASCULAR: Normal S1, S2. Irregularly irregular rhythm. No murmurs, gallops, or rubs. LUNGS: Diminished breath sounds throughout with expiratory rhonchi. No crackles. ABDOMEN: Soft, nontender, and nondistended. No hepatosplenomegaly. Positive bowel sounds. EXTREMITIES: There is 1+ bilateral lower extremity edema. LABORATORY AND DIAGNOSTIC DATA: Laboratory findings, INR was 2.0. Chemistry showed sodium 138, potassium 4.8, chloride 102, bicarbonate 29, BUN 38, creatinine 2.0, glucose 114, calcium is 9.3. Troponin-I was 0.134. WBC 7.3, hemoglobin 11.2, hematocrit 33.6, and platelet count 130,000. Chest x-ray not available at this time. A 12-lead electrocardiogram shows atrial fibrillation with controlled ventricular response at a rate of [address] and T-wave abnormalities. QT interval of 420. ASSESSMENT AND PLAN: The patient is a very unfortunate 77-year-old female, seen in Cardiology consultation at the request of Dr. Nettles. 1. Shortness of breath, mostly due to acute exacerbation of asthma, positive findings for bilateral rhonchi. This is most likely exacerbated by an acute viral upper respiratory tract infection. I agree with the steroids, inhalers/nebulizer, pulmonary toilet, oxygen, and pulmonary followup. We will obtain 2D echocardiography to reassess left ventricular systolic and diastolic function. Of note, the patient's previous echocardiography has revealed severe pulmonary hypertension, which is unlikely for asthma to get complicated these issues. Further workup of pulmonary hypertension is required. 2. Permanent atrial fibrillation. This may cause heart failure with normal ejection fraction, may explain some extent of pulmonary hypertension. I do not have any chest x-ray results in the system at this point. BNP in phase of atrial fibrillation is not very accurate. 3. Clinically, she does not appear to be very hypervolemic. 4. We will await the patient's 2D echocardiography to make a decision whether the patient will require diuretics or not. 5. The patient is currently anticoagulated with warfarin and the INR level is in the therapeutic level. 6. We will also continue with the patient's calcium-channel seng and put a hold on beta-seng in view of acute bronchoconstriction. I would like to thank Dr. Nettles for the courtesy of this consultation. Biju Mercado M.D. DR: Hilda JOB#: [id number] CC:
[2018-11-01 20:00] VITALS: BP 131/70
[2018-11-01] MEDS: Promethazine/Codeine 5ml UD ORAL PRN (20:34)
[2018-11-01] MEDS: Theophylline ER 100mg ORAL SCH (20:34)
[2018-11-01] MEDS: Heparin 5000 units/ml inj SUBQ SCH (20:35)
[2018-11-02] VITALS (8 sets, daily range): BP systolic 118–157; BP diastolic 72–94
[2018-11-02] MEDS: Solu-MEDROL 125mg Inj IV SCH ×4 (01:21→18:10)
--- NOTE | 2018-11-02 04:13 | NUR ---
NURSE NOTES: Patient is asleep lying semi-goldberg's; resting comfortably. No signs of acute distress or pain noted at this time. On 2L nasal cannula as needed.
--- NOTE | 2018-11-02 06:55 | General Progress Note ---
Assessment/Plan Assessment/Plan # Anemia of iron deficiency, low ferritin, high tibc, low % sat --> anemia panel has been ordered --> no evidence of hemolysis --> trend hgb 11 --> start on ferrous sulfate 325mg po bid # Thrombocytopenia currently plt 130k, cause unknown, imaging of the abd has been reviewed --> hepatitis and hiv has been ordered --> consider us of the abdomen --> peripheral smear ordered # Coagulopathy - inr approx 2,is due to coumadin for afib --> continue anticoagulation as per cards # Asthma exacerbation --> steriods as per pulm prn # Atrial fibrillation --> cards eval, on coumadin Greatly appreciate consultation! Subjective Constitutional: Denies: no symptoms, chills, diaphoresis, fever, malaise, weakness, other HEENT: Denies: no symptoms, eye pain, blurred vision, tearing, double vision, ear pain, ear discharge, nose pain, nose congestion, throat pain, throat swelling, mouth pain, mouth swelling, other Cardiovascular: Denies: no symptoms, chest pain, edema, irregular heart rate, lightheadedness, palpitations, syncope, other Respiratory: Denies: no symptoms, cough, orthopnea, shortness of breath, SOB with excertion, SOB at rest, sputum, stridor, wheezing, other Neurologic/Psychiatric: Denies: no symptoms, anxiety, depressed, emotional problems, headache, numbness, paresthesia, pre-existing deficit, seizure, tingling, tremors, weakness, other Endocrine: Denies: no symptoms, excessive sweating, flushing, intolerance to cold, intolerance to heat, increased hunger, increased thirst, increased urine, unexplained weight gain, unexplained weight loss, other Hematologic/Lymphatic: Denies: no symptoms, anemia, easy bleeding, easy bruising, other Allergies: Coded Allergies: No Known Allergies (Unverified , 05/24/12) Subjective 11/02: sob is better today, 2d echo pending, on anti-htn meds, ferrous sulfate started Objective Last 24 Hour Vital Signs Date Time Temp Pulse Resp B/P (MAP) Pulse Ox O2 Delivery O2 Flow Rate FiO2 11/02/18 04:00 98 11/02/18 04:00 98.0 65 19 157/92 (113) 93 11/02/18 00:00 100 11/02/18 00:00 97.4 79 18 133/82 (99) 99 11/01/18 21:14 95 Room Air 21 11/01/18 21:13 21 11/01/18 21:13 108 18 97 Room Air 21 11/01/18 21:04 76 18 92 Room Air 21 11/01/18 21:00 Nasal Cannula 2.0 11/01/18 20:00 117 11/01/18 20:00 97.9 96 19 131/70 (90) 96 11/01/18 16:00 117 11/01/18 16:00 97.7 87 18 117/67 (84) 95 11/01/18 14:56 Room Air 11/01/18 13:45 88 11/01/18 13:27 98 18 100 Room Air 21 11/01/18 13:25 21 11/01/18 13:17 105 18 95 Room Air 21 11/01/18 12:26 97.5 75 20 114/69 99 Room Air 21 11/01/18 12:10 97.5 75 20 114/69 99 Room Air 21 11/01/18 11:00 97.5 73 20 115/90 98 Room Air 21 11/01/18 10:49 104 115/70 11/01/18 09:52 97.5 96 18 121/68 99 Room Air 21 11/01/18 09:45 89 18 98 Room Air 21 11/01/18 09:32 88 18 Room Air 98 11/01/18 09:32 21 11/01/18 09:32 89 18 98 Room Air 21 11/01/18 09:15 88 23 Room Air 11/01/18 09:10 97.5 88 23 119/88 97 Room Air Intake and Output 11/01/18 11/02/18 18:59 06:59 Intake Total 250 ml 120 ml Balance 250 ml 120 ml Intake Oral 250 ml Other 120 ml # Voids 2 2 # Bowel Movements 2 Laboratory Tests 11/01/18 09:25: White Blood Count 7.2, Red Blood Count 3.96L, Hemoglobin 11.2L, Hematocrit 33.6L , Mean Corpuscular Volume 85, Mean Corpuscular Hemoglobin 28.3, Mean Corpuscular Hemoglobin Concent 33.4, Red Cell Distribution Width 16.3H, Platelet Count 130L, Mean Platelet Volume 8.3, Neutrophils (%) (Auto) 65.0, Lymphocytes (%) (Auto) 13.8L, Monocytes (%) (Auto) 16.8H, Eosinophils (%) (Auto ) 3.7H, Basophils (%) (Auto) 0.7, Prothrombin Time 20.7H, Prothromb Time International Ratio 2.0H, Activated Partial Thromboplast Time 31, Sodium Level 138, Potassium Level 4.8, Chloride Level 102, Carbon Dioxide Level 29, Anion Gap 8, Blood Urea Nitrogen 38H, Creatinine 2.0H, Estimat Glomerular Filtration Rate , Glucose Level 114H, Calcium Level 9.3, Total Bilirubin 1.5H, Direct Bilirubin 0.5H, Aspartate Amino Transf (AST/SGOT) 20, Alanine Aminotransferase ( ALT/SGPT) 15, Alkaline Phosphatase 115, Troponin I 0.134H, Total Protein 7.3, Albumin 3.3L, Globulin 4.0, Albumin/Globulin Ratio 0.8L, Thyroid Stimulating Hormone (TSH) 2.025 11/01/18 09:30: Albumin/Globulin Ratio [Pending], Sickle Cell Screen [Pending], PTT Mixing Study [Pending], APTT Patient/Control Mix [Pending], Mix PTT Incubation Time [ Pending], Mix PTT Normal/Saline 1:1 Immediate [Pending], Thrombin Time Normal Plasma [Pending], Iron Level 43L, Total Iron Binding Capacity 408, Percent Iron Saturation 11L, Unsaturated Iron Binding 365H, Ferritin 62, Lactate Dehydrogenase 260H, Total Protein (PEP) [Pending], Albumin (PEP) [Pending], Globulin (PEP) [Pending], Eigtl-9-[id number] [Pending], [place]-1-Acvljqigt [ Pending], Beta Globulins [Pending], Beta Gamma Globulin [Pending], PEP Abnormal Protein Bands [Pending], Protein Electrophoresis Interpret [Pending], Hepatitis A IgM Antibody [Pending], Hepatitis B Surface Antigen [Pending], Hepatitis B Core IgM Antibody [Pending], Hepatitis C Antibody [Pending], HIV (1&2) Antibody Rapid Negative Height (Feet): 5 Height (Inches): 6.00 Weight (Pounds): 202 Objective GENERAL: The patient is a very unfortunate 77-year-old female, in no apparent respiratory distress. Alert + oriented x4. HEENT: Atraumatic and normocephalic. Anicteric. Pupils are equal, round, and reactive NECK: JVP less than 5 cm. No carotid bruit. Carotid upstroke is 2+ bilaterally. CARDIOVASCULAR: Normal S1, S2. Irregularly irregular rhythm. No murmurs, gallops, or rubs. LUNGS: Diminished breath sounds throughout with expiratory rhonchi. No crackles. ABDOMEN: Soft, nontender, and nondistended. No hepatosplenomegaly. Positive bowel sounds. EXTREMITIES: There is 1+ bilateral lower extremity edema. Evens Ocampo MD Nov 02, 2018 06:55
--- NOTE | 2018-11-02 07:13 | NUR ---
HAND-OFF: Report given to LORI Almanza. Patient is awake lying semi-goldberg's watching TV; resting comfortably. In stable condition.
--- NOTE | 2018-11-02 07:14 | NUR ---
NURSE NOTES: Received report from LORI Young. Patient is sitting in bed, eating breakfast. Patient in stable condition. No signs and symptoms of any distress at this time. IV site intact and patent. Call light and bed side table is within reach. Bed brakes engaged.Will continue to monitor and follow plan of care.
[2018-11-02 08:43] LABS: HEMOGLOBIN 10.6 G/DL (12.0-16.0); MEAN CORPUSCULAR VOLUME 84 FL (80-99); PLATELET COUNT 135 K/UL (150-450); RED BLOOD COUNT 3.81 M/UL (4.20-5.40); RED CELL DISTRIBUTION WIDTH 16.1 % (11.6-14.8); WHITE BLOOD COUNT 9.3 K/UL (4.8-10.8)
[2018-11-02] MEDS: Theophylline ER 100mg ORAL SCH ×2 (09:38→21:05)
[2018-11-02] MEDS: Heparin 5000 units/ml inj SUBQ SCH (09:40)
[2018-11-02] MEDS: Promethazine/Codeine 5ml UD ORAL PRN ×2 (09:42→21:05)
--- NOTE | 2018-11-02 10:15 | NUR ---
CASE MANAGEMENT:REVIEW 77 YR OLD FEMALE FROM HOME CC; SOB X3 DAYS SI:ASTHMA EXACERBATION. AFIB 97.6 88 23 119/88 97% ON RA BUN+38 CR+2.0 TROPONIN(+) 0.134 INR=2.0 IS: IV CARDIZEM ASA PO DUONEB HHN IV SOLUMEDROL : TO TELEMETRY INTERQUAL CRITERIA MET
[2018-11-02] MEDS ORDERED: DiphenhydrAMINE 50mg/ml Inj IVP PRN (11:45)
--- NOTE | 2018-11-02 11:48 | Consultation ---
History of Present Illness General Date patient seen: Nov 02, 2018 Chief Complaint: Dyspnea/Respdistress Present Illness HPI 77-year-old female with hx of COPD, asthma HTN, CAD, chronic afib presented to ER with CC of difficulty breathing for 2 days prior to arrival. She denies any increased leg pain or swelling. Patient reports having nonproductive cough. She was diagnosed to have acute exacerbation of COPD and bronchitis and admitted to telemetry for further work up. Allergies: Coded Allergies: No Known Allergies (Unverified , 05/24/12) Medication History Scheduled Albuterol Sulfate* (Proair Hfa*), 2 PUFFS INH Q6H, (Reported) Aspirin* (Aspir 81*), 81 MG ORAL DAILY, (Reported) Atorvastatin Calcium* (Atorvastatin Calcium*), 40 MG ORAL BEDTIME, (Reported) Bumetanide* (Bumetanide*), 1 MG ORAL BID, (Reported) Carvedilol* (Carvedilol*), 25 MG ORAL EVERY 12 HOURS, (Reported) Carvedilol* (Carvedilol*), 25 MG ORAL EVERY 12 HOURS, (Reported) Diltiazem HCl (Diltiazem 24HR Cd), 180 MG ORAL DAILY, (Reported) Diltiazem Hcl* (Cardizem Cd*), 120 MG ORAL DAILY, (Reported) Fluticasone Propionate (Flovent Hfa), 2 PUFFS INH BID, (Reported) Furosemide* (Lasix*), 80 MG ORAL DAILY, (Reported) Hydralazine Hcl* (Hydralazine Hcl*), 10 MG ORAL EVERY 8 HOURS, (Reported) Isosorbide Mononitrate (Isosorbide Mononitrate), 30 MG PO DAILY, (Reported) Latanoprost* (Xalatan*), 1 DROP BOTH EYES BEDTIME, (Reported) Losartan Potassium* (Losartan Potassium*), 100 MG ORAL DAILY, (Reported) Magnesium Oxide (Magnesium Oxide), 400 MG ORAL BID, (Reported) Metformin Hcl* (Metformin Hcl*), 1,000 MG ORAL DAILY, (Reported) Metoprolol Tartrate* (Metoprolol Tartrate*), 100 MG ORAL EVERY 12 HOURS, ( Reported) Simvastatin (Zocor), 40 MG ORAL BEDTIME, (Reported) Simvastatin (Zocor), 40 MG ORAL BEDTIME, (Reported) Spironolact/Hydrochlorothiazid (Spironolactone-Hctz 25-25 Tab), 50 MG ORAL DAILY , (Reported) Valsartan/Hydrochlorothiazide 320-25MG (Diovan Hct 320-25 Mg Tablet), 1 TAB ORAL DAILY, (Reported) Warfarin Sod* (Coumadin*), 4 MG ORAL DAILY, (Reported) Warfarin Sod* (Warfarin Sod*), 4 MG ORAL DAILY, (Reported) Miscellaneous Medications Ipratropium [place] (Atrovent Hfa), 12.9 GM IH, (Reported) Patient History Healthcare decision maker Resuscitation status Full Code Advanced Directive on File Past Medical/Surgical History Past Medical/Surgical History: (1) Atrial fibrillation (2) Asthma (3) Diabetes (4) Hypothyroid Review of Systems All Other Systems: negative except mentioned in HPI Physical Exam General Appearance: WD/WN, no apparent distress Lines, tubes and drains: peripheral HEENT: normocephalic, atraumatic Neck: non-tender, normal alignment Respiratory/Chest: chest wall non-tender, lungs clear Cardiovascular/Chest: normal peripheral pulses, normal rate Abdomen: normal bowel sounds, non tender Genitourinary/Rectal: normal genital exam Extremities: normal range of motion Skin Exam: normal pigmentation Neurologic: hearing therapy teacher II-XII grossly normal Last 24 Hour Vital Signs Date Time Temp Pulse Resp B/P (MAP) Pulse Ox O2 Delivery O2 Flow Rate FiO2 11/02/18 08:00 98.4 95 16 118/72 (87) 93 11/02/18 04:00 98 11/02/18 04:00 98.0 65 19 157/92 (113) 93 11/02/18 00:00 100 11/02/18 00:00 97.4 79 18 133/82 (99) 99 11/01/18 21:14 95 Room Air 21 11/01/18 21:13 21 11/01/18 21:13 108 18 97 Room Air 21 11/01/18 21:04 76 18 92 Room Air 21 11/01/18 21:00 Nasal Cannula 2.0 11/01/18 20:00 117 11/01/18 20:00 97.9 96 19 131/70 (90) 96 11/01/18 16:00 117 11/01/18 16:00 97.7 87 18 117/67 (84) 95 11/01/18 14:56 Room Air 11/01/18 13:45 88 11/01/18 13:27 98 18 100 Room Air 21 11/01/18 13:25 21 11/01/18 13:17 105 18 95 Room Air 21 11/01/18 12:26 97.5 75 20 114/69 99 Room Air 21 11/01/18 12:10 97.5 75 20 114/69 99 Room Air 21 Intake and Output 11/01/18 11/02/18 19:00 07:00 Intake Total 250 ml 120 ml Balance 250 ml 120 ml Intake Oral 250 ml Other 120 ml # Voids 2 2 # Bowel Movements 2 Laboratory Tests Test 11/02/18 07:55 White Blood Count 9.3 K/UL (4.8-10.8) Red Blood Count 3.81 M/UL (4.20-5.40) L Hemoglobin 10.6 G/DL (12.0-16.0) L Hematocrit 32.0 % (37.0-47.0) L Mean Corpuscular Volume 84 FL (80-99) Mean Corpuscular Hemoglobin 27.9 PG (27.0-31.0) Mean Corpuscular Hemoglobin Concent 33.2 G/DL (32.0-36.0) Red Cell Distribution Width 16.1 % (11.6-14.8) H Platelet Count 135 K/UL (150-450) L Mean Platelet Volume 8.6 FL (6.5-10.1) Neutrophils (%) (Auto) % (45.0-75.0) Lymphocytes (%) (Auto) % (20.0-45.0) Monocytes (%) (Auto) % (1.0-10.0) Eosinophils (%) (Auto) % (0.0-3.0) Basophils (%) (Auto) % (0.0-2.0) Differential Total Cells Counted 100 Neutrophils % (Manual) 85 % (45-75) H Lymphocytes % (Manual) 7 % (20-45) L Monocytes % (Manual) 6 % (1-10) Eosinophils % (Manual) 0 % (0-3) Basophils % (Manual) 0 % (0-2) Band Neutrophils 2 % (0-8) Platelet Estimate Decreased L Platelet Morphology Normal Polychromasia 1+ Hypochromasia 2+ Anisocytosis 1+ Height (Feet): 5 Height (Inches): 6.00 Weight (Pounds): 202 Medications Current Medications Medications (Trade) Dose Ordered Sig/Ernesto Route PRN Reason Start Time Stop Time Status Last Admin Dose Admin Albuterol/ Ipratropium (Albuterol/ Ipratropium) 3 ml Q4H PRN HHN dyspnea 11/01/18 11:45 11/06/18 11:44 11/01/18 21:03 Dextrose (Dextrose 50%) 25 ml Q30M PRN IV Hypoglycemia 11/01/18 11:45 12/01/18 11:44 Dextrose (Dextrose 50%) 50 ml Q30M PRN IV Hypoglycemia 11/01/18 11:45 12/01/18 11:44 Diphenhydramine HCl (Benadryl) 25 mg Q6H PRN IVP Itching 11/02/18 11:45 12/02/18 11:44 UNV Ferrous Sulfate (Feosol) 325 mg BID ORAL 11/02/18 09:00 12/02/18 08:59 11/02/18 09:38 Heparin Sodium (Porcine) (Heparin 5000 units/ml) 5,000 units EVERY 12 HOURS SUBQ 11/01/18 21:00 12/01/18 20:59 11/02/18 09:40 Lorazepam (Ativan 2mg/ml 1ml) 0.5 mg Q4H PRN IV For Anxiety 11/01/18 11:45 11/08/18 11:44 Methylprednisolone Sodium Succinate (Solu-MEDROL) 60 mg Q6H IV 11/01/18 13:00 12/01/18 12:59 11/02/18 06:18 Nitroglycerin (Ntg) 0.4 mg Q5M X 3 DOSES PRN SL Prn Chest Pain 11/01/18 11:45 12/01/18 11:44 Ondansetron HCl (Zofran) 4 mg Q6H PRN IVP Nausea & Vomiting 11/01/18 11:45 12/01/18 11:44 Promethazine HCl/ Codeine (Phenergan with Codeine) 5 ml Q6H PRN ORAL cough 11/01/18 11:45 12/01/18 11:44 11/02/18 09:42 Theophylline (Francois-Dur) 100 mg EVERY 12 HOURS ORAL 11/01/18 21:00 12/01/18 20:59 11/02/18 09:38 Assessment/Plan Problem List: (1) Acute bronchitis ICD Codes: J20.9 - Acute bronchitis, unspecified SNOMED: 06655648 (2) Asthma exacerbation ICD Codes: J45.901 - Unspecified asthma with (acute) exacerbation SNOMED: 215095782 (3) Atrial fibrillation ICD Codes: I48.91 - Unspecified atrial fibrillation SNOMED: 04335835 (4) Hypothyroid ICD Codes: E03.9 - Hypothyroid SNOMED: 78737464 Assessment/Plan respiratory treatment IV steroids IV abx check sputum monitor heart rate cardiology to follow Zeke Mckee MD Nov 02, 2018 11:48
--- NOTE | 2018-11-02 14:19 | General Progress Note ---
Progress Note Progress Note [id number] full consult dictated Nikki Green MD Nov 02, 2018 14:19
[2018-11-02 15:42] LABS: APPEARANCE,URINE SLIGHTLY CLOUDY; BILIRUBIN, URINE NEGATIVE (NEGATIVE); COLOR,URINE AMBER; GLUCOSE, URINE (UA) NEGATIVE (NEGATIVE); KETONES,URINE NEGATIVE (NEGATIVE); LEUKOCYTE ESTERASE ,URINE NEGATIVE (NEGATIVE); NITRITE,URINE NEGATIVE (NEGATIVE); PH,URINE 5 (4.5-8.0); PROTEIN,URINE 1+ (NEGATIVE); UROBILINOGEN,URINE NORMAL MG/DL (0.0-1.0)
[2018-11-02] MEDS: NovoLOG Insulin Flexpen SUBQ SCH ×2 (17:23→21:37)
--- NOTE | 2018-11-02 18:00 | History and Physical Report ---
DATE OF ADMISSION: 11/01/2018 TIME SEEN: On 11/02/2018, at 1 p.m. CONSULTANTS: 1. Zeke Mckee M.D. 2. Biju Mercado M.D. 3. Evens Ocampo M.D. CHIEF COMPLAINT: Asthma exacerbation, NSTEMI. BRIEF HISTORY: This is a 77-year-old female, who lives at home, presents with 3 days of increased shortness of breath and coughing. No chest pain. No loss of consciousness. The patient came to [facility], diagnosed with the above as well as elevated troponin, NSTEMI with AFib at rate of 90, admitted to telemetry for further care. Currently, calm in bed, no complaint other than slight shortness of breath. PAST MEDICAL HISTORY: Includes diabetes and hypertension. PAST SURGICAL HISTORY: Bilateral eye. ALLERGIES: Denies. MEDICATIONS: Include Benadryl, Feosol, heparin, Francois-Dur, Solu-Medrol, albuterol, Ativan, nitroglycerin, Zofran, and Phenergan With Codeine. SOCIAL HISTORY: No smoking. No alcohol. No intravenous drug abuse. FAMILY HISTORY: Noncontributory. PHYSICAL EXAMINATION: GENERAL: Calm in bed, oriented x3, in no acute distress. VITAL SIGNS: Temperature 98 degrees, pulse 95, respirations 16, blood pressure 118/72. CARDIOVASCULAR: No murmur. LUNGS: Poor air exchange. ABDOMEN: Bowel sounds distant. EXTREMITIES: Show no cyanosis, clubbing, or edema. NEUROLOGIC: The patient moves all extremities, slightly weak. LABORATORY AND DIAGNOSTIC DATA: Labs at this time show hemoglobin 10.6 and platelet 135,000, otherwise normal. BMP shows BUN and creatinine 28/2.0, glucose 114. Troponin 0.134. Albumin 3.3. INR is 2.0 and PTT 31. ASSESSMENT: Asthma, NSTEMI, AFib, anemia, renal failure, diabetes, hypertension. PLAN: O2 and pulmonary treatment. Pain control. Nephrology followup. Blood pressure and blood sugar control. Resume home medications. Dietary followup. CBC and BMP in the morning. Dr. Green will be added for Nephrology. Guanako Nettles, D.O. DR: Suhas JOB#: [id number] CC:
--- NOTE | 2018-11-02 18:30 | Consultation ---
DATE OF CONSULTATION: 11/02/2018 NEPHROLOGY CONSULTATION CONSULTING PHYSICIAN: Nikki Green M.D. REFERRING PHYSICIAN: Guanako Nettles D.O. REASON FOR CONSULTATION: Acute versus chronic renal failure. HISTORY OF PRESENT ILLNESS: The patient is a 77-year-old female with past medical history significant for history of diabetes, hypertension, history of atrial fibrillation, congestive heart failure, history of alcohol presented to emergency room complaining of increasing shortness of breath, cough and yellow sputum. Apparently the patient has been using her rescue inhaler without any improvement. The patient presented to ER, found to have creatinine of 2, admitted to monitor bed. I was called for management of renal disease and electrolyte imbalance. PAST MEDICAL HISTORY: 1. Diabetes. 2. Hypertension 3. Dyslipidemia. 4. History of atrial fibrillation. PAST SURGICAL HISTORY: 1. History of heart surgery in the past. 2. History of DELPHINE. 3. Cardioversion. HOME MEDICATIONS: 1. Aspirin. 2. ProAir p.r.n. 3. Atorvastatin 40 mg p.o. daily. 4. Bumetanide 1 mg b.i.d. 5. Carvedilol 25 mg daily. 6. Cardizem 180 mg daily. 7. Flovent two puffs b.i.d. 8. Lasix 80 mg daily. 9. Hydralazine 10 mg p.o. daily. 10. Atrovent MDI p.r.n. 11. Isosorbide 30 mg daily. 12. Xalatan eye drops. 13. Losartan 100 mg daily. 14. Magnesium 400 mg daily. 15. Metformin 1000 mg daily. 16. Metoprolol 100 mg b.i.d. 17. Zocor 40 mg nightly. 18. Spironolactone and hydrochlorothiazide 25/25 mg daily. 19. Valsartan and hydrochlorothiazide 320/25. 20. Coumadin 4 mg daily. ALLERGIES: No known drug allergies. SOCIAL HISTORY: She lives at home. There is no history of tobacco, alcohol, or drug use. REVIEW OF SYSTEMS: GENERAL: She complained of generalized weakness. Denied any fever, chills, or night sweats. HEAD AND NECK: Denies any dysphagia, odynophagia, blurry vision, or neck stiffness. PULMONARY: Complained of shortness of breath, cough, and wheezing. CARDIOVASCULAR: Complained of chest pain. No orthopnea. No PND. No leg swelling. GASTROINTESTINAL: Denies any nausea, vomiting, diarrhea, hematemesis, or hematochezia. GENITOURINARY: Denies any dysuria, frequency, or hematuria. MUSCULOSKELETAL: Denies any weakness or numbness. PHYSICAL EXAMINATION: VITAL SIGNS: The patient had temperature of 98 degrees, blood pressure 119/88, pulse rate of 88, and respiratory rate of 20. HEAD AND NECK: No JVP. No LAD. No thyromegaly. Extraocular movement intact. Pupils are reactive to light and accommodation. LUNGS: Clear to auscultation. CARDIAC: Regular rate and rhythm. S1 and S2. No murmur. No rub. ABDOMEN: Soft, nontender, and nondistended. EXTREMITIES: No edema. No clubbing. No cyanosis. NEUROLOGIC: Cranial nerves II through XII within normal limits. Upper and lower extremities are grossly intact. LAB: Sodium 138, potassium 4.8, chloride is 102, bicarb 29, BUN of 38, creatinine of 2, glucose of 114. Calcium of 9.1. Iron of 43, and saturation 11. Total bilirubin of 1.5, direct bilirubin 0.5. AST of 20, ALT of 15, alkaline phosphatase 115. Troponin is mildly elevated at 0.134. LDH is 260. Total protein is 7.3, albumin of 3.3, globulin is 4. WBC count of 9, hemoglobin of 10.6, hematocrit 32, platelet count of 100. There is no UA. ASSESSMENT: 1. Acute renal failure, the etiology of acute renal failure is ATN due to unstable hemodynamics. 2. Chronic kidney disease due to diabetic nephropathy versus hypertensive nephrosclerosis. 3. Asthma exacerbation. 4. History of congestive heart failure. PLAN: Plan for the patient to obtain UA. Check the random urine protein and creatinine ratio to calculate the proteinuria. Check the urine sodium and creatinine to calculate fractional excretion of sodium. Ultrasound of the kidney to evaluate the kidney size. I would hold NSAID and nephrotoxic at this time. Also I would hold on ANDREAS inhibitor. Again I would like to thank, Dr. Guanako Nettles, for allowing me to participate in the care of this patient. Nikki Bahmani, M.D. DR: Sneha JOB#: [id number] CC:
--- NOTE | 2018-11-02 19:30 | NUR ---
NURSE NOTES: Received report from Sandra Salinas RN. Patient in bed AAO x4 with HOB elevated at semifowlers, with no complaints of acute pain at this time. Kept clean, dry, and comfortable in bed. Able to verbalize intent with no difficulty, IV line intact and patent. Safety precaution in place; siderails up x2, call light within reach, bed in lowest position, brakes and alarm on at all times. Placed on cardiac monitoring per protocol and to monitor history of Afib. No acute distress or SOB noted at this time. Needs and wants anticipated and attended, will continue plan of care and monitor for any changes in condition noted.
--- NOTE | 2018-11-02 21:30 | NUR ---
NURSE NOTES: Received new order from Ilana Mercado MD. will carry out as ordered. Called and left message to Cody Nettles MD (primary) per Rogelio. Will continue to monitor
--- NOTE | 2018-11-02 22:07 | NUR ---
NURSE NOTES: Spoke to Madison from Pharmacy regarding patients last dose of coumadin at home. Patient stated "i took one green pill last friday night" 10/31/18.
[2018-11-03] MEDS: Solu-MEDROL 125mg Inj IV SCH ×3 (01:34→21:25)
[2018-11-03 04:00] VITALS: BP 139/88
--- NOTE | 2018-11-03 04:00 | NUR ---
NURSE NOTES: Patient in bed asleep with no S/S of acute pain or distress at this time, will continue plan of care and monitor for any changes noted
[2018-11-03] MEDS: NovoLOG Insulin Flexpen SUBQ SCH ×4 (06:38→21:26)
--- NOTE | 2018-11-03 07:15 | NUR ---
NURSE NOTES: Received report from Titi SANDOVAL. Pt is awake, alert, oriented x4, sitting up in bed, having breakfast. On room air currently, with 2L O2 set up on standby for PRN use. Denies pain or respiratory distress currently. IV access on left AC #20G saline lock, patent, intact. Skin is intact, with BLE trace edema. Per pt report, pt ambulates short distances without assistive devices, however uses a walker at home for long-distance ambulation. Call light is placed within easy reach, bed in lowest position, two side rails up, brakes engaged, alarm on.
--- NOTE | 2018-11-03 07:26 | NUR ---
HAND-OFF: Report given to Dagbashyan. Calvin RN. Patient in bed in stable condition, endorsed plan of care.
[2018-11-03 07:45] LABS: HEMATOCRIT 31.6 % (37.0-47.0); HEMOGLOBIN 10.8 G/DL (12.0-16.0); MEAN CORPUSCULAR VOLUME 83 FL (80-99); PLATELET COUNT 137 K/UL (150-450); RED BLOOD COUNT 3.81 M/UL (4.20-5.40); RED CELL DISTRIBUTION WIDTH 16.3 % (11.6-14.8)
[2018-11-03 07:54] LABS: INR 1.9 (0.9-1.1)
[2018-11-03 07:58] LABS: ANION GAP 9 mmol/L (5-15); BLOOD UREA NITROGEN 47 mg/dL (7-18); CALCIUM 9.2 MG/DL (8.5-10.1); CARBON DIOXIDE 26 MMOL/L (21-32); CHLORIDE 105 MMOL/L (98-107); CREATININE 1.9 MG/DL (0.55-1.30); POTASSIUM 5.1 MMOL/L (3.5-5.1); SODIUM 140 MMOL/L (136-145)
[2018-11-03 08:00] VITALS: BP 127/69
--- NOTE | 2018-11-03 09:37 | Nephrology Progress Note ---
Assessment/Plan Assessment 1.TIFFANIE 2.CKD 3.ASTHMA 4.HTN Plan continue current meds monitoring renal function avoid NSAID Replace electrolyte as need it fallow up with urine study Subjective Constitutional: Reports: no symptoms HEENT: Reports: no symptoms Genitourinary: Reports: no symptoms Neurologic/Psychiatric: Reports: no symptoms Subjective alert and awake feeling better Objective Objective Last 24 Hour Vital Signs Date Time Temp Pulse Resp B/P (MAP) Pulse Ox O2 Delivery O2 Flow Rate FiO2 11/03/18 04:00 120 11/03/18 04:00 97.1 79 18 139/88 (105) 98 11/03/18 00:00 114 11/02/18 23:41 98.0 87 19 131/85 (100) 97 11/02/18 21:00 Nasal Cannula 2.0 Nasal Cannula 2.0 11/02/18 20:00 108 11/02/18 20:00 98.3 106 20 129/90 (103) 98 11/02/18 16:00 126 11/02/18 16:00 98.3 93 16 138/94 (109) 96 11/02/18 12:00 98.2 96 20 129/80 (96) 96 11/02/18 11:28 115 Intake and Output 11/02/18 11/03/18 18:59 06:59 Intake Total 840 ml Balance 840 ml Intake Oral 840 ml # Voids 101 Laboratory Tests 11/02/18 14:50: Urine Color Serena, Urine Appearance Slightly cloudy, Urine pH 5, Urine Specific [place] 1.020, Urine Protein 1+H, Urine Glucose (UA) Negative, Urine Ketones Negative, Urine Blood Negative, Urine Nitrite Negative, Urine Bilirubin Negative , Urine Ictotest Negative, Urine Urobilinogen Normal, Urine Leukocyte Esterase Negative, Urine RBC 0, Urine WBC 0-2, Urine Squamous Epithelial Cells ModerateH , Urine Bacteria Occasional, Urine Eosinophils None seen, Urine Random Creatinine [Pending], Urine Random Microalbumin [Pending], Urine Random Total Protein 23H, Urine Random Sodium < 20L, Urine Creatinine 131.7H, Urine Microalbumin/Creatinine Ratio [Pending] 11/03/18 07:05: White Blood Count 16.0#H, Red Blood Count 3.81L, Hemoglobin 10.8L, Hematocrit 31.6L, Mean Corpuscular Volume 83, Mean Corpuscular Hemoglobin 28.3, Mean Corpuscular Hemoglobin Concent 34.0, Red Cell Distribution Width 16.3H, Platelet Count 137L, Mean Platelet Volume 8.6, Neutrophils (%) (Auto) , Lymphocytes (%) (Auto) , Monocytes (%) (Auto) , Eosinophils (%) (Auto) , Basophils (%) (Auto) , Neutrophils % (Manual) [Pending], Lymphocytes % (Manual) [Pending], Platelet Estimate [Pending], Platelet Morphology [Pending], Prothrombin Time 19.0H, Prothromb Time International Ratio 1.9H, Sodium Level 140, Potassium Level 5.1, Chloride Level 105, Carbon Dioxide Level 26, Anion Gap 9, Blood Urea Nitrogen 47H, Creatinine 1.9H, Estimat Glomerular Filtration Rate , Glucose Level 163H, Calcium Level 9.2 Height (Feet): 5 Height (Inches): 6.00 Weight (Pounds): 209 Objective HEAD AND NECK: No JVP. No LAD. No thyromegaly. Extraocular movement intact. Pupils are reactive to light and accommodation. LUNGS: Clear to auscultation. CARDIAC: Regular rate and rhythm. S1 and S2. No murmur. No rub. ABDOMEN: Soft, nontender, and nondistended. No organomegaly. EXTREMITIES: No edema. No clubbing. No cyanosis. Nikki Green MD Nov 03, 2018 09:37
[2018-11-03] MEDS: Theophylline ER 100mg ORAL SCH (09:39)
--- NOTE | 2018-11-03 11:18 | Pulmonology Progress Note ---
Assessment/Plan Problems: (1) Acute bronchitis (2) Asthma exacerbation (3) Atrial fibrillation (4) Hypothyroid Assessment/Plan still rapid Afib improving respiratory treatment taper steroids check sputum culture Subjective ROS Limited/Unobtainable: No Interval Events: less cough, less short of breath Constitutional: Reports: no symptoms HEENT: Repors: no symptoms Respiratory: Reports: no symptoms Cardiovascular: Reports: no symptoms Allergies: Coded Allergies: No Known Allergies (Unverified , 05/24/12) Objective Last 24 Hour Vital Signs Date Time Temp Pulse Resp B/P (MAP) Pulse Ox O2 Delivery O2 Flow Rate FiO2 11/03/18 09:00 Nasal Cannula 2.0 Nasal Cannula 2.0 11/03/18 08:00 97.3 122 20 127/69 (88) 98 11/03/18 04:00 120 11/03/18 04:00 97.1 79 18 139/88 (105) 98 11/03/18 00:00 114 11/02/18 23:41 98.0 87 19 131/85 (100) 97 11/02/18 21:00 Nasal Cannula 2.0 Nasal Cannula 2.0 11/02/18 20:00 108 11/02/18 20:00 98.3 106 20 129/90 (103) 98 11/02/18 16:00 126 11/02/18 16:00 98.3 93 16 138/94 (109) 96 11/02/18 12:00 98.2 96 20 129/80 (96) 96 11/02/18 11:28 115 Intake and Output 11/02/18 11/03/18 18:59 06:59 Intake Total 840 ml Balance 840 ml Intake Oral 840 ml # Voids 101 General Appearance: WD/WN HEENT: normocephalic, atraumatic Respiratory/Chest: chest wall non-tender, lungs clear Cardiovascular: normal peripheral pulses, normal rate Abdomen: normal bowel sounds, soft, non tender Genitourinary: normal external genitalia Extremities: no clubbing Skin: no rash Neurologic/Psychiatric: loss mitigation specialist II-XII grossly normal, no motor/sensory deficits Microbiology Date/Time Source Procedure Growth Status 11/01/18 17:30 Sputum Gram Stain - Final Resulted 11/01/18 17:30 Sputum Culture - Preliminary Gram Negative Bacillus 1 Usual Respiratory Mary Resulted Laboratory Tests 11/02/18 14:50: Urine Color Serena, Urine Appearance Slightly cloudy, Urine pH 5, Urine Specific [place] 1.020, Urine Protein 1+H, Urine Glucose (UA) Negative, Urine Ketones Negative, Urine Blood Negative, Urine Nitrite Negative, Urine Bilirubin Negative , Urine Ictotest Negative, Urine Urobilinogen Normal, Urine Leukocyte Esterase Negative, Urine RBC 0, Urine WBC 0-2, Urine Squamous Epithelial Cells ModerateH , Urine Bacteria Occasional, Urine Eosinophils None seen, Urine Random Creatinine [Pending], Urine Random Microalbumin [Pending], Urine Random Total Protein 23H, Urine Random Sodium < 20L, Urine Creatinine 131.7H, Urine Microalbumin/Creatinine Ratio [Pending] 11/03/18 07:05: White Blood Count 16.0#H, Red Blood Count 3.81L, Hemoglobin 10.8L, Hematocrit 31.6L, Mean Corpuscular Volume 83, Mean Corpuscular Hemoglobin 28.3, Mean Corpuscular Hemoglobin Concent 34.0, Red Cell Distribution Width 16.3H, Platelet Count 137L, Mean Platelet Volume 8.6, Neutrophils (%) (Auto) , Lymphocytes (%) (Auto) , Monocytes (%) (Auto) , Eosinophils (%) (Auto) , Basophils (%) (Auto) , Differential Total Cells Counted 100, Neutrophils % ( Manual) 93H, Lymphocytes % (Manual) 4L, Monocytes % (Manual) 3, Eosinophils % ( Manual) 0, Basophils % (Manual) 0, Band Neutrophils 0, Platelet Estimate DecreasedL, Platelet Morphology Normal, Hypochromasia 1+, Anisocytosis 1+, Prothrombin Time 19.0H, Prothromb Time International Ratio 1.9H, Sodium Level 140, Potassium Level 5.1, Chloride Level 105, Carbon Dioxide Level 26, Anion Gap 9, Blood Urea Nitrogen 47H, Creatinine 1.9H, Estimat Glomerular Filtration Rate , Glucose Level 163H, Calcium Level 9.2 Current Medications Medications (Trade) Dose Ordered Sig/Ernesto Route PRN Reason Start Time Stop Time Status Last Admin Dose Admin Albuterol/ Ipratropium (Albuterol/ Ipratropium) 3 ml Q4H PRN HHN dyspnea 11/01/18 11:45 11/06/18 11:44 11/01/18 21:03 Dextrose (Dextrose 50%) 25 ml Q30M PRN IV Hypoglycemia 11/02/18 15:30 12/02/18 15:29 Dextrose (Dextrose 50%) 50 ml Q30M PRN IV Hypoglycemia 11/02/18 15:30 12/02/18 15:29 Diphenhydramine HCl (Benadryl) 25 mg Q6H PRN IVP Itching 11/02/18 11:45 12/02/18 11:44 Ferrous Sulfate (Feosol) 325 mg BID ORAL 11/02/18 09:00 12/02/18 08:59 11/03/18 09:39 Insulin Aspart (NovoLOG) BEFORE MEALS AND HS SUBQ 11/02/18 16:30 12/02/18 16:29 11/03/18 06:38 Lorazepam (Ativan 2mg/ml 1ml) 0.5 mg Q4H PRN IV For Anxiety 11/01/18 11:45 11/08/18 11:44 Methylprednisolone Sodium Succinate (Solu-MEDROL) 60 mg Q6H IV 11/01/18 13:00 12/01/18 12:59 11/03/18 06:17 Metoprolol Tartrate (Lopressor) 5 mg Q5MIN X 3 PRN IVP Per rx protocol 11/03/18 11:00 12/03/18 10:59 Nitroglycerin (Ntg) 0.4 mg Q5M X 3 DOSES PRN SL Prn Chest Pain 11/01/18 11:45 12/01/18 11:44 Ondansetron HCl (Zofran) 4 mg Q6H PRN IVP Nausea & Vomiting 11/01/18 11:45 12/01/18 11:44 Promethazine HCl/ Codeine (Phenergan with Codeine) 5 ml Q6H PRN ORAL cough 11/01/18 11:45 12/01/18 11:44 11/02/18 21:05 Theophylline (Francois-Dur) 100 mg EVERY 12 HOURS ORAL 11/01/18 21:00 12/01/18 20:59 11/03/18 09:39 Warfarin Sodium (Coumadin per pharmacy) 1 ea DAILY PRN MISC Per rx protocol 11/02/18 22:00 12/02/18 21:59 Warfarin Sodium (Coumadin) 2.5 mg COUMADIN ORAL 11/03/18 17:00 11/03/18 18:00 Zeke Mckee MD Nov 03, 2018 11:18
[2018-11-03] MEDS: Metoprolol 5mg/5ml Inj IVP PRN ×3 (11:43→18:39)
--- NOTE | 2018-11-03 11:48 | Diagnostic Imaging Report ---
Indication:Elevated Bun and Creatinine. Technique: Grayscale and duplex Doppler imaging of the kidneys performed. Comparison: 11/01/2017 Findings: Kidneys are poorly visualized on this examination. There is a questionable mild increased echogenicity. There is no evidence of hydronephrosis. A few discrete cysts are noted measuring 1 cm or less bilaterally. Bladder is unremarkable. IVC is unremarkable. Both kidneys measure between 11 and 12 cm in length. IMPRESSION: Limited evaluation may be related to body habitus. Bilateral renal cysts. No hydronephrosis
[2018-11-03 12:00] VITALS: BP 134/81
--- NOTE | 2018-11-03 15:29 | NUR ---
P.T NOTE: P.T EVALUATION COMPLETED. PATIENT IS CURRENTLY FUNCTIONING AT BASELINE THEREFORE SKILLED P.T SERVICE IS NOT NEEDED AT THIS TIME. PR P.T SERVICES. THANK YOU FOR THIS REFERRAL. Addendum: 11/03/18 at 1529 by OMEGA SPAIN PT Amended: Links added.
--- NOTE | 2018-11-03 15:35 | General Progress Note ---
Assessment/Plan Problem List: (1) Diabetes ICD Codes: E11.9 - Type 2 diabetes mellitus without complications SNOMED: 46221517 (2) HTN (hypertension) ICD Codes: I10 - Essential (primary) hypertension SNOMED: 76502814 (3) Renal failure ICD Codes: N19 - Unspecified kidney failure SNOMED: 31763249 (4) Atrial fibrillation ICD Codes: I48.91 - Unspecified atrial fibrillation SNOMED: 36116334 (5) Asthma exacerbation ICD Codes: J45.901 - Unspecified asthma with (acute) exacerbation SNOMED: 760343099 (6) Asthma ICD Codes: J45.909 - Unspecified asthma, uncomplicated SNOMED: 161291834 Status: unchanged Assessment/Plan o2 pulm tx cardio f/u cbc bmp am Subjective Constitutional: Reports: weakness Respiratory: Reports: shortness of breath Allergies: Coded Allergies: No Known Allergies (Unverified , 05/24/12) All Systems: reviewed and negative except above Subjective o2nc calm Objective Last 24 Hour Vital Signs Date Time Temp Pulse Resp B/P (MAP) Pulse Ox O2 Delivery O2 Flow Rate FiO2 11/03/18 14:48 120 143/64 11/03/18 12:00 98.1 111 18 134/81 (98) 97 11/03/18 11:43 129 127/69 11/03/18 09:00 Nasal Cannula 2.0 Nasal Cannula 2.0 11/03/18 08:00 97.3 122 20 127/69 (88) 98 11/03/18 08:00 129 11/03/18 04:00 120 11/03/18 04:00 97.1 79 18 139/88 (105) 98 11/03/18 00:00 114 11/02/18 23:41 98.0 87 19 131/85 (100) 97 11/02/18 21:00 Nasal Cannula 2.0 Nasal Cannula 2.0 11/02/18 20:00 108 11/02/18 20:00 98.3 106 20 129/90 (103) 98 11/02/18 16:00 126 11/02/18 16:00 98.3 93 16 138/94 (109) 96 Intake and Output 11/02/18 11/03/18 19:00 07:00 Intake Total 840 ml Balance 840 ml Intake Oral 840 ml # Voids 101 Laboratory Tests 11/03/18 07:05: White Blood Count 16.0#H, Red Blood Count 3.81L, Hemoglobin 10.8L, Hematocrit 31.6L, Mean Corpuscular Volume 83, Mean Corpuscular Hemoglobin 28.3, Mean Corpuscular Hemoglobin Concent 34.0, Red Cell Distribution Width 16.3H, Platelet Count 137L, Mean Platelet Volume 8.6, Neutrophils (%) (Auto) , Lymphocytes (%) (Auto) , Monocytes (%) (Auto) , Eosinophils (%) (Auto) , Basophils (%) (Auto) , Differential Total Cells Counted 100, Neutrophils % ( Manual) 93H, Lymphocytes % (Manual) 4L, Monocytes % (Manual) 3, Eosinophils % ( Manual) 0, Basophils % (Manual) 0, Band Neutrophils 0, Platelet Estimate DecreasedL, Platelet Morphology Normal, Hypochromasia 1+, Anisocytosis 1+, Prothrombin Time 19.0H, Prothromb Time International Ratio 1.9H, Sodium Level 140, Potassium Level 5.1, Chloride Level 105, Carbon Dioxide Level 26, Anion Gap 9, Blood Urea Nitrogen 47H, Creatinine 1.9H, Estimat Glomerular Filtration Rate , Glucose Level 163H, Calcium Level 9.2 Height (Feet): 5 Height (Inches): 6.00 Weight (Pounds): 209 General Appearance: lethargic EENT: normal ENT inspection Neck: normal alignment Cardiovascular: normal peripheral pulses, normal rate, regular rhythm Respiratory/Chest: chest wall non-tender, decreased breath sounds Abdomen: normal bowel sounds, non tender, soft Extremities: normal inspection Edema: no edema noted Arm (L), no edema noted Arm (R), no edema noted Leg (L), no edema noted Leg (R), no edema noted Pedal (L), no edema noted Pedal (R), no edema noted Generalized Neurologic: responsive, motor weakness Skin: normal pigmentation, warm/dry Guanako Nettles DO Nov 03, 2018 15:35
[2018-11-03 16:00] VITALS: BP 144/90
[2018-11-03] MEDS ORDERED: Warfarin Sodium 4mg PO SCH (17:00)
[2018-11-03] MEDS ORDERED: Warfarin Sodium 2.5mg ORAL SCH (17:00)
--- NOTE | 2018-11-03 17:15 | General Progress Note ---
Assessment/Plan Assessment/Plan # Anemia of iron deficiency, low ferritin, high tibc, low % sat --> anemia panel has been ordered --> no evidence of hemolysis --> trend hgb 11 --> start on ferrous sulfate 325mg po bid # Thrombocytopenia currently plt 130k, cause unknown, imaging of the abd has been reviewed --> hepatitis and hiv has been ordered --> consider us of the abdomen --> peripheral smear ordered # Coagulopathy - inr approx 2,is due to coumadin for afib --> continue anticoagulation as per cards # Asthma exacerbation --> steriods as per pulm prn # Atrial fibrillation --> cards eval, on coumadin Greatly appreciate consultation! Subjective Constitutional: Denies: no symptoms, chills, diaphoresis, fever, malaise, weakness, other HEENT: Denies: no symptoms, eye pain, blurred vision, tearing, double vision, ear pain, ear discharge, nose pain, nose congestion, throat pain, throat swelling, mouth pain, mouth swelling, other Cardiovascular: Denies: no symptoms, chest pain, edema, irregular heart rate, lightheadedness, palpitations, syncope, other Respiratory: Denies: no symptoms, cough, orthopnea, shortness of breath, SOB with excertion, SOB at rest, sputum, stridor, wheezing, other Gastrointestinal/Abdominal: Denies: no symptoms, abdomen distended, abdominal pain, black stools, tarry stools, blood in stool, constipated, diarrhea, difficulty swallowing, nausea, poor appetite, poor fluid intake, rectal bleeding , vomiting, other Genitourinary: Denies: no symptoms, burning, discharge, frequency, flank pain, hematuria, incontinence, pain, urgency, other Neurologic/Psychiatric: Denies: no symptoms, anxiety, depressed, emotional problems, headache, numbness, paresthesia, pre-existing deficit, seizure, tingling, tremors, weakness, other Endocrine: Denies: no symptoms, excessive sweating, flushing, intolerance to cold, intolerance to heat, increased hunger, increased thirst, increased urine, unexplained weight gain, unexplained weight loss, other Hematologic/Lymphatic: Denies: no symptoms, anemia, easy bleeding, easy bruising, other Allergies: Coded Allergies: No Known Allergies (Unverified , 05/24/12) Subjective 11/02: sob is better today, 2d echo pending, on anti-htn meds, ferrous sulfate started is awake, sitting up in bed. no SOB, wbc 16, plt 137, Objective Last 24 Hour Vital Signs Date Time Temp Pulse Resp B/P (MAP) Pulse Ox O2 Delivery O2 Flow Rate FiO2 11/03/18 14:48 120 143/64 11/03/18 12:00 98.1 111 18 134/81 (98) 97 11/03/18 11:43 129 127/69 11/03/18 09:00 Nasal Cannula 2.0 Nasal Cannula 2.0 11/03/18 08:00 97.3 122 20 127/69 (88) 98 11/03/18 08:00 129 11/03/18 04:00 120 11/03/18 04:00 97.1 79 18 139/88 (105) 98 11/03/18 00:00 114 11/02/18 23:41 98.0 87 19 131/85 (100) 97 11/02/18 21:00 Nasal Cannula 2.0 Nasal Cannula 2.0 11/02/18 20:00 108 11/02/18 20:00 98.3 106 20 129/90 (103) 98 Intake and Output 11/02/18 11/03/18 19:00 07:00 Intake Total 840 ml Balance 840 ml Intake Oral 840 ml # Voids 101 Laboratory Tests 11/03/18 07:05: White Blood Count 16.0#H, Red Blood Count 3.81L, Hemoglobin 10.8L, Hematocrit 31.6L, Mean Corpuscular Volume 83, Mean Corpuscular Hemoglobin 28.3, Mean Corpuscular Hemoglobin Concent 34.0, Red Cell Distribution Width 16.3H, Platelet Count 137L, Mean Platelet Volume 8.6, Neutrophils (%) (Auto) , Lymphocytes (%) (Auto) , Monocytes (%) (Auto) , Eosinophils (%) (Auto) , Basophils (%) (Auto) , Differential Total Cells Counted 100, Neutrophils % ( Manual) 93H, Lymphocytes % (Manual) 4L, Monocytes % (Manual) 3, Eosinophils % ( Manual) 0, Basophils % (Manual) 0, Band Neutrophils 0, Platelet Estimate DecreasedL, Platelet Morphology Normal, Hypochromasia 1+, Anisocytosis 1+, Prothrombin Time 19.0H, Prothromb Time International Ratio 1.9H, Sodium Level 140, Potassium Level 5.1, Chloride Level 105, Carbon Dioxide Level 26, Anion Gap 9, Blood Urea Nitrogen 47H, Creatinine 1.9H, Estimat Glomerular Filtration Rate , Glucose Level 163H, Calcium Level 9.2 Height (Feet): 5 Height (Inches): 6.00 Weight (Pounds): 209 Objective GENERAL: The patient is a very unfortunate 77-year-old female, in no apparent respiratory distress. Alert + oriented x4. HEENT: Atraumatic and normocephalic. Anicteric. Pupils are equal, round, and reactive NECK: JVP less than 5 cm. No carotid bruit. Carotid upstroke is 2+ bilaterally. CARDIOVASCULAR: Normal S1, S2. Irregularly irregular rhythm. No murmurs, gallops, or rubs. LUNGS: Diminished breath sounds throughout with expiratory rhonchi. No crackles. ABDOMEN: Soft, nontender, and nondistended. No hepatosplenomegaly. Positive bowel sounds. EXTREMITIES: There is 1+ bilateral lower extremity edema. Evens Ocampo MD Nov 03, 2018 17:15
--- NOTE | 2018-11-03 19:42 | NUR ---
HAND-OFF: Report given to Alisha SANDOVAL. Pt is resting in bed in stable condition. Endorsed plan of care.
--- NOTE | 2018-11-03 19:59 | NUR ---
NURSE NOTES: RECEIVED PATIENT RESTING IN BED, NO COMPLAINTS OF PAIN AT THIS TIME. FALL PRECAUTIONS IN PLACE: CALL LIGHT AND BEDSIDE TABLE WITHIN REACH, BED IN LOW POSITION. WILL PLACE COMMODE AT BEDSIDE. PLAN OF CARE REVIEWED.
[2018-11-03 20:00] VITALS: BP 123/85
--- NOTE | 2018-11-03 20:35 | NUR ---
NURSE NOTES: PATIENT AMBULATED TO BR, NOTED HR IN 150'S ON A MONITOR. ASSISTED PATIENT BACK TO BED. HR 110'S-135'S. CALLED AND LEFT MESSAGE FOR DR. SERRATO.
[2018-11-03] MEDS: Promethazine/Codeine 5ml UD ORAL PRN (23:51)
--- NOTE | 2018-11-03 23:57 | Cardiology Progress Note ---
Assessment/Plan Assessment/Plan 1. Shortness of breath, mostly due to acute exacerbation of asthma, positive findings for bilateral rhonchi, continue steroids, inhalers/nebulizer, pulmonary toilet and oxygen. There is right atrial enlargement and severe pulmonary HTN. 2. Permanent atrial fibrillation with fast ventricular response, start diltiazem 30mg po tid, continue warfarin, INR level is in the therapeutic level. Subjective Subjective Atrial fibrillation at rate of 122. Objective Last 24 Hour Vital Signs Date Time Temp Pulse Resp B/P (MAP) Pulse Ox O2 Delivery O2 Flow Rate FiO2 11/03/18 21:00 Nasal Cannula 2.0 Nasal Cannula 2.0 11/03/18 20:00 97.2 122 18 123/85 (98) 100 11/03/18 20:00 105 11/03/18 18:39 128 144/90 11/03/18 16:00 128 11/03/18 16:00 98.3 116 18 144/90 (108) 100 11/03/18 14:48 120 143/64 11/03/18 12:00 127 11/03/18 12:00 98.1 111 18 134/81 (98) 97 11/03/18 11:43 129 127/69 11/03/18 09:00 Nasal Cannula 2.0 Nasal Cannula 2.0 11/03/18 08:00 97.3 122 20 127/69 (88) 98 11/03/18 08:00 129 11/03/18 04:00 120 11/03/18 04:00 97.1 79 18 139/88 (105) 98 11/03/18 00:00 114 Intake and Output 11/02/18 11/03/18 19:00 07:00 Intake Total 840 ml Balance 840 ml Intake Oral 840 ml # Voids 101 2D Echo: LVEF at 55%, Mild CARMINA, Mild MR/AR/CA, RVSP 96 mmHg c/w severe pul. NT Laboratory Tests Test 11/03/18 07:05 White Blood Count 16.0 K/UL (4.8-10.8) #H Red Blood Count 3.81 M/UL (4.20-5.40) L Hemoglobin 10.8 G/DL (12.0-16.0) L Hematocrit 31.6 % (37.0-47.0) L Mean Corpuscular Volume 83 FL (80-99) Mean Corpuscular Hemoglobin 28.3 PG (27.0-31.0) Mean Corpuscular Hemoglobin Concent 34.0 G/DL (32.0-36.0) Red Cell Distribution Width 16.3 % (11.6-14.8) H Platelet Count 137 K/UL (150-450) L Mean Platelet Volume 8.6 FL (6.5-10.1) Neutrophils (%) (Auto) % (45.0-75.0) Lymphocytes (%) (Auto) % (20.0-45.0) Monocytes (%) (Auto) % (1.0-10.0) Eosinophils (%) (Auto) % (0.0-3.0) Basophils (%) (Auto) % (0.0-2.0) Differential Total Cells Counted 100 Neutrophils % (Manual) 93 % (45-75) H Lymphocytes % (Manual) 4 % (20-45) L Monocytes % (Manual) 3 % (1-10) Eosinophils % (Manual) 0 % (0-3) Basophils % (Manual) 0 % (0-2) Band Neutrophils 0 % (0-8) Platelet Estimate Decreased L Platelet Morphology Normal Hypochromasia 1+ Anisocytosis 1+ Prothrombin Time 19.0 SEC (9.30-11.50) H Prothromb Time International Ratio 1.9 (0.9-1.1) H Sodium Level 140 MMOL/L (136-145) Potassium Level 5.1 MMOL/L (3.5-5.1) Chloride Level 105 MMOL/L (98-107) Carbon Dioxide Level 26 MMOL/L (21-32) Anion Gap 9 mmol/L (5-15) Blood Urea Nitrogen 47 mg/dL (7-18) H Creatinine 1.9 MG/DL (0.55-1.30) H Estimat Glomerular Filtration Rate mL/min (>60) Glucose Level 163 MG/DL (74-106) H Calcium Level 9.2 MG/DL (8.5-10.1) Microbiology Date/Time Source Procedure Growth Status 11/01/18 17:30 Sputum Gram Stain - Final Resulted 11/01/18 17:30 Sputum Culture - Preliminary Gram Negative Bacillus 1 Usual Respiratory Mary Resulted Objective HEENT: Atraumatic and normocephalic. Anicteric. Pupils are equal, round, and reactive to light and accommodation. Extraocular muscles intact. NECK: JVP less than 5 cm. No carotid bruit. Carotid upstroke is 2+ bilaterally. CARDIOVASCULAR: Normal S1, S2. Irregularly irregular rhythm. Tachycardic. No murmurs, gallops, or rubs. LUNGS: Diminished breath sounds throughout with expiratory rhonchi. No crackles. ABDOMEN: Soft, nontender, and nondistended. No hepatosplenomegaly. Positive bowel sounds. EXTREMITIES: There is 1+ bilateral lower extremity edema. Biju Mercado MD Nov 03, 2018 23:57
[2018-11-04] VITALS: BP 147/87
[2018-11-04] MEDS ORDERED: Digoxin 0.5mg/2ml Inj IVP SCH ×2 (00:30→19:15)
[2018-11-04] MEDS: dilTIAZem HCl 30mg tab ORAL SCH ×3 (00:43→11:38)
[2018-11-04 04:00] VITALS: BP 124/62
[2018-11-04] MEDS: NovoLOG Insulin Flexpen SUBQ SCH ×4 (06:23→21:00)
--- NOTE | 2018-11-04 06:40 | General Progress Note ---
Assessment/Plan Assessment/Plan # Anemia of iron deficiency, low ferritin, high tibc, low % sat --> anemia panel has been ordered --> no evidence of hemolysis --> trend hgb 11-->10.6-->10.8 --> contionue on ferrous sulfate 325mg po bid # Thrombocytopenia currently plt 130k, cause unknown, imaging of the abd has been reviewed --> hepatitis and hiv has are all negative --> consider us of the abdomen, ordered --> peripheral smear reviewed, no schistocytes noted # Coagulopathy - inr approx 2,is due to coumadin for afib --> continue anticoagulation as per cards --> inr goal 2-3 # Leukocytosis is due to steriods # Asthma exacerbation --> steriods as per pulm prn # Atrial fibrillation --> cards eval, on coumadin Time of note does not reflect time of encounter Greatly appreciate consultation! Subjective Constitutional: Denies: no symptoms, chills, diaphoresis, fever, malaise, weakness, other HEENT: Denies: no symptoms, eye pain, blurred vision, tearing, double vision, ear pain, ear discharge, nose pain, nose congestion, throat pain, throat swelling, mouth pain, mouth swelling, other Cardiovascular: Denies: no symptoms, chest pain, edema, irregular heart rate, lightheadedness, palpitations, syncope, other Respiratory: Denies: no symptoms, cough, orthopnea, shortness of breath, SOB with excertion, SOB at rest, sputum, stridor, wheezing, other Genitourinary: Denies: no symptoms, burning, discharge, frequency, flank pain, hematuria, incontinence, pain, urgency, other Neurologic/Psychiatric: Denies: no symptoms, anxiety, depressed, emotional problems, headache, numbness, paresthesia, pre-existing deficit, seizure, tingling, tremors, weakness, other Endocrine: Denies: no symptoms, excessive sweating, flushing, intolerance to cold, intolerance to heat, increased hunger, increased thirst, increased urine, unexplained weight gain, unexplained weight loss, other Hematologic/Lymphatic: Denies: no symptoms, anemia, easy bleeding, easy bruising, other Allergies: Coded Allergies: No Known Allergies (Unverified , 05/24/12) Subjective 11/02: sob is better today, 2d echo pending, on anti-htn meds, ferrous sulfate started 11/03: Pt is awake, sitting up in bed. no SOB, wbc 16, plt 137 11/04: hr is significantly improved 110-125s, seen by cards, on coumadin, inr 1.9 , no complaints Objective Last 24 Hour Vital Signs Date Time Temp Pulse Resp B/P (MAP) Pulse Ox O2 Delivery O2 Flow Rate FiO2 11/04/18 06:22 122 124/62 11/04/18 04:00 122 11/04/18 04:00 98.0 111 19 124/62 (82) 100 11/04/18 00:43 118 147/87 11/04/18 00:42 119 11/04/18 00:00 97.3 79 18 147/87 (107) 96 11/04/18 00:00 118 11/03/18 21:00 Nasal Cannula 2.0 Nasal Cannula 2.0 11/03/18 20:48 97 Room Air 21 11/03/18 20:00 97.2 122 18 123/85 (98) 100 11/03/18 20:00 105 11/03/18 18:39 128 144/90 11/03/18 16:00 128 11/03/18 16:00 98.3 116 18 144/90 (108) 100 11/03/18 14:48 120 143/64 11/03/18 12:00 127 11/03/18 12:00 98.1 111 18 134/81 (98) 97 11/03/18 11:43 129 127/69 11/03/18 09:00 Nasal Cannula 2.0 Nasal Cannula 2.0 11/03/18 08:00 97.3 122 20 127/69 (88) 98 11/03/18 08:00 129 Intake and Output 11/03/18 11/04/18 18:59 06:59 Intake Total 360 ml Balance 360 ml Intake Oral 360 ml # Voids 5 Laboratory Tests 11/03/18 07:05: White Blood Count 16.0#H, Red Blood Count 3.81L, Hemoglobin 10.8L, Hematocrit 31.6L, Mean Corpuscular Volume 83, Mean Corpuscular Hemoglobin 28.3, Mean Corpuscular Hemoglobin Concent 34.0, Red Cell Distribution Width 16.3H, Platelet Count 137L, Mean Platelet Volume 8.6, Neutrophils (%) (Auto) , Lymphocytes (%) (Auto) , Monocytes (%) (Auto) , Eosinophils (%) (Auto) , Basophils (%) (Auto) , Differential Total Cells Counted 100, Neutrophils % ( Manual) 93H, Lymphocytes % (Manual) 4L, Monocytes % (Manual) 3, Eosinophils % ( Manual) 0, Basophils % (Manual) 0, Band Neutrophils 0, Platelet Estimate DecreasedL, Platelet Morphology Normal, Hypochromasia 1+, Anisocytosis 1+, Prothrombin Time 19.0H, Prothromb Time International Ratio 1.9H, Sodium Level 140, Potassium Level 5.1, Chloride Level 105, Carbon Dioxide Level 26, Anion Gap 9, Blood Urea Nitrogen 47H, Creatinine 1.9H, Estimat Glomerular Filtration Rate , Glucose Level 163H, Calcium Level 9.2 Height (Feet): 5 Height (Inches): 6.00 Weight (Pounds): 209 Objective GENERAL: in no apparent respiratory distress. Alert + oriented x4. HEENT: Atraumatic and normocephalic. Anicteric.perrl NECK: JVP less than 5 cm. No carotid bruit. Carotid upstroke is 2+ bilaterally. CARDIOVASCULAR: Normal S1, S2. Irregularly irregular rhythm LUNGS: Diminished breath sounds throughout with expiratory rhonchi. No crackles. ABDOMEN: Soft, nontender, and nondistended. No hepatosplenomegaly.++ bowel sounds. EXTREMITIES: There is 1+ bilateral lower extremity edema. Evens Ocampo MD Nov 04, 2018 06:40
--- NOTE | 2018-11-04 07:27 | NUR ---
HAND-OFF: Report given to LORI WHIPPLE. PATIENT RESTING IN BED, NO SIGNS OF DISTRESS NOTED.
--- NOTE | 2018-11-04 07:43 | NUR ---
NURSE NOTES: Received report from LORI Brito. Patient is in stable condition. No acute distress/SOB noted. Patient denies any pain/discomfort. NPO for US ABD. Will continue plan of care.
[2018-11-04 08:00] VITALS: BP 154/81
[2018-11-04] MEDS: Solu-MEDROL 125mg Inj IV SCH (08:04)
[2018-11-04 08:25] LABS: HEMATOCRIT 32.6 % (37.0-47.0); MEAN CORPUSCULAR VOLUME 84 FL (80-99); PLATELET COUNT 129 K/UL (150-450); RED BLOOD COUNT 3.87 M/UL (4.20-5.40); RED CELL DISTRIBUTION WIDTH 16.3 % (11.6-14.8); WHITE BLOOD COUNT 14.9 K/UL (4.8-10.8)
[2018-11-04 08:40] LABS: ANION GAP 5 mmol/L (5-15); BLOOD UREA NITROGEN 45 mg/dL (7-18); CARBON DIOXIDE 29 MMOL/L (21-32); CHLORIDE 106 MMOL/L (98-107); CREATININE 1.7 MG/DL (0.55-1.30); POTASSIUM 5.2 MMOL/L (3.5-5.1); SODIUM 139 MMOL/L (136-145)
[2018-11-04 08:55] LABS: INR 1.6 (0.9-1.1)
--- NOTE | 2018-11-04 09:13 | Nephrology Progress Note ---
Assessment/Plan Assessment 1.TIFFANIE 2.CKD 3.ASTHMA 4.HTN 5.Hyperkalemia Plan low k diet continue current meds monitoring renal function avoid NSAID Subjective Constitutional: Reports: no symptoms HEENT: Reports: no symptoms Genitourinary: Reports: no symptoms Neurologic/Psychiatric: Reports: no symptoms Subjective alert and awake her sob has improved Objective Objective Last 24 Hour Vital Signs Date Time Temp Pulse Resp B/P (MAP) Pulse Ox O2 Delivery O2 Flow Rate FiO2 11/04/18 06:22 122 124/62 11/04/18 04:00 122 11/04/18 04:00 98.0 111 19 124/62 (82) 100 11/04/18 00:43 118 147/87 11/04/18 00:42 119 11/04/18 00:00 97.3 79 18 147/87 (107) 96 11/04/18 00:00 118 11/03/18 21:00 Nasal Cannula 2.0 Nasal Cannula 2.0 11/03/18 20:48 97 Room Air 21 11/03/18 20:00 97.2 122 18 123/85 (98) 100 11/03/18 20:00 105 11/03/18 18:39 128 144/90 11/03/18 16:00 128 11/03/18 16:00 98.3 116 18 144/90 (108) 100 11/03/18 14:48 120 143/64 11/03/18 12:00 127 11/03/18 12:00 98.1 111 18 134/81 (98) 97 11/03/18 11:43 129 127/69 Intake and Output 11/03/18 11/04/18 19:00 07:00 Intake Total 360 ml 120 ml Output Total 200 ml Balance 360 ml -80 ml Intake Oral 360 ml Other 120 ml Output Urine Total 200 ml # Voids 5 1 Laboratory Tests 11/04/18 07:55: White Blood Count 14.9H, Red Blood Count 3.87L, Hemoglobin 11.0L, Hematocrit 32.6L, Mean Corpuscular Volume 84, Mean Corpuscular Hemoglobin 28.4, Mean Corpuscular Hemoglobin Concent 33.7, Red Cell Distribution Width 16.3H, Platelet Count 129L, Mean Platelet Volume 8.0, Neutrophils (%) (Auto) , Lymphocytes (%) (Auto) , Monocytes (%) (Auto) , Eosinophils (%) (Auto) , Basophils (%) (Auto) , Neutrophils % (Manual) [Pending], Lymphocytes % (Manual) [Pending], Platelet Estimate [Pending], Platelet Morphology [Pending], Prothrombin Time 16.3H, Prothromb Time International Ratio 1.6H, Sodium Level 139, Potassium Level 5.2H, Chloride Level 106, Carbon Dioxide Level 29, Anion Gap 5, Blood Urea Nitrogen 45H, Creatinine 1.7H, Estimat Glomerular Filtration Rate , Glucose Level 151H, Calcium Level 9.0 Height (Feet): 5 Height (Inches): 6.00 Weight (Pounds): 210 Objective HEAD AND NECK: No JVP. No LAD. No thyromegaly. Extraocular movement intact. Pupils are reactive to light and accommodation. LUNGS: Clear to auscultation. CARDIAC: Regular rate and rhythm. S1 and S2. No murmur. No rub. ABDOMEN: Soft, nontender, and nondistended. No organomegaly. EXTREMITIES: No edema. No clubbing. No cyanosis. Nikki Green MD Nov 04, 2018 09:13
--- NOTE | 2018-11-04 09:38 | NUR ---
CASE MANAGEMENT:REVIEW 11/04/18 SI: ASTHMA EXACERBATION. AFIB W/RVR 97.5 120 19 154/81 99% ON 2L/NC WBC+14.9 PLT-129 K+5.2 BUN+45 CR+1.7 IS: IV DIGOXIN X1 START CARDIZEM PO Q6HRS IV SOLUMEDROL Q12 COUMADIN PO QD DUONEB HHN PRN : TELEMETRY STATUS DCP: FROM HOME PLAN: TIGHTER CONTROL OF HEART RATE
[2018-11-04 12:00] VITALS: BP 116/80
--- NOTE | 2018-11-04 12:45 | Pulmonology Progress Note ---
Assessment/Plan Problems: (1) Acute bronchitis (2) Asthma exacerbation (3) Atrial fibrillation (4) Hypothyroid Assessment/Plan still rapid Afib, still 150 improving respiratory treatment taper steroids to qd check sputum culture Subjective ROS Limited/Unobtainable: No Constitutional: Reports: no symptoms HEENT: Repors: no symptoms Respiratory: Reports: no symptoms Allergies: Coded Allergies: No Known Allergies (Unverified , 05/24/12) Objective Last 24 Hour Vital Signs Date Time Temp Pulse Resp B/P (MAP) Pulse Ox O2 Delivery O2 Flow Rate FiO2 11/04/18 12:00 97.3 115 20 116/80 (92) 98 11/04/18 11:38 115 116/80 11/04/18 09:00 Nasal Cannula 2.0 Nasal Cannula 2.0 11/04/18 08:00 97.5 120 19 154/81 (105) 99 11/04/18 07:14 96 Room Air 21 11/04/18 06:22 122 124/62 11/04/18 04:00 122 11/04/18 04:00 98.0 111 19 124/62 (82) 100 11/04/18 00:43 118 147/87 11/04/18 00:42 119 11/04/18 00:00 97.3 79 18 147/87 (107) 96 11/04/18 00:00 118 11/03/18 21:00 Nasal Cannula 2.0 Nasal Cannula 2.0 11/03/18 20:48 97 Room Air 21 11/03/18 20:00 97.2 122 18 123/85 (98) 100 11/03/18 20:00 105 11/03/18 18:39 128 144/90 11/03/18 16:00 128 11/03/18 16:00 98.3 116 18 144/90 (108) 100 11/03/18 14:48 120 143/64 Intake and Output 11/03/18 11/04/18 18:59 06:59 Intake Total 360 ml 120 ml Output Total 200 ml Balance 360 ml -80 ml Intake Oral 360 ml Other 120 ml Output Urine Total 200 ml # Voids 5 1 Objective General Appearance: WD/WN HEENT: normocephalic, anicteric Respiratory/Chest: chest wall non-tender, lungs clear Breasts: no masses Cardiovascular: normal rate Abdomen: normal bowel sounds, no organomegaly Extremities: no clubbing 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/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 Microbiology Date/Time Source Procedure Growth Status 11/01/18 17:30 Sputum Gram Stain - Final Complete 11/01/18 17:30 Sputum Culture - Final Serratia Marcescens Usual Respiratory Mary Complete Laboratory Tests 11/04/18 07:55: White Blood Count 14.9H, Red Blood Count 3.87L, Hemoglobin 11.0L, Hematocrit 32.6L, Mean Corpuscular Volume 84, Mean Corpuscular Hemoglobin 28.4, Mean Corpuscular Hemoglobin Concent 33.7, Red Cell Distribution Width 16.3H, Platelet Count 129L, Mean Platelet Volume 8.0, Neutrophils (%) (Auto) , Lymphocytes (%) (Auto) , Monocytes (%) (Auto) , Eosinophils (%) (Auto) , Basophils (%) (Auto) , Differential Total Cells Counted 100, Neutrophils % ( Manual) 92H, Lymphocytes % (Manual) 3L, Monocytes % (Manual) 5, Eosinophils % ( Manual) 0, Basophils % (Manual) 0, Band Neutrophils 0, Platelet Estimate DecreasedL, Platelet Morphology Normal, Hypochromasia 1+, Anisocytosis 1+, Prothrombin Time 16.3H, Prothromb Time International Ratio 1.6H, Sodium Level 139, Potassium Level 5.2H, Chloride Level 106, Carbon Dioxide Level 29, Anion Gap 5, Blood Urea Nitrogen 45H, Creatinine 1.7H, Estimat Glomerular Filtration Rate , Glucose Level 151H, Calcium Level 9.0 Current Medications Medications (Trade) Dose Ordered Sig/Ernesto Route PRN Reason Start Time Stop Time Status Last Admin Dose Admin Albuterol/ Ipratropium (Albuterol/ Ipratropium) 3 ml Q4H PRN HHN dyspnea 11/01/18 11:45 11/06/18 11:44 11/01/18 21:03 Dextrose (Dextrose 50%) 25 ml Q30M PRN IV Hypoglycemia 11/02/18 15:30 12/02/18 15:29 Dextrose (Dextrose 50%) 50 ml Q30M PRN IV Hypoglycemia 11/02/18 15:30 12/02/18 15:29 Diltiazem HCl (Cardizem) 30 mg EVERY 6 HOURS ORAL 11/04/18 00:30 12/04/18 00:29 11/04/18 11:38 Diphenhydramine HCl (Benadryl) 25 mg Q6H PRN IVP Itching 11/02/18 11:45 12/02/18 11:44 Ferrous Sulfate (Feosol) 325 mg BID ORAL 11/02/18 09:00 12/02/18 08:59 11/04/18 08:04 Insulin Aspart (NovoLOG) BEFORE MEALS AND HS SUBQ 11/02/18 16:30 12/02/18 16:29 11/04/18 11:37 Lorazepam (Ativan 2mg/ml 1ml) 0.5 mg Q4H PRN IV For Anxiety 11/01/18 11:45 11/08/18 11:44 Methylprednisolone Sodium Succinate (Solu-MEDROL) 60 mg EVERY 12 HOURS IV 11/03/18 21:00 12/01/18 12:59 11/04/18 08:04 Nitroglycerin (Ntg) 0.4 mg Q5M X 3 DOSES PRN SL Prn Chest Pain 11/01/18 11:45 12/01/18 11:44 Ondansetron HCl (Zofran) 4 mg Q6H PRN IVP Nausea & Vomiting 11/01/18 11:45 12/01/18 11:44 Promethazine HCl/ Codeine (Phenergan with Codeine) 5 ml Q6H PRN ORAL cough 11/01/18 11:45 12/01/18 11:44 11/03/18 23:51 Warfarin Sodium (Coumadin per pharmacy) 1 ea DAILY PRN MISC Per rx protocol 11/02/18 22:00 12/02/18 21:59 Warfarin Sodium (Coumadin) 4 mg COUMADIN PO 11/04/18 17:00 11/04/18 18:00 Zeke Mckee MD Nov 04, 2018 12:45
--- NOTE | 2018-11-04 12:55 | NUR ---
NURSE NOTES: Talked with Dr. Mckee. Patient noted with K=5.2. New orders carried out.
--- NOTE | 2018-11-04 12:56 | NUR ---
NURSE NOTES: Patient is still noted with Afib with RVR 120-150s. Called Dr. Mercado and left message.
[2018-11-04] MEDS ORDERED: Sodium Polystyrene Sulfonate 15gm Powder ORAL SCH (13:00)
[2018-11-04] MEDS ORDERED: dilTIAZem HCl 30mg tab ORAL SCH (14:00)
--- NOTE | 2018-11-04 14:09 | NUR ---
RD ASSESSMENT & RECOMMENDATIONS SEE CARE ACTIVITY FOR COMPLETE ASSESSMENT DAILY ESTIMATED NEEDS: Needs based on Cardiac, DM, pulmonary, obese 68kg 20-25 kcals/kg 5792-2913 total kcals 1-1.5 g protein/kg 68-102 g total protein 20--30 mL/kg 6835-4310 total fluid mLs NUTRITION DIAGNOSIS: 1) Decreased sodium needs r/t renal dysfunction as evidenced by pt with elev BUN and creat (2.0), now elev K. 2) Altered nutrition related lab values r/t diabetes as evidenced by elev BG (151-163) and POC (157-240), pt on solumedrol as well. CURRENT DIET: Regular PO DIET RECOMMENDATIONS: CCHO LOW/ LOW NA ADDITIONAL RECOMMENDATIONS: 1) Continue to monitor K labs and need for Low K diet 2) Recalibrate bed scale for accurate CBW 3) B-complex daily for glucose metabolism 4) High protein/ 1 carb snack in b/w meals 5) rec A1C for eval
--- NOTE | 2018-11-04 14:46 | General Progress Note ---
Assessment/Plan Problem List: (1) Diabetes ICD Codes: E11.9 - Type 2 diabetes mellitus without complications SNOMED: 13310884 (2) HTN (hypertension) ICD Codes: I10 - Essential (primary) hypertension SNOMED: 86789587 (3) Renal failure ICD Codes: N19 - Unspecified kidney failure SNOMED: 24201350 (4) Atrial fibrillation ICD Codes: I48.91 - Unspecified atrial fibrillation SNOMED: 02014020 (5) Asthma exacerbation ICD Codes: J45.901 - Unspecified asthma with (acute) exacerbation SNOMED: 660702273 (6) Asthma ICD Codes: J45.909 - Unspecified asthma, uncomplicated SNOMED: 968238703 Status: progressing Assessment/Plan o2 pulm tx cardio f/u cbc bmp am dc plan Subjective Constitutional: Reports: weakness Allergies: Coded Allergies: No Known Allergies (Unverified , 05/24/12) All Systems: reviewed and negative except above Subjective calm in bed Objective Last 24 Hour Vital Signs Date Time Temp Pulse Resp B/P (MAP) Pulse Ox O2 Delivery O2 Flow Rate FiO2 11/04/18 13:58 135 118/80 11/04/18 12:00 97.3 115 20 116/80 (92) 98 11/04/18 12:00 125 11/04/18 11:38 115 116/80 11/04/18 09:00 Nasal Cannula 2.0 Nasal Cannula 2.0 11/04/18 08:00 90 11/04/18 08:00 97.5 120 19 154/81 (105) 99 11/04/18 07:14 96 Room Air 21 11/04/18 06:22 122 124/62 11/04/18 04:00 122 11/04/18 04:00 98.0 111 19 124/62 (82) 100 11/04/18 00:43 118 147/87 11/04/18 00:42 119 11/04/18 00:00 97.3 79 18 147/87 (107) 96 11/04/18 00:00 118 11/03/18 21:00 Nasal Cannula 2.0 Nasal Cannula 2.0 11/03/18 20:48 97 Room Air 21 11/03/18 20:00 97.2 122 18 123/85 (98) 100 11/03/18 20:00 105 1/8/19 18:39 128 144/90 11/03/18 16:00 128 11/03/18 16:00 98.3 116 18 144/90 (108) 100 11/03/18 14:48 120 143/64 Intake and Output 11/03/18 11/04/18 18:59 06:59 Intake Total 360 ml 120 ml Output Total 200 ml Balance 360 ml -80 ml Intake Oral 360 ml Other 120 ml Output Urine Total 200 ml # Voids 5 1 Laboratory Tests 11/04/18 07:55: White Blood Count 14.9H, Red Blood Count 3.87L, Hemoglobin 11.0L, Hematocrit 32.6L, Mean Corpuscular Volume 84, Mean Corpuscular Hemoglobin 28.4, Mean Corpuscular Hemoglobin Concent 33.7, Red Cell Distribution Width 16.3H, Platelet Count 129L, Mean Platelet Volume 8.0, Neutrophils (%) (Auto) , Lymphocytes (%) (Auto) , Monocytes (%) (Auto) , Eosinophils (%) (Auto) , Basophils (%) (Auto) , Differential Total Cells Counted 100, Neutrophils % ( Manual) 92H, Lymphocytes % (Manual) 3L, Monocytes % (Manual) 5, Eosinophils % ( Manual) 0, Basophils % (Manual) 0, Band Neutrophils 0, Platelet Estimate DecreasedL, Platelet Morphology Normal, Hypochromasia 1+, Anisocytosis 1+, Prothrombin Time 16.3H, Prothromb Time International Ratio 1.6H, Sodium Level 139, Potassium Level 5.2H, Chloride Level 106, Carbon Dioxide Level 29, Anion Gap 5, Blood Urea Nitrogen 45H, Creatinine 1.7H, Estimat Glomerular Filtration Rate , Glucose Level 151H, Calcium Level 9.0 Height (Feet): 5 Height (Inches): 6.00 Weight (Pounds): 210 General Appearance: lethargic EENT: normal ENT inspection Neck: normal alignment Cardiovascular: normal peripheral pulses, normal rate, regular rhythm Respiratory/Chest: chest wall non-tender, lungs clear, normal breath sounds Abdomen: normal bowel sounds, non tender, soft Extremities: normal inspection Edema: no edema noted Arm (L), no edema noted Arm (R), no edema noted Leg (L), no edema noted Leg (R), no edema noted Pedal (L), no edema noted Pedal (R), no edema noted Generalized Neurologic: responsive, motor weakness Skin: normal pigmentation, warm/dry Guanako Nettles DO Nov 04, 2018 14:46
--- NOTE | 2018-11-04 15:17 | NUR ---
DISCHARGE PLANNING PATIENT HAS BEEN REFERRED TO: [facility] P:[phone] F:[phone]
[2018-11-04 16:00] VITALS: BP 131/88
--- NOTE | 2018-11-04 16:25 | Diagnostic Imaging Report ---
Indication: Abnormal renal function tests and abnormal LDH Technique: Vargas-scale and duplex images of the upper abdomen were obtained. Doppler interrogation of the pancreatic and hepatic vessels Comparison: Findings: Gallbladder demonstrates sludge, but no stones. No gallbladder wall thickening nor pericholecystic fluid. Sonographic Reyes's sign is negative. Common bile duct measures 4 mm in diameter. No intrahepatic biliary ductal dilatation. Liver demonstrates normal echogenicity, no focal abnormality. Portal vein and hepatic veins are patent. Pancreas is unremarkable. The spleen is not well seen, grossly unremarkable Left kidney measures 9.6 cm in length. Right kidney measures 9.5 cm length. Both kidneys demonstrate normal echogenicity. There is no hydronephrosis. Small simple cysts are seen in the kidneys bilaterally . Abdominal aorta is partially obscured by bowel gas, visualized portions are non-aneurysmal . Impression: Gallbladder sludge. Negative for stones. Negative for dilated bile ducts Note Limited visualization of the spleen and abdominal aorta Incidental finding bilateral renal cysts
[2018-11-04] MEDS ORDERED: Warfarin Sodium 4mg PO SCH (17:00)
[2018-11-04] MEDS: dilTIAZem HCl 60mg tab ORAL SCH (17:08)
[2018-11-04] MEDS ORDERED: Metoprolol 5mg/5ml Inj IVP SCH (19:15)
--- NOTE | 2018-11-04 19:45 | NUR ---
HAND-OFF: Report given to LORI Kline. Patient is in stable condition. Endorsed plan of care.
[2018-11-04 20:00] VITALS: BP 132/75
[2018-11-04] MEDS: Metoprolol Tartrate 50mg tab ORAL SCH (22:15)
[2018-11-04] MEDS: Promethazine/Codeine 5ml UD ORAL PRN (22:38)
[2018-11-05] VITALS: BP 18/85
[2018-11-05 04:00] VITALS: BP 129/75
[2018-11-05] MEDS: dilTIAZem HCl 60mg tab ORAL SCH ×4 (06:30→17:27)
[2018-11-05] MEDS: NovoLOG Insulin Flexpen SUBQ SCH ×3 (06:30→16:44)
--- NOTE | 2018-11-05 07:44 | NUR ---
NURSE NOTES: Received report from LORI Mauricio. Patient asleep and is in stable condition. No acute distress/SOB noted. Will continue plan of care.
[2018-11-05 08:00] VITALS: BP 144/74
[2018-11-05 08:15] LABS: ANION GAP 6 mmol/L (5-15); BLOOD UREA NITROGEN 45 mg/dL (7-18); CALCIUM 8.9 MG/DL (8.5-10.1); CARBON DIOXIDE 29 MMOL/L (21-32); CHLORIDE 108 MMOL/L (98-107); CREATININE 1.6 MG/DL (0.55-1.30); INR 1.7 (0.9-1.1); POTASSIUM 4.5 MMOL/L (3.5-5.1); SODIUM 143 MMOL/L (136-145)
[2018-11-05] MEDS: Metoprolol Tartrate 50mg tab ORAL SCH (08:51)
[2018-11-05] MEDS ORDERED: Solu-MEDROL 125mg Inj IV SCH (09:00)
--- NOTE | 2018-11-05 09:15 | NUR ---
RADIOLOGY DEPT CHEST X-RAY DONE.-P.DYE
--- NOTE | 2018-11-05 10:40 | NUR ---
CASE MANAGEMENT:REVIEW 11/05/18 SI: ASTHMA. AFIB EPISODE OF HR 122 X1 97.2 92 19 144/74 97% ON RA BUN+45 CR+1.6 IS: COUMADIN PO X1 IV SOLUMEDROL QD LOPRESSOR PO Q12 CARDIZEM PO Q6HRS : TELEMETRY DCP: FROM HOME
--- NOTE | 2018-11-05 10:44 | NUR ---
DISCHARGE PLANNING PATIENT HAS A DISCHARGE ORDER ONCE CLEARED BY PULMONARY AND CARDIO PATIENT WILL RETURN HOME
[2018-11-05 12:00] VITALS: BP 140/82
[2018-11-05] MEDS ORDERED: CARDIZEM60 MG ORAL (12:15)
[2018-11-05] MEDS ORDERED: METOPROLOL TART50 MG ORAL (12:15)
--- NOTE | 2018-11-05 12:17 | Pulmonology Progress Note ---
Assessment/Plan Problems: (1) Acute bronchitis (2) Asthma exacerbation (3) Atrial fibrillation (4) Hypothyroid Assessment/Plan controlled Afib, less cough, and SOB improving respiratory treatment dc steroids Subjective ROS Limited/Unobtainable: Yes Constitutional: Reports: no symptoms HEENT: Repors: no symptoms Respiratory: Reports: no symptoms Allergies: Coded Allergies: No Known Allergies (Unverified , 05/24/12) Objective Last 24 Hour Vital Signs Date Time Temp Pulse Resp B/P (MAP) Pulse Ox O2 Delivery O2 Flow Rate FiO2 11/05/18 12:00 98.0 80 19 140/82 (101) 97 11/05/18 09:00 Room Air Room Air 11/05/18 08:51 92 144/74 11/05/18 08:00 95 11/05/18 08:00 97.2 92 19 144/74 (97) 97 11/05/18 06:30 89 149/76 11/05/18 04:00 122 11/05/18 04:00 96.9 84 18 129/75 (93) 96 11/05/18 04:00 87 11/05/18 00:59 84 11/05/18 00:00 97.7 84 18/85 (63) 11/04/18 22:15 136 121/89 11/04/18 22:14 136 11/04/18 21:00 Nasal Cannula 2.0 Nasal Cannula 2.0 11/04/18 20:00 96.8 129 19 132/75 (94) 97 11/04/18 20:00 136 11/04/18 19:29 98 Room Air 21 11/04/18 17:08 134 131/88 11/04/18 16:00 134 11/04/18 16:00 97.8 145 21 131/88 (102) 97 11/04/18 13:58 135 118/80 Intake and Output 11/04/18 11/05/18 18:59 06:59 Intake Total 500 ml Balance 500 ml Intake Oral 500 ml # Voids 2 # Bowel Movements 1 Objective General Appearance: WD/WN HEENT: normocephalic, anicteric Respiratory/Chest: chest wall non-tender, lungs clear Breasts: no masses Cardiovascular: normal rate Abdomen: normal bowel sounds, no organomegaly Extremities: no clubbing 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 Laboratory Tests 11/05/18 06:42: Prothrombin Time 17.4H, Prothromb Time International Ratio 1.7H, Sodium Level 143, Potassium Level 4.5, Chloride Level 108H, Carbon Dioxide Level 29, Anion Gap 6, Blood Urea Nitrogen 45H, Creatinine 1.6H, Estimat Glomerular Filtration Rate , Glucose Level 99, Calcium Level 8.9 Current Medications Medications (Trade) Dose Ordered Sig/Ernesto Route PRN Reason Start Time Stop Time Status Last Admin Dose Admin Albuterol/ Ipratropium (Albuterol/ Ipratropium) 3 ml Q4H PRN HHN dyspnea 11/01/18 11:45 11/06/18 11:44 11/01/18 21:03 Dextrose (Dextrose 50%) 25 ml Q30M PRN IV Hypoglycemia 11/02/18 15:30 12/02/18 15:29 Dextrose (Dextrose 50%) 50 ml Q30M PRN IV Hypoglycemia 11/02/18 15:30 12/02/18 15:29 Diltiazem HCl (Cardizem) 60 mg EVERY 6 HOURS ORAL 11/04/18 18:00 12/04/18 17:59 11/05/18 06:30 Diphenhydramine HCl (Benadryl) 25 mg Q6H PRN IVP Itching 11/02/18 11:45 12/02/18 11:44 Ferrous Sulfate (Feosol) 325 mg BID ORAL 11/02/18 09:00 12/02/18 08:59 11/05/18 08:51 Insulin Aspart (NovoLOG) BEFORE MEALS AND HS SUBQ 11/02/18 16:30 12/02/18 16:29 11/04/18 21:00 Lorazepam (Ativan 2mg/ml 1ml) 0.5 mg Q4H PRN IV For Anxiety 11/01/18 11:45 11/08/18 11:44 Methylprednisolone Sodium Succinate (Solu-MEDROL) 60 mg DAILY IV 11/05/18 09:00 12/01/18 12:59 11/05/18 08:51 Metoprolol Tartrate (Lopressor) 5 mg Q5MIN X 3 IVP 11/04/18 19:15 Metoprolol Tartrate (Lopressor) 50 mg Q12HR ORAL 11/04/18 21:00 2/8/19 20:59 11/05/18 08:51 Nitroglycerin (Ntg) 0.4 mg Q5M X 3 DOSES PRN SL Prn Chest Pain 11/01/18 11:45 12/01/18 11:44 Ondansetron HCl (Zofran) 4 mg Q6H PRN IVP Nausea & Vomiting 11/01/18 11:45 12/01/18 11:44 Promethazine HCl/ Codeine (Phenergan with Codeine) 5 ml Q6H PRN ORAL cough 11/01/18 11:45 12/01/18 11:44 11/04/18 22:38 Warfarin Sodium (Coumadin per pharmacy) 1 ea DAILY PRN MISC Per rx protocol 11/02/18 22:00 12/02/18 21:59 Warfarin Sodium (Coumadin) 4 mg ONCE PO 11/05/18 17:00 11/05/18 19:00 Zeke Mckee MD Nov 05, 2018 12:17
--- NOTE | 2018-11-05 13:17 | General Progress Note ---
Assessment/Plan Problem List: (1) Diabetes ICD Codes: E11.9 - Type 2 diabetes mellitus without complications SNOMED: 43865275 (2) HTN (hypertension) ICD Codes: I10 - Essential (primary) hypertension SNOMED: 80846021 (3) Renal failure ICD Codes: N19 - Unspecified kidney failure SNOMED: 81502472 (4) Atrial fibrillation ICD Codes: I48.91 - Unspecified atrial fibrillation SNOMED: 38306874 (5) Asthma exacerbation ICD Codes: J45.901 - Unspecified asthma with (acute) exacerbation SNOMED: 709306829 (6) Asthma ICD Codes: J45.909 - Unspecified asthma, uncomplicated SNOMED: 019982356 Assessment/Plan o2 pulm tx cardio f/u cbc bmp am dc plan Subjective Constitutional: Reports: weakness Allergies: Coded Allergies: No Known Allergies (Unverified , 05/24/12) All Systems: reviewed and negative except above Subjective calm in bed Objective Last 24 Hour Vital Signs Date Time Temp Pulse Resp B/P (MAP) Pulse Ox O2 Delivery O2 Flow Rate FiO2 11/05/18 12:13 80 140/82 11/05/18 12:00 98.0 80 19 140/82 (101) 97 11/05/18 12:00 73 11/05/18 09:00 Room Air Room Air 11/05/18 08:51 92 144/74 11/05/18 08:00 95 11/05/18 08:00 97.2 92 19 144/74 (97) 97 11/05/18 06:30 89 149/76 11/05/18 04:00 122 11/05/18 04:00 96.9 84 18 129/75 (93) 96 11/05/18 04:00 87 11/05/18 00:59 84 11/05/18 00:00 97.7 84 18/85 (63) 11/04/18 22:15 136 121/89 11/04/18 22:14 136 11/04/18 21:00 Nasal Cannula 2.0 Nasal Cannula 2.0 11/04/18 20:00 96.8 129 19 132/75 (94) 97 11/04/18 20:00 136 11/04/18 19:29 98 Room Air 21 11/04/18 17:08 134 131/88 11/04/18 16:00 134 11/04/18 16:00 97.8 145 21 131/88 (102) 97 11/04/18 13:58 135 118/80 Intake and Output 11/04/18 11/05/18 18:59 06:59 Intake Total 500 ml Balance 500 ml Intake Oral 500 ml # Voids 2 # Bowel Movements 1 Laboratory Tests 11/05/18 06:42: Prothrombin Time 17.4H, Prothromb Time International Ratio 1.7H, Sodium Level 143, Potassium Level 4.5, Chloride Level 108H, Carbon Dioxide Level 29, Anion Gap 6, Blood Urea Nitrogen 45H, Creatinine 1.6H, Estimat Glomerular Filtration Rate , Glucose Level 99, Calcium Level 8.9 Height (Feet): 5 Height (Inches): 6.00 Weight (Pounds): 211 General Appearance: lethargic EENT: normal ENT inspection Neck: normal alignment Cardiovascular: normal peripheral pulses, normal rate, regular rhythm Respiratory/Chest: chest wall non-tender, lungs clear, normal breath sounds Abdomen: normal bowel sounds, non tender, soft Extremities: normal inspection Edema: no edema noted Arm (L), no edema noted Arm (R), no edema noted Leg (L), no edema noted Leg (R), no edema noted Pedal (L), no edema noted Pedal (R), no edema noted Generalized Neurologic: responsive, motor weakness Skin: normal pigmentation, warm/dry Guanako Nettles DO Nov 05, 2018 13:17
--- NOTE | 2018-11-05 13:19 | NUR ---
SPOKE TO [facility] THEY ARE WILL NOT FOLLOW PATIENT, PT HAS RESTRICTED MEDICAL FOR EMERGENCY/ RELATED SVCS.
--- NOTE | 2018-11-05 13:27 | NUR ---
SPOKE TO [facility] THEY ARE WILL NOT FOLLOW PATIENT, PT HAS RESTRICTED MEDICAL FOR EMERGENCY/ RELATED SVCS.
[2018-11-05 16:00] VITALS: BP 131/72
--- NOTE | 2018-11-05 16:53 | Diagnostic Imaging Report ---
Indication: Cough Technique: One view of the chest Comparison: 11/02/2017 Findings: The heart is enlarged. There are now small bilateral pleural effusions. There is questionable hazy opacity at both lung bases, likely artifact of overlying soft tissue. The aorta is tortuous and calcified. Impression: Cardiomegaly Small bilateral pleural effusions Equivocal bilateral basilar hazy infiltrates or edema
[2018-11-05] MEDS ORDERED: Warfarin Sodium 4mg PO SCH (17:00)
[2018-11-05 17:27] VITALS: BP 131/72
--- NOTE | 2018-11-05 18:30 | NUR ---
NURSE NOTES: Discharge instruction given and patient verbalized understanding. Inventory check done. Removed panel monitor. No acute distress/SOB noted. Patient denies any pain/discomfort. Awaiting for daughter to garbage pick up worker.
--- NOTE | 2018-11-05 19:15 | NUR ---
NURSE NOTES: Removed IV line. No bleeding noted. Patient is discharged with stable condition with daughter.
--- NOTE | 2018-11-05 20:44 | Cardiology Progress Note ---
Assessment/Plan Assessment/Plan 1. Shortness of breath, mostly due to acute exacerbation of asthma, positive findings for bilateral rhonchi, continue steroids, inhalers/nebulizer, pulmonary toilet and oxygen. There is right atrial enlargement and severe pulmonary HTN. 2. Permanent atrial fibrillation with controlled ventricular response, added metoprolol and digoxin, continue diltiazem, INR level is in the therapeutic level. Subjective Subjective Atrial fibrillation with controlled ventricular response at rate of 84. Objective Last 24 Hour Vital Signs Date Time Temp Pulse Resp B/P (MAP) Pulse Ox O2 Delivery O2 Flow Rate FiO2 11/05/18 17:27 84 131/72 11/05/18 16:00 98.1 84 20 131/72 (91) 95 11/05/18 12:13 80 140/82 11/05/18 12:00 98.0 80 19 140/82 (101) 97 11/05/18 12:00 73 11/05/18 09:00 Room Air Room Air 11/05/18 08:51 92 144/74 11/05/18 08:00 95 11/05/18 08:00 97.2 92 19 144/74 (97) 97 11/05/18 06:30 89 149/76 11/05/18 04:00 122 11/05/18 04:00 96.9 84 18 129/75 (93) 96 11/05/18 04:00 87 11/05/18 00:59 84 11/05/18 00:00 97.7 84 18/85 (63) 11/04/18 22:15 136 121/89 11/04/18 22:14 136 11/04/18 21:00 Nasal Cannula 2.0 Nasal Cannula 2.0 Intake and Output 11/04/18 11/05/18 19:00 07:00 Intake Total 500 ml Balance 500 ml Intake Oral 500 ml # Voids 2 # Bowel Movements 1 2D Echo: LVEF at 55%, Mild CARMINA, Mild MR/AR/WA, RVSP 96 mmHg c/w severe pul. NTH Laboratory Tests Test 11/05/18 06:42 Prothrombin Time 17.4 SEC (9.30-11.50) H Prothromb Time International Ratio 1.7 (0.9-1.1) H Sodium Level 143 MMOL/L (136-145) Potassium Level 4.5 MMOL/L (3.5-5.1) Chloride Level 108 MMOL/L (98-107) H Carbon Dioxide Level 29 MMOL/L (21-32) Anion Gap 6 mmol/L (5-15) Blood Urea Nitrogen 45 mg/dL (7-18) H Creatinine 1.6 MG/DL (0.55-1.30) H Estimat Glomerular Filtration Rate mL/min (>60) Glucose Level 99 MG/DL (74-106) Calcium Level 8.9 MG/DL (8.5-10.1) Troponin I 0.095 ng/mL (0.000-0.056) Objective HEENT: Atraumatic and normocephalic. Anicteric. Pupils are equal, round, and reactive to light and accommodation. Extraocular muscles intact. NECK: JVP less than 5 cm. No carotid bruit. Carotid upstroke is 2+ bilaterally. CARDIOVASCULAR: Normal S1, S2. Irregularly irregular rhythm. Tachycardic. No murmurs, gallops, or rubs. LUNGS: Diminished breath sounds throughout with expiratory rhonchi. No crackles. ABDOMEN: Soft, nontender, and nondistended. No hepatosplenomegaly. Positive bowel sounds. EXTREMITIES: There is 1+ bilateral lower extremity edema. Biju Mercado MD Nov 05, 2018 20:44
--- NOTE | 2018-11-05 21:01 | General Progress Note ---
Assessment/Plan Assessment/Plan # Anemia of iron deficiency, low ferritin, high tibc, low % sat --> anemia panel has been ordered --> no evidence of hemolysis --> trend hgb 11-->10.6-->10.8 --> contionue on ferrous sulfate 325mg po bid # Thrombocytopenia currently plt 130k, cause unknown, imaging of the abd has been reviewed --> hepatitis and hiv has are all negative --> consider us of the abdomen, ordered --> peripheral smear reviewed, no schistocytes noted # Coagulopathy - inr approx 2,is due to coumadin for afib --> continue anticoagulation as per cards --> inr goal 2-3 # Leukocytosis is due to steriods # Asthma exacerbation --> steriods as per pulm prn # Atrial fibrillation --> cards eval, on coumadin Time of note does not reflect time of encounter Greatly appreciate consultation! Subjective Constitutional: Denies: no symptoms, chills, diaphoresis, fever, malaise, weakness, other HEENT: Denies: no symptoms, eye pain, blurred vision, tearing, double vision, ear pain, ear discharge, nose pain, nose congestion, throat pain, throat swelling, mouth pain, mouth swelling, other Cardiovascular: Denies: no symptoms, chest pain, edema, irregular heart rate, lightheadedness, palpitations, syncope, other Respiratory: Denies: no symptoms, cough, orthopnea, shortness of breath, SOB with excertion, SOB at rest, sputum, stridor, wheezing, other Gastrointestinal/Abdominal: Denies: no symptoms, abdomen distended, abdominal pain, black stools, tarry stools, blood in stool, constipated, diarrhea, difficulty swallowing, nausea, poor appetite, poor fluid intake, rectal bleeding , vomiting, other Genitourinary: Denies: no symptoms, burning, discharge, frequency, flank pain, hematuria, incontinence, pain, urgency, other Neurologic/Psychiatric: Denies: no symptoms, anxiety, depressed, emotional problems, headache, numbness, paresthesia, pre-existing deficit, seizure, tingling, tremors, weakness, other Endocrine: Denies: no symptoms, excessive sweating, flushing, intolerance to cold, intolerance to heat, increased hunger, increased thirst, increased urine, unexplained weight gain, unexplained weight loss, other Hematologic/Lymphatic: Denies: no symptoms, anemia, easy bleeding, easy bruising, other Allergies: Coded Allergies: No Known Allergies (Unverified , 05/24/12) Subjective 11/02: sob is better today, 2d echo pending, on anti-htn meds, ferrous sulfate started 11/03: Pt is awake, sitting up in bed. no SOB, wbc 16, plt 137 11/04: hr is significantly improved 110-125s, seen by cards, on coumadin, inr 1.9 , no complaints 11/05: Pt is awake and seen by bedside, no events reported Objective Last 24 Hour Vital Signs Date Time Temp Pulse Resp B/P (MAP) Pulse Ox O2 Delivery O2 Flow Rate FiO2 11/05/18 17:27 84 131/72 11/05/18 16:00 98.1 84 20 131/72 (91) 95 11/05/18 12:13 80 140/82 11/05/18 12:00 98.0 80 19 140/82 (101) 97 11/05/18 12:00 73 11/05/18 09:00 Room Air Room Air 11/05/18 08:51 92 144/74 11/05/18 08:00 95 11/05/18 08:00 97.2 92 19 144/74 (97) 97 11/05/18 06:30 89 149/76 11/05/18 04:00 122 11/05/18 04:00 96.9 84 18 129/75 (93) 96 11/05/18 04:00 87 11/05/18 00:59 84 11/05/18 00:00 97.7 84 18/85 (63) 11/04/18 22:15 136 121/89 11/04/18 22:14 136 Intake and Output 11/04/18 11/05/18 19:00 07:00 Intake Total 500 ml Balance 500 ml Intake Oral 500 ml # Voids 2 # Bowel Movements 1 Laboratory Tests 11/05/18 06:42: Prothrombin Time 17.4H, Prothromb Time International Ratio 1.7H, Sodium Level 143, Potassium Level 4.5, Chloride Level 108H, Carbon Dioxide Level 29, Anion Gap 6, Blood Urea Nitrogen 45H, Creatinine 1.6H, Estimat Glomerular Filtration Rate , Glucose Level 99, Calcium Level 8.9, Troponin I 0.095H Height (Feet): 5 Height (Inches): 6.00 Weight (Pounds): 211 Objective GENERAL: in no apparent respiratory distress. Alert + oriented x4. HEENT: Atraumatic and normocephalic. Anicteric.perrl NECK: JVP less than 5 cm. No carotid bruit. Carotid upstroke is 2+ bilaterally. CARDIOVASCULAR: Normal S1, S2. Irregularly irregular rhythm LUNGS: Diminished breath sounds throughout with expiratory rhonchi. No crackles. ABDOMEN: Soft, nontender, and nondistended. No hepatosplenomegaly.++ bowel sounds. EXTREMITIES: There is 1+ bilateral lower extremity edema. Evens Ocampo MD Nov 05, 2018 21:01
--- NOTE | 2018-11-06 12:21 | Discharge Summary ---
Discharge Summary Discharge Summary _ DATE OF ADMISSION: 11/01/2018 DATE OF DISCHARGE: 11/05/2018 DISCHARGED BY: Dr. Guanako Nettles CONSULTANTS: Dr. Evens Green BRIEF HOSPITAL COURSE: Patient is a 77-year-old female, at home, presented with 3 days of increased shortness of breath and coughing. There was no chest pain. No loss of consciousness. She has medical history significant for diabetes and hypertension. Evaluation at the ED, vital signs were stable. Blood work did not show any leukocytosis, hemoglobin was 11, hematocrit 33. Creatinine was elevated to 2, BUN 38. Troponin was noted to be elevated at 0.134. EKG showed atrial fibrillation at a rate of [address] or T wave changes. She was given breathing treatment and was started on IV steroids. She was admitted for evaluation of asthma exacerbation and atrial fibrillation. She was placed on nebulizer treatment. She was continued on IV Solu-Medrol every 6 hours. Culture showed growth of Serratia and usual respiratory jessica. X-ray showed equivocal bilateral basilar hazy infiltrates or edema. Duct Layer was consulted. Patient has permanent atrial fibrillation. She was given Coumadin. He had a prior echocardiogram that showed right atrial enlargement and severe pulmonary hypertension. She ambulated to the bathroom and heart rate went up to 150s. She was given digoxin 0.125 mg IV push she was started on diltiazem 30 mg every 6 hours. Heart rate improved. The following day, she continued to have elevated heart rate that goes up to 120s. She was again given digoxin and metoprolol 5 mg IV push. She was eventually started on metoprolol tartrate 50 mg every 12 hours, together with diltiazem 60 mg every 6 hours. She was noted to have anemia. Anemia workup showed low ferritin, high TIBC and low percent saturation. She was given ferrous sulfate 225 mg p.o. twice daily. Patient had low platelet count. Hepatitis and HIV screen were negative. Abdominal ultrasound showed spleen to be grossly unremarkable. Peripheral smear did not show any schistocytes/no blasts/ no immature forms. [employer] was consulted. Has acute renal failure, etiology is ATN due to unstable hemodynamics. Patient has chronic kidney disease due to diabetic nephropathy and hypertensive nephrosclerosis. ANDREAS inhibitor was placed on hold. Heart rate controlled. Patient had less cough and less sob. Steroids were discontinued. Patient was then cleared for discharge home. FINAL DIAGNOSES: Acute bronchitis Asthma exacerbation Atrial fibrillation with RVR Acute kidney injury Anemia of iron deficiency Thrombocytopenia Coagulopathy due to Coumadin Leukocytosis due to steroids Chronic kidney disease Hyperkalemia Hypertension DISPOSITION: Patient was discharged home. DISCHARGE MEDICATIONS: Refer to Discharge Medication List. DISCHARGE INSTRUCTIONS: Follow-up in a week. I have been assigned to dictate discharge summary on this account, and I was not involved in the patient's management. Aleida Gilbert NP Nov 06, 2018 12:21
== END 2018-11-05 19:16 | disposition home or self-care (01) | DRG 145 ==
LOC: EMR 09:31 → 2E 10:45 → EDBEDREQ 12:42
DX: J20.9 Acute bronchitis, unspecified (principal); N17.0 Acute kidney failure with tubular necrosis; D69.6 Thrombocytopenia, unspecified; E87.5 Hyperkalemia; I48.2 Chronic atrial fibrillation; E11.22 Type 2 diabetes mellitus with diabetic chronic kidney disease; J45.901 Unspecified asthma with (acute) exacerbation; I48.91 Unspecified atrial fibrillation; D50.9 Iron deficiency anemia, unspecified; Z79.01 Long term (current) use of anticoagulants; D72.829 Elevated white blood cell count, unspecified; T38.0X5A Adverse effect of glucocorticoids and synthetic analogues, initial encounter; I12.9 Hypertensive chronic kidney disease with stage 1 through stage 4 chronic kidney disease, or unspecified chronic kidney disease; N18.9 Chronic kidney disease, unspecified; D63.8 Anemia in other chronic diseases classified elsewhere; E11.9 Type 2 diabetes mellitus without complications; E03.9 Hypothyroidism, unspecified
CPT/HCPCS: 36415; 71045; 76700; 76770; 80048; 80053; 81001; 82043; 82044; 82248; 82570; 82728; 82962; 83540; 83550; 83615; 84165; 84300; 84443; 84484; 85007; 85025; 85060; 85610; 85660; 85730; 86703; 86705; 86709; 86803; 87070; 87181; 87205; 87340; 89050; 93005; 93306; 94640; 94664; 94760; 96374; 96375; 97803; 99285; J1815; J7620

== ENCOUNTER 2019-02-04 07:38 | Inpatient (IN) | payer MEDICAID ==
[~2019-02-04] VITALS: Ht 167.6 cm; Wt 93.4 kg
[~2019-02-04 07:38] MED LIST changes: +ASPIR 8181 MG ORAL; +ATORVASTATIN CA40 MG ORAL; +ATROVENT HFA12.9 GM IH; +BUMETANIDE1 MG ORAL; +CARDIZEM CD120 MG ORAL; +CARDIZEM60 MG ORAL; +DILTIAZEM 24HR180 M3 ORAL; +FLOVENT2 PUFF1 INH; +HYDRALAZINE HCL10 MG ORAL; +ISOSORBIDE MONO10 MG PO; +MAGNESIUM OXID400 M1 ORAL; +METOPROLOL TAR100 M1 ORAL; +METOPROLOL TART50 MG ORAL; +WARFARIN SODIUM4 MG ORAL
[2019-02-04] MEDS ORDERED: Tylenol #3 tab (300mg/30mg) ORAL ONE (08:15)
[2019-02-04] MEDS ORDERED: Solu-MEDROL 125mg Inj IVP ONE (08:15)
[2019-02-04] MEDS: Ipratropium 0.02% Inh Soln 2.5ml UD HHN SCH ×3 (08:30→09:19)
[2019-02-04] MEDS: Albuterol ud Inhalation HHN SCH ×3 (08:30→09:19)
--- NOTE | 2019-02-04 08:53 | Emergency Room Report ---
History of Present Illness General Chief Complaint: General Complaint Source: Patient Present Illness HPI 78-year-old female presents ED for evaluation. Patient complaining of left shoulder pain. States that about 2 weeks ago she received a hepatitis shot in her left shoulder at a clinic. States she's been having persistent pain to that shoulder since. Pain is throbbing, 8 out of 10, nonradiating. Unable to sleep because pain. Denies fevers or chills. Denies chest pain. Patient is complaining of shortness of breath and congestion. History of asthma. History of CHF and A. fib. States that her breathing treatments are not helping at home. No other aggravating relieving factors. Denies sick contacts or recent travel. Denies any other associated symptoms Allergies: Coded Allergies: No Known Allergies (Unverified , 05/24/12) Patient History Past Medical History: DM, HTN, CHF, AFib, asthma Past Surgical History: none Pertinent Family History: none Social History: Denies: smoking, alcohol use, drug use Last Menstrual Period: na Now: No Immunizations: UTD Reviewed Nursing Documentation: PMH: Agreed; PSxH: Agreed Nursing Documentation-PMH Past Medical History: No History, Except For Hx Cardiac Problems: Yes - CHF, AFIB Hx Hypertension: Yes Hx Asthma: Yes Hx Diabetes: Yes Hx Cancer: No Hx Gastrointestinal Problems: No Hx Neurological Problems: No Review of Systems All Other Systems: negative except mentioned in HPI Physical Exam Vital Signs Date Time Temp Pulse Resp B/P (MAP) Pulse Ox O2 Delivery O2 Flow Rate FiO2 02/04/19 07:46 97.9 96 20 128/85 92 Room Air 02/04/19 08:25 21 Sp02 EP Interpretation: reviewed, normal General Appearance: no apparent distress, alert, GCS 15, non-toxic Head: normocephalic, atraumatic Eyes: bilateral eye normal inspection, bilateral eye PERRL ENT: hearing grossly normal, normal pharynx, no angioedema, normal voice Neck: full range of motion, supple/symm/no masses Respiratory: chest non-tender, crackles, speaking full sentences, wheezing Cardiovascular #1: regular rate, rhythm, no edema Cardiovascular #2: 2+ carotid (R), 2+ carotid (L), 2+ radial (R), 2+ radial (L) , 2+ dorsalis pedis (R), 2+ dorsalis pedis (L) Gastrointestinal: normal bowel sounds, non tender, soft, non-distended, no guarding, no rebound Rectal: deferred Genitourinary: normal inspection, no CVA tenderness Musculoskeletal: back normal, gait/station normal, normal range of motion, tender - pain L shoulder. full ROM noted. no bruising/deformity/swelling Neurologic: alert, oriented x3, responsive, motor strength/tone normal, sensory intact, speech normal Psychiatric: judgement/insight normal, memory normal, mood/affect normal, no suicidal/homicidal ideation Reflexes: 3+ bicep (R), 3+ bicep (L), 3+ tricep (R), 3+ tricep (L), 3+ knee (R) , 3+ knee (L) Skin: normal color, no rash, warm/dry, well hydrated Lymphatic: no adenopathy Medical Decision Making Diagnostic Impression: Primary Impression: Asthma exacerbation Qualified Codes: J45.901 - Unspecified asthma with (acute) exacerbation Additional Impressions: Shoulder pain Qualified Codes: M25.512 - Pain in left shoulder Atrial fibrillation Qualified Codes: I48.2 - Chronic atrial fibrillation CHF (congestive heart failure) Qualified Codes: I50.9 - Heart failure, unspecified ER Course Hospital Course 78-year-old female presents ED complaining of shortness of breath, L shoulder pain Differential diagnoses include: PA/unstable angina, contusion, muscle strain, PTX, rib fracture Clinical course Patient placed on stretcher. on cardiac nurse practitioner. After initial history and physical I ordered labs, EKG, chest x-ray, nebs, L shoulder xray labs reviewed- no leukocytosis, hemoglobin/hematocrit stable, K 6.0, BUN/ creatinine elevated, troponins 0.14, BNP greater than 4000, EKG - afib, no acute ischemic changes interpreteed by me Chest x-ray- cardiomegaly, bilateral effusion L shoulder xray - no aute process Breathing improved after nebs, magnesium, Solu-Medrol. Antibiotics given. Daughter at bedside states that patient was discontinued off of her Bumex. Patient has some pitting edema in the lower extremities. given insulin/D50. Given IV dose of Bumex here. patient admitted to Dr Carlos Sharma. I feel this is a highly complex case requiring extensive working including EKG/Rhythm strip, Xray/CT/US, Blood/urine lab work, repeat exams while in ED, and administration of strong opiates/narcotics for pain control, admission to hospital or close patient follow up. Diagnosis - asthma exacerbation, shoulder pain, atrial fibrillation, CHF admitted to telemetry in serious condition Labs Test 02/04/19 08:30 02/04/19 09:20 02/04/19 10:00 White Blood Count 8.5 K/UL (4.8-10.8) Red Blood Count 4.18 M/UL (4.20-5.40) Hemoglobin 11.6 G/DL (12.0-16.0) Hematocrit 35.7 % (37.0-47.0) Mean Corpuscular Volume 85 FL (80-99) Mean Corpuscular Hemoglobin 27.8 PG (27.0-31.0) Mean Corpuscular Hemoglobin Concent 32.6 G/DL (32.0-36.0) Red Cell Distribution Width 15.8 % (11.6-14.8) Platelet Count 149 K/UL (150-450) Mean Platelet Volume 8.3 FL (6.5-10.1) Neutrophils (%) (Auto) 65.4 % (45.0-75.0) Lymphocytes (%) (Auto) 15.7 % (20.0-45.0) Monocytes (%) (Auto) 14.8 % (1.0-10.0) Eosinophils (%) (Auto) 3.0 % (0.0-3.0) Basophils (%) (Auto) 1.1 % (0.0-2.0) Prothrombin Time 19.4 SEC (9.30-11.50) Prothromb Time International Ratio 1.9 (0.9-1.1) Activated Partial Thromboplast Time 33 SEC (23-33) Sodium Level 141 MMOL/L (136-145) Potassium Level 6.0 MMOL/L (3.5-5.1) Chloride Level 107 MMOL/L (98-107) Carbon Dioxide Level 26 MMOL/L (21-32) Anion Gap 9 mmol/L (5-15) Blood Urea Nitrogen 27 mg/dL (7-18) Creatinine 1.6 MG/DL (0.55-1.30) Estimat Glomerular Filtration Rate mL/min (>60) Glucose Level 101 MG/DL (74-106) Lactic Acid Level 1.00 mmol/L (0.4-2.0) Calcium Level 9.9 MG/DL (8.5-10.1) Total Bilirubin 1.3 MG/DL (0.2-1.0) Direct Bilirubin 0.5 MG/DL (0.0-0.3) Aspartate Amino Transf (AST/SGOT) 26 U/L (15-37) Alanine Aminotransferase (ALT/SGPT) 21 U/L (12-78) Alkaline Phosphatase 144 U/L (46-116) Total Creatine Kinase 54 U/L (26-308) Creatine Kinase MB < 0.5 NG/ML (0.0-3.6) Creatine Kinase MB Relative Index 0.9 Troponin I 0.140 ng/mL (0.000-0.056) Pro-B-Type Natriuretic Peptide 4688 pg/mL (0-125) Total Protein 7.7 G/DL (6.4-8.2) Albumin 3.7 G/DL (3.4-5.0) Globulin 4.0 g/dL Albumin/Globulin Ratio 0.9 (1.0-2.7) Urine Color Pale yellow Urine Appearance Clear Urine pH 7 (4.5-8.0) Urine Specific Olive 1.005 (1.005-1.035) Urine Protein 1+ (NEGATIVE) Urine Glucose (UA) Negative (NEGATIVE) Urine Ketones Negative (NEGATIVE) Urine Blood Negative (NEGATIVE) Urine Nitrite Negative (NEGATIVE) Urine Bilirubin Negative (NEGATIVE) Urine Urobilinogen Normal MG/DL (0.0-1.0) Urine Leukocyte Esterase 2+ (NEGATIVE) Urine RBC 2-4 /HPF (0 - 2) Urine WBC 2-4 /HPF (0 - 2) Urine Squamous Epithelial Cells Occasional /LPF Urine Bacteria Occasional /HPF (NONE) EKG Diagnostic Results Rate: normal Rhythm: other - afib ST Segments: no acute changes ASA given to the pt in ED: No Rhythm Strip Diag. Results EP Interpretation: yes Rhythm: no PVC's, no ectopy Chest X-Ray Diagnostic Results Chest X-Ray Diagnostic Results : Chest X-Ray Ordered: Yes # of Views/Limited/Complete: 1 View Indication: Shortness of Breath EP Interpretation: Yes Interpretation: no pneumothorax, other - effusion R lung base. cardiomegaly. Impression: Other - chf/pna Electronically Signed by: Electronically signed by Sanju Clark MD Other X-Ray Diagnostic Results Other X-Ray Diagnostic Results : X-Ray ordered: L shoulder # of Views/Limited Vs Complete: 3 View Indication: Pain EP Interpretation: Yes Interpretation: no dislocation, no soft tissue swelling, no fractures Impression: No acute disease Electronically Signed by: Electronically signed by Sanju Clark MD Last Vital Signs Date Time Temp Pulse Resp B/P (MAP) Pulse Ox O2 Delivery O2 Flow Rate FiO2 02/04/19 08:47 106 20 100 Room Air 21 02/04/19 07:46 97.9 128/85 Status: improved Disposition: ADMITTED INPATIENT Condition: Serious Referrals: NON PHYSICIAN (PCP) Sanju Clark MD Feb 04, 2019 08:53
[2019-02-04 08:55] LABS: BASOPHILS % (AUTO) 1.1 % (0.0-2.0); HEMATOCRIT 35.7 % (37.0-47.0); HEMOGLOBIN 11.6 G/DL (12.0-16.0); LYMPHOCYTES % (AUTO) 15.7 % (20.0-45.0); MEAN CORPUSCULAR VOLUME 85 FL (80-99); MONOCYTES % (AUTO) 14.8 % (1.0-10.0); NEUTROPHILS % (AUTO) 65.4 % (45.0-75.0); PLATELET COUNT 149 K/UL (150-450); RED BLOOD COUNT 4.18 M/UL (4.20-5.40); RED CELL DISTRIBUTION WIDTH 15.8 % (11.6-14.8); WHITE BLOOD COUNT 8.5 K/UL (4.8-10.8)
--- NOTE | 2019-02-04 08:58 | Diagnostic Imaging Report ---
Indication: Shoulder pain after inoculation 3 weeks ago Technique: 3 views of the left shoulder Comparison: none Findings: No acute fractures. No dislocations. No soft tissue gas or radiopaque foreign body Impression: Negative
--- NOTE | 2019-02-04 08:59 | Diagnostic Imaging Report ---
Indication: Shortness of breath Technique: One view of the chest Comparison: 11/05/2018 Findings: Body habitus limits evaluation. There is a right-sided pleural effusion which is increased from the previous study. Suspect small left-sided pleural effusion as well. The heart is enlarged. No definite congestion, infiltrates, or effusions. Impression: Right and suspect left pleural effusions Cardiomegaly
--- NOTE | 2019-02-04 09:00 | NUR ---
ED Nurse Note:pt. came from home with c/o SOB and left upper arm pain, pt. is A/Ox4 ambulating with walker, blood and urine sent to labs, pt. received 3 breathing treatments, VSS, continue monitor
[2019-02-04 09:07] LABS: INR 1.9 (0.9-1.1)
[2019-02-04 09:56] VITALS: BP 124/69
[2019-02-04 10:11] LABS: ALANINE AMINOTRANSFERASE 21 U/L (12-78); ALBUMIN 3.7 G/DL (3.4-5.0); ALBUMIN/GLOBULIN RATIO 0.9 (1.0-2.7); ALKALINE PHOSPHATASE 144 U/L (46-116); ANION GAP 9 mmol/L (5-15); ASPARTATE AMINO TRANSFERASE 26 U/L (15-37); BILIRUBIN,TOTAL 1.3 MG/DL (0.2-1.0); BLOOD UREA NITROGEN 27 mg/dL (7-18); CALCIUM 9.9 MG/DL (8.5-10.1); CARBON DIOXIDE 26 MMOL/L (21-32); CHLORIDE 107 MMOL/L (98-107); CKMB < 0.5 NG/ML (0.0-3.6); CREATINE KINASE 54 U/L (26-308); CREATININE 1.6 MG/DL (0.55-1.30)
[2019-02-04 10:14] LABS: BILIRUBIN,DIRECT 0.5 MG/DL (0.0-0.3); SODIUM 141 MMOL/L (136-145)
[2019-02-04] MEDS ORDERED: Albuterol ud Inhalation HHN ONE (10:15)
[2019-02-04] MEDS ORDERED: Ipratropium 0.02% Inh Soln 2.5ml UD HHN ONE (10:15)
[2019-02-04 10:22] LABS: APPEARANCE,URINE CLEAR; BILIRUBIN, URINE NEGATIVE (NEGATIVE); COLOR,URINE PALE YELLOW; GLUCOSE, URINE (UA) NEGATIVE (NEGATIVE); KETONES,URINE NEGATIVE (NEGATIVE); LEUKOCYTE ESTERASE ,URINE 2+ (NEGATIVE); NITRITE,URINE NEGATIVE (NEGATIVE); PH,URINE 7 (4.5-8.0); PROTEIN,URINE 1+ (NEGATIVE); UROBILINOGEN,URINE NORMAL MG/DL (0.0-1.0)
[2019-02-04] MEDS ORDERED: Insulin Human Regular 100units/ml 3ml IV ONE (10:30)
[2019-02-04] MEDS ORDERED: Bumetanide 2.5mg/10ml Inj IVP ONE (11:00)
[2019-02-04 11:23] VITALS: BP 129/70
--- NOTE | 2019-02-04 11:39 | NUR ---
ED Nurse Note:pt. was transfered to tele, report given to RN
[2019-02-04] MEDS ORDERED: Nitroglycerin Subl 0.4mg tab SL PRN (12:30)
[2019-02-04] MEDS ORDERED: Albuterol/Ipratropium 3ml neb HHN PRN (12:30)
[2019-02-04] MEDS ORDERED: Morphine Sulfate 2mg/ml Inj(IV/IM USE ONLY) IVP PRN (12:30)
[2019-02-04] MEDS ORDERED: Ketorolac 30mg Inj IV PRN (12:30)
[2019-02-04] MEDS ORDERED: LORazepam Inj 2mg/ml 1ml IV PRN (12:30)
[2019-02-04] MEDS ORDERED: Piperacillin/Tazobactam 2.25 GM in D5W 55 ML IV SCH (14:00)
[2019-02-04] MEDS: Promethazine/Codeine 5ml UD ORAL PRN (15:58)
[2019-02-04] MEDS: Zoysn 3.37gm in NS 100ML IVPB SCH ×2 (15:58→21:35)
[2019-02-04 16:28] LABS: ANION GAP 15 mmol/L (5-15); BLOOD UREA NITROGEN 26 mg/dL (7-18); CALCIUM 9.3 MG/DL (8.5-10.1); CARBON DIOXIDE 24 MMOL/L (21-32); CHLORIDE 102 MMOL/L (98-107); POTASSIUM 5.4 MMOL/L (3.5-5.1); SODIUM 140 MMOL/L (136-145)
[2019-02-04] MEDS: Solu-MEDROL 125mg Inj IV SCH (17:22)
--- NOTE | 2019-02-04 19:13 | History & Physical ---
History and Physical History & Physicial Dictated for Int Med-Dr Gonzalez no. [id number]. Zuhair Baugh MD Feb 04, 2019 19:13
--- NOTE | 2019-02-04 19:23 | NUR ---
HAND-OFF: Report given to Cheryle Machado. Plan of care endorsed.
--- NOTE | 2019-02-04 19:25 | NUR ---
NURSE NOTES: Report received from LORI Lora. Pt is in stable condition and lying comfortably in bed. Bed is in the lowest position with bed brakes engaged. Side rails are up x3 with call light within reach. Will continue to monitor.
[2019-02-04 20:00] VITALS: BP 127/99
[2019-02-04] MEDS: Theophylline ER 100mg ORAL SCH (20:59)
[2019-02-04] MEDS: Heparin 5000 units/ml inj SUBQ SCH ×2 (21:00→21:39)
--- NOTE | 2019-02-04 21:30 | History and Physical Report ---
DATE OF ADMISSION: 02/04/2019 CHIEF COMPLAINT: The patient is an 78-year-old female, presents with chief complaint of shortness of breath and left shoulder pain. HISTORY OF PRESENT ILLNESS: The patient has a history of asthma. The patient states she began to experience left shoulder pain two weeks ago. The patient had an hepatitis immunization. The patient states her left shoulder has been painful since that time. The patient also complains of shortness of breath. This began about 3 days prior to admission. The patient also has a nonproductive cough. The patient was admitted to [facility] in 10/2018 with non-ST elevated OR and congestive heart failure. The patient was admitted for shortness of breath to rule out acute exacerbation of asthma versus congestive heart failure. REVIEW OF SYSTEMS: CONSTITUTIONAL: The patient denies weight loss or weight gain. The patient denies fevers or chills. HEENT: The patient denies ear or throat pain. The patient denies headache. CARDIOVASCULAR: The patient denies palpitations or chest pain. CHEST: The patient complains of shortness of breath as above. The patient complains of nonproductive cough. The patient denies wheezes. ABDOMEN: The patient denies nausea, vomiting, diarrhea, or constipation. GENITOURINARY: The patient denies dysuria or increased frequency of urination. NEUROMUSCULAR: The patient complains of left shoulder pain as above. The patient denies seizures or generalized weakness. PAST MEDICAL HISTORY: Significant for: 1. Asthma. 2. Congestive heart failure. 3. Atrial fibrillation. 4. Coronary disease, status post non-ST elevated OR in 10/2018. 5. Diabetes type 2. 6. Hypertension. PAST SURGICAL HISTORY: Significant for bilateral cataract surgery. CURRENT MEDICATIONS: 1. Albuterol metered-dose inhaler two puffs p.o. q.i.d. p.r.n. 2. Aspirin 81 mg p.o. daily. 3. Atorvastatin 40 mg p.o. at bedtime. 4. 1 mg p.o. twice daily. 5. Carvedilol 25 mg p.o. twice daily. 6. Diltiazem 180 mg p.o. daily. 7. Flovent 2 puffs p.o. twice daily. 8. Lasix 80 mg p.o. daily. 9. Hydralazine 10 mg p.o. 3 times daily. 10. Atrovent metered-dose inhaler two puffs p.o. q.6 hours. 11. Isosorbide mononitrate 10 mg p.o. at bedtime. 12. Xalatan one drop to both eyes at bedtime. 13. Losartan 100 mg p.o. daily. 14. Magnesium oxide 400 mg p.o. twice daily. 15. Metformin 1000 mg p.o. twice daily. 16. Metoprolol 100 mg p.o. twice daily. 17. Zocor 40 mg p.o. at bedtime. 18. Spironolactone/hydrochlorothiazide 25/25 one tablet p.o. daily. 19. Valsartan/hydrochlorothiazide 320/25 one tablet p.o. daily. 20. Coumadin 4 mg p.o. daily. ALLERGIES: No known drug allergies. SOCIAL HISTORY: The patient is a . The patient lives alone. The patient denies tobacco or alcohol use. PHYSICAL EXAMINATION: VITAL SIGNS: Temperature 97.9, respirations 20, pulse 96, and blood pressure 128/85. GENERAL: The patient is a well-developed and well-nourished slightly obese female, in no apparent distress. HEENT: Eyes, pupils equal and responsive to light and accommodation. Extraocular movements are intact. NECK: Supple without lymphadenopathy. CHEST: Few diffuse wheezes bilaterally, otherwise without crackles. ABDOMEN: Soft, nontender, and nondistended. Positive bowel sounds. No evidence of hepatosplenomegaly. Currently, no rebound or guarding noted. EXTREMITIES: Negative for clubbing, cyanosis, or edema. RECTAL: Not performed. GENITAL: Not performed. NEUROLOGIC: Cranial nerves II through XII are grossly intact without focal deficits. LABORATORY AND DIAGNOSTIC DATA: WBC 8.5, hemoglobin 11.6, hematocrit 35.7, platelets 149,000. Sodium 141, potassium 6.0, chloride 107, CO2 26, BUN 27, creatinine 1.6, and glucose 101. Troponin elevated at 0.140. BNP elevated at 4688. A chest x-ray was reported as right pleural effusion. An x-ray of the left shoulder failed to demonstrate acute fracture or osseous abnormality. ASSESSMENT: This is an 78-year-old female with: 1. Shortness of breath. 2. Acute exacerbation of acute on chronic congestive heart failure. 3. Asthma. 4. Left shoulder pain. 5. Diabetes type 2. 6. Hypertension. 7. Atrial fibrillation. 8. Coronary artery disease. 9. Right pleural effusion. TREATMENT: 1. Shortness of breath/asthma. A Pulmonary consultation has been obtained with Dr. Zeke Mckee. We will follow recommendations of Pulmonary. 2. Acute exacerbation of congestive heart failure/coronary disease. A Cardiology consultation has been obtained with Dr. Mike Carty. The patient is currently receiving intravenous diuretics. We will follow recommendations of Cardiology. An echocardiogram is pending. 3. Diabetes type 2. A NovoLog sliding scale has been instituted. 4. Left shoulder pain. An x-ray failed to demonstrate acute osseous abnormality. The patient will be offered pain medication p.r.n. 5. Atrial fibrillation. 6. Right pleural effusion. Zuhair Baugh M.D. DR: KEVON JOB#: [id number] CC:
[2019-02-05] VITALS: BP 108/78
[2019-02-05] MEDS: Solu-MEDROL 125mg Inj IV SCH ×2 (01:02→06:34)
[2019-02-05 04:00] VITALS: BP 126/75
[2019-02-05 06:11] LABS: HEMOGLOBIN 10.8 G/DL (12.0-16.0); MEAN CORPUSCULAR VOLUME 85 FL (80-99); PLATELET COUNT 138 K/UL (150-450); RED BLOOD COUNT 3.88 M/UL (4.20-5.40); RED CELL DISTRIBUTION WIDTH 15.4 % (11.6-14.8); WHITE BLOOD COUNT 9.5 K/UL (4.8-10.8)
[2019-02-05] MEDS: Zoysn 3.37gm in NS 100ML IVPB SCH (06:34)
--- NOTE | 2019-02-05 07:14 | NUR ---
HAND-OFF: Report given to LORI Lora. Plan of care endorsed.
--- NOTE | 2019-02-05 07:22 | NUR ---
CASE MANAGEMENT:REVIEW 78 YR OLD FEMALE PRESENTED TO ER CC: LT ARM PAIN. SOB SI: ASTHMA EXACERBATION. AC/CHR CHF 97.9 96 20 128/85 92% ON RA PLT-149 K+6.0 BUN+27 CR+1.6 TROPONIN(+) 0.140 IS: DUONEB HHN X3 IV SOLUMEDROL TYLENOL #3 XRAY SHOULDER CHEST XRAY BLOOD CX : TO TELEMETRY INTERQUAL CRITERIA MET
[2019-02-05 07:54] LABS: ALANINE AMINOTRANSFERASE 20 U/L (12-78); ALBUMIN 3.3 G/DL (3.4-5.0); ALBUMIN/GLOBULIN RATIO 0.8 (1.0-2.7); ALKALINE PHOSPHATASE 116 U/L (46-116); ANION GAP 11 mmol/L (5-15); ASPARTATE AMINO TRANSFERASE 20 U/L (15-37); BILIRUBIN,TOTAL 1.1 MG/DL (0.2-1.0); BLOOD UREA NITROGEN 31 mg/dL (7-18); CALCIUM 9.4 MG/DL (8.5-10.1); CARBON DIOXIDE 23 MMOL/L (21-32); CHLORIDE 105 MMOL/L (98-107); PHOSPHORUS 3.6 MG/DL (2.5-4.9); POTASSIUM 5.6 MMOL/L (3.5-5.1); SODIUM 139 MMOL/L (136-145)
[2019-02-05 07:55] LABS: BILIRUBIN,DIRECT 0.4 MG/DL (0.0-0.3)
[2019-02-05 08:00] VITALS: BP 138/77
[2019-02-05] MEDS: Theophylline ER 100mg ORAL SCH ×2 (08:32→21:20)
[2019-02-05] MEDS: Heparin 5000 units/ml inj SUBQ SCH ×2 (09:00→21:29)
--- NOTE | 2019-02-05 09:30 | Consultation ---
Consult Note Consult Note asked to eval for renal failure 78-year-old female presents ED for evaluation. Patient complaining of left shoulder pain. States that about 2 weeks ago she received a hepatitis shot in her left shoulder at a clinic. States she's been having persistent pain to that shoulder since. Pain is throbbing, 8 out of 10, nonradiating. Unable to sleep because pain. Denies fevers or chills. Denies chest pain. Patient is complaining of shortness of breath and congestion. History of asthma. History of CHF and A. fib. States that her breathing treatments are not helping at home. No other aggravating relieving factors. Denies sick contacts or recent travel. Denies any other associated symptoms No Known Allergies (Unverified , 05/24/12) Past Medical History: DM, HTN, CHF, AFib, asthma Hx Cardiac Problems: Yes - CHF, AFIB Hx Hypertension: Yes Hx Asthma: Yes Hx Diabetes: Yes interviewed examined data reviewed . Assessment/Plan Renal failure- Cr rising- ATN CKD- Diabetic Nephropathy High K Anemia Asthma exacerbation Shoulder pain Atrial fibrillation CHF (congestive heart failure) History of heart surgery in the past. History of DELPHINE. h/o Cardioversion. elevated troponin I DC Toradol Mag supplement avoid nephrotoxics Renal and Diabetic friendly diet steroids, taper as possible anemia taylor per orders Adams Pinto MD Feb 05, 2019 09:30
[2019-02-05] MEDS: Nitroglycerin Patch 0.4mg TDERMAL SCH (10:04)
[2019-02-05] MEDS ORDERED: Sodium Polystyrene Sulfonate 15gm Powder ORAL SCH (11:00)
[2019-02-05 12:00] VITALS: BP 145/85
--- NOTE | 2019-02-05 12:09 | Pulmonology Progress Note ---
Assessment/Plan Problems: (1) Acute bronchitis (2) Asthma exacerbation (3) ATN (acute tubular necrosis) (4) Diabetes (5) HTN (hypertension) Assessment/Plan taper steroids watch electrolytes awaiting cardiology to see monitor bp renal consult appreciated. Subjective ROS Limited/Unobtainable: No Constitutional: Reports: no symptoms HEENT: Repors: no symptoms Allergies: Coded Allergies: No Known Allergies (Unverified , 05/24/12) Objective Last 24 Hour Vital Signs Date Time Temp Pulse Resp B/P (MAP) Pulse Ox O2 Delivery O2 Flow Rate FiO2 02/05/19 10:04 138/77 02/05/19 09:00 Room Air 02/05/19 08:58 78 20 Room Air 21 02/05/19 08:00 98.3 97 20 138/77 (97) 100 97 02/05/19 08:00 105 02/05/19 04:00 98.3 94 20 126/75 (92) 100 94 02/05/19 04:00 89 02/05/19 01:38 97.8 02/05/19 00:00 98.3 136 20 108/78 (88) 94 136 02/05/19 00:00 99 02/04/19 22:46 Room Air 02/04/19 20:00 117 20 Room Air 21 02/04/19 20:00 97.8 120 20 127/99 (108) 98 120 02/04/19 20:00 106 02/04/19 16:00 125 02/04/19 15:12 Room Air Intake and Output 02/04/19 02/05/19 19:00 07:00 Intake Total 120 ml Balance 120 ml Intake Oral 120 ml # Voids 1 3 # Bowel Movements 1 Objective General Appearance: WD/WN, no apparent distress Lines, tubes and drains: peripheral, HEENT: normocephalic, atraumatic Neck: non-tender, normal alignment Respiratory/Chest: chest wall non-tender, lungs clear Breasts: no masses Cardiovascular/Chest: normal peripheral pulses Abdomen: normal bowel sounds, non tender Extremities: normal range of motion Skin Exam: normal pigmentation Laboratory Tests 02/04/19 13:15: Troponin I 0.118H 02/04/19 15:45: Sodium Level 140, Potassium Level 5.4H, Chloride Level 102, Carbon Dioxide Level 24, Anion Gap 15, Blood Urea Nitrogen 26H, Creatinine 2.0H, Estimat Glomerular Filtration Rate , Glucose Level 212#H, Calcium Level 9.3 02/05/19 05:25: Troponin I 0.114H, Sodium Level 139, Potassium Level 5.6H, Chloride Level 105, Carbon Dioxide Level 23, Anion Gap 11, Blood Urea Nitrogen 31H, Creatinine 2.0H , Estimat Glomerular Filtration Rate , Glucose Level 158H, Calcium Level 9.4, White Blood Count 9.5, Red Blood Count 3.88L, Hemoglobin 10.8L, Hematocrit 33.0L , Mean Corpuscular Volume 85, Mean Corpuscular Hemoglobin 28.0, Mean Corpuscular Hemoglobin Concent 32.8, Red Cell Distribution Width 15.4H, Platelet Count 138L, Mean Platelet Volume 7.9, Neutrophils (%) (Auto) , Lymphocytes (%) (Auto) , Monocytes (%) (Auto) , Eosinophils (%) (Auto) , Basophils (%) (Auto) , Erythrocyte Sedimentation Rate 41H, Phosphorus Level 3.6 , Magnesium Level 1.5L, Total Bilirubin 1.1H, Direct Bilirubin 0.4H, Aspartate Amino Transf (AST/SGOT) 20, Alanine Aminotransferase (ALT/SGPT) 20, Alkaline Phosphatase 116, C-Reactive Protein, Quantitative < 0.4, Pro-B-Type Natriuretic Peptide 7459H, Total Protein 7.3, Albumin 3.3L, Globulin 4.0, Albumin/Globulin Ratio 0.8L Current Medications Medications (Trade) Dose Ordered Sig/Ernesto Route PRN Reason Start Time Stop Time Status Last Admin Dose Admin Albuterol/ Ipratropium (Albuterol/ Ipratropium) 3 ml Q4H PRN HHN dyspnea 02/04/19 12:30 02/09/19 12:29 Dextrose (Dextrose 50%) 25 ml Q30M PRN IV Hypoglycemia 02/04/19 12:30 03/06/19 12:29 Dextrose (Dextrose 50%) 50 ml Q30M PRN IV Hypoglycemia 02/04/19 12:30 03/06/19 12:29 Docusate Sodium (Colace) 100 mg THREE TIMES A DAY ORAL 02/05/19 13:00 03/07/19 12:59 Heparin Sodium (Porcine) (Heparin 5000 units/ml) 5,000 units EVERY 12 HOURS SUBQ 02/04/19 21:00 03/06/19 20:59 02/04/19 21:39 Lorazepam (Ativan 2mg/ml 1ml) 0.5 mg Q4H PRN IV For Anxiety 02/04/19 12:30 02/11/19 12:29 Magnesium Sulfate 100 ml @ 100 mls/hr Q1H IVPB 02/05/19 10:30 02/05/19 12:29 02/05/19 11:52 Morphine Sulfate (Morphine Sulfate) 2 mg Q4H PRN IVP severe pain 7-10 02/04/19 12:30 02/11/19 12:29 Nitroglycerin (Ntg) 0.4 mg Q5M X 3 DOSES PRN SL Prn Chest Pain 02/04/19 12:30 03/06/19 12:29 Nitroglycerin (Ntg) 1 patch Q24H TDERMAL 02/05/19 10:00 03/07/19 09:59 02/05/19 10:04 Ondansetron HCl (Zofran) 4 mg Q6H PRN IVP Nausea & Vomiting 02/04/19 12:30 03/06/19 12:29 Pantoprazole (Protonix) 40 mg EVERY 12 HOURS ORAL 02/05/19 09:45 03/07/19 09:44 02/05/19 10:04 Promethazine HCl/ Codeine (Phenergan with Codeine) 5 ml Q6H PRN ORAL cough 02/04/19 12:30 03/06/19 12:29 02/04/19 15:58 Sodium Polystyrene Sulfonate (Kayexalate) 45 gm ONCE ORAL 02/05/19 11:00 02/05/19 13:00 Temazepam (Restoril) 15 mg HSPRN PRN ORAL Insomnia 02/04/19 12:30 02/11/19 12:29 Theophylline (Francois-Dur) 100 mg EVERY 12 HOURS ORAL 02/04/19 21:00 03/06/19 20:59 02/05/19 08:32 Zeke Mckee MD Feb 05, 2019 12:09
--- NOTE | 2019-02-05 12:09 | Consultation ---
History of Present Illness General Date patient seen: Feb 04, 2019 Chief Complaint: General Complaint Present Illness HPI 78-year-old female with hx of DM, HTN, CHF, AFib, asthma presented to ER complaining of shortness of breath and congestion. States that her breathing treatments are not helping at home. Allergies: Coded Allergies: No Known Allergies (Unverified , 05/24/12) Medication History Scheduled Albuterol Sulfate* (Proair Hfa*), 2 PUFFS INH Q6H, (Reported) Aspirin* (Aspir 81*), 81 MG ORAL DAILY, (Reported) Atorvastatin Calcium* (Atorvastatin Calcium*), 40 MG ORAL BEDTIME, (Reported) Bumetanide* (Bumetanide*), 1 MG ORAL BID, (Reported) Carvedilol* (Carvedilol*), 25 MG ORAL EVERY 12 HOURS, (Reported) Carvedilol* (Carvedilol*), 25 MG ORAL EVERY 12 HOURS, (Reported) Diltiazem HCl (Diltiazem 24HR Cd), 180 MG ORAL DAILY, (Reported) Diltiazem Hcl* (Cardizem Cd*), 120 MG ORAL DAILY, (Reported) Diltiazem Hcl* (Cardizem*), 60 MG ORAL EVERY 6 HOURS Fluticasone Propionate (Flovent Hfa), 2 PUFFS INH BID, (Reported) Furosemide* (Lasix*), 80 MG ORAL DAILY, (Reported) Hydralazine Hcl* (Hydralazine Hcl*), 10 MG ORAL EVERY 8 HOURS, (Reported) Isosorbide Mononitrate (Isosorbide Mononitrate), 30 MG PO DAILY, (Reported) Latanoprost* (Xalatan*), 1 DROP BOTH EYES BEDTIME, (Reported) Losartan Potassium* (Losartan Potassium*), 100 MG ORAL DAILY, (Reported) Magnesium Oxide (Magnesium Oxide), 400 MG ORAL BID, (Reported) Metformin Hcl* (Metformin Hcl*), 1,000 MG ORAL DAILY, (Reported) Metoprolol Tartrate* (Metoprolol Tartrate*), 100 MG ORAL EVERY 12 HOURS, ( Reported) Metoprolol Tartrate* (Metoprolol Tartrate*), 50 MG ORAL Q12HR Simvastatin (Zocor), 40 MG ORAL BEDTIME, (Reported) Simvastatin (Zocor), 40 MG ORAL BEDTIME, (Reported) Spironolact/Hydrochlorothiazid (Spironolactone-Hctz 25-25 Tab), 50 MG ORAL DAILY , (Reported) Valsartan/Hydrochlorothiazide 320-25MG (Diovan Hct 320-25 Mg Tablet), 1 TAB ORAL DAILY, (Reported) Warfarin Sod* (Coumadin*), 4 MG ORAL DAILY, (Reported) Warfarin Sod* (Warfarin Sod*), 4 MG ORAL DAILY, (Reported) Miscellaneous Medications Ipratropium [place] (Atrovent Hfa), 12.9 GM IH, (Reported) Patient History Healthcare decision maker N Resuscitation status Full Code Advanced Directive on File No Past Medical/Surgical History Past Medical/Surgical History: (1) HTN (hypertension) (2) Asthma (3) Diabetes (4) HLD (hyperlipidemia) Review of Systems All Other Systems: negative except mentioned in HPI Physical Exam General Appearance: WD/WN, no apparent distress Lines, tubes and drains: peripheral, central line HEENT: normocephalic, atraumatic Neck: non-tender, normal alignment Respiratory/Chest: chest wall non-tender, lungs clear Breasts: no masses Cardiovascular/Chest: normal peripheral pulses Abdomen: normal bowel sounds, non tender Extremities: normal range of motion Skin Exam: normal pigmentation Last 24 Hour Vital Signs Date Time Temp Pulse Resp B/P (MAP) Pulse Ox O2 Delivery O2 Flow Rate FiO2 02/05/19 10:04 138/77 02/05/19 09:00 Room Air 02/05/19 08:58 78 20 Room Air 21 02/05/19 08:00 98.3 97 20 138/77 (97) 100 97 02/05/19 08:00 105 02/05/19 04:00 98.3 94 20 126/75 (92) 100 94 02/05/19 04:00 89 02/05/19 01:38 97.8 02/05/19 00:00 98.3 136 20 108/78 (88) 94 136 02/05/19 00:00 99 02/04/19 22:46 Room Air 02/04/19 20:00 117 20 Room Air 21 02/04/19 20:00 97.8 120 20 127/99 (108) 98 120 02/04/19 20:00 106 02/04/19 16:00 125 02/04/19 15:12 Room Air Intake and Output 02/04/19 02/05/19 19:00 07:00 Intake Total 120 ml Balance 120 ml Intake Oral 120 ml # Voids 1 3 # Bowel Movements 1 Laboratory Tests Test 02/04/19 13:15 02/04/19 15:45 02/05/19 05:25 Troponin I 0.118 ng/mL (0.000-0.056) 0.114 ng/mL (0.000-0.056) Sodium Level 140 MMOL/L (136-145) 139 MMOL/L (136-145) Potassium Level 5.4 MMOL/L (3.5-5.1) H 5.6 MMOL/L (3.5-5.1) H Chloride Level 102 MMOL/L (98-107) 105 MMOL/L (98-107) Carbon Dioxide Level 24 MMOL/L (21-32) 23 MMOL/L (21-32) Anion Gap 15 mmol/L (5-15) 11 mmol/L (5-15) Blood Urea Nitrogen 26 mg/dL (7-18) H 31 mg/dL (7-18) H Creatinine 2.0 MG/DL (0.55-1.30) H 2.0 MG/DL (0.55-1.30) H Estimat Glomerular Filtration Rate mL/min (>60) mL/min (>60) Glucose Level 212 MG/DL (74-106) #H 158 MG/DL (74-106) H Calcium Level 9.3 MG/DL (8.5-10.1) 9.4 MG/DL (8.5-10.1) White Blood Count 9.5 K/UL (4.8-10.8) Red Blood Count 3.88 M/UL (4.20-5.40) L Hemoglobin 10.8 G/DL (12.0-16.0) L Hematocrit 33.0 % (37.0-47.0) L Mean Corpuscular Volume 85 FL (80-99) Mean Corpuscular Hemoglobin 28.0 PG (27.0-31.0) Mean Corpuscular Hemoglobin Concent 32.8 G/DL (32.0-36.0) Red Cell Distribution Width 15.4 % (11.6-14.8) H Platelet Count 138 K/UL (150-450) L Mean Platelet Volume 7.9 FL (6.5-10.1) Neutrophils (%) (Auto) % (45.0-75.0) Lymphocytes (%) (Auto) % (20.0-45.0) Monocytes (%) (Auto) % (1.0-10.0) Eosinophils (%) (Auto) % (0.0-3.0) Basophils (%) (Auto) % (0.0-2.0) Erythrocyte Sedimentation Rate 41 MM/HR (0-30) H Phosphorus Level 3.6 MG/DL (2.5-4.9) Magnesium Level 1.5 MG/DL (1.8-2.4) L Total Bilirubin 1.1 MG/DL (0.2-1.0) H Direct Bilirubin 0.4 MG/DL (0.0-0.3) H Aspartate Amino Transf (AST/SGOT) 20 U/L (15-37) Alanine Aminotransferase (ALT/SGPT) 20 U/L (12-78) Alkaline Phosphatase 116 U/L (46-116) C-Reactive Protein, Quantitative < 0.4 mg/dL (0.00-0.90) Pro-B-Type Natriuretic Peptide 7459 pg/mL (0-125) H Total Protein 7.3 G/DL (6.4-8.2) Albumin 3.3 G/DL (3.4-5.0) L Globulin 4.0 g/dL Albumin/Globulin Ratio 0.8 (1.0-2.7) L Height (Feet): 5 Height (Inches): 6.00 Weight (Pounds): 206 Medications Current Medications Medications (Trade) Dose Ordered Sig/Ernesto Route PRN Reason Start Time Stop Time Status Last Admin Dose Admin Albuterol/ Ipratropium (Albuterol/ Ipratropium) 3 ml Q4H PRN HHN dyspnea 02/04/19 12:30 02/09/19 12:29 Dextrose (Dextrose 50%) 25 ml Q30M PRN IV Hypoglycemia 02/04/19 12:30 03/06/19 12:29 Dextrose (Dextrose 50%) 50 ml Q30M PRN IV Hypoglycemia 02/04/19 12:30 03/06/19 12:29 Docusate Sodium (Colace) 100 mg THREE TIMES A DAY ORAL 02/05/19 13:00 03/07/19 12:59 Heparin Sodium (Porcine) (Heparin 5000 units/ml) 5,000 units EVERY 12 HOURS SUBQ 02/04/19 21:00 03/06/19 20:59 02/04/19 21:39 Lorazepam (Ativan 2mg/ml 1ml) 0.5 mg Q4H PRN IV For Anxiety 02/04/19 12:30 02/11/19 12:29 Magnesium Sulfate 100 ml @ 100 mls/hr Q1H IVPB 02/05/19 10:30 02/05/19 12:29 02/05/19 11:52 Methylprednisolone Sodium Succinate (Solu-MEDROL) 60 mg EVERY 8 HOURS IV 02/05/19 14:00 03/06/19 17:59 Morphine Sulfate (Morphine Sulfate) 2 mg Q4H PRN IVP severe pain 7-10 02/04/19 12:30 02/11/19 12:29 Nitroglycerin (Ntg) 0.4 mg Q5M X 3 DOSES PRN SL Prn Chest Pain 02/04/19 12:30 03/06/19 12:29 Nitroglycerin (Ntg) 1 patch Q24H TDERMAL 02/05/19 10:00 03/07/19 09:59 02/05/19 10:04 Ondansetron HCl (Zofran) 4 mg Q6H PRN IVP Nausea & Vomiting 02/04/19 12:30 03/06/19 12:29 Pantoprazole (Protonix) 40 mg EVERY 12 HOURS ORAL 02/05/19 09:45 03/07/19 09:44 02/05/19 10:04 Piperacillin Sod/ Tazobactam Sod 3.375 gm/Sodium Chloride 110 ml @ 27.5 mls/hr EVERY 8 HOURS IVPB 02/04/19 14:00 02/09/19 13:59 02/05/19 06:34 Promethazine HCl/ Codeine (Phenergan with Codeine) 5 ml Q6H PRN ORAL cough 02/04/19 12:30 03/06/19 12:29 02/04/19 15:58 Sodium Polystyrene Sulfonate (Kayexalate) 45 gm ONCE ORAL 02/05/19 11:00 4/12/19 13:00 Temazepam (Restoril) 15 mg HSPRN PRN ORAL Insomnia 02/04/19 12:30 02/11/19 12:29 Theophylline (Francois-Dur) 100 mg EVERY 12 HOURS ORAL 02/04/19 21:00 03/06/19 20:59 02/05/19 08:32 Assessment/Plan Problem List: (1) Acute bronchitis ICD Codes: J20.9 - Acute bronchitis, unspecified SNOMED: 57062726 (2) Asthma exacerbation ICD Codes: J45.901 - Unspecified asthma with (acute) exacerbation SNOMED: 185443373 Qualifiers: Qualified Codes: J45.901 - Unspecified asthma with (acute) exacerbation (3) ATN (acute tubular necrosis) ICD Codes: N17.0 - Acute kidney failure with tubular necrosis SNOMED: 08450657 (4) Diabetes ICD Codes: E11.9 - Type 2 diabetes mellitus without complications SNOMED: 05736533 (5) HTN (hypertension) ICD Codes: I10 - Essential (primary) hypertension SNOMED: 07613856 Assessment/Plan respiratory treatment iv abx/ steroids check electrolytes cardiology to see dvt prophylaxis Cardio and renal consult requested. Zeke Mckee MD Feb 05, 2019 12:09
[2019-02-05] MEDS: Docusate 100mg cap ORAL SCH ×2 (13:04→18:00)
[2019-02-05] MEDS ORDERED: Solu-MEDROL 125mg Inj IV SCH (14:00)
[2019-02-05 16:00] VITALS: BP 146/82
--- NOTE | 2019-02-05 17:30 | Cardiology Report ---
APPROVED REPORT EKG Measurement Heart [id number] Atrial fibrillation Nonspecific ST and T wave abnormality Abnormal ECG
--- NOTE | 2019-02-05 18:25 | Internal Med Progress Note ---
Subjective Physician Name Rashaun Gonzalez Attending Physician Rashaun Gonzalez MD Current Medications Medications (Trade) Dose Ordered Sig/Ernesto Route PRN Reason Start Time Stop Time Status Last Admin Dose Admin Albuterol/ Ipratropium (Albuterol/ Ipratropium) 3 ml Q4H PRN HHN dyspnea 02/04/19 12:30 02/09/19 12:29 Dextrose (Dextrose 50%) 25 ml Q30M PRN IV Hypoglycemia 02/04/19 12:30 03/06/19 12:29 Dextrose (Dextrose 50%) 50 ml Q30M PRN IV Hypoglycemia 02/04/19 12:30 03/06/19 12:29 Docusate Sodium (Colace) 100 mg THREE TIMES A DAY ORAL 02/05/19 13:00 03/07/19 12:59 02/05/19 13:04 Heparin Sodium (Porcine) (Heparin 5000 units/ml) 5,000 units EVERY 12 HOURS SUBQ 02/04/19 21:00 03/06/19 20:59 02/04/19 21:39 Lorazepam (Ativan 2mg/ml 1ml) 0.5 mg Q4H PRN IV For Anxiety 02/04/19 12:30 02/11/19 12:29 Morphine Sulfate (Morphine Sulfate) 2 mg Q4H PRN IVP severe pain 7-10 02/04/19 12:30 02/11/19 12:29 Nitroglycerin (Ntg) 0.4 mg Q5M X 3 DOSES PRN SL Prn Chest Pain 02/04/19 12:30 03/06/19 12:29 Nitroglycerin (Ntg) 1 patch Q24H TDERMAL 02/05/19 10:00 03/07/19 09:59 02/05/19 10:04 Ondansetron HCl (Zofran) 4 mg Q6H PRN IVP Nausea & Vomiting 02/04/19 12:30 03/06/19 12:29 Pantoprazole (Protonix) 40 mg EVERY 12 HOURS ORAL 02/05/19 09:45 03/07/19 09:44 02/05/19 10:04 Promethazine HCl/ Codeine (Phenergan with Codeine) 5 ml Q6H PRN ORAL cough 02/04/19 12:30 03/06/19 12:29 02/04/19 15:58 Temazepam (Restoril) 15 mg HSPRN PRN ORAL Insomnia 02/04/19 12:30 02/11/19 12:29 Theophylline (Francois-Dur) 100 mg EVERY 12 HOURS ORAL 02/04/19 21:00 03/06/19 20:59 02/05/19 08:32 Allergies: Coded Allergies: No Known Allergies (Unverified , 05/24/12) Subjective Awake, alert, responsive, decreased shortness of breath, denies any chest pain. Objective Last Vital Signs Date Time Temp Pulse Resp B/P (MAP) Pulse Ox O2 Delivery O2 Flow Rate FiO2 02/05/19 16:00 127 02/05/19 16:00 98.4 20 146/82 (103) 98 02/05/19 09:00 Room Air 02/05/19 08:58 21 Laboratory Tests Test 02/05/19 05:25 White Blood Count 9.5 K/UL (4.8-10.8) Red Blood Count 3.88 M/UL (4.20-5.40) L Hemoglobin 10.8 G/DL (12.0-16.0) L Hematocrit 33.0 % (37.0-47.0) L Mean Corpuscular Volume 85 FL (80-99) Mean Corpuscular Hemoglobin 28.0 PG (27.0-31.0) Mean Corpuscular Hemoglobin Concent 32.8 G/DL (32.0-36.0) Red Cell Distribution Width 15.4 % (11.6-14.8) H Platelet Count 138 K/UL (150-450) L Mean Platelet Volume 7.9 FL (6.5-10.1) Neutrophils (%) (Auto) % (45.0-75.0) Lymphocytes (%) (Auto) % (20.0-45.0) Monocytes (%) (Auto) % (1.0-10.0) Eosinophils (%) (Auto) % (0.0-3.0) Basophils (%) (Auto) % (0.0-2.0) Erythrocyte Sedimentation Rate 41 MM/HR (0-30) H Sodium Level 139 MMOL/L (136-145) Potassium Level 5.6 MMOL/L (3.5-5.1) H Chloride Level 105 MMOL/L (98-107) Carbon Dioxide Level 23 MMOL/L (21-32) Anion Gap 11 mmol/L (5-15) Blood Urea Nitrogen 31 mg/dL (7-18) H Creatinine 2.0 MG/DL (0.55-1.30) H Estimat Glomerular Filtration Rate mL/min (>60) Glucose Level 158 MG/DL (74-106) H Calcium Level 9.4 MG/DL (8.5-10.1) Phosphorus Level 3.6 MG/DL (2.5-4.9) Magnesium Level 1.5 MG/DL (1.8-2.4) L Total Bilirubin 1.1 MG/DL (0.2-1.0) H Direct Bilirubin 0.4 MG/DL (0.0-0.3) H Aspartate Amino Transf (AST/SGOT) 20 U/L (15-37) Alanine Aminotransferase (ALT/SGPT) 20 U/L (12-78) Alkaline Phosphatase 116 U/L (46-116) Troponin I 0.114 ng/mL (0.000-0.056) C-Reactive Protein, Quantitative < 0.4 mg/dL (0.00-0.90) Pro-B-Type Natriuretic Peptide 7459 pg/mL (0-125) H Total Protein 7.3 G/DL (6.4-8.2) Albumin 3.3 G/DL (3.4-5.0) L Globulin 4.0 g/dL Albumin/Globulin Ratio 0.8 (1.0-2.7) L Intake and Output 02/04/19 02/05/19 18:59 06:59 Intake Total 120 ml Balance 120 ml Intake Oral 120 ml # Voids 1 3 # Bowel Movements 1 Objective General: No acute distress, awake and alert HEENT: NCAT, sclera anicteric, PERRL, EOMI. Neck: Supple, no significant jugular venous distention, Lungs: Good inspiratory effort, decreased air in the bases, expiratory wheezes anterior. Heart: Irregular rate and rhythm, normal S1/S2, no murmurs Abdomen: soft, nontender, nondistended. Normoactive bowel sounds, morbid obesity. / Rectal: Refused and deferred. Extremities: No Cyanosis , clubbing or edema. Neuro: A&O x 3, Able to move all extremities Skin: warm, no rashes or lesions Psych: Normal mood and affect Assessment/Plan Assessment/Plan 1. Shortness of breath is likely secondary to the acute asthma exacerbation. 2. chronic congestive heart failure. 3. Asthma. 4. Left shoulder pain. 5. Diabetes type 2. 6. Hypertension. 7. Atrial fibrillation. 8. Coronary artery disease. 9. Right pleural effusion. TREATMENT: 1. Pulmonary consult with Dr. Zeke Mckee. 2. Cardiology consult with Dr. Mike Carty. 3. Tapered down Solu-Medrol. 4. Monitor laboratory as well as cultures. Rashaun Gonzalez MD Feb 05, 2019 18:25
--- NOTE | 2019-02-05 19:16 | Cardiology Progress Note ---
Assessment/Plan Assessment/Plan per afib on anticoag cri MR TR pulm htn lv systolic dysfunction mild asthma dm abn cardiac enzyme likely related to renal insuf rate control with Cardizem avoid bb while wheezing diuretics anticoag for stroke prevention [id number] Objective Last 24 Hour Vital Signs Date Time Temp Pulse Resp B/P (MAP) Pulse Ox O2 Delivery O2 Flow Rate FiO2 02/05/19 16:00 127 02/05/19 16:00 98.4 108 20 146/82 (103) 98 108 02/05/19 12:00 103 02/05/19 12:00 98.6 92 20 145/85 (105) 100 92 02/05/19 10:04 138/77 02/05/19 09:00 Room Air 02/05/19 08:58 78 20 Room Air 21 02/05/19 08:00 98.3 97 20 138/77 (97) 100 97 02/05/19 08:00 105 02/05/19 04:00 98.3 94 20 126/75 (92) 100 94 02/05/19 04:00 89 02/05/19 01:38 97.8 02/05/19 00:00 98.3 136 20 108/78 (88) 94 136 02/05/19 00:00 99 02/04/19 22:46 Room Air 02/04/19 20:00 117 20 Room Air 21 02/04/19 20:00 97.8 120 20 127/99 (108) 98 120 02/04/19 20:00 106 Intake and Output 02/04/19 02/05/19 18:59 06:59 Intake Total 120 ml Balance 120 ml Intake Oral 120 ml # Voids 1 3 # Bowel Movements 1 Laboratory Tests Test 02/05/19 05:25 White Blood Count 9.5 K/UL (4.8-10.8) Red Blood Count 3.88 M/UL (4.20-5.40) L Hemoglobin 10.8 G/DL (12.0-16.0) L Hematocrit 33.0 % (37.0-47.0) L Mean Corpuscular Volume 85 FL (80-99) Mean Corpuscular Hemoglobin 28.0 PG (27.0-31.0) Mean Corpuscular Hemoglobin Concent 32.8 G/DL (32.0-36.0) Red Cell Distribution Width 15.4 % (11.6-14.8) H Platelet Count 138 K/UL (150-450) L Mean Platelet Volume 7.9 FL (6.5-10.1) Neutrophils (%) (Auto) % (45.0-75.0) Lymphocytes (%) (Auto) % (20.0-45.0) Monocytes (%) (Auto) % (1.0-10.0) Eosinophils (%) (Auto) % (0.0-3.0) Basophils (%) (Auto) % (0.0-2.0) Erythrocyte Sedimentation Rate 41 MM/HR (0-30) H Sodium Level 139 MMOL/L (136-145) Potassium Level 5.6 MMOL/L (3.5-5.1) H Chloride Level 105 MMOL/L (98-107) Carbon Dioxide Level 23 MMOL/L (21-32) Anion Gap 11 mmol/L (5-15) Blood Urea Nitrogen 31 mg/dL (7-18) H Creatinine 2.0 MG/DL (0.55-1.30) H Estimat Glomerular Filtration Rate mL/min (>60) Glucose Level 158 MG/DL (74-106) H Calcium Level 9.4 MG/DL (8.5-10.1) Phosphorus Level 3.6 MG/DL (2.5-4.9) Magnesium Level 1.5 MG/DL (1.8-2.4) L Total Bilirubin 1.1 MG/DL (0.2-1.0) H Direct Bilirubin 0.4 MG/DL (0.0-0.3) H Aspartate Amino Transf (AST/SGOT) 20 U/L (15-37) Alanine Aminotransferase (ALT/SGPT) 20 U/L (12-78) Alkaline Phosphatase 116 U/L (46-116) Troponin I 0.114 ng/mL (0.000-0.056) C-Reactive Protein, Quantitative < 0.4 mg/dL (0.00-0.90) Pro-B-Type Natriuretic Peptide 7459 pg/mL (0-125) H Total Protein 7.3 G/DL (6.4-8.2) Albumin 3.3 G/DL (3.4-5.0) L Globulin 4.0 g/dL Albumin/Globulin Ratio 0.8 (1.0-2.7) L Mike Carty MD Feb 05, 2019 19:16
--- NOTE | 2019-02-05 19:18 | NUR ---
NURSE NOTES:Report received from LORI Lora. Pt is in stable condition lying comfortably in bed. IV sites patent and intact. Bed is in the lowest position, bed brakes engaged, side rails up x 3 and call light within reach. Will continue to monitor.
--- NOTE | 2019-02-05 19:30 | NUR ---
NURSE NOTES: Report given to Cheryle Machado. Plan of care endorsed.
[2019-02-05 20:00] VITALS: BP 138/93
[2019-02-05] MEDS ORDERED: Atorvastatin 80mg tab ORAL SCH (21:00)
[2019-02-05] MEDS: dilTIAZem HCl CD 120mg cap ORAL SCH (21:20)
[2019-02-05] MEDS ORDERED: dilTIAZem HCl 30mg tab ORAL SCH (23:30)
[2019-02-06] VITALS: BP 119/81
--- NOTE | 2019-02-06 02:47 | NUR ---
HAND-OFF: Report given to LORI Barker. Plan of care endorsed.
--- NOTE | 2019-02-06 02:50 | NUR ---
NURSE NOTES: Received report from LORI Machado. Pt is resting in bed. In no acute distress. Bed in lowest position. Call light within reach. Will continue plan of care.
--- NOTE | 2019-02-06 03:10 | NUR ---
NURSE NOTES: Pt is noted with Afib in the 130s to 150s bpm on the cardiac cath lab manager. Pt asymptomatic. VS stable. No SOB, no c/o chest pain. Notified Dr. Carty, new orders received, read back and carried out.
[2019-02-06] MEDS ORDERED: Metoprolol Tartrate 2.5 MG in D5W 55 ML IVPB PRN ×2 (03:15→08:15)
[2019-02-06] MEDS ORDERED: Metoprolol 5mg/5ml Inj IVP ONE (03:15)
[2019-02-06] MEDS: Promethazine/Codeine 5ml UD ORAL PRN ×2 (03:38→11:35)
--- NOTE | 2019-02-06 03:45 | NUR ---
NURSE NOTES: Administered Metoprolol IV push as ordered. Pt's shows A-fib in the 90s-115s after 5 mins. No c/o chest pain, no SOB. Rhythym strips in the chart. Will continue to monitor.
[2019-02-06 04:00] VITALS: BP 133/90
--- NOTE | 2019-02-06 05:00 | Consultation ---
DATE OF CONSULTATION: 02/05/2019 CARDIOLOGY CONSULTATION CONSULTING PHYSICIAN: Mike Carty M.D. REFERRING PHYSICIAN: Rashaun Gonzalez M.D. REASON FOR REFERRAL: Shortness of breath. HISTORY OF PRESENT ILLNESS: The patient is an 78-year-old female with history of multiple medical problems as delineated below. The patient presented to the hospital because of pain that she has been experiencing in the left shoulder down the left arm. This has been going on for the past three or four weeks after she received some kind of an injection and she was also having some shortness of breath. She finally presented to the hospital. She really does not have any chest pain. There is no chest pain on activity. She is short of breath with activity. She attributes to asthma. She has had that for a long time approximately 10 years. She occasionally does wake up because of coughing. She is short of breath if she lies down. She has no dizziness or lightheadedness. Denies any heart pounding or palpitation. PAST MEDICAL HISTORY: Positive for history of diabetes mellitus. She has a history of hypertension. No history of heart attack. No cancer. No stroke. No hepatitis or tuberculosis. No asthma. No emphysema. No ulcers. She does have a history of kidney problems. Her chart indicates that she has a history of asthma with exacerbation, atrial fibrillation, rapid ventricular response, acute renal insufficiency, iron deficiency anemia, thrombocytopenia, coagulopathy secondary to Coumadin, hyperkalemia and hypertension, and history of possible chronic congestive heart failure. She may have had a DELPHINE cardioversion a number of years ago, approximately 10 years ago she thinks. ALLERGIES: She is not allergic to any medication. HOME MEDICATIONS: Listed in the computer and include albuterol, aspirin 81 mg, Lipitor 40 mg, Bumex 1 mg twice a day, Coreg 25 mg twice a day, Cardizem 03:46 180 mg a day. She takes Lasix as well as hydralazine. I am not certain, which one of these medications actually she is taking, but she is on Coumadin. She is not sure about the medications either. SOCIAL HISTORY: No smoking or drinking of alcoholic beverages. REVIEW OF SYSTEMS: GASTROINTESTINAL: She denies any nausea, vomiting, diarrhea, or constipation. : Denies discomfort on urination. PULMONARY: Positive for coughing and wheezing. CONSTITUTIONAL: No fever, chills, or night sweats. NEUROLOGIC: Negative. PHYSICAL EXAMINATION: VITAL SIGNS: Blood pressure is 146/82, temperature is 94, and heart rate is 108. GENERAL: Shows to be obese middle-aged elderly female, in no respiratory distress. NECK: Supple. No jugular venous distention. LUNGS: Inspiratory and expiratory wheezes noted. CARDIAC: Irregularly irregular. Holosystolic regurgitant murmur noted. ABDOMEN: Soft, obese. Positive bowel sounds. EXTREMITIES: Trace edema. NEUROLOGICAL: She is awake, alert, responsive, in no apparent respiratory distress. LABORATORY AND DIAGNOSTIC DATA: Laboratory values, white count 9.5, hemoglobin , platelet count of 138, sedimentation rate of 41. Sodium 139, potassium 5.2, chloride 105, bicarb 23, BUN of 31, creatinine 2.0, glucose of 158, magnesium of 1.5. Troponin was 0.118 and 0.114 and 0.140. She has had chronically abnormal cardiac enzymes. The proBNP is 7400. CRP of less than 0.4. Coags, INR of 1.9 and PTT of 33. Urinalysis is fairly unremarkable. EKG shows atrial fibrillation. Chest x-ray shows suspect left pleural effusions. Shoulder x-rays are negative. ASSESSMENT AND PLAN: 1. Permanent atrial fibrillation, on anticoagulation. 2. History of systolic heart failure. 3. Left ventricle systolic dysfunction. 4. Severe mitral regurgitation. 5. Moderate tricuspid regurgitation. 6. Pulmonary hypertension. 7. Coagulopathy, secondary to Coumadin. 8. History of asthma. This patient was seen in cardiac consultation. The patient has significant mitral regurgitation on prior echocardiogram that will be repeated. The patient should receive rate control with a combination of medications including possibly Coreg and/or Cardizem, however, I would prefer that she receive Cardizem at the present time and continue anticoagulation with Coumadin and if needed other medications to be added such as beta-blockers for heart rate control. Because of the bronchospasm, would be diltiazem. Diuretics will be provided for congestive heart failure and she received treatment for asthma exacerbation and her cardiac enzyme abnormalities are significant by the fact that she has some renal insufficiency. Mike Carty M.D. DR: Marlene JOB#: [id number] CC:
[2019-02-06 06:32] LABS: BASOPHILS % (AUTO) 0.2 % (0.0-2.0); HEMATOCRIT 32.8 % (37.0-47.0); LYMPHOCYTES % (AUTO) 7.2 % (20.0-45.0); MEAN CORPUSCULAR VOLUME 84 FL (80-99); MONOCYTES % (AUTO) 7.9 % (1.0-10.0); NEUTROPHILS % (AUTO) 84.7 % (45.0-75.0); PLATELET COUNT 141 K/UL (150-450); RED BLOOD COUNT 3.92 M/UL (4.20-5.40); RED CELL DISTRIBUTION WIDTH 15.4 % (11.6-14.8); WHITE BLOOD COUNT 16.5 K/UL (4.8-10.8)
--- NOTE | 2019-02-06 07:00 | NUR ---
NURSE NOTES: PT AWAKE ALERT, NO DISTRESS. NO C/O PAIN .BED IN LOWEST POSITION, LOCKED. CALL LIGHT WITHIN REACH.
[2019-02-06 07:31] LABS: ALANINE AMINOTRANSFERASE 26 U/L (12-78); ALBUMIN 3.2 G/DL (3.4-5.0); ALBUMIN/GLOBULIN RATIO 0.8 (1.0-2.7); ALKALINE PHOSPHATASE 102 U/L (46-116); ANION GAP 8 mmol/L (5-15); ASPARTATE AMINO TRANSFERASE 26 U/L (15-37); BLOOD UREA NITROGEN 38 mg/dL (7-18); CALCIUM 9.2 MG/DL (8.5-10.1); CARBON DIOXIDE 28 MMOL/L (21-32); CHLORIDE 105 MMOL/L (98-107); CHOLESTEROL 109 MG/DL (< 200); CREATININE 1.9 MG/DL (0.55-1.30); FERRITIN 75 NG/ML (8-388); GAMMA GLUTAMYL TRANSPEPTIDASE 153 U/L (5-85); HDL CHOLESTEROL 49 MG/DL (40-60); PHOSPHORUS 3.7 MG/DL (2.5-4.9); POTASSIUM 4.8 MMOL/L (3.5-5.1); SODIUM 141 MMOL/L (136-145); TRIGLYCERIDES 31 MG/DL (30-150)
--- NOTE | 2019-02-06 07:34 | NUR ---
HAND-OFF: Report given to LORI Montalvo.
[2019-02-06 07:45] LABS: % IRON SATURATION 11 % (15-50); IRON 38 ug/dL (50-175); TOTAL IRON BINDING CAPACITY 338 ug/dL (250-450)
[2019-02-06 08:00] VITALS: BP 130/60
--- NOTE | 2019-02-06 08:38 | Consultation ---
History of Present Illness General Chief Complaint: General Complaint Referring physician: Rylee Reason for Consultation: Leukocytosis Present Illness HPI Ms. Kilgore is pleasant a 78 yo female with PMHx of Asthma who presented to the hospital with asthma exacerbation on 02/05/19. She had been having SOB for 3 [employer]. She was Aferbile with no leukocytosis. She was started on steroids. and Given Abx x 1. She is now satting well on RA. She also reports left shoulder pain after hepatitis immunization. She denies fever and chills. She developed leukocytosis today. ID consulted for ID was consulted for leukocytosis PMHx/PSHx Asthma CHF Afib CAD s/p FL with stenting DM HTN SocHx No E/T/D FamHx Not Contributory Allergies: Coded Allergies: No Known Allergies (Unverified , 05/24/12) Medication History Scheduled Albuterol Sulfate* (Proair Hfa*), 2 PUFFS INH Q6H, (Reported) Aspirin* (Aspir 81*), 81 MG ORAL DAILY, (Reported) Atorvastatin Calcium* (Atorvastatin Calcium*), 40 MG ORAL BEDTIME, (Reported) Bumetanide* (Bumetanide*), 1 MG ORAL BID, (Reported) Carvedilol* (Carvedilol*), 25 MG ORAL EVERY 12 HOURS, (Reported) Carvedilol* (Carvedilol*), 25 MG ORAL EVERY 12 HOURS, (Reported) Diltiazem HCl (Diltiazem 24HR Cd), 180 MG ORAL DAILY, (Reported) Diltiazem Hcl* (Cardizem Cd*), 120 MG ORAL DAILY, (Reported) Diltiazem Hcl* (Cardizem*), 60 MG ORAL EVERY 6 HOURS Fluticasone Propionate (Flovent Hfa), 2 PUFFS INH BID, (Reported) Furosemide* (Lasix*), 80 MG ORAL DAILY, (Reported) Hydralazine Hcl* (Hydralazine Hcl*), 10 MG ORAL EVERY 8 HOURS, (Reported) Isosorbide Mononitrate (Isosorbide Mononitrate), 30 MG PO DAILY, (Reported) Latanoprost* (Xalatan*), 1 DROP BOTH EYES BEDTIME, (Reported) Losartan Potassium* (Losartan Potassium*), 100 MG ORAL DAILY, (Reported) Magnesium Oxide (Magnesium Oxide), 400 MG ORAL BID, (Reported) Metformin Hcl* (Metformin Hcl*), 1,000 MG ORAL DAILY, (Reported) Metoprolol Tartrate* (Metoprolol Tartrate*), 100 MG ORAL EVERY 12 HOURS, ( Reported) Metoprolol Tartrate* (Metoprolol Tartrate*), 50 MG ORAL Q12HR Simvastatin (Zocor), 40 MG ORAL BEDTIME, (Reported) Simvastatin (Zocor), 40 MG ORAL BEDTIME, (Reported) Spironolact/Hydrochlorothiazid (Spironolactone-Hctz 25-25 Tab), 50 MG ORAL DAILY , (Reported) Valsartan/Hydrochlorothiazide 320-25MG (Diovan Hct 320-25 Mg Tablet), 1 TAB ORAL DAILY, (Reported) Warfarin Sod* (Coumadin*), 4 MG ORAL DAILY, (Reported) Warfarin Sod* (Warfarin Sod*), 4 MG ORAL DAILY, (Reported) Miscellaneous Medications Ipratropium [place] (Atrovent Hfa), 12.9 GM IH, (Reported) Patient History Healthcare decision maker N Resuscitation status Full Code Advanced Directive on File No Review of Systems ROS Narrative 12 point ROS negative except as note in the HPI. Physical Exam Last 24 Hour Vital Signs Date Time Temp Pulse Resp B/P (MAP) Pulse Ox O2 Delivery O2 Flow Rate FiO2 02/06/19 08:00 98.0 140 18 130/60 (83) 96 02/06/19 07:55 140 130/60 02/06/19 07:34 104 20 Room Air 21 02/06/19 04:00 109 02/06/19 04:00 98.0 109 18 133/90 (104) 96 02/06/19 03:33 135 122/72 02/06/19 00:00 139 02/06/19 00:00 98.1 63 18 119/81 (94) 96 63 02/05/19 23:42 94 119/81 02/05/19 21:20 94 138/93 02/05/19 21:00 Room Air 02/05/19 20:08 108 20 Room Air 21 02/05/19 20:00 128 02/05/19 20:00 98.0 94 18 138/93 (108) 95 94 02/05/19 16:00 127 02/05/19 16:00 98.4 108 20 146/82 (103) 98 108 02/05/19 12:00 103 02/05/19 12:00 98.6 92 20 145/85 (105) 100 92 02/05/19 10:04 138/77 02/05/19 09:00 Room Air 02/05/19 08:58 78 20 Room Air 21 Intake and Output 02/05/19 02/06/19 18:59 06:59 Intake Total 720 ml Balance 720 ml Intake Oral 720 ml # Voids 2 Laboratory Tests Test 02/06/19 06:00 White Blood Count 16.5 K/UL (4.8-10.8) #H Red Blood Count 3.92 M/UL (4.20-5.40) L Hemoglobin 11.0 G/DL (12.0-16.0) L Hematocrit 32.8 % (37.0-47.0) L Mean Corpuscular Volume 84 FL (80-99) Mean Corpuscular Hemoglobin 28.0 PG (27.0-31.0) Mean Corpuscular Hemoglobin Concent 33.4 G/DL (32.0-36.0) Red Cell Distribution Width 15.4 % (11.6-14.8) H Platelet Count 141 K/UL (150-450) L Mean Platelet Volume 7.8 FL (6.5-10.1) Neutrophils (%) (Auto) 84.7 % (45.0-75.0) H Lymphocytes (%) (Auto) 7.2 % (20.0-45.0) L Monocytes (%) (Auto) 7.9 % (1.0-10.0) Eosinophils (%) (Auto) 0.0 % (0.0-3.0) Basophils (%) (Auto) 0.2 % (0.0-2.0) Erythrocyte Sedimentation Rate 48 MM/HR (0-30) H Sodium Level 141 MMOL/L (136-145) Potassium Level 4.8 MMOL/L (3.5-5.1) Chloride Level 105 MMOL/L (98-107) Carbon Dioxide Level 28 MMOL/L (21-32) Anion Gap 8 mmol/L (5-15) Blood Urea Nitrogen 38 mg/dL (7-18) H Creatinine 1.9 MG/DL (0.55-1.30) H Estimat Glomerular Filtration Rate mL/min (>60) Glucose Level 141 MG/DL (74-106) H Hemoglobin A1c 6.4 % (4.3-6.0) H Uric Acid 6.3 MG/DL (2.6-7.2) Calcium Level 9.2 MG/DL (8.5-10.1) Phosphorus Level 3.7 MG/DL (2.5-4.9) Magnesium Level 1.7 MG/DL (1.8-2.4) L Iron Level 38 ug/dL (50-175) L Total Iron Binding Capacity 338 ug/dL (250-450) Percent Iron Saturation 11 % (15-50) L Unsaturated Iron Binding 300 ug/dL (112-346) Ferritin 75 NG/ML (8-388) Total Bilirubin 1.0 MG/DL (0.2-1.0) Gamma Glutamyl Transpeptidase 153 U/L (5-85) H Aspartate Amino Transf (AST/SGOT) 26 U/L (15-37) Alanine Aminotransferase (ALT/SGPT) 26 U/L (12-78) Alkaline Phosphatase 102 U/L (46-116) Troponin I 0.118 ng/mL (0.000-0.056) C-Reactive Protein, Quantitative < 0.4 mg/dL (0.00-0.90) Pro-B-Type Natriuretic Peptide 7247 pg/mL (0-125) H Total Protein 7.2 G/DL (6.4-8.2) Albumin 3.2 G/DL (3.4-5.0) L Globulin 4.0 g/dL Albumin/Globulin Ratio 0.8 (1.0-2.7) L Triglycerides Level 31 MG/DL (30-150) Cholesterol Level 109 MG/DL (< 200) LDL Cholesterol 53 mg/dL (<100) HDL Cholesterol 49 MG/DL (40-60) Cholesterol/HDL Ratio 2.2 (3.3-4.4) L Vitamin B12 Level 591 PG/ML (193-986) Folate 10.3 NG/ML (8.6-58.9) Thyroid Stimulating Hormone (TSH) 0.378 uiU/mL (0.358-3.740) Height (Feet): 5 Height (Inches): 6.00 Weight (Pounds): 206 Medications Current Medications Medications (Trade) Dose Ordered Sig/Ernesto Route PRN Reason Start Time Stop Time Status Last Admin Dose Admin Atorvastatin Calcium (Lipitor) 40 mg BEDTIME ORAL 02/05/19 21:00 03/07/19 20:59 02/05/19 21:21 Dextrose (Dextrose 50%) 25 ml Q30M PRN IV Hypoglycemia 02/04/19 12:30 03/06/19 12:29 Dextrose (Dextrose 50%) 50 ml Q30M PRN IV Hypoglycemia 02/04/19 12:30 03/06/19 12:29 Diltiazem HCl (Cardizem CD) 120 mg DAILY ORAL 02/05/19 19:15 03/07/19 19:14 02/05/19 21:20 Docusate Sodium (Colace) 100 mg THREE TIMES A DAY ORAL 02/05/19 13:00 03/07/19 12:59 02/05/19 13:04 Furosemide (Lasix) 40 mg EVERY 12 HOURS IV 02/05/19 21:00 02/07/19 10:00 02/05/19 21:24 Heparin Sodium (Porcine) (Heparin 5000 units/ml) 5,000 units EVERY 12 HOURS SUBQ 02/04/19 21:00 03/06/19 20:59 02/05/19 21:29 Lorazepam (Ativan 2mg/ml 1ml) 0.5 mg Q4H PRN IV For Anxiety 02/04/19 12:30 02/11/19 12:29 Metoprolol Tartrate 2.5 mg/ Dextrose 57.5 ml @ 130 mls/hr Q6H PRN IVPB HR >125 02/06/19 08:15 03/08/19 03:14 Morphine Sulfate (Morphine Sulfate) 2 mg Q4H PRN IVP severe pain 7-10 02/04/19 12:30 02/11/19 12:29 Nitroglycerin (Ntg) 0.4 mg Q5M X 3 DOSES PRN SL Prn Chest Pain 02/04/19 12:30 03/06/19 12:29 Nitroglycerin (Ntg) 1 patch Q24H TDERMAL 02/05/19 10:00 03/07/19 09:59 02/05/19 10:04 Ondansetron HCl (Zofran) 4 mg Q6H PRN IVP Nausea & Vomiting 02/04/19 12:30 03/06/19 12:29 Pantoprazole (Protonix) 40 mg EVERY 12 HOURS ORAL 02/05/19 09:45 03/07/19 09:44 02/05/19 21:20 Promethazine HCl/ Codeine (Phenergan with Codeine) 5 ml Q6H PRN ORAL cough 02/04/19 12:30 03/06/19 12:29 02/06/19 03:38 Temazepam (Restoril) 15 mg HSPRN PRN ORAL Insomnia 02/04/19 12:30 02/11/19 12:29 Theophylline (Francois-Dur) 100 mg EVERY 12 HOURS ORAL 02/04/19 21:00 03/06/19 20:59 02/05/19 21:20 Objective Narrative Gen: NAD, HEENT: NCAT, MMM, EOMI, PERRL, No Oral lesion, no scleral icterus NECK: full range of motion, supple, no meningismus, No LAD, No JVD LUNGS: Mild B/l Wheezing CARDS: RRR, S1, S2, No M/R/G, ABD: Soft, NT, ND, No R/G, + BS, No HSM, No Masses : Deferred Ext: C/C/E, Pulses 2+ B/L (DP, Rad): NEURO: A/O x 4, Strength and Sensation Grossly intact SKIN: Warm/dry, No Rash Assessment/Plan Assessment/Plan 78 yo female with PMHx of Asthma who presented to the hospital with asthma exacerbation on 02/05/19. Leukoctyosis Likely secondary to steroids No fevers, CXR no sign of pna, patient on RA Asthma CHF Afib CAD s/p FL with stenting DM HTN PLAN - Continue to monitor off abx - 02/04/19 S/P Zosyn x 1 - Monitor CBC and Temps Thank you for this consult. We will continue to follow the patient during this hospitalization. Gerhard Li MD Feb 06, 2019 08:38
[2019-02-06] MEDS: Heparin 5000 units/ml inj SUBQ SCH (09:00)
[2019-02-06] MEDS: Docusate 100mg cap ORAL SCH ×3 (09:00→17:42)
[2019-02-06] MEDS: Nitroglycerin Patch 0.4mg TDERMAL SCH (09:24)
[2019-02-06] MEDS: dilTIAZem HCl CD 120mg cap ORAL SCH (09:24)
[2019-02-06] MEDS: Theophylline ER 100mg ORAL SCH (09:24)
--- NOTE | 2019-02-06 11:27 | NUR ---
NURSE NOTES: called and spoke with Dr Carty re hr trend pt still afib asymptomatic, orders received and entered into [facility]. patient aware.
[2019-02-06] MEDS ORDERED: Metoprolol 5mg/5ml Inj IVP SCH (11:30)
[2019-02-06] MEDS ORDERED: dilTIAZem HCl CD 120mg cap ORAL SCH (11:30)
[2019-02-06] MEDS ORDERED: Metoprolol 5mg/5ml Inj IVP PRN (11:30)
[2019-02-06 11:37] VITALS: BP 123/72
[2019-02-06 13:07] LABS: INR 1.5 (0.9-1.1)
--- NOTE | 2019-02-06 13:14 | Nephrology Progress Note ---
Assessment/Plan Assessment Renal failure- Cr rising- ATN CKD- Diabetic Nephropathy High K Anemia Asthma exacerbation Shoulder pain Atrial fibrillation CHF (congestive heart failure) History of heart surgery in the past. History of DELPHINE. h/o Cardioversion. elevated troponin I Plan DC Toradol Mag supplement avoid nephrotoxics Renal and Diabetic friendly diet off steroids anemia taylor per orders per cardiology Subjective ROS Limited/Unobtainable: No Constitutional: Reports: other - feels better Objective Objective Last 24 Hour Vital Signs Date Time Temp Pulse Resp B/P (MAP) Pulse Ox O2 Delivery O2 Flow Rate FiO2 02/06/19 12:40 120 02/06/19 11:48 107 02/06/19 11:37 98.0 160 18 123/72 (89) 96 02/06/19 11:35 140 123/72 02/06/19 11:34 140 123/72 02/06/19 09:24 140 130/60 02/06/19 09:24 130/60 02/06/19 09:00 Room Air 02/06/19 08:00 98.0 140 18 130/60 (83) 96 02/06/19 07:57 139 02/06/19 07:55 140 130/60 02/06/19 07:34 104 20 Room Air 21 02/06/19 04:00 109 02/06/19 04:00 98.0 109 18 133/90 (104) 96 02/06/19 03:33 135 122/72 02/06/19 00:00 139 02/06/19 00:00 98.1 63 18 119/81 (94) 96 63 02/05/19 23:42 94 119/81 02/05/19 21:20 94 138/93 02/05/19 21:00 Room Air 02/05/19 20:08 108 20 Room Air 21 02/05/19 20:00 128 02/05/19 20:00 98.0 94 18 138/93 (108) 95 94 02/05/19 16:00 127 02/05/19 16:00 98.4 108 20 146/82 (103) 98 108 Intake and Output 02/05/19 02/06/19 19:00 07:00 Intake Total 720 ml Balance 720 ml Intake Oral 720 ml # Voids 2 Laboratory Tests 02/06/19 06:00: White Blood Count 16.5#H, Red Blood Count 3.92L, Hemoglobin 11.0L, Hematocrit 32.8L, Mean Corpuscular Volume 84, Mean Corpuscular Hemoglobin 28.0, Mean Corpuscular Hemoglobin Concent 33.4, Red Cell Distribution Width 15.4H, Platelet Count 141L, Mean Platelet Volume 7.8, Neutrophils (%) (Auto) 84.7H, Lymphocytes (%) (Auto) 7.2L, Monocytes (%) (Auto) 7.9, Eosinophils (%) (Auto) 0.0, Basophils (%) (Auto) 0.2, Erythrocyte Sedimentation Rate 48H, Sodium Level 141, Potassium Level 4.8, Chloride Level 105, Carbon Dioxide Level 28, Anion Gap 8, Blood Urea Nitrogen 38H, Creatinine 1.9H, Estimat Glomerular Filtration Rate , Glucose Level 141H, Hemoglobin A1c 6.4H, Uric Acid 6.3, Calcium Level 9.2 , Phosphorus Level 3.7, Magnesium Level 1.7L, Iron Level 38L, Total Iron Binding Capacity 338, Percent Iron Saturation 11L, Unsaturated Iron Binding 300 , Ferritin 75, Total Bilirubin 1.0, Gamma Glutamyl Transpeptidase 153H, Aspartate Amino Transf (AST/SGOT) 26, Alanine Aminotransferase (ALT/SGPT) 26, Alkaline Phosphatase 102, Troponin I 0.118H, C-Reactive Protein, Quantitative < 0.4, Pro-B-Type Natriuretic Peptide 7247H, Total Protein 7.2, Albumin 3.2L, Globulin 4.0, Albumin/Globulin Ratio 0.8L, Triglycerides Level 31, Cholesterol Level 109, LDL Cholesterol 53, HDL Cholesterol 49, Cholesterol/HDL Ratio 2.2L, Vitamin B12 Level 591, Folate 10.3, Thyroid Stimulating Hormone (TSH) 0.378 02/06/19 12:25: Troponin I [Pending], Prothrombin Time 15.7H, Prothromb Time International Ratio 1.5H Height (Feet): 5 Height (Inches): 6.00 Weight (Pounds): 206 Adams Pinto MD Feb 06, 2019 13:14
[2019-02-06 14:57] VITALS: BP 141/75
[2019-02-06] MEDS ORDERED: PREDNISONE10 MG ORAL (15:24)
[2019-02-06] MEDS ORDERED: PREDNISONE20 MG ORAL (15:24)
--- NOTE | 2019-02-06 15:28 | NUR ---
NURSE NOTES: RECEIVED DC ORDER FROM DR BURNETT UPON HIS ROUNDS, MD MADE AWARE OF HR TREND AFIB , PER MD CONTINUE HOME MEDS, RX GIVEN TO PT
--- NOTE | 2019-02-06 15:53 | Internal Med Progress Note ---
Subjective Physician Name Rashaun Gonzalez Attending Physician Rashaun Gonzalez MD Current Medications Medications (Trade) Dose Ordered Sig/Ernesto Route PRN Reason Start Time Stop Time Status Last Admin Dose Admin Atorvastatin Calcium (Lipitor) 40 mg BEDTIME ORAL 02/05/19 21:00 03/07/19 20:59 02/05/19 21:21 Dextrose (Dextrose 50%) 25 ml Q30M PRN IV Hypoglycemia 02/04/19 12:30 03/06/19 12:29 Dextrose (Dextrose 50%) 50 ml Q30M PRN IV Hypoglycemia 02/04/19 12:30 03/06/19 12:29 Diltiazem HCl (Cardizem CD) 240 mg DAILY ORAL 02/07/19 09:00 03/09/19 08:59 Docusate Sodium (Colace) 100 mg THREE TIMES A DAY ORAL 02/05/19 13:00 03/07/19 12:59 02/05/19 13:04 Furosemide (Lasix) 40 mg EVERY 12 HOURS IV 02/05/19 21:00 02/07/19 10:00 02/06/19 09:24 Heparin Sodium (Porcine) (Heparin 5000 units/ml) 5,000 units EVERY 12 HOURS SUBQ 02/04/19 21:00 03/06/19 20:59 02/05/19 21:29 Lorazepam (Ativan 2mg/ml 1ml) 0.5 mg Q4H PRN IV For Anxiety 02/04/19 12:30 02/11/19 12:29 Magnesium Sulfate 100 ml @ 100 mls/hr Q1H IVPB 02/06/19 14:00 02/06/19 17:59 02/06/19 15:17 Metoprolol Tartrate (Lopressor) 5 mg Q6H PRN IVP HR >120 02/06/19 11:30 03/08/19 11:29 Morphine Sulfate (Morphine Sulfate) 2 mg Q4H PRN IVP severe pain 7-10 02/04/19 12:30 02/11/19 12:29 Nitroglycerin (Ntg) 0.4 mg Q5M X 3 DOSES PRN SL Prn Chest Pain 02/04/19 12:30 03/06/19 12:29 Nitroglycerin (Ntg) 1 patch Q24H TDERMAL 02/05/19 10:00 03/07/19 09:59 02/06/19 09:24 Ondansetron HCl (Zofran) 4 mg Q6H PRN IVP Nausea & Vomiting 02/04/19 12:30 03/06/19 12:29 Pantoprazole (Protonix) 40 mg EVERY 12 HOURS ORAL 02/05/19 09:45 03/07/19 09:44 02/06/19 09:24 Promethazine HCl/ Codeine (Phenergan with Codeine) 5 ml Q6H PRN ORAL cough 02/04/19 12:30 03/06/19 12:29 02/06/19 11:35 Temazepam (Restoril) 15 mg HSPRN PRN ORAL Insomnia 02/04/19 12:30 02/11/19 12:29 Warfarin Sodium (Coumadin per pharmacy) 1 ea DAILY PRN MISC Per rx protocol 02/06/19 11:30 03/08/19 11:29 Warfarin Sodium (Coumadin) 4 mg COUMADIN ONCE PO 02/06/19 17:00 02/06/19 17:01 Allergies: Coded Allergies: No Known Allergies (Unverified , 05/24/12) Subjective Awake, alert, responsive, denies any chest pain, shortness of breath has improved. Objective Last Vital Signs Date Time Temp Pulse Resp B/P (MAP) Pulse Ox O2 Delivery O2 Flow Rate FiO2 02/06/19 15:19 153 02/06/19 14:57 98.0 18 141/75 (97) 96 02/06/19 09:00 Room Air 02/06/19 07:34 21 Laboratory Tests Test 02/06/19 06:00 02/06/19 12:25 White Blood Count 16.5 K/UL (4.8-10.8) #H Red Blood Count 3.92 M/UL (4.20-5.40) L Hemoglobin 11.0 G/DL (12.0-16.0) L Hematocrit 32.8 % (37.0-47.0) L Mean Corpuscular Volume 84 FL (80-99) Mean Corpuscular Hemoglobin 28.0 PG (27.0-31.0) Mean Corpuscular Hemoglobin Concent 33.4 G/DL (32.0-36.0) Red Cell Distribution Width 15.4 % (11.6-14.8) H Platelet Count 141 K/UL (150-450) L Mean Platelet Volume 7.8 FL (6.5-10.1) Neutrophils (%) (Auto) 84.7 % (45.0-75.0) H Lymphocytes (%) (Auto) 7.2 % (20.0-45.0) L Monocytes (%) (Auto) 7.9 % (1.0-10.0) Eosinophils (%) (Auto) 0.0 % (0.0-3.0) Basophils (%) (Auto) 0.2 % (0.0-2.0) Erythrocyte Sedimentation Rate 48 MM/HR (0-30) H Sodium Level 141 MMOL/L (136-145) Potassium Level 4.8 MMOL/L (3.5-5.1) Chloride Level 105 MMOL/L (98-107) Carbon Dioxide Level 28 MMOL/L (21-32) Anion Gap 8 mmol/L (5-15) Blood Urea Nitrogen 38 mg/dL (7-18) H Creatinine 1.9 MG/DL (0.55-1.30) H Estimat Glomerular Filtration Rate mL/min (>60) Glucose Level 141 MG/DL (74-106) H Hemoglobin A1c 6.4 % (4.3-6.0) H Uric Acid 6.3 MG/DL (2.6-7.2) Calcium Level 9.2 MG/DL (8.5-10.1) Phosphorus Level 3.7 MG/DL (2.5-4.9) Magnesium Level 1.7 MG/DL (1.8-2.4) L Iron Level 38 ug/dL (50-175) L Total Iron Binding Capacity 338 ug/dL (250-450) Percent Iron Saturation 11 % (15-50) L Unsaturated Iron Binding 300 ug/dL (112-346) Ferritin 75 NG/ML (8-388) Total Bilirubin 1.0 MG/DL (0.2-1.0) Gamma Glutamyl Transpeptidase 153 U/L (5-85) H Aspartate Amino Transf (AST/SGOT) 26 U/L (15-37) Alanine Aminotransferase (ALT/SGPT) 26 U/L (12-78) Alkaline Phosphatase 102 U/L (46-116) Troponin I 0.118 ng/mL (0.000-0.056) 0.123 ng/mL (0.000-0.056) C-Reactive Protein, Quantitative < 0.4 mg/dL (0.00-0.90) Pro-B-Type Natriuretic Peptide 7247 pg/mL (0-125) H Total Protein 7.2 G/DL (6.4-8.2) Albumin 3.2 G/DL (3.4-5.0) L Globulin 4.0 g/dL Albumin/Globulin Ratio 0.8 (1.0-2.7) L Triglycerides Level 31 MG/DL (30-150) Cholesterol Level 109 MG/DL (< 200) LDL Cholesterol 53 mg/dL (<100) HDL Cholesterol 49 MG/DL (40-60) Cholesterol/HDL Ratio 2.2 (3.3-4.4) L Vitamin B12 Level 591 PG/ML (193-986) Folate 10.3 NG/ML (8.6-58.9) Thyroid Stimulating Hormone (TSH) 0.378 uiU/mL (0.358-3.740) Prothrombin Time 15.7 SEC (9.30-11.50) H Prothromb Time International Ratio 1.5 (0.9-1.1) H Microbiology Date/Time Source Procedure Growth Status 02/04/19 09:20 Blood Blood Culture - Preliminary NO GROWTH AFTER 24 HOURS Resulted 02/04/19 08:30 Blood Blood Culture - Preliminary NO GROWTH AFTER 24 HOURS Resulted 02/05/19 08:15 Sputum Gram Stain Pending Resulted 02/05/19 08:15 Sputum Sputum Culture - Preliminary NORMAL UPPER RESPIRATORY TOMI AT 24 ... Resulted Intake and Output 02/05/19 02/06/19 19:00 07:00 Intake Total 720 ml Balance 720 ml Intake Oral 720 ml # Voids 2 Objective General: No acute distress, awake and alert HEENT: NCAT, sclera anicteric, PERRL, EOMI. Neck: Supple, no significant jugular venous distention, Lungs: Good inspiratory effort, decreased air in the bases, decreased expiratory wheezes. Heart: Irregular rate and rhythm, normal S1/S2, no murmurs Abdomen: soft, nontender, nondistended. Normoactive bowel sounds, morbid obesity. / Rectal: Refused and deferred. Extremities: No Cyanosis , clubbing or edema. Neuro: A&O x 3, Able to move all extremities Skin: warm, no rashes or lesions Psych: Normal mood and affect Assessment/Plan Assessment/Plan 1. Shortness of breath is likely secondary to the acute asthma exacerbation. 2. chronic congestive heart failure. 3. Asthma. 4. Left shoulder pain. 5. Diabetes type 2. 6. Hypertension. 7. Atrial fibrillation. 8. Coronary artery disease. 9. Right pleural effusion. TREATMENT: 1. Pulmonary consult with Dr. Zeke Mckee. 2. Cardiology consult with Dr. Mike Carty. 3. We will switch Solu-Medrol to prednisone orally. 4. Discharge home today follow-up with the primary physician in 1 week Rashaun Gonzalez MD Feb 06, 2019 15:53
--- NOTE | 2019-02-06 16:04 | NUR ---
NURSE NOTES: pt aware of dc order, pt refused taxi voucher, wants daughter to call her son to pick her up.
--- NOTE | 2019-02-06 16:32 | NUR ---
NURSE NOTES: per pt her son will pick her up eta [id number]
[2019-02-06] MEDS ORDERED: Warfarin Sodium 4mg PO ONE (17:00)
--- NOTE | 2019-02-06 17:00 | Pulmonology Progress Note ---
Assessment/Plan Problems: (1) Acute bronchitis (2) Asthma exacerbation (3) ATN (acute tubular necrosis) (4) Diabetes (5) HTN (hypertension) Assessment/Plan doing better taper steroids watch electrolytes awaiting cardiology to see monitor bp renal f/u check electrolytes Subjective ROS Limited/Unobtainable: No Allergies: Coded Allergies: No Known Allergies (Unverified , 05/24/12) Objective Last 24 Hour Vital Signs Date Time Temp Pulse Resp B/P (MAP) Pulse Ox O2 Delivery O2 Flow Rate FiO2 02/06/19 15:19 153 02/06/19 14:57 98.0 98 18 141/75 (97) 96 02/06/19 12:40 120 02/06/19 11:48 107 02/06/19 11:37 98.0 160 18 123/72 (89) 96 02/06/19 11:35 140 123/72 02/06/19 11:34 140 123/72 02/06/19 09:24 140 130/60 02/06/19 09:24 130/60 02/06/19 09:00 Room Air 02/06/19 08:00 98.0 140 18 130/60 (83) 96 02/06/19 07:57 139 02/06/19 07:55 140 130/60 02/06/19 07:34 104 20 Room Air 21 02/06/19 04:00 109 02/06/19 04:00 98.0 109 18 133/90 (104) 96 02/06/19 03:33 135 122/72 02/06/19 00:00 139 02/06/19 00:00 98.1 63 18 119/81 (94) 96 63 02/05/19 23:42 94 119/81 02/05/19 21:20 94 138/93 02/05/19 21:00 Room Air 02/05/19 20:08 108 20 Room Air 21 02/05/19 20:00 128 02/05/19 20:00 98.0 94 18 138/93 (108) 95 94 Intake and Output 02/05/19 02/06/19 19:00 07:00 Intake Total 720 ml Balance 720 ml Intake Oral 720 ml # Voids 2 Objective General Appearance: WD/WN, no apparent distress Lines, tubes and drains: peripheral, HEENT: normocephalic, atraumatic Neck: non-tender, normal alignment Respiratory/Chest: chest wall non-tender, lungs clear Breasts: no masses Cardiovascular/Chest: normal peripheral pulses Abdomen: normal bowel sounds, non tender Extremities: normal range of motion Skin Exam: normal pigmentation Microbiology Date/Time Source Procedure Growth Status 02/04/19 09:20 Blood Blood Culture - Preliminary NO GROWTH AFTER 24 HOURS Resulted 02/04/19 08:30 Blood Blood Culture - Preliminary NO GROWTH AFTER 24 HOURS Resulted 02/05/19 08:15 Sputum Gram Stain Pending Resulted 02/05/19 08:15 Sputum Sputum Culture - Preliminary NORMAL UPPER RESPIRATORY TOMI AT 24 ... Resulted Laboratory Tests 02/06/19 06:00: White Blood Count 16.5#H, Red Blood Count 3.92L, Hemoglobin 11.0L, Hematocrit 32.8L, Mean Corpuscular Volume 84, Mean Corpuscular Hemoglobin 28.0, Mean Corpuscular Hemoglobin Concent 33.4, Red Cell Distribution Width 15.4H, Platelet Count 141L, Mean Platelet Volume 7.8, Neutrophils (%) (Auto) 84.7H, Lymphocytes (%) (Auto) 7.2L, Monocytes (%) (Auto) 7.9, Eosinophils (%) (Auto) 0.0, Basophils (%) (Auto) 0.2, Erythrocyte Sedimentation Rate 48H, Sodium Level 141, Potassium Level 4.8, Chloride Level 105, Carbon Dioxide Level 28, Anion Gap 8, Blood Urea Nitrogen 38H, Creatinine 1.9H, Estimat Glomerular Filtration Rate , Glucose Level 141H, Hemoglobin A1c 6.4H, Uric Acid 6.3, Calcium Level 9.2 , Phosphorus Level 3.7, Magnesium Level 1.7L, Iron Level 38L, Total Iron Binding Capacity 338, Percent Iron Saturation 11L, Unsaturated Iron Binding 300 , Ferritin 75, Total Bilirubin 1.0, Gamma Glutamyl Transpeptidase 153H, Aspartate Amino Transf (AST/SGOT) 26, Alanine Aminotransferase (ALT/SGPT) 26, Alkaline Phosphatase 102, Troponin I 0.118H, C-Reactive Protein, Quantitative < 0.4, Pro-B-Type Natriuretic Peptide 7247H, Total Protein 7.2, Albumin 3.2L, Globulin 4.0, Albumin/Globulin Ratio 0.8L, Triglycerides Level 31, Cholesterol Level 109, LDL Cholesterol 53, HDL Cholesterol 49, Cholesterol/HDL Ratio 2.2L, Vitamin B12 Level 591, Folate 10.3, Thyroid Stimulating Hormone (TSH) 0.378 02/06/19 12:25: Troponin I 0.123H, Prothrombin Time 15.7H, Prothromb Time International Ratio 1.5H Current Medications Medications (Trade) Dose Ordered Sig/Ernesto Route PRN Reason Start Time Stop Time Status Last Admin Dose Admin Atorvastatin Calcium (Lipitor) 40 mg BEDTIME ORAL 02/05/19 21:00 03/07/19 20:59 02/05/19 21:21 Dextrose (Dextrose 50%) 25 ml Q30M PRN IV Hypoglycemia 02/04/19 12:30 03/06/19 12:29 Dextrose (Dextrose 50%) 50 ml Q30M PRN IV Hypoglycemia 02/04/19 12:30 03/06/19 12:29 Diltiazem HCl (Cardizem CD) 240 mg DAILY ORAL 02/07/19 09:00 03/09/19 08:59 Docusate Sodium (Colace) 100 mg THREE TIMES A DAY ORAL 02/05/19 13:00 03/07/19 12:59 02/05/19 13:04 Furosemide (Lasix) 40 mg EVERY 12 HOURS IV 02/05/19 21:00 02/07/19 10:00 02/06/19 09:24 Heparin Sodium (Porcine) (Heparin 5000 units/ml) 5,000 units EVERY 12 HOURS SUBQ 02/04/19 21:00 03/06/19 20:59 02/05/19 21:29 Lorazepam (Ativan 2mg/ml 1ml) 0.5 mg Q4H PRN IV For Anxiety 02/04/19 12:30 02/11/19 12:29 Magnesium Sulfate 100 ml @ 100 mls/hr Q1H IVPB 02/06/19 14:00 02/06/19 17:59 02/06/19 16:26 Metoprolol Tartrate (Lopressor) 5 mg Q6H PRN IVP HR >120 02/06/19 11:30 03/08/19 11:29 Morphine Sulfate (Morphine Sulfate) 2 mg Q4H PRN IVP severe pain 7-10 02/04/19 12:30 02/11/19 12:29 Nitroglycerin (Ntg) 0.4 mg Q5M X 3 DOSES PRN SL Prn Chest Pain 02/04/19 12:30 03/06/19 12:29 Nitroglycerin (Ntg) 1 patch Q24H TDERMAL 02/05/19 10:00 03/07/19 09:59 02/06/19 09:24 Ondansetron HCl (Zofran) 4 mg Q6H PRN IVP Nausea & Vomiting 02/04/19 12:30 03/06/19 12:29 Pantoprazole (Protonix) 40 mg EVERY 12 HOURS ORAL 02/05/19 09:45 03/07/19 09:44 02/06/19 09:24 Promethazine HCl/ Codeine (Phenergan with Codeine) 5 ml Q6H PRN ORAL cough 02/04/19 12:30 03/06/19 12:29 02/06/19 11:35 Temazepam (Restoril) 15 mg HSPRN PRN ORAL Insomnia 02/04/19 12:30 02/11/19 12:29 Warfarin Sodium (Coumadin per pharmacy) 1 ea DAILY PRN MISC Per rx protocol 02/06/19 11:30 03/08/19 11:29 Warfarin Sodium (Coumadin) 4 mg COUMADIN ONCE PO 02/06/19 17:00 02/06/19 17:01 02/06/19 16:26 Zeke Mckee MD Feb 06, 2019 17:00
--- NOTE | 2019-02-06 18:12 | NUR ---
NURSE NOTES: pt picked up by son, iv removed from rac no bleeding, pt left in stable condition, with all belongings.
--- NOTE | 2019-02-06 18:30 | Cardiology Progress Note ---
Assessment/Plan Assessment/Plan atria fibrillation, rate is better controlled Subjective Subjective the patient feels better today, she still coughing but no dyspnea Objective Last 24 Hour Vital Signs Date Time Temp Pulse Resp B/P (MAP) Pulse Ox O2 Delivery O2 Flow Rate FiO2 02/06/19 15:19 153 02/06/19 14:57 98.0 98 18 141/75 (97) 96 02/06/19 12:40 120 02/06/19 11:48 107 02/06/19 11:37 98.0 160 18 123/72 (89) 96 02/06/19 11:35 140 123/72 02/06/19 11:34 140 123/72 02/06/19 09:24 140 130/60 02/06/19 09:24 130/60 02/06/19 09:00 Room Air 02/06/19 08:00 98.0 140 18 130/60 (83) 96 02/06/19 07:57 139 02/06/19 07:55 140 130/60 02/06/19 07:34 104 20 Room Air 21 02/06/19 04:00 109 02/06/19 04:00 98.0 109 18 133/90 (104) 96 02/06/19 03:33 135 122/72 02/06/19 00:00 139 02/06/19 00:00 98.1 63 18 119/81 (94) 96 63 02/05/19 23:42 94 119/81 02/05/19 21:20 94 138/93 02/05/19 21:00 Room Air 02/05/19 20:08 108 20 Room Air 21 02/05/19 20:00 128 02/05/19 20:00 98.0 94 18 138/93 (108) 95 94 General Appearance: no apparent distress EENT: PERRL/EOMI Neck: no JVD Rhythm: Afib Cardiovascular: tachycardia Respiratory/Chest: crackles/rales Abdomen: no organomegaly Extremities: no swelling Intake and Output 02/05/19 02/06/19 19:00 07:00 Intake Total 720 ml Balance 720 ml Intake Oral 720 ml # Voids 2 Laboratory Tests Test 02/06/19 06:00 02/06/19 12:25 White Blood Count 16.5 K/UL (4.8-10.8) #H Red Blood Count 3.92 M/UL (4.20-5.40) L Hemoglobin 11.0 G/DL (12.0-16.0) L Hematocrit 32.8 % (37.0-47.0) L Mean Corpuscular Volume 84 FL (80-99) Mean Corpuscular Hemoglobin 28.0 PG (27.0-31.0) Mean Corpuscular Hemoglobin Concent 33.4 G/DL (32.0-36.0) Red Cell Distribution Width 15.4 % (11.6-14.8) H Platelet Count 141 K/UL (150-450) L Mean Platelet Volume 7.8 FL (6.5-10.1) Neutrophils (%) (Auto) 84.7 % (45.0-75.0) H Lymphocytes (%) (Auto) 7.2 % (20.0-45.0) L Monocytes (%) (Auto) 7.9 % (1.0-10.0) Eosinophils (%) (Auto) 0.0 % (0.0-3.0) Basophils (%) (Auto) 0.2 % (0.0-2.0) Erythrocyte Sedimentation Rate 48 MM/HR (0-30) H Sodium Level 141 MMOL/L (136-145) Potassium Level 4.8 MMOL/L (3.5-5.1) Chloride Level 105 MMOL/L (98-107) Carbon Dioxide Level 28 MMOL/L (21-32) Anion Gap 8 mmol/L (5-15) Blood Urea Nitrogen 38 mg/dL (7-18) H Creatinine 1.9 MG/DL (0.55-1.30) H Estimat Glomerular Filtration Rate mL/min (>60) Glucose Level 141 MG/DL (74-106) H Hemoglobin A1c 6.4 % (4.3-6.0) H Uric Acid 6.3 MG/DL (2.6-7.2) Calcium Level 9.2 MG/DL (8.5-10.1) Phosphorus Level 3.7 MG/DL (2.5-4.9) Magnesium Level 1.7 MG/DL (1.8-2.4) L Iron Level 38 ug/dL (50-175) L Total Iron Binding Capacity 338 ug/dL (250-450) Percent Iron Saturation 11 % (15-50) L Unsaturated Iron Binding 300 ug/dL (112-346) Ferritin 75 NG/ML (8-388) Total Bilirubin 1.0 MG/DL (0.2-1.0) Gamma Glutamyl Transpeptidase 153 U/L (5-85) H Aspartate Amino Transf (AST/SGOT) 26 U/L (15-37) Alanine Aminotransferase (ALT/SGPT) 26 U/L (12-78) Alkaline Phosphatase 102 U/L (46-116) Troponin I 0.118 ng/mL (0.000-0.056) 0.123 ng/mL (0.000-0.056) C-Reactive Protein, Quantitative < 0.4 mg/dL (0.00-0.90) Pro-B-Type Natriuretic Peptide 7247 pg/mL (0-125) H Total Protein 7.2 G/DL (6.4-8.2) Albumin 3.2 G/DL (3.4-5.0) L Globulin 4.0 g/dL Albumin/Globulin Ratio 0.8 (1.0-2.7) L Triglycerides Level 31 MG/DL (30-150) Cholesterol Level 109 MG/DL (< 200) LDL Cholesterol 53 mg/dL (<100) HDL Cholesterol 49 MG/DL (40-60) Cholesterol/HDL Ratio 2.2 (3.3-4.4) L Vitamin B12 Level 591 PG/ML (193-986) Folate 10.3 NG/ML (8.6-58.9) Thyroid Stimulating Hormone (TSH) 0.378 uiU/mL (0.358-3.740) Prothrombin Time 15.7 SEC (9.30-11.50) H Prothromb Time International Ratio 1.5 (0.9-1.1) H Microbiology Date/Time Source Procedure Growth Status 02/04/19 09:20 Blood Blood Culture - Preliminary NO GROWTH AFTER 24 HOURS Resulted 02/04/19 08:30 Blood Blood Culture - Preliminary NO GROWTH AFTER 24 HOURS Resulted 02/05/19 08:15 Sputum Gram Stain Pending Resulted 02/05/19 08:15 Sputum Sputum Culture - Preliminary NORMAL UPPER RESPIRATORY TOMI AT 24 ... Resulted Debby Rogers MD Feb 06, 2019 18:30
[2019-02-07] MEDS ORDERED: dilTIAZem HCl CD 240mg cap ORAL SCH (09:00)
--- NOTE | 2019-02-09 10:41 | Discharge Summary ---
Discharge Summary Discharge Summary _ DATE OF ADMISSION: 02/04/2019 DATE OF DISCHARGE: 02/06/2019 DISCHARGED BY: Dr. Gonzalez REASON FOR ADMISSION: 78 years old female with past medical history of diabetes mellitus, asthma, hypertension, congestive heart failure, atrial fibrillation, presented to emergency room for evaluation patient was complaining of shortness of breath and congestion. Per patient her breathing treatment at home did not help. She denies sick contacts or recent traveling. According to patient daughter she was on Bumex but for some reason it was stopped. Patient also reported left shoulder pain that started 2 weeks ago after she received hepatitis shot at her clinic. Patient reported persistent pain nonradiating 8 out of 10 patient was unable to sleep because of pain upon evaluation pulse oximetry was 92% on room air no fevers. Laboratory workup revealed no leukocytosis hemoglobin 11.6 hematocrit 35.7 lately is 149. INR 1.9. Sodium 141 potassium 6.0 BUN 27 creatinine 1.6 glucose 101 lactic acid 1.0 total bilirubin 1.3 direct bilirubin 0.5 stable AST LFT troponin elevated 0.14 proBNP 4688 albumin 3.7. Urinalysis revealed no evidence of UTI EKG revealed atrial fibrillation with a controlled rate chest x-ray demonstrated right and possibly left pleural effusion. Left shoulder x-ray revealed no evidence of acute fracture or dislocation. In emergency department patient received nebulizing treatment with bronchodilator and loading dose of Solu-Medrol. Antibiotic started. Hyperkalemia was treated. 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 Machelle pulmonary Dr. Mckee ID specialist Dr. Campbell sales representative uniforms Dr. Pinto HOSPITAL COURSE: Patient admitted to telemetry floor. Pasting Machine Offbearer closely followed. Supplemental oxygen provided as needed to keep pulse oximetry above 90%. Pulmonary toilet provided with nebulizing therapy around the clock and as needed. Patient was started on intravenous steroids with gradual tapering down. Sputum culture was negative. Blood cultures were negative. Patient had trial of theophylline. Antitussive provided as needed Upon discharge patient transition to oral steroids to complete the course. Patient restarted on diuretic with close monitoring of volumes and cardiorenal parameters. Echocardiogram was done on previous admission in October 2018 , and at that time revealed ejection fraction of 45-50% with no evidence of left ventricular hypertrophy. Right ventricular systolic pressure of 96 consistent with severe pulmonary hypertension. Heart rate was controlled with beta-seng and Cardizem. Bogger Operator recommended to avoid beta-seng due to wheezing and uptitrated dose of Cardizem. Patient was continued on anticoagulation with Coumadin for cardioembolic prophylaxis due to permanent atrial fibrillation. Serial troponin showed minimal elevation. Pattern of troponin elevation was not suggestive of acute coronary syndrome. Elevated troponin was likely related to renal insufficiency as per plane tender. Lipid panel was stable statin was continued. Manager People followed. Creatinine was rising. Patient had acute tubular necrosis on chronic kidney disease due to diabetic nephropathy. Renal parameters and electrolytes were closely monitored. Electrolytes corrected as needed. Hemoglobin and hematocrit were closely monitored with goal to keep hemoglobin above 7. Stable B12 and folate. Hemoglobin and hematocrit remained at baseline. Prior to discharge hemoglobin 11 and hematocrit 32.8. Pain management was addressed, and pain was controlled. Bowel regimen instituted. GI prophylaxis provided. Initial shortness of breath was likely due to acute asthma exacerbation. Shortness of breath resolved. Pulse oximetry stable on room air. Patient clinically stabilized and was ready for discharge home. FINAL DIAGNOSES: Asthma exacerbation Acute bronchitis Permanent atrial fibrillation Left ventricular systolic dysfunction, mild Chronic congestive heart failure Acute tubular necrosis on chronic kidney disease Diabetic nephropathy Hyperkalemia-resolved Severe pulmonary hypertension Mitral regurgitation Tricuspid regurgitation Diabetes mellitus Abnormal cardiac enzymes , likely related to renal insufficiency Hypertension Left shoulder pain Coronary artery disease Anemia DISCHARGE MEDICATIONS: See Medication Reconciliation list. DISCHARGE INSTRUCTIONS: Patient was discharged home with home health services. Follow up with primary care provider in one week. I have been assigned to dictate discharge summary for this account. I was not involved in the patient's management. Leslee Miller NP Feb 09, 2019 10:41
== END 2019-02-06 18:11 | disposition home or self-care (01) | DRG 141 ==
LOC: EMR 08:10 → 2E 08:52 → EDBEDREQ 10:26 → 2E 15:52
DX: J45.901 Unspecified asthma with (acute) exacerbation (principal); N17.0 Acute kidney failure with tubular necrosis; I13.0 Hypertensive heart and chronic kidney disease with heart failure and stage 1 through stage 4 chronic kidney disease, or unspecified chronic kidney disease; I50.22 Chronic systolic (congestive) heart failure; E11.22 Type 2 diabetes mellitus with diabetic chronic kidney disease; N18.9 Chronic kidney disease, unspecified; I25.10 Atherosclerotic heart disease of native coronary artery without angina pectoris; I48.91 Unspecified atrial fibrillation; M25.512 Pain in left shoulder; J20.9 Acute bronchitis, unspecified; E87.5 Hyperkalemia; I27.20 Pulmonary hypertension, unspecified; I34.0 Nonrheumatic mitral (valve) insufficiency; I36.1 Nonrheumatic tricuspid (valve) insufficiency; D64.9 Anemia, unspecified; I48.2 Chronic atrial fibrillation; Z79.01 Long term (current) use of anticoagulants
CPT/HCPCS: 36415; 71045; 80048; 80053; 80061; 81003; 82248; 82550; 82553; 82607; 82728; 82746; 82977; 83036; 83540; 83550; 83605; 83735; 83880; 84100; 84443; 84484; 84550; 85025; 85610; 85651; 85730; 86140; 87040; 87070; 87205; 93005; 94640; 94664; 96365; 96375; 99285